=== PATIENT | male | born 1970 | race Caucasian/White ===

== ENCOUNTER → 2017-12-01 13:49 | Outpatient (CLI) | payer MEDICARE, SELFPAY ==
--- NOTE | 2017-12-01 14:03 | XR_ITS ---
XR knee RT 3V HISTORY: ITS.REASON: RT KNEE SHOULDER PAIN ORDERING PHYSICIAN: Tammy Bauer PATIENT AGE: 47 years COMPARISON: None FINDINGS: No fracture or dislocation. No lytic or blastic change. Normal mineralization. Minimal osteoarthritic changes involving medial compartment with slight decrease in the joint space and minimal osteophyte formation. No other significant findings IMPRESSION: Minimal osteoarthritic change of the medial compartment otherwise negative right knee
--- NOTE | 2017-12-01 14:03 | XR_ITS ---
XR shoulder RT min 2V HISTORY: Right shoulder pain ITS.REASON: RT KNEE SHOULDER PAIN ORDERING PHYSICIAN: Tammy Bauer PATIENT AGE: 47 years COMPARISON: None FINDINGS: Mild osteoarthritic changes are present at the acromioclavicular joint. No significant subacromial stenosis. Unremarkable glenohumeral joint. IMPRESSION: Mild osteoarthritis of the acromioclavicular joint otherwise negative right shoulder
== END ==
PROVIDERS: PCP Nurse Practitioner Family; Visit Provider Nurse Practitioner Family
DX: M23.51 Chronic instability of knee, right knee (principal); M25.511 Pain in right shoulder
CPT/HCPCS: 73030; 73562

== ENCOUNTER → 2017-12-16 10:13 | Outpatient (CLI) | payer MEDICARE, SELFPAY ==
--- NOTE | 2017-12-16 10:17 | MR_ITS ---
MR knee RT wo con HISTORY: Constant right knee pain with instability and limited range of motion ITS.REASON: RECURRENT RIGHT KNEE INSTABILITY ORDERING PHYSICIAN: Tammy Bauer PATIENT AGE: 47 years COMPARISON: 12/01/2017 xray TECHNIQUE: Standard multiplanar multiecho sequences are performed without contrast. FINDINGS: Cruciate ligaments, collateral ligaments, patellar tendon, and quadriceps tendon are intact. No evidence of meniscal tear. The patellar cartilage is preserved. There is heterogeneous signal intensity involving the distal shaft of the femur evident somewhat serpiginous pattern consistent with a bone infarction. This area measures 2.6 x 0.9 cm. There is slight increased T2 signal involving the posterior aspect of the patella centrally nonspecific. There is a small knee joint effusion. Abnormal signal intensity is present involving the proximal aspect of the tibia medially isointense on T1 and hyperintense on T2 measuring 1.2 x 1 cm. This is associated with some minimal cortical regularity of the medial tibial plateau. This could represent complex subcortical cyst. An area of osteonecrosis is also considered. Some of this region is well-circumscribed anteriorly but ill-defined posteriorly. Follow-up is recommended to confirm stability. IMPRESSION: 1. No evidence of internal derangement. 2. Small knee joint effusion. 3. Abnormal signal intensity of the proximal tibia medially as described above which could represent either a subcortical cyst or an area of osteonecrosis. Recommend continued follow-up to confirm stability. There is some minimal cortical irregularity of the articular surface of the tibia at this region as well.
--- NOTE | 2017-12-16 10:17 | MR_ITS ---
MR shoulder RT wo con COMPARISON: Radiograph 12/01/2017 HISTORY: Right shoulder pain. Instability, limited range of motion, weakness in arm ORDERING PHYSICIAN: Tammy Bauer PATIENT AGE: 47 years TECHNIQUE: Multiplanar multiecho sequences are performed without contrast. FINDINGS: There is thickening of the supraspinatus tendon with increased T2 signal distally consistent with tendinopathy/tendinosis. No definite tear of the supraspinatus or infraspinatus tendons. Subscapularis tendon is also thickened with increased T2 signal consistent with tendinopathy/tendinosis. Teres minor tendon has an unremarkable appearance. No obvious labral tear. The bicipital tendon is in place. There are hypertrophic changes of the acromioclavicular joint is causing some mild impingement upon the musculotendinous junction of the supraspinatus. IMPRESSION: 1. Acromioclavicular arthropathy with impingement upon the musculotendinous junction of the supraspinatus. 2. Tendinopathy/tendinosis of the supraspinatus and subscapularis tendons. 3. No obvious tear of the rotator cuff.
== END ==
PROVIDERS: PCP Nurse Practitioner Family; Visit Provider Nurse Practitioner Family
DX: M25.511 Pain in right shoulder (principal); M25.311 Other instability, right shoulder; M23.51 Chronic instability of knee, right knee
CPT/HCPCS: 73221; 73721

== ENCOUNTER → 2018-01-15 11:43 | Outpatient (CLI) | payer MEDICARE, SELFPAY ==
--- NOTE | 2018-01-15 | XR_ITS ---
EXAM: XR lumbar spine min 4V HISTORY: Low back pain ITS.REASON: LUMBAGO WITH SCIATICA,LEFT SIDE ORDERING PHYSICIAN: Tammy Bauer PATIENT AGE: 47 years FINDINGS: Normal alignment. No fracture or dislocation. No lytic or blastic change. Degenerative disc disease is present at L5-S1. Incidental abdominal aortic calcification noted IMPRESSION: Degenerative disc disease L5-S1
--- NOTE | 2018-01-15 | XR_ITS ---
XR hand RT min 3V HISTORY: Posttraumatic pain ITS.REASON: INJURY, INITIAL ENCOUNTER ORDERING PHYSICIAN: Tammy Bauer PATIENT AGE: 47 years COMPARISON: FINDINGS: No fracture or dislocation. No lytic or blastic change. There is normal mineralization.. The joint spaces are well-preserved. No significant degenerative/arthritic changes. No erosive changes evident.. IMPRESSION: Negative, no acute finding
== END ==
PROVIDERS: PCP Nurse Practitioner Family; Visit Provider Nurse Practitioner Family
DX: M54.42 Lumbago with sciatica, left side (principal); G89.29 Other chronic pain; S69.91XA Unspecified injury of right wrist, hand and finger(s), initial encounter
CPT/HCPCS: 72110; 73130

== ENCOUNTER → 2018-01-22 14:24 | Outpatient (CLI) | payer MEDICARE, SELFPAY ==
[2018-01-22 14:59] LABS: Basophils % 0.3 % (0.1-2.0); Eosinophils # 0.1 K/mm3 (0.0-0.4); Eosinophils % 1.4 % (0.1-12.0); Hematocrit 44.8 % (42.0-52.0); Lymphocytes # 2.5 K/mm3 (0.7-4.5); Lymphocytes % 26.1 K/mm3 (10-50); Mean Corpuscular HGB Conc 33.5 g/dL (31.8-35.4); Mean Corpuscular Volume 86.6 fl (80-94); Mean Platelet Volume 7.5 fl (7.4-10.4); Monocytes # 0.6 K/mm3 (0.1-1.0); Monocytes % 6.1 % (1.7-9.3); Neutrophils # 6.4 K/mm3 (1.8-7.8); Neutrophils % 66.1 % (37.0-80.0); Platelet Count 262 K/mm3 (142-424); Red Blood Count 5.17 M/mm3 (4.60-6.20); Red Cell Distribution Width 13.2 % (11.5-17.5); White Blood Count 9.6 K/mm3 (4.8-10.8)
[2018-01-22 16:15] LABS: Alanine Aminotransferase 25 U/L (12-78); Albumin Level 3.6 gm/dL (3.4-5.0); Albumin/Globulin Ratio 1.2 (1.1-1.8); Alkaline Phosphatase 90 U/L (46-116); Anion Gap 15.7 mEq/L (5-15); Aspartate Amino Transferase 17 U/L (15-37); Bilirubin,Total 0.4 mg/dL (0.2-1.0); Blood Urea Nitrogen 9 mg/dL (7-18); Calcium 9.1 mg/dL (8.5-10.1); Carbon Dioxide 24 mmol/L (21.0-32.0); Chloride 103 mmol/L (98-107); Creatinine,Serum 1.27 mg/dL (0.70-1.30); Estimated Glomerular Filt Rate 61 ml/min (>60); GFR (African American) 74 ML/MIN (>60); Globulin 3.1 gm/dl (1.3-3.2); Glucose 167 mg/dL (74-106); Potassium 3.7 mmoL/L (3.5-5.1); Sodium 139 mmol/L (136-145); Total Protein,Serum 6.7 gm/dL (6.4-8.2)
== END ==
PROVIDERS: Physician Assistant; Visit Provider Internal Medicine Gastroenterology
DX: K50.80 Crohn's disease of both small and large intestine without complications (principal); R10.9 Unspecified abdominal pain
CPT/HCPCS: 36415; 80053; 85025

== ENCOUNTER → 2018-03-05 12:34 | Outpatient (CLI) | payer MEDICARE, SELFPAY ==
--- NOTE | 2018-03-05 12:47 | XR_ITS ---
XR elbow RT min 3V HISTORY: Pain ORDERING PHYSICIAN: Tammy Bauer PATIENT AGE: 47 years COMPARISON: None FINDINGS: BONY STRUCTURES: No fracture or dislocation. No lytic or blastic change. Normal mineralization. SOFT TISSUES: Unremarkable. No radio opaque foreign bodies. No displaced fat pad. JOINT SPACE: Well-preserved. No significant arthritic changes evident. IMPRESSION: Negative elbow.
--- NOTE | 2018-03-05 12:47 | XR_ITS ---
XR forearm RT 2V HISTORY: Right arm pain ORDERING PHYSICIAN: Tammy Bauer PATIENT AGE: 47 years COMPARISON: None FINDINGS: No obvious fracture, dislocation, lytic change or blastic change. Normal mineralization. Unremarkable soft tissues IMPRESSION: Negative forearm
== END ==
PROVIDERS: PCP Nurse Practitioner Family; Visit Provider Nurse Practitioner Family
DX: S59.901A Unspecified injury of right elbow, initial encounter (principal); S59.911A Unspecified injury of right forearm, initial encounter
CPT/HCPCS: 73080; 73090

== ENCOUNTER → 2018-06-01 10:53 | Outpatient (POV) | payer MEDICARE, SELFPAY ==
[2018-06-01 11:12] VITALS: BP 157/98; PULSE 90; RESP 18; O2SAT 98
--- NOTE | 2018-06-01 11:51 | HMH.PMCON ---
Assessment and Plan (1) Degenerative disc disease Current visit: Yes Status: Chronic Qualifiers: Spinal region: lumbar Qualified Code(s): M51.36 - Other intervertebral disc degeneration, lumbar region Category: Medical - Assessment and plan all Dx Assessment and Plan for all problems:: We will schedule an MRI to distinguish pathology. After reviewing his MRI we will discuss the plan of care. This note was dictated using voice recognition software and may contain errors or omissions HPI - Data of Consult Consult date: 06/01/18 Requesting Physician: Yamilet Poole APRN Primary Care Provider: Tammy Bauer APRN - Consult Narrative Reason for consult: Back pain History of present illness: Mr. Moulton is a 47 year old male presents today for consultation in regards to his low back pain. Patient has had back pain he states since he was about 18 years old. He rates his pain today a 6 out of 10. Patient has had a lot of left-sided sciatica as well. Patient has tried and failed physical therapy along with injections in the past. Patient also has a significant abdominal history with a history of Crohn's disease and bowel resection. Patient states most of his pain is achy he also has numbness and tingling in his bilateral feet which he takes gabapentin and Lyrica for her mother neurologist. Patient has tried medication management in the past including methadone, morphine, Lortab, Ultracet. Patient has weaned himself off of these medications. Patient does not have any recent MRI imaging. CC: Yamilet Poole APRN [facility] History I have reviewed the patient's past medical history: Yes Medical History: Reports:: Gastroesophageal Reflux Disease(GERD) Denies:: Cancer, Diabetes Mellitus Type 1, Diabetes Mellitus Type 2, Internal Pacemaker, Lung Disease, MRSA, Seizures Other Medical History: Reports: Arthritis, Other (smoker) Other Surgeries: Yes: Colon Resection, Hernia Repair. No: Pacemaker Amputation: No Fractures: No - *Social History Smoking Status: Current every day smoker Tobacco Type: cigarettes # Packs/Day (cigarettes): 1 #Yrs smoked (if former smoker): 32 Alcohol Intake: never Substance Use Type: denies use Occupational Status: other Housing: house - Psychiatric History Expresses thoughts of harming self/others: None Suicide Plan Description: No Plan *Family Hx:: Cancer, Diabetes Review of Systems - Review of Systems ROS General: no recent weight change, no fever, no sleep disturbances Respiratory: no cough, no shortness of air, no recurring pulmonary infections Cardiovascular/Peripheral Vascular: No chest pain, No palpitations, no edema, no shortness of breath. Gastrointestinal: no incontinence, normal bowel movements reported Genitourinary: no incontinence Musculoskeletal: Back pain, left leg pain Psychiatric: normal mood/ affect Neurological: [denies weakness in extremities], [denies balance issues] Meds Home Medications Medication Instructions Recorded Confirmed Type adalimumab 10 mg/0.2 mL 40 mg SUB-Q Q2W 01/14/18 03/22/18 History subcutaneous syringe kit esomeprazole magnesium 40 mg 40 mg PO ONCE 01/14/18 03/22/18 History capsule,delayed release gabapentin 600 mg tablet 1,200 mg PO TID 01/14/18 03/22/18 History pregabalin 150 mg capsule 150 mg PO BID 01/14/18 03/22/18 History vitamin B complex tablet 1 tab PO ONCE 01/14/18 03/22/18 History Allergies Allergy/AdvReac Type Severity Reaction Status Date / Time Sulfa (Sulfonamide Allergy Mild Nausea Verified 03/14/18 22:59 Antibiotics) tetracycline Allergy Unknown Verified 03/14/18 22:59 Objective Vital signs: Pulse Resp BP Pulse Ox 90 18 157/98 98 06/01/18 11:12 06/01/18 11:12 06/01/18 11:12 06/01/18 11:12 Narrative: Physical Exam General: Alert and oriented x3, no acute distress, pleasant and cooperative, [on room air] Lungs: Resps E/U, Symmetrical ch
--- NOTE | 2018-06-01 11:55 | P.CONS_ITS ---
Assessment and Plan (1) Degenerative disc disease Current visit: Yes Status: Chronic Qualifiers: Spinal region: lumbar Qualified Code(s): M51.36 - Other intervertebral disc degeneration, lumbar region Category: Medical - Assessment and plan all Dx Assessment and Plan for all problems:: We will schedule an MRI to distinguish pathology. After reviewing his MRI we will discuss the plan of care. This note was dictated using voice recognition software and may contain errors or omissions HPI - Data of Consult Consult date: 06/01/18 Requesting Physician: Yamilet Poole APRN Primary Care Provider: Tammy Bauer APRN - Consult Narrative Reason for consult: Back pain History of present illness: Mr. Moulton is a 47 year old male presents today for consultation in regards to his low back pain. Patient has had back pain he states since he was about 18 years old. He rates his pain today a 6 out of 10. Patient has had a lot of left-sided sciatica as well. Patient has tried and failed physical therapy along with injections in the past. Patient also has a significant abdominal history with a history of Crohn's disease and bowel resection. Patient states most of his pain is achy he also has numbness and tingling in his bilateral feet which he takes gabapentin and Lyrica for her mother neurologist. Patient has tried medication management in the past including methadone, morphine, Lortab, Ultracet. Patient has weaned himself off of these medications. Patient does not have any recent MRI imaging. CC: Yamilet Poole APRN [facility] History I have reviewed the patient's past medical history: Yes Medical History: Reports:: Gastroesophageal Reflux Disease(GERD) Denies:: Cancer, Diabetes Mellitus Type 1, Diabetes Mellitus Type 2, Internal Pacemaker, Lung Disease, MRSA, Seizures Other Medical History: Reports: Arthritis, Other (smoker) Other Surgeries: Yes: Colon Resection, Hernia Repair. No: Pacemaker Amputation: No Fractures: No - *Social History Smoking Status: Current every day smoker Tobacco Type: cigarettes # Packs/Day (cigarettes): 1 #Yrs smoked (if former smoker): 32 Alcohol Intake: never Substance Use Type: denies use Occupational Status: other Housing: house - Psychiatric History Expresses thoughts of harming self/others: None Suicide Plan Description: No Plan *Family Hx:: Cancer, Diabetes Review of Systems - Review of Systems ROS General: no recent weight change, no fever, no sleep disturbances Respiratory: no cough, no shortness of air, no recurring pulmonary infections Cardiovascular/Peripheral Vascular: No chest pain, No palpitations, no edema, no shortness of breath. Gastrointestinal: no incontinence, normal bowel movements reported Genitourinary: no incontinence Musculoskeletal: Back pain, left leg pain Psychiatric: normal mood/ affect Neurological: [denies weakness in extremities], [denies balance issues] Meds Home Medications Medication Instructions Recorded Confirmed Type adalimumab 10 mg/0.2 mL 40 mg SUB-Q Q2W 01/14/18 03/22/18 History subcutaneous syringe kit esomeprazole magnesium 40 mg 40 mg PO ONCE 01/14/18 03/22/18 History capsule,delayed release gabapentin 600 mg tablet 1,200 mg PO TID 01/14/18 03/22/18 History pregabalin 150 mg capsule 150 mg PO BID 01/14/18 03/22/18 History vitamin B complex tablet 1 tab PO ONCE 01/14/18 03/22/18 History
== END ==
PROVIDERS: PCP Nurse Practitioner Family; Visit Provider Clinical Nurse Specialist Family Health
DX: M51.36 Other intervertebral disc degeneration, lumbar region (principal)
CPT/HCPCS: 99202

== ENCOUNTER → 2018-06-09 07:54 | Outpatient (CLI) | payer MEDICARE, SELFPAY ==
--- NOTE | 2018-06-09 08:01 | MR_ITS ---
MR lumbar spine wo con, MR 3-d myelogram/MRCP HISTORY: LT sided LBP. Intermittent RT leg numbness. . ITS.REASON: BACK PAIN ORDERING PHYSICIAN: Yamilet Poole PATIENT AGE: 47 years Comparison: X-Ray 01-15-18 TECHNIQUE: Standard multiplanar multiecho sequences are performed without contrast. 3-D MIP and myelographic images are also rendered and reviewed FINDINGS: There is normal alignment. The spinal cord ends at the L1 level. T12-L1, L1-L2, L2-L3, L3-L4, and L4-L5 have an unremarkable appearance. L5-S1: There is degenerative disc disease with mild concentric bulging disc. There is a small right paracentral disc protrusion which abuts the anteromedial aspect of the right S1 nerve root. A small annular fissure is present within the disc posteriorly. There are type II endplate changes at this region No extruded herniated disc or canal stenosis. IMPRESSION: Degenerative disc disease L5-S1 with bulging disc along with a small right paracentral disc protrusion and small posterior annular fissure of the disc. No extruded herniated disc or canal stenosis
== END ==
PROVIDERS: PCP Nurse Practitioner Family; Visit Provider Clinical Nurse Specialist Family Health
DX: M54.5 Low back pain (principal)
CPT/HCPCS: 72148; 76376

== ENCOUNTER → 2018-06-21 13:42 | Outpatient (POV) | payer MEDICARE, SELFPAY ==
[2018-06-21 14:33] VITALS: BP 168/98; PULSE 94; RESP 18; O2SAT 97; BMI 29.2
--- NOTE | 2018-06-22 08:41 | HMH.PAINSOAP ---
[facility] Pain Management SOAP Note Subjective:: Patient is a pleasant 47-year-old white male who presents today for follow-up after recent MRI. Patient's MRI does show degenerative disc disease along with a disc protrusion abutting the right S1 nerve root. Patient and I had a long discussion about treatment options. Patient has had medication management in the plastic including methadone/morphine/Lortab/Ultracet. Patient has been able to wean himself off these medications. Patient and I discussed neuro stimulation along with a neurosurgical consultation. ROS General: no recent weight change, no fever, no sleep disturbances Respiratory: no cough, no shortness of air, no recurring pulmonary infections Cardiovascular/Peripheral Vascular: No chest pain, No palpitations, no edema, no shortness of breath. Gastrointestinal: no incontinence, normal bowel movements reported Genitourinary: no incontinence Musculoskeletal: Back pain, leg pain Psychiatric: normal mood/ affect Neurological: [denies weakness in extremities], [denies balance issues] Objective:: Physical Exam General: Alert and oriented x3, no acute distress, pleasant and cooperative, [on room air] Lungs: Resps E/U, Symmetrical chest expansion, Eyes: PERRL Musculoskeletal: Flexion and extension of lumbar spine somewhat guarded secondary to pain, deep tendon reflexes normal, strength in upper and lower extremities [5/5], [abnormal gait noted] Neurological: speech clear, field recruiter equal, no gross sensory deficits Assessment:: Degenerative disc disease lumbar spine with lumbar radiculopathy Plan:: I gave the patient information in regards to her neurostimulator. Patient is interested in perhaps pursuing this. We will also send him for a consultation to Dr. Woodward to see if he is a surgical candidate. I will follow-up with him after his neurosurgical consultation. This note was dictated using voice recognition software and may contain errors or omissions
== END ==
PROVIDERS: PCP Nurse Practitioner Family; Visit Provider Clinical Nurse Specialist Family Health
DX: M51.16 Intervertebral disc disorders with radiculopathy, lumbar region (principal)
CPT/HCPCS: 99213

== ENCOUNTER → 2018-07-06 15:34 | Outpatient (CLI) | payer MEDICARE, SELFPAY ==
[2018-07-23 19:58] LABS: Interpretation: NEGATIVE
== END ==
PROVIDERS: PCP Nurse Practitioner Family; Visit Provider Internal Medicine Gastroenterology
DX: K50.80 Crohn's disease of both small and large intestine without complications (principal)
CPT/HCPCS: 36415; 86480

== ENCOUNTER → 2018-07-26 11:13 | Outpatient (POV) | payer MEDICARE, SELFPAY ==
[2018-07-26 11:24] VITALS: BP 146/101; PULSE 99; RESP 18; O2SAT 98; BMI 29.5
--- NOTE | 2018-07-26 11:35 | HMH.PAINSOAP ---
[facility] Pain Management SOAP Note Subjective:: Patient is a pleasant 47-year-old white male who presents today for follow-up. Patient is awaiting a neurosurgical consultation. Patient states he has been having increased right leg pain and back pain. Patient has tried multiple medications including methadone/morphine/Lortab/Ultracet. Patient and I discussed what he can do in the meantime while he is waiting. Patient is not on any anti-inflammatories. We will try this. He rates his pain 8 out of 10 today. ROS General: no recent weight change, no fever, no sleep disturbances Respiratory: no cough, no shortness of air, no recurring pulmonary infections Cardiovascular/Peripheral Vascular: No chest pain, No palpitations, no edema, no shortness of breath. Gastrointestinal: no incontinence, normal bowel movements reported Genitourinary: no incontinence Musculoskeletal: Back pain, right leg pain Psychiatric: normal mood/ affect Neurological: [denies weakness in extremities], [denies balance issues] Objective:: Physical Exam General: Alert and oriented x3, no acute distress, pleasant and cooperative, [on room air] Lungs: Resps E/U, Symmetrical chest expansion, Eyes: PERRL Musculoskeletal: Flexion and extension of lumbar spine somewhat guarded secondary to pain, deep tendon reflexes normal, strength in upper and lower extremities [5/5], [abnormal gait noted] Neurological: speech clear, carbon capture power plant engineer equal, no gross sensory deficits Assessment:: Degenerative disc disease lumbar spine with lumbar radiculopathy Plan:: We will give the patient Celebrex 200 mg 1 p.o. daily and see if this helps him. We will see him back in 2 weeks and reassess his symptoms at that time. This note was dictated using voice recognition software and may contain errors or omissions
--- NOTE | 2018-07-26 11:38 | P.CONS_ITS ---
[facility] Pain Management SOAP Note Subjective:: Patient is a pleasant 47-year-old white male who presents today for follow-up. Patient is awaiting a neurosurgical consultation. Patient states he has been having increased right leg pain and back pain. Patient has tried multiple medications including methadone/morphine/Lortab/Ultracet. Patient and I discussed what he can do in the meantime while he is waiting. Patient is not on any anti-inflammatories. We will try this. He rates his pain 8 out of 10 today. ROS General: no recent weight change, no fever, no sleep disturbances Respiratory: no cough, no shortness of air, no recurring pulmonary infections Cardiovascular/Peripheral Vascular: No chest pain, No palpitations, no edema, no shortness of breath. Gastrointestinal: no incontinence, normal bowel movements reported Genitourinary: no incontinence Musculoskeletal: Back pain, right leg pain Psychiatric: normal mood/ affect Neurological: [denies weakness in extremities], [denies balance issues] Objective:: Physical Exam General: Alert and oriented x3, no acute distress, pleasant and cooperative, [on room air] Lungs: Resps E/U, Symmetrical chest expansion, Eyes: PERRL Musculoskeletal: Flexion and extension of lumbar spine somewhat guarded secondary to pain, deep tendon reflexes normal, strength in upper and lower extremities [5/5], [abnormal gait noted] Neurological: speech clear, junior oracle dba equal, no gross sensory deficits Assessment:: Degenerative disc disease lumbar spine with lumbar radiculopathy Plan:: We will give the patient Celebrex 200 mg 1 p.o. daily and see if this helps him. We will see him back in 2 weeks and reassess his symptoms at that time. This note was dictated using voice recognition software and may contain errors or omissions
== END ==
PROVIDERS: PCP Nurse Practitioner Family; Visit Provider Clinical Nurse Specialist Family Health
DX: M51.16 Intervertebral disc disorders with radiculopathy, lumbar region (principal)
CPT/HCPCS: 99213

== ENCOUNTER → 2018-08-09 11:45 | Outpatient (POV) | payer MEDICARE, SELFPAY ==
[2018-08-09 12:09] VITALS: BP 142/91; PULSE 89; RESP 18; O2SAT 98; BMI 29.5
--- NOTE | 2018-08-09 12:48 | HMH.PAINSOAP ---
[facility] Pain Management SOAP Note Subjective:: Is a pleasant 47-year-old white male who presents today for follow-up. Patient has been on Celebrex 200 mg 1 p.o. daily. Patient states it is not helping his back pain. He rates his pain 8 out of 10. Patient does have a consultation with a neurosurgeon on the of this month. He has back pain with increased right leg pain. I tried multiple medications including methadone/morphine/Lortab/Ultracet. At this time I believe that he needs to have a surgical consult before we can proceed with any therapies. ROS General: no recent weight change, no fever, no sleep disturbances Respiratory: no cough, no shortness of air, no recurring pulmonary infections Cardiovascular/Peripheral Vascular: No chest pain, No palpitations, no edema, no shortness of breath. Gastrointestinal: no incontinence, normal bowel movements reported Genitourinary: no incontinence Musculoskeletal: Back pain, leg pain Psychiatric: normal mood/ affect Neurological: [denies weakness in extremities], [denies balance issues] Objective:: Physical Exam General: Alert and oriented x3, no acute distress, pleasant and cooperative, [on room air] Lungs: Resps E/U, Symmetrical chest expansion, Eyes: PERRL Musculoskeletal: Flexion and extension of lumbar spine somewhat guarded secondary to pain, deep tendon reflexes normal, strength in upper and lower extremities [5/5], antalgic gait noted Neurological: speech clear, cement tester assistant equal, no gross sensory deficits Assessment:: Degenerative disc disease lumbar spine with radiculopathy Plan:: The patient has an appointment with neurosurgery on the of this month. I will follow-up with him after this. This note was dictated using voice recognition software and may contain errors or omissions
--- NOTE | 2018-08-09 12:53 | P.CONS_ITS ---
[facility] Pain Management SOAP Note Subjective:: Is a pleasant 47-year-old white male who presents today for follow-up. Patient has been on Celebrex 200 mg 1 p.o. daily. Patient states it is not helping his back pain. He rates his pain 8 out of 10. Patient does have a consultation with a neurosurgeon on the of this month. He has back pain with increased right leg pain. I tried multiple medications including methadone/morphine/Lortab/Ultracet. At this time I believe that he needs to have a surgical consult before we can proceed with any therapies. ROS General: no recent weight change, no fever, no sleep disturbances Respiratory: no cough, no shortness of air, no recurring pulmonary infections Cardiovascular/Peripheral Vascular: No chest pain, No palpitations, no edema, no shortness of breath. Gastrointestinal: no incontinence, normal bowel movements reported Genitourinary: no incontinence Musculoskeletal: Back pain, leg pain Psychiatric: normal mood/ affect Neurological: [denies weakness in extremities], [denies balance issues] Objective:: Physical Exam General: Alert and oriented x3, no acute distress, pleasant and cooperative, [on room air] Lungs: Resps E/U, Symmetrical chest expansion, Eyes: PERRL Musculoskeletal: Flexion and extension of lumbar spine somewhat guarded seco ndary to pain, deep tendon reflexes normal, strength in upper and lower extremities [5/5], antalgic gait noted Neurological: speech clear, control systems developer equal, no gross sensory deficits Assessment:: Degenerative disc disease lumbar spine with radiculopathy Plan:: The patient has an appointment with neurosurgery on the of this month. I will follow-up with him after this. This note was dictated using voice recognition software and may contain errors or omissions
== END ==
PROVIDERS: PCP Nurse Practitioner Family; Visit Provider Clinical Nurse Specialist Family Health
DX: M51.16 Intervertebral disc disorders with radiculopathy, lumbar region (principal)
CPT/HCPCS: 99213

== ENCOUNTER → 2018-08-12 12:07 | Outpatient (CLI) | payer MEDICARE, SELFPAY ==
--- NOTE | 2018-08-12 12:14 | XR_ITS ---
EXAM: XR cervical spine 5V HISTORY: ITS.REASON: CERVICALGIA, NECK SWELLING ORDERING PHYSICIAN: Tammy Bauer PATIENT AGE: 47 years COMPARISON: None FINDINGS: Normal alignment. No fracture or dislocation. No lytic or blastic change. No significant degenerative change. The disc spaces are preserved. The neural foramina are widely patent. No cervical ribs IMPRESSION: Negative cervical spine
== END ==
PROVIDERS: PCP Nurse Practitioner Family; Visit Provider Nurse Practitioner Family
DX: M54.2 Cervicalgia (principal); R22.1 Localized swelling, mass and lump, neck
CPT/HCPCS: 72050

== ENCOUNTER → 2018-08-30 09:37 | Outpatient (POV) | payer MEDICARE, SELFPAY ==
[2018-08-30 10:08] VITALS: BP 133/92; PULSE 72; RESP 18; O2SAT 98; BMI 30.8
--- NOTE | 2018-08-30 10:30 | P.CONS_ITS ---
[facility] Pain Management SOAP Note Subjective:: Is a pleasant 48-year-old white male who presents today for follow-up. Patient was seen by Dr. Woodward and was deemed not a surgical candidate. Patient still having neck and back pain. He rates his pain at 8 out of 10. Patient has tried and failed medications in the past including methadone, morphine, Lortab, Ultracet. Patient and I have discussed in neurostimulator and he is interested in pursuing this. Patient has had injective therapy with no relief. Patient's not on any anti-coagulation therapy. Patient is continuing a home stretching program. Patient just wants to be as functional as possible. ROS General: no recent weight change, no fever, no sleep disturbances Respiratory: no cough, no shortness of air, no recurring pulmonary infections Cardiovascular/Peripheral Vascular: No chest pain, No palpitations, no edema, no shortness of breath. Gastrointestinal: no incontinence, normal bowel movements reported Genitourinary: no incontinence Musculoskeletal: Back pain, leg pain, neck pain, arm pain Psychiatric: normal mood/ affect Neurological: [denies weakness in extremities], [denies balance issues] Objective:: Physical Exam General: Alert and oriented x3, no acute distress, pleasant and cooperative, [on room air] Lungs: Resps E/U, Symmetrical chest expansion, Eyes: PERRL Musculoskeletal: Flexion and extension of cervical and lumbar spine somewhat guarded secondary to pain, deep tendon reflexes normal, strength in upper and lower extremities [5/5], [abnormal gait noted] Neurological: speech clear, store receiving specialist equal, no gross sensory deficits Assessment:: Degenerative disc disease lumbar spine with lumbar radiculopathy and degenerative disc disease cervical spine with cervical radiculopathy Plan:: We will schedule him for a nuvectra neurostimulator trial to see if this is beneficial for him. I answered his questions. I went over the process with him. Patient does not have any open wounds or active infections. This note was dictated using voice recognition software and may contain errors or omissions
== END ==
PROVIDERS: PCP Nurse Practitioner Family; Visit Provider Clinical Nurse Specialist Family Health
DX: M51.16 Intervertebral disc disorders with radiculopathy, lumbar region (principal); M50.10 Cervical disc disorder with radiculopathy, unspecified cervical region
CPT/HCPCS: 99213

== ENCOUNTER → 2018-09-22 15:38 | Outpatient (CLI) | payer MEDICARE, SELFPAY ==
--- NOTE | 2018-09-22 15:46 | XR_ITS ---
XR elbow LT min 3V HISTORY: ITS.REASON: LEFT ELBOW PAIN,LEFT ARM WEAKNESS ORDERING PHYSICIAN: Tammy Bauer PATIENT AGE: 48 years COMPARISON: None FINDINGS: BONY STRUCTURES: No fracture or dislocation. No lytic or blastic change. Normal mineralization. SOFT TISSUES: Unremarkable. No radio opaque foreign bodies. No displaced fat pad. JOINT SPACE: Well-preserved. No significant arthritic changes evident. IMPRESSION: Negative elbow.
== END ==
PROVIDERS: PCP Nurse Practitioner Family; Visit Provider Nurse Practitioner Family
DX: M25.522 Pain in left elbow (principal); R29.898 Other symptoms and signs involving the musculoskeletal system
CPT/HCPCS: 73080

== ENCOUNTER → 2018-11-09 14:43 | Outpatient (CLI) | payer MEDICARE, SELFPAY ==
[2018-11-09 15:08] LABS: Basophils % 0.5 % (0.1-2.0); Eosinophils # 0.1 K/mm3 (0.0-0.4); Eosinophils % 1.5 % (0.1-12.0); Hematocrit 48.4 % (42.0-52.0); Hemoglobin 16.1 g/dL (14.1-18.0); Lymphocytes # 2.2 K/mm3 (0.7-4.5); Lymphocytes % 29.8 % (10-50); Mean Corpuscular HGB Conc 33.3 g/dL (31.8-35.4); Mean Corpuscular Hemoglobin 28.9 pg (27.0-31.2); Mean Corpuscular Volume 86.9 fl (80-94); Mean Platelet Volume 7.3 fl (7.4-10.4); Monocytes # 0.3 K/mm3 (0.1-1.0); Neutrophils # 4.8 K/mm3 (1.8-7.8); Neutrophils % 64.3 % (37.0-80.0); Platelet Count 297 K/mm3 (142-424); Red Blood Count 5.57 M/mm3 (4.60-6.20); Red Cell Distribution Width 13.9 % (11.5-17.5); White Blood Count 7.4 K/mm3 (4.8-10.8)
[2018-11-09 15:56] LABS: Alanine Aminotransferase 43 U/L (12-78); Albumin/Globulin Ratio 1.1 (1.1-1.8); Alkaline Phosphatase 96 U/L (46-116); Anion Gap 11.2 mEq/L (5-15); Aspartate Amino Transferase 17 U/L (15-37); Bilirubin,Total 0.7 mg/dL (0.2-1.0); Blood Urea Nitrogen 11 mg/dL (7-18); Calcium 9.3 mg/dL (8.5-10.1); Carbon Dioxide 31 mmol/L (21.0-32.0); Chloride 103 mmol/L (98-107); Creatinine,Serum 1.27 mg/dL (0.70-1.30); Estimated Glomerular Filt Rate 61 ml/min (>60); GFR (African American) 74 ML/MIN (>60); Globulin 3.8 gm/dl (1.3-3.2); Glucose 97 mg/dL (74-106); Potassium 4.2 mmoL/L (3.5-5.1); Sodium 141 mmol/L (136-145); Total Protein,Serum 7.8 gm/dL (6.4-8.2)
== END ==
PROVIDERS: Visit Provider Dietitian, Registered
DX: K50.80 Crohn's disease of both small and large intestine without complications (principal)
CPT/HCPCS: 36415; 80053; 85025

== ENCOUNTER → 2019-03-04 13:48 | Outpatient (CLI) | payer MEDICARE, SELFPAY ==
--- NOTE | 2019-03-04 13:58 | XR_ITS ---
XR finger LT min 2V CLINICAL INDICATION: ITS.REASON: LT RING FINGER INJURY ORDERING PHYSICIAN: Tammy Bauer APRN PATIENT AGE: 48 years Comparison: None FINDINGS: Bone density, joint spaces and alignment are normal. There is no acute fracture. There is some increased density mild prominence of the soft tissues at the distal left fourth digit especially anteriorly without radiopaque soft tissue foreign body. IMPRESSION: No acute osseous process. Soft tissue injury.
== END ==
PROVIDERS: PCP Nurse Practitioner Family; Visit Provider Nurse Practitioner Family
DX: S69.92XA Unspecified injury of left wrist, hand and finger(s), initial encounter (principal)
CPT/HCPCS: 73140

== ENCOUNTER → 2019-04-25 16:25 | Outpatient (CLI) | payer MEDICARE, SELFPAY ==
--- NOTE | 2019-04-25 16:31 | XR_ITS ---
PROCEDURE: XR LUMBAR SPINE MIN 4V CLINICAL INDICATION: INJURY LOW BACK,NUMBNESS OF RT LOWER EXTREMITY COMPARISON: [id number] XR lumbar spine min 4V from 01/15/[address] abdomen pelvis w con from 11/28/2018 FINDINGS: Normal alignment. No fracture or dislocation. There degenerative disc disease at L5-S1. IMPRESSION: Degenerative disc disease L5-S1 Dictated by: Ye Bailey MD 04/25/2019 19:17 Signed by: <Electronically signed by Ye Bailey MD in [place]> 04/25/2019 19:17
== END ==
PROVIDERS: PCP Nurse Practitioner Family; Visit Provider Nurse Practitioner Family
DX: S39.92XA Unspecified injury of lower back, initial encounter (principal); R20.0 Anesthesia of skin
CPT/HCPCS: 72110

== ENCOUNTER → 2019-07-12 10:20 | Outpatient (CLI) | payer MEDICARE, SELFPAY ==
--- NOTE | 2019-07-12 11:01 | XR_ITS ---
PROCEDURE: XR THORACIC SPINE 3V CLINICAL INDICATION: INJURY OF THE THORAX Back pain, pain between shoulder blades COMPARISON: CXR2V XR chest 2V from 12/19/2018 FINDINGS: Normal alignment. There is mild decrease in height anteriorly of T7 T4 and T3. This however is chronic not significantly changed. No acute fracture or dislocation. No lytic or blastic change IMPRESSION: Chronic changes, no acute finding Dictated by: Ye Bailey MD 07/12/2019 14:14 Electronically signed by Ye Bailey MD in [place] 07/12/2019 14:14
== END ==
PROVIDERS: PCP Nurse Practitioner Family; Visit Provider Nurse Practitioner Family
DX: S29.9XXA Unspecified injury of thorax, initial encounter (principal)
CPT/HCPCS: 72072

== ENCOUNTER → 2019-07-13 07:55 | Outpatient (CLI) | payer MEDICARE, SELFPAY ==
--- NOTE | 2019-07-13 07:59 | US_ITS ---
PROCEDURE: US ABDOMEN COMPLETE CLINICAL INDICATION: ABD WALL MASSOF RLQ COMPARISON: ABDPELW CT abdomen pelvis w con from 11/28/2018 FINDINGS: The palpable area in the right abdominal wall corresponds to a 3.6 x 1.3 by 3.7 cm area of heterogeneous echogenicity. This is oval in nature and may be due to a lipoma. This could be confirmed with CT if clinically desired. There are 2 other similar echogenic areas in the right abdominal wall at 2 and 1.6 cm. IMPRESSION: Probable abdominal wall lipomas which could be confirmed with CT if clinically desired. Differential diagnosis would include other soft tissue tumors. Dictated by: Ye Bailey MD 07/13/2019 11:35 Electronically signed by Ye Bailey MD in [place] 07/14/2019 06:46
== END ==
PROVIDERS: PCP Nurse Practitioner Family; Visit Provider Nurse Practitioner Family
DX: R19.03 Right lower quadrant abdominal swelling, mass and lump (principal)
CPT/HCPCS: 76700

== ENCOUNTER → 2019-07-18 14:19 | Outpatient (CLI) | payer MEDICARE, SELFPAY ==
--- NOTE | 2019-07-18 14:25 | XR_ITS ---
PROCEDURE: XR TIBIA FIBULA RT 2V CLINICAL INDICATION: INJURY TO RT LOWER EXT Posttraumatic pain COMPARISON: XR ANKLE RT MIN 3V from 07/18/2019 FINDINGS: No fracture, dislocation, lytic change, or blastic change evident. No significant degenerative change IMPRESSION: No acute findings. Dictated by: Ye Bailey MD 07/18/2019 16:36 Electronically signed by Ye Bailey MD in [place] 07/18/2019 16:36
--- NOTE | 2019-07-18 14:25 | XR_ITS ---
PROCEDURE: XR ANKLE RT MIN 3V CLINICAL INDICATION: RT ANKLE INJURY COMPARISON: XR TIBIA FIBULA RT 2V from 07/18/2019 FINDINGS: No fracture, dislocation, lytic change, or blastic change evident. No significant degenerative change. There is a lucency at the anterior and distal aspect of the tibia. This however is well-circumscribed and does not have a typical appearance for an acute fracture. IMPRESSION: No acute findings. Dictated by: Ye Bailey MD 07/18/2019 16:35 Electronically signed by Ye Bailey MD in [place] 07/18/2019 16:35
== END ==
LOC: RAD 14:21
PROVIDERS: PCP Nurse Practitioner Family; Visit Provider Nurse Practitioner Family
DX: S89.91XA Unspecified injury of right lower leg, initial encounter (principal); S99.911A Unspecified injury of right ankle, initial encounter
CPT/HCPCS: 73590; 73610

== ENCOUNTER → 2019-08-08 11:06 | Outpatient (CLI) | payer MEDICARE, SELFPAY ==
--- NOTE | 2019-08-08 11:28 | ECG_ITS ---
APPROVED REPORT Exam: Resting ECG HR:85 bpm ECG Measurements Heart Rate 85 AXES FL 124 P 42 QRSd 84 QRS -8 QT 356 T 38 QTc 423 <Conclusion> Normal sinus rhythm Normal ECG Electronically signed by : Som Kent, 08/12/2019 16:44:05
[2019-08-08 11:51] LABS: Basophils % 0.3 % (0.1-2.0); Eosinophils # 0.1 K/mm3 (0.0-0.4); Eosinophils % 1.5 % (0.1-12.0); Hematocrit 46.7 % (42.0-52.0); Hemoglobin 15.4 g/dL (14.1-18.0); Lymphocytes # 2.4 K/mm3 (0.7-4.5); Lymphocytes % 26.5 % (10-50); Mean Corpuscular HGB Conc 32.9 g/dL (31.8-35.4); Mean Corpuscular Hemoglobin 30.5 pg (27.0-31.2); Mean Corpuscular Volume 92.7 fl (80-94); Mean Platelet Volume 7.8 fl (7.4-10.4); Monocytes # 0.5 K/mm3 (0.1-1.0); Neutrophils # 5.9 K/mm3 (1.8-7.8); Neutrophils % 65.6 % (37.0-80.0); Platelet Count 260 K/mm3 (142-424); Red Blood Count 5.04 M/mm3 (4.60-6.20); Red Cell Distribution Width 13.7 % (11.5-17.5); White Blood Count 8.9 K/mm3 (4.8-10.8)
[2019-08-08 13:56] LABS: Anion Gap 14.2 mEq/L (5-15); Blood Urea Nitrogen 11 mg/dL (7-18); Calcium 8.9 mg/dL (8.5-10.1); Carbon Dioxide 28 mmol/L (21.0-32.0); Chloride 103 mmol/L (98-107); Creatinine,Serum 1.26 mg/dL (0.70-1.30); Estimated Glomerular Filt Rate 62 ml/min (>60); GFR (African American) 75 ML/MIN (>60); Glucose 98 mg/dL (74-106); Potassium 4.2 mmoL/L (3.5-5.1); Sodium 141 mmol/L (136-145)
== END ==
PROVIDERS: Visit Provider Surgery
DX: D17.1 Benign lipomatous neoplasm of skin and subcutaneous tissue of trunk (principal)
CPT/HCPCS: 36415; 80048; 85025; 93005

== ENCOUNTER → 2019-12-28 13:53 | Outpatient (CLI) | payer MEDICARE, SELFPAY ==
[2019-12-28 14:16] LABS: Basophils # 0.1 K/mm3 (0-0.2); Basophils % 0.9 % (0.1-2.0); Eosinophils # 0.1 K/mm3 (0.0-0.4); Eosinophils % 1.3 % (0.1-12.0); Hematocrit 43.4 % (42.0-52.0); Hemoglobin 14.7 g/dL (14.1-18.0); Lymphocytes % 24.3 % (10-50); Mean Corpuscular HGB Conc 33.8 g/dL (31.8-35.4); Mean Corpuscular Hemoglobin 28.9 pg (27.0-31.2); Mean Corpuscular Volume 85.5 fl (80-94); Mean Platelet Volume 7.8 fl (7.4-10.4); Monocytes # 0.6 K/mm3 (0.1-1.0); Monocytes % 7.4 % (1.7-9.3); Neutrophils # 5.3 K/mm3 (1.8-7.8); Neutrophils % 66.1 % (37.0-80.0); Platelet Count 274 K/mm3 (142-424); Red Blood Count 5.08 M/mm3 (4.60-6.20); Red Cell Distribution Width 14.8 % (11.5-17.5); White Blood Count 8.1 K/mm3 (4.8-10.8)
[2019-12-28 14:41] LABS: Adenovirus F 40/41, stool Not Detected (NotDetected); Astrovirus Not Detected (NotDetected); Campylobacter Not Detected (NotDetected); Clostridium Difficile A/B, PCR Not Detected (NotDetected); Cryptosporidium Not Detected (NotDetected); Cyclospora Cayetanesis Not Detected (NotDetected); Entamoeba histolytica Not Detected (NotDetected); Enteroaggregative E coli Not Detected (NotDetected); Enteropathogenic E coli Not Detected (NotDetected); Enterotoxigenic E coli Not Detected (NotDetected); Giardia lamblia Not Detected (NotDetected); Norovirus Not Detected (NotDetected); Plesimonas Shigalloides, PCR Not Detected (NotDetected); Rotavirus A Not Detected (NotDetected); Salmonella, PCR Not Detected (NotDetected); Sapovirus Not Detected (NotDetected); Shiga-like toxin E coli Not Detected (NotDetected); Shigella Enterovasive E coli Not Detected (NotDetected); Vibrio Cholerae Not Detected (NotDetected); Vibrio, PCR Not Detected (NotDetected); Yersinia Entercolitica, PCR Not Detected (NotDetected)
[2019-12-28 16:28] LABS: Chloride 106 mmol/L (98-107); Potassium 4.4 mmoL/L (3.5-5.1); Sodium 138 mmol/L (136-145)
[2019-12-28 16:30] LABS: Alanine Aminotransferase 25 U/L (12-78); Aspartate Amino Transferase 25 U/L (17-59); Blood Urea Nitrogen 9 mg/dl (9-20); Estimated Glomerular Filt Rate 90 ml/min (>60); GFR (African American) 109 ML/MIN (>60)
[2019-12-28 16:31] LABS: Albumin Level 4.1 g/dl (3.5-5.0); Albumin/Globulin Ratio 1.5 (1.1-1.8); Alkaline Phosphatase 69 U/L (38-126); Anion Gap 8.4 mEq/L (5-15); Bilirubin,Total 0.5 mg/dl (0.2-1.3); Calcium 9.3 mg/dl (8.4-10.2); Carbon Dioxide 28 mmol/L (22.0-30.0); Globulin 2.8 g/dL (1.3-3.2); Glucose 92 mg/dl (74-100); Total Protein,Serum 6.9 g/dl (6.3-8.2)
[2019-12-28 16:37] LABS: C-Reactive Protein 1.2 mg/L (0-4)
[2020-01-03 12:42] LABS: Calprotectin, Fecal 234 ug/g (0-120)
== END ==
PROVIDERS: Visit Provider Internal Medicine Gastroenterology
DX: K50.80 Crohn's disease of both small and large intestine without complications (principal)
CPT/HCPCS: 36415; 80053; 83993; 85025; 86140; 87507

== ENCOUNTER → 2020-05-12 13:23 | Outpatient (CLI) | payer MEDICARE, SELFPAY ==
[2020-05-13 09:18] LABS: Covid-19 Nasal PCR Sendout UK Not Detected
== END ==
PROVIDERS: PCP Nurse Practitioner Family; Visit Provider Nurse Practitioner
DX: Z03.818 Encounter for observation for suspected exposure to other biological agents ruled out (principal)
CPT/HCPCS: U0003

== ENCOUNTER → 2020-06-21 14:00 | Outpatient (CLI) | payer MEDICARE, SELFPAY ==
[2020-06-22 13:55] LABS: Covid-19 Nasal PCR Sendout Lex Not Detected
[2020-06-30 08:16] LABS: Calprotectin, Fecal 160 ug/g (0-120)
== END ==
PROVIDERS: Dietitian, Registered; Visit Provider Internal Medicine Gastroenterology
DX: Z03.818 Encounter for observation for suspected exposure to other biological agents ruled out (principal); K50.80 Crohn's disease of both small and large intestine without complications
CPT/HCPCS: 83993; U0004

== ENCOUNTER 2020-07-20 12:15 | Emergency (ER) | payer MEDICARE, SELFPAY ==
--- NOTE | 2020-07-20 13:06 | HMH.EDUTC ---
[facility] [place] Clinical Impression: Exposure to COVID-19 virus Disposition: Home, Self-Care Condition on Discharge: Good Instructions: Preventing the Spread of Coronavirus Discharge Instructions Additional Instructions: Drink plenty of fluids. Take tylenol for pain or fever. Follow up with your regular doctor. GO TO THE ER FOR ANY WORSENING SYMPTOMS Referrals: Tammy Bauer APRN [Primary Care Provider] - Time of Disposition: 13:07 Medical Decision Making - Medical Records Medical records reviewed: No: I reviewed the patient's medical records. - Iam Inquiry Pt receiving controlled substance: No Vital Signs: 07/20/20 13:07 07/20/20 13:49 Temperature 98 F Pulse Rate 91 H Pulse Rate [Radial] 91 H Respiratory Rate 18 18 Blood Pressure 126/83 Blood Pressure [Right Arm] 126/83 Blood Pressure Mean [Right Arm] 97 Blood Pressure Source Automatic Cuff Blood Pressure Source [Right Arm] Automatic Cuff Blood Pressure Position Sitting Blood Pressure Position [Right Arm] Sitting 02 Sat by Pulse Oximetry 97 Oxygen Delivery Method Room Air Room Air Orders (Tests/Meds): ORDERS Category Date Time Status Covid-19 Nasal PCR ([facility]) Stat Lab 07/20/20 12:51 Received [facility] [place] HPI - General Stated complaint: covid exposure Time Seen by Provider: 07/20/20 13:06 - History of Present Illness Provider Complaint: He was exposed to covid, He denies any symptoms but he needs to be tested. - Related Data Home Medications Medication Instructions Recorded Confirmed esomeprazole magnesium 40 mg 40 mg PO DAILY 01/14/18 08/24/19 capsule,delayed release gabapentin 600 mg tablet 1,200 mg PO TID 01/14/18 08/24/19 pregabalin 150 mg capsule 150 mg PO TID 01/14/18 08/24/19 Mercaptopurine 50 mg PO DAILY 04/22/19 08/24/19 Previous Rx's Medication Instructions Recorded Albuterol Sulfate [Albuterol HFA 1 - 2 puffs IH Q4-6H PRN #1 inh 08/24/19 Inhaler] Azithromycin [Z-Heriberto 250mg Tab*] 250 mg PO UD DOSE PK #6 tab 08/24/19 predniSONE [Prednisone 5mg Tab 5 mg PO UD DOSE PK 6 Days #21 pack 08/24/19 Dose-Pack] Allergies Allergy/AdvReac Type Severity Reaction Status Date / Time Sulfa (Sulfonamide Allergy Mild Nausea Verified 08/24/19 13:59 Antibiotics) tetracycline Allergy Unknown Verified 08/24/19 13:59 [facility] History - Hepatitis A Screen Attestation statement:: This patient has been screened for Hepatitis A risk factors. I have reviewed the patient's past medical history: Yes Medical History: Reports:: Gastroesophageal Reflux Disease(GERD) Denies:: Cancer, Diabetes Mellitus Type 1, Diabetes Mellitus Type 2, Internal Pacemaker, Lung Disease, MRSA, Seizures Other Medical History: Reports: Arthritis, Other (smoker). Denies: Blood Transfusion Reaction Other Surgeries: Yes: Colonoscopy, Colon Resection, Hernia Repair, Other. No: Pacemaker Amputation: No Fractures: No Comment: lipoma excision - Social History Smoking Status: Current every day smoker Tobacco Type: cigarettes # Packs/Day (cigarettes): 1 #Yrs smoked (if former smoker): 32 Alcohol Intake: never Substance Use Type: denies use Occupational Status: disabled, other Housing: house Household Members: spouse Family Hx:: Cancer, Diabetes ROS Obtained: Yes All systems reviewed & no additional complaints - Constitutional Constitutional: Reports system reviewed and no additional complaints, except as docu - Eyes Eyes: Reports system reviewed and no additional complaints, except as docu - ENT Ears, Nose, Mouth, and Throat: Reports system reviewed and no additional complaints, except as docu - Cardiovascular Cardiovascular: Reports system reviewed and no additional complaints, except as docu - Respiratory Respiratory: Yes system reviewed and no additional complaints, except as docu Physical Exam - General General appearance: alert, in no apparent distress - Head Head exam: atraumatic, normoc
[2020-07-20 13:07] VITALS: BP 126/83; PULSE 91; RESP 18; O2SAT 97; BMI 29.9
[2020-07-20 13:49] VITALS: BP 126/83; PULSE 91; RESP 18; TEMP 36.6; O2SAT 97
== END 2020-07-20 13:51 | disposition home or self-care (01) ==
PROVIDERS: Emergency Provider Nurse Practitioner Family; PCP Nurse Practitioner Family
DX: Z20.828 Contact with and (suspected) exposure to other viral communicable diseases (principal); K21.9 Gastro-esophageal reflux disease without esophagitis; Z79.899 Other long term (current) drug therapy; F17.210 Nicotine dependence, cigarettes, uncomplicated; Z88.2 Allergy status to sulfonamides
CPT/HCPCS: G0463; 99201; U0003

== ENCOUNTER 2020-08-06 11:04 | Outpatient (CLI) | payer MEDICARE, SELFPAY ==
[2020-08-06 11:06] VITALS: BMI 30.7
[2020-08-06 11:24] LABS: Basophils % 0.4 % (0.1-2.0); Eosinophils # 0.2 K/mm3 (0.0-0.4); Eosinophils % 2.3 % (0.1-12.0); Hematocrit 45.7 % (42.0-52.0); Hemoglobin 15.6 g/dL (14.1-18.0); Lymphocytes # 1.6 K/mm3 (0.7-4.5); Lymphocytes % 21.6 % (10-50); Mean Corpuscular HGB Conc 34.2 g/dL (31.8-35.4); Mean Corpuscular Volume 84.9 fl (80-94); Mean Platelet Volume 7.5 fl (7.4-10.4); Monocytes # 0.3 K/mm3 (0.1-1.0); Monocytes % 4.4 % (1.7-9.3); Neutrophils # 5.3 K/mm3 (1.8-7.8); Neutrophils % 71.2 % (37.0-80.0); Platelet Count 268 K/mm3 (142-424); Red Blood Count 5.38 M/mm3 (4.60-6.20); Red Cell Distribution Width 14.3 % (11.5-17.5); White Blood Count 7.4 K/mm3 (4.8-10.8)
[2020-08-06 11:31] LABS: Chloride 103 mmol/L (98-107); Potassium 3.7 mmoL/L (3.5-5.1); Sodium 138 mmol/L (136-145)
[2020-08-06 11:34] LABS: Alanine Aminotransferase 27 U/L (12-78); Albumin Level 4.2 g/dl (3.5-5.0); Albumin/Globulin Ratio 1.4 (1.1-1.8); Alkaline Phosphatase 91 U/L (38-126); Anion Gap 8.7 mEq/L (5-15); Aspartate Amino Transferase 41 U/L (17-59); Bilirubin,Total 0.6 mg/dl (0.2-1.3); Blood Urea Nitrogen 9 mg/dl (9-20); Carbon Dioxide 30 mmol/L (22.0-30.0); Creatinine Clearance Estimated 111 mL/min (50-200); Estimated Glomerular Filt Rate 72 ml/min (>60); GFR (African American) 87 ML/MIN (>60); Total Protein,Serum 7.2 g/dl (6.3-8.2)
[2020-08-06 11:35] LABS: Calcium 9.4 mg/dl (8.4-10.2); Glucose 171 mg/dl (74-100)
[2020-08-06 11:40] LABS: C-Reactive Protein 1.8 mg/L (0-4)
[2020-08-06 11:56] VITALS: BP 128/81; PULSE 72; RESP 18; TEMP 36.8; O2SAT 98
[2020-08-06 12:15] VITALS: BP 132/85; PULSE 76; RESP 16; O2SAT 98
[2020-08-06 12:40] VITALS: BP 135/79; PULSE 78; RESP 16; TEMP 36.7; O2SAT 97
[2020-08-06 13:03] VITALS: BP 138/82; PULSE 80; RESP 18; TEMP 36.8; O2SAT 98
== END 2020-08-06 13:03 | disposition home or self-care (01) ==
LOC: INF 11:04
PROVIDERS: Visit Provider Internal Medicine Gastroenterology
DX: K50.90 Crohn's disease, unspecified, without complications (principal); R10.9 Unspecified abdominal pain; K92.1 Melena; G56.00 Carpal tunnel syndrome, unspecified upper limb
CPT/HCPCS: 80053; 85025; 86140; 96413; J3590

== ENCOUNTER → 2022-06-03 14:24 | Outpatient (CLI) | payer MEDICARE, SELFPAY ==
[2022-06-10 11:12] LABS: Testosterone, Total, LC/MS 138.8 ng/dL (264.0-916.0); Testosterone,Free 5.4 pg/mL (6.8-21.5)
== END ==
PROVIDERS: PCP Family Medicine; Visit Provider Family Medicine
DX: E34.8 Other specified endocrine disorders (principal); E29.1 Testicular hypofunction
CPT/HCPCS: 84402; 84403

== ENCOUNTER 2022-07-16 12:55 | Outpatient (CLI) | payer MEDICARE, SELFPAY ==
[2022-07-16 13:08] VITALS: BMI 29.2
[2022-07-16 13:33] LABS: Basophils % 0.4 % (0.1-2.0); Eosinophils # 0.1 K/mm3 (0.0-0.4); Eosinophils % 0.9 % (0.1-12.0); Hematocrit 43.8 % (42.0-52.0); Hemoglobin 14.3 g/dL (14.1-18.0); Lymphocytes # 1.4 K/mm3 (0.7-4.5); Lymphocytes % 15.2 % (10-50); Mean Corpuscular HGB Conc 32.7 g/dL (31.8-35.4); Mean Corpuscular Hemoglobin 29.8 pg (27.0-31.2); Mean Corpuscular Volume 91.1 fl (80-94); Mean Platelet Volume 7.8 fl (7.4-10.4); Monocytes # 0.3 K/mm3 (0.1-1.0); Monocytes % 3.5 % (1.7-9.3); Neutrophils # 7.1 K/mm3 (1.8-7.8); Neutrophils % 79.9 % (37.0-80.0); Platelet Count 301 K/mm3 (142-424); Red Cell Distribution Width 13.2 % (11.5-17.5); White Blood Count 8.9 K/mm3 (4.8-10.8)
[2022-07-16 13:37] LABS: Chloride 101 mmol/L (98-107); Sodium 138 mmol/L (136-145)
[2022-07-16 13:38] LABS: Potassium 4.1 mmoL/L (3.5-5.1)
[2022-07-16 13:40] LABS: Alanine Aminotransferase 33 U/L (12-78); Alkaline Phosphatase 99 U/L (38-126); Anion Gap 11.1 mEq/L (5-15); Aspartate Amino Transferase 45 U/L (17-59); Blood Urea Nitrogen 9 mg/dl (9-20); Carbon Dioxide 30 mmol/L (22.0-30.0); Creatinine Clearance Estimated 126 mL/min (50-200); Estimated Glomerular Filt Rate 90 ml/min (>60); GFR (African American) 109 ML/MIN (>60)
[2022-07-16 13:41] LABS: Bilirubin,Total < 0.1 mg/dl (0.2-1.3); Calcium 9.3 mg/dl (8.4-10.2); Glucose 151 mg/dl (74-100); Total Protein,Serum 6.7 g/dl (6.3-8.2)
[2022-07-16 13:46] VITALS: BP 145/86; PULSE 94; RESP 18; TEMP 36.7; O2SAT 98
[2022-07-16 14:00] LABS: Albumin/Globulin Ratio 1.5 (1.1-1.8); Globulin 2.7 g/dL (1.3-3.2)
[2022-07-16 14:25] VITALS: BP 140/81; PULSE 80; RESP 18; O2SAT 99
[2022-07-16 15:00] VITALS: BP 135/84; PULSE 75; RESP 18; O2SAT 98
[2022-07-16 20:42] LABS: C-Reactive Protein 5.1 mg/L (0-4)
[2022-07-18 18:09] LABS: QuantiFERON-TB Gold Plus Negative (Negative)
== END 2022-07-16 15:00 | disposition home or self-care (01) ==
PROVIDERS: PCP Emergency Medicine; Visit Provider Physician Assistant
DX: K50.00 Crohn's disease of small intestine without complications (principal)
CPT/HCPCS: 80053; 85025; 86140; 86480; 96365; J3590

== ENCOUNTER → 2022-07-28 16:00 | Outpatient (CLI) | payer MEDICARE, SELFPAY ==
[2022-07-28 19:21] LABS: Basophils % 0.4 % (0.1-2.0); Eosinophils # 0.2 K/mm3 (0.0-0.4); Eosinophils % 1.9 % (0.1-12.0); Hemoglobin 15.4 g/dL (14.1-18.0); Lymphocytes # 1.9 K/mm3 (0.7-4.5); Lymphocytes % 23.3 % (10-50); Mean Corpuscular HGB Conc 32.7 g/dL (31.8-35.4); Mean Corpuscular Hemoglobin 29.9 pg (27.0-31.2); Mean Corpuscular Volume 91.6 fl (80-94); Mean Platelet Volume 7.8 fl (7.4-10.4); Monocytes # 0.5 K/mm3 (0.1-1.0); Monocytes % 5.9 % (1.7-9.3); Neutrophils # 5.7 K/mm3 (1.8-7.8); Neutrophils % 68.5 % (37.0-80.0); Platelet Count 364 K/mm3 (142-424); Red Blood Count 5.14 M/mm3 (4.60-6.20); Red Cell Distribution Width 13.3 % (11.5-17.5); White Blood Count 8.3 K/mm3 (4.8-10.8)
[2022-07-28 19:34] LABS: Alanine Aminotransferase 27 U/L (12-78); Albumin Level 4.3 g/dl (3.5-5.0); Albumin/Globulin Ratio 1.5 (1.1-1.8); Alkaline Phosphatase 106 U/L (38-126); Anion Gap 18.1 mEq/L (5-15); Aspartate Amino Transferase 31 U/L (17-59); Bilirubin,Total 0.3 mg/dl (0.2-1.3); Blood Urea Nitrogen 9 mg/dl (9-20); Calcium 9.1 mg/dl (8.4-10.2); Carbon Dioxide 26 mmol/L (22.0-30.0); Chloride 100 mmol/L (98-107); Chol/HDL Ratio 6.6 (1-3.5); Cholesterol 246 mg/dl (140-200); Estimated Glomerular Filt Rate 71 ml/min (>60); GFR (African American) 86 ML/MIN (>60); Globulin 2.9 g/dL (1.3-3.2); Glucose 151 mg/dl (74-100); HDL Cholesterol 37 mg/dl (40-60); Potassium 4.1 mmoL/L (3.5-5.1); Sodium 140 mmol/L (136-145); Total Protein,Serum 7.2 g/dl (6.3-8.2)
[2022-07-28 19:51] LABS: Direct LDL Cholesterol 139.73 mg/dL (100-129); Triglycerides 500 mg/dl (30-150)
[2022-07-28 19:54] LABS: 25-OH Vitamin D, Total 37.6 ng/mL (30-100)
[2022-07-28 20:05] LABS: Thyroid Stimulating Hormone 0.48 uIU/mL (0.465-4.68)
[2022-07-28 20:50] LABS: Hemoglobin A1C 5.6 % (4.0-6.0)
== END ==
PROVIDERS: PCP Student in an Organized Health Care Education/Training Program; Visit Provider Student in an Organized Health Care Education/Training Program
DX: E55.9 Vitamin D deficiency, unspecified (principal); K50.90 Crohn's disease, unspecified, without complications; R42 Dizziness and giddiness; R73.09 Other abnormal glucose; R94.6 Abnormal results of thyroid function studies; Z79.899 Other long term (current) drug therapy
CPT/HCPCS: 80053; 80061; 82306; 83036; 84443; 85025

== ENCOUNTER → 2022-08-05 13:33 | Outpatient (CLI) | payer MEDICARE, SELFPAY ==
--- NOTE | 2022-08-05 13:37 | CT_ITS ---
FINAL REPORT TECHNIQUE: Axial images through the head was performed by computed tomography. Reformatted images were obtained and reviewed. This study was performed with techniques to keep radiation doses as low as reasonably achievable (ALARA). Individualized dose reduction techniques using automated exposure control or adjustment of mA and/or kV according to the patient's size were employed. CLINICAL HISTORY: [place], dizziness, intermittent blurry vision FINDINGS: No abnormal density is seen. Ventricles are normal. There is no hemorrhage. No mass effect is seen. Bone windows show no evidence of fracture. IMPRESSION: No acute findings Reviewed, Interpreted and Dictated by Harriet Granados MD Transcribed by Katelynn Rizzo Authenticated and [facility]
== END ==
LOC: RAD 13:34
PROVIDERS: PCP Student in an Organized Health Care Education/Training Program; Visit Provider Student in an Organized Health Care Education/Training Program
DX: R42 Dizziness and giddiness (principal); R51.9 Headache, unspecified
CPT/HCPCS: 70450

== ENCOUNTER → 2022-08-26 08:07 | Outpatient (CLI) | payer MEDICARE, SELFPAY ==
--- NOTE | 2022-08-26 08:09 | CT_ITS ---
FINAL REPORT TECHNIQUE: Axial images were obtained from the lung apex to the mid abdomen by computed tomography. This study was performed with techniques to keep radiation doses as low as reasonably achievable (ALARA). Individualized dose reduction techniques using automated exposure control or adjustment of mA and/or kV according to the patient's size were employed. CLINICAL HISTORY: lung cancer screening FINDINGS: CHEST CT LOW DOSE CTDI vol (mGy): 2.90 DLP (mGy-cm): 107.59 There is no axillary adenopathy. There is no hilar or mediastinal adenopathy. The heart is normal in size. There is no pericardial or pleural effusion. Lung window images demonstrate an anterolateral right lower lobe nodule measuring 5 mm. This is well seen on image number 46. There is mild scarring. There are several calcified granulomas. Limited images of the upper abdomen are unremarkable. IMPRESSION: Right lower lobe nodule. Lung RADS category 2. Recommend 12 month follow-up low-dose chest CT. Reviewed, Interpreted and Dictated by Angel Luis Honeycutt III, MD Transcribed by Katelynn Rizzo Authenticated and [facility]
== END ==
PROVIDERS: PCP Family Medicine; Visit Provider Student in an Organized Health Care Education/Training Program
DX: Z87.891 Personal history of nicotine dependence (principal); Z12.2 Encounter for screening for malignant neoplasm of respiratory organs
CPT/HCPCS: 71271

== ENCOUNTER 2022-10-20 13:53 | Emergency (ER) | payer MEDICARE, SELFPAY ==
--- NOTE | 2022-10-20 | ECG_ITS ---
APPROVED REPORT Exam: Resting ECG HR:95 bpm ECG Measurements Heart Rate 95 AXES AZ 122 P 67 QRSd 89 QRS 25 QT 342 T 62 QTc 394 Conclusion SINUS RHYTHM NORMAL ECG UNCONFIRMED REPORT Electronically signed by : Som Kent MD 10/20/2022 19:44:53
[2022-10-20 14:07] VITALS: BP 160/112; PULSE 96; RESP 16; TEMP 36.9; O2SAT 96; BMI 29.5
--- NOTE | 2022-10-20 14:10 | XR_ITS ---
FINAL REPORT CLINICAL HISTORY: SOA COMPARISON: 12/19/2018 FINDINGS: A portable view of the chest was obtained. Comparison is made to a prior exam dated 12/19/2018. Cardiac and mediastinal silhouettes are within normal limits. There is granulomatous disease.. There is no pleural effusion or pneumothorax. IMPRESSION: Granulomatous disease. Reviewed, Interpreted and Dictated by Kirti Pinon MD Transcribed by Radha Palumbo Authenticated and [facility]
[2022-10-20 14:17] LABS: Basophils # 0.1 K/mm3 (0-0.2); Basophils % 0.6 % (0.1-2.0); Eosinophils # 0.1 K/mm3 (0.0-0.4); Eosinophils % 1.6 % (0.1-12.0); Hematocrit 46.7 % (42.0-52.0); Lymphocytes # 1.6 K/mm3 (0.7-4.5); Lymphocytes % 18.2 % (10-50); Mean Corpuscular HGB Conc 34.2 g/dL (31.8-35.4); Mean Corpuscular Hemoglobin 29.7 pg (27.0-31.2); Mean Platelet Volume 7.5 fl (7.4-10.4); Monocytes # 0.4 K/mm3 (0.1-1.0); Monocytes % 4.6 % (1.7-9.3); Neutrophils # 6.5 K/mm3 (1.8-7.8); Platelet Count 306 K/mm3 (142-424); Red Blood Count 5.37 M/mm3 (4.60-6.20); Red Cell Distribution Width 13.1 % (11.5-17.5); White Blood Count 8.7 K/mm3 (4.8-10.8)
--- NOTE | 2022-10-20 14:17 | HMH.EDGENADL ---
Discharge Plan Disposition Patient Disposition: Home, Self-Care Condition: Good Prescriptions Prescriptions: No Action gabapentin [Neurontin] 600 mg tablet 1,200 mg PO TID pregabalin [Lyrica] 150 mg capsule 150 mg PO TID esomeprazole magnesium [Nexium] 40 mg capsule,delayed release(DR/EC) 40 mg PO BID Stelara 90 mg/mL syringe 90 mg SQ Q4W oxycodone 10 mg tablet 10 mg PO TID PRN (Reason: pain) Qty: 15 0RF Rx Instructions: for pain associated with exacerbation of crohn's disease hold hydrocodone while taking prednisone 20 mg tablet See Rx Instructions .ROUTE .COMPLEX Qty: 45 0RF Rx Instructions: two daily for 10 days, then one daily until seen by crohn's specialist; atorvastatin 10 mg tablet 10 mg PO HS Qty: 90 3RF albuterol sulfate 18 GM HFA aerosol inhaler 1 - 2 puffs inhalation Q4-6H PRN (Reason: Shortness Of Breath Or Wheezing) Qty: 1 0RF hydrocodone-acetaminophen 1 EACH tablet 1 each PO TID PRN (Reason: pain) Rx Instructions: 10/325mg cyanocobalamin (vitamin B-12) 1,000 mcg/mL Kit 1,000 mcg SQ DIRECTED Rx Instructions: inj once monthly loperamide 2 mg Capsule 2 mg PO Q4H PRN (Reason: Diarrhea) Rx Instructions: administer after each loose stool until symptoms controlled; do not exceed 8 mg per 24 hrs Referrals Follow up/Referrals: Hill Andrews MD [Primary Care Provider] - See instructions Activity Restrictions/Add. Instructions Additional Instructions/Restrictions: You were evaluated in the emergency department today. Please keep your Holter monitor on. Follow-up with your primary care provider over the next 48 hours. Return to the emergency department for any new or worsening symptoms. Clinical Impressions Clinical Impression: Heart palpitations Chest pain Qualifiers: Chest pain type: unspecified Qualified Code(s): R07.9 - Chest pain, unspecified Instructions Patient Instructions: DI for Ambulatory Cardiac Monitoring, DI for Atypical Chest Pain Discharge ED Provider: Jada Smiley General Adult HPI General Chief complaint: Chest Pain Stated complaint: CP Time Seen by Provider: 10/20/22 13:57 Mode of Arrival: Ambulatory Source of Information: Patient Limitations: No Limitations Description of Symptoms (Recalled from ER Triage Doc. by RN): Pt c/o bilateral upper chest pressure since 1300, denies PMHx of CAD, endorses crohn's and borderline T2dm, mother present at bedside History of Present Illness HPI narrative: This patient is a 52-year-old male presenting to the emergency department for evaluation with concern for chest pressure and palpitations that started around 1:00 PM today. He states he has a history of Crohn's disease and is a smoker. He denies experiencing any like this in the past. He denies any history of cardiopulmonary issues. He states that nothing seems to bring it on, but he felt like his heart was racing. It eased off on its own and now he is feeling better. He denies any recent fevers, chills, cough, abdominal pain, nausea, vomiting, changes in bowel movements, or other concerns. He does admit to shortness of breath when this episode was occurring. Denies any history of blood clots or clotting disorders. He denies any history of leg swelling, calf pain, recent surgeries, or other concerns. Related Data Home Medications Medication Instructions Recorded Confirmed esomeprazole magnesium 40 mg 40 mg PO BID GERD 01/14/18 08/11/22 capsule,delayed release (Nexium) gabapentin 600 mg tablet 1,200 mg PO TID Pain 01/14/18 08/11/22 (Neurontin) pregabalin 150 mg capsule (Lyrica) 150 mg PO TID feet pain nerve 01/14/18 08/11/22 hydrocodone 10 mg-acetaminophen 1 each PO TID PRN pain 08/06/20 08/11/22 325 mg tablet cyanocobalamin (vitamin B-12) 1,000 mcg SQ DIRECTED Supplement 07/16/22 08/11/22 1,000 mcg/mL injection kit loperamide 2 mg capsule 2 mg PO Q4H PRN D
[2022-10-20 14:19] LABS: Chloride 109 mmol/L (98-107); Sodium 142 mmol/L (136-145)
[2022-10-20 14:21] LABS: Alanine Aminotransferase 23 U/L (12-78); Alkaline Phosphatase 73 U/L (38-126); Aspartate Amino Transferase 37 U/L (17-59); Bilirubin,Direct 0.2 mg/dl (0.0-0.4); Bilirubin,Indirect 0.2 mg/dL (0.0-0.9); Bilirubin,Total 0.4 mg/dl (0.2-1.3); Bilirubin,Unconjugated 0.1 mg/dL (0.0-1.1); Magnesium 1.9 mg/dl (1.6-2.3)
[2022-10-20 14:22] LABS: Alanine Aminotransferase 24 U/L (12-78); Albumin Level 4.1 g/dl (3.5-5.0); Albumin Level 4.2 g/dl (3.5-5.0); Albumin/Globulin Ratio 1.4 (1.1-1.8); Alkaline Phosphatase 74 U/L (38-126); Aspartate Amino Transferase 32 U/L (17-59); Bilirubin,Total 0.4 mg/dl (0.2-1.3); Blood Urea Nitrogen 8 mg/dl (9-20); Carbon Dioxide 29 mmol/L (22.0-30.0); Creatinine Clearance Estimated 113 mL/min (50-200); Estimated Glomerular Filt Rate 79 ml/min (>60); GFR (African American) 96 ML/MIN (>60); Globulin 3.1 g/dL (1.3-3.2); Total Protein,Serum 7.1 g/dl (6.3-8.2); Total Protein,Serum 7.3 g/dl (6.3-8.2)
[2022-10-20 14:23] LABS: Calcium 8.5 mg/dl (8.4-10.2); Glucose 94 mg/dl (74-100)
[2022-10-20 14:30] VITALS: BP 139/97; PULSE 89; RESP 16; O2SAT 96
[2022-10-20 14:34] LABS: Troponin I < 0.01 ng/ml (0.00-0.034)
--- NOTE | 2022-10-20 14:59 | PC.NURSE ---
LUNA HENDRICKSON AT BS
[2022-10-20 15:00] VITALS: BP 148/98; PULSE 87; RESP 14; O2SAT 95
[2022-10-20 15:30] VITALS: BP 141/95; PULSE 85; RESP 13; O2SAT 97
--- NOTE | 2022-10-20 15:33 | PC.NURSE ---
Rounded on patient, patient given the tv remote and lights turned out. Call light within reach. no other needs at this time.
[2022-10-20 16:00] VITALS: BP 135/88; PULSE 82; RESP 14; O2SAT 96
--- NOTE | 2022-10-20 16:03 | PC.NURSE ---
CALLED RESPIRATORY TO NOTIFY THERE WAS ORDERED PLACED FOR HOLITER MONITOR FOR PT.
--- NOTE | 2022-10-20 16:30 | PC.NURSE ---
Respiratory at BS
[2022-10-20 16:42] VITALS: BP 125/90; PULSE 78; RESP 18; TEMP 36.7; O2SAT 97
== END 2022-10-20 16:44 | disposition home or self-care (01) ==
PROVIDERS: Emergency Provider Emergency Medicine; PCP Emergency Medicine
DX: R07.89 Other chest pain (principal); R00.2 Palpitations; K50.90 Crohn's disease, unspecified, without complications; F17.210 Nicotine dependence, cigarettes, uncomplicated; Z83.3 Family history of diabetes mellitus; M51.9 Unspecified thoracic, thoracolumbar and lumbosacral intervertebral disc disorder
CPT/HCPCS: 71045; 80053; 80076; 83735; 84484; 85025; 93005; 93225; 93226; 99285

== ENCOUNTER → 2022-11-28 06:44 | Outpatient (CLI) | payer MEDICARE, SELFPAY ==
--- NOTE | 2022-11-28 | CA_ITS ---
APPROVED REPORT Exam: Exercise Treadmill Technologist: Natalie Hyman, Ht: 5 ft 9 in Wt: 203 lbs BSA: 2.08 m2 HR: 71 bpm BP: 138/89 mmHg Rhythm: sinus rhythm Medical History Medications: Atorvastatin,,,,, Lyrica,,,,, Neurotin,,,,, Nexium,,,,, Albuterol,,,,, Vit B12,,,,, Loperamide,,,,, Cardiac Risk Factors: FHX of CAD Stress Test Details Test: Suhas HR Resting HR: 75 bpm Max Heart Rate (APMHR): 170 bpm Max HR Achieved: 158 bpm Target HR (85% APMHR): 145 bpm % of APMHR: 93 Recovery HR: 124 bpm BP Resting BP: 149/94 mmHg Max BP: 202/1 mmHg Recovery BP: 190.0/92.0 mmHg ECG Resting ECG: sinus rhythm Clinical Exercise duration: 08:03 min Highest Stage Achieved: Exercise capacity: 10.1 METs Stress ECG Conclusion During exercise pt experinced SOA, right arm pain and burning legs. No CP noted. No arrhythmias noted. Test Summary REST . . . . . . . Sitting REST . . . . . . . Standing REST . . . . . . . Standing REST 08:01 0.0 0.0 75 . 149/ 94 . . Stage 1 01:00 10.0 1.7 98 . . . . Stage 1 02:00 10.0 1.7 105 . . . . Stage 1 03:00 10.0 1.7 102 . 151/ 90 . . Stage 2 01:00 12.0 2.5 113 . . . . Stage 2 02:00 12.0 2.5 118 . . . . Stage 2 03:00 12.0 2.5 121 . 164/ 95 . . Stage 3 01:00 14.0 3.4 135 . . . . Stage 3 . . . . . . . Myoview Injected Stage 3 02:00 14.0 3.4 155 . . . . Stage 3 02:03 14.0 3.4 144 . . . Stop exercise at 08:03 RECOVERY 01:00 0.0 0.0 122 . 202/100 . . RECOVERY 02:00 0.0 0.0 97 . 202/100 . . RECOVERY 03:00 0.0 0.0 88 . 190/ 92 . . RECOVERY 04:00 0.0 0.0 86 . 167/ 89 . . RECOVERY 05:00 0.0 0.0 84 . 153/ 87 . . RECOVERY 06:00 0.0 0.0 84 . 142/ 83 . . RECOVERY 06:06 0.0 0.0 85 . 142/ 83 . . Electronically signed by : Real Ahmadi MD 11/28/2022 14:27:59
--- NOTE | 2022-11-28 07:02 | CA_ITS ---
APPROVED REPORT EXAM: Comprehensive 2D, Doppler, and color-flow Echocardiogram Intervention Analyst: Olivia Duarte RDCS Ht: 5 ft 9 in Wt: 203lbs BSA: 2.08 BP: 123/82 mmHg Indications: SOA,CP,SMOKER 2D Dimensions LVOT 1.91 cm (M/F) 1.5-2.5 M-Mode Dimensions RVDd 2.25 cm (0.9-2.6) LA Diam 3.23 cm (1.9-4.0) LVDd 4.78 cm (3.5-5.7) Ao Diam 3.55 cm (2.0-3.7) LVDs 3.22 cm (3.5-5.7) IVSd 1.28 cm (0.6-1.1) PWd 0.91 cm (0.6-1.1) EF (Teich) 60.90% FS 32.60% EDV (Teich) 106.50 mL ESV (Teich) 41.60 mL LV Diastology E Decel Time 163.00 (160-240 msec) E/A Ratio 1.3 MED E' 9.00 (< 7 cm/sec) E'/MED E' Ratio 10.07 (>14) Mitral Valve MV E Max Con. 91.00 (40-130 cm/s) MV A Velocity 69.00 (40-130 cm/s) E/A Ratio 1.30 MV Decel. Time 163.00 (160-240 ms) MV PHT 48.00 ms Left Ventricle Left atrium is normal size left ventricle is normal size, estimated ejection fraction 55% with no regional wall motion abnormality, diastolic parameters are within normal range. Right Ventricle Right atrium and right ventricle are normal size and contractility. Aortic Valve Aortic valve is minimally thickened and fibrosed there is no aortic stenosis aortic insufficiency. Mitral Valve Mitral valve is grossly normal, there is trace mitral regurgitation. Tricuspid Valve Tricuspid valve grossly normal, there is trace tricuspid regurgitation, tricuspid regurgitation jet velocity is inadequate for calculation of the right ventricular systolic pressure. Pulmonic Valve Pulmonic valve is poorly visualized. Great Vessels Aortic root is normal size. Inferior vena cava is normal size with normal inspiratory collapse. Pericardium No significant pericardial effusion noted. Conclusion 1. Normal left ventricular size preserved left ventricular systolic function, estimated ejection fraction 55% with no regional wall motion abnormality, diastolic parameters are within normal range. 2. Trace mitral and tricuspid regurgitation. 3. No significant pericardial effusion noted. 4. Inferior vena cava is normal size with normal inspiratory collapse. Electronically signed by : Real Ahmadi MD 11/28/2022 16:50:04
--- NOTE | 2022-11-28 07:20 | NM_ITS ---
APPROVED REPORT Exam: Nuclear Stress Test Indication: chest pain..fatigue..soa Patient Location: Outpatient Stress Tech: Natalie Hyman [place] Tech:Brisa BoothALEJANDRA RT(R)(N) Ht: 5 ft 9 in Wt: 204 lbs HR: 75 bpm BP: 149/94 mmHg BSA: 2.08 m2 TID: 1.26 BMI: 30.1 History: chest pain..fatigue..soa Procedure: Patient exercised on Suhas protocol 8:03 minutes and sec, resting heart rate 75 bpm, resting blood pressure 149/94 mmHg, with exercise maximum heart rate achived was 158 bpm which is 93 % of the maximum predicted heart rate and blood pressure was 202/100 mmHg. Test was stopped due to fatigue..soa. Patient denied any complaint of chest pain. Patient has Good exercise capacity, achieved 10.1 METs of workload on treadmill, the blood pressure response to exercise was Hypertensive. Electrocardiogram Resting electrocardiogram shows sinus rhythm, with exercise there is less than 1.[address] segment depression noted from the baseline EKG. The EKG portion of the exercise Myoview is negative for ischemia. Cardiac Stress and Resting SPECT Images: Cardiac Stress and Resting SPECT images were obtained using technetium 99m Myoview 29.1 mCi stress and 9.52 mCi at rest. Gated SPECT analysis of segmental wall motion and calculation of the ejection fraction also done. Prone images were also obtained. Cardiac prone images show uniform myocardial activity without segmental perfusion abnormality, computer derived ejection fraction is 61% with no regional wall motion abnormality, right ventricle is normal size and contractility. Conclusion: 1. The EKG portion of the exercise Myoview is negative for ischemia, patient has good exercise capacity achieved 10.1 METs of workload on treadmill, the blood pressure response to exercise was hypertensive. 2. No scintigraphic evidence of reversible ischemia seen, computer derived ejection fraction is 61% with no regional wall motion abnormality, right ventricle is normal size and contractility. Electronically signed by : Real Ahmadi MD 11/28/2022 14:30:16
== END ==
LOC: RAD 06:45
PROVIDERS: PCP Emergency Medicine; Visit Provider Nurse Practitioner Family
DX: F17.200 Nicotine dependence, unspecified, uncomplicated (principal); R00.2 Palpitations; R07.9 Chest pain, unspecified; Z82.49 Family history of ischemic heart disease and other diseases of the circulatory system
CPT/HCPCS: 78452; 93017; 93306; A9502

== ENCOUNTER 2022-12-28 13:09 | Emergency (ER) | payer SELFPAY ==
[2022-12-28] VITALS (9 sets, daily range): BP systolic 121–175; BP diastolic 79–107; PULSE 61–83; RESP 12–20; TEMP 36.5–36.6; O2SAT 95–98; BMI 31.0
--- NOTE | 2022-12-28 13:12 | PC.NURSE ---
Pt log rolled with removal of spinal board. Pt tolerated well. +PMS. Warm blanket x 2 provided.
--- NOTE | 2022-12-28 13:13 | PC.NURSE ---
18 left ac, labs sent to hold.
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
== END 2022-12-28 15:56 | disposition home or self-care (01) ==
PROVIDERS: Emergency Provider Emergency Medicine; PCP Emergency Medicine
DX: F17.210 Nicotine dependence, cigarettes, uncomplicated (principal); S16.1XXA Strain of muscle, fascia and tendon at neck level, initial encounter; R07.9 Chest pain, unspecified; V69.40XA Driver of heavy transport vehicle injured in collision with unspecified motor vehicles in traffic accident, initial encounter
CPT/HCPCS: 71045; 72040; 72100; 99284

== ENCOUNTER → 2023-04-03 10:24 | Outpatient (CLI) | payer MEDICARE, SELFPAY ==
[2023-04-03 13:07] LABS: Prostate Specific Ag Screen 0.5 ng/ml (0.0-4.0)
[2023-04-10 17:35] LABS: Free Testosterone (Direct) 2.3 pg/mL (7.2-24.0); Testosterone, Total, LC/MS 188.8 ng/dL (264.0-916.0)
== END ==
PROVIDERS: PCP Emergency Medicine; Visit Provider Student in an Organized Health Care Education/Training Program
DX: Z12.5 Encounter for screening for malignant neoplasm of prostate (principal)
CPT/HCPCS: 36415; G0103

== ENCOUNTER → 2023-05-04 13:39 | Outpatient (CLI) | payer MEDICARE, SELFPAY ==
[2023-05-04 14:42] LABS: Basophils % 0.3 % (0.1-2.0); Eosinophils # 0.2 K/mm3 (0.0-0.4); Eosinophils % 2.2 % (0.1-12.0); Hematocrit 44.8 % (42.0-52.0); Hemoglobin 14.8 g/dL (14.1-18.0); Lymphocytes # 1.8 K/mm3 (0.7-4.5); Lymphocytes % 20.6 % (10-50); Mean Corpuscular Hemoglobin 30.1 pg (27.0-31.2); Mean Platelet Volume 7.9 fl (7.4-10.4); Monocytes # 0.5 K/mm3 (0.1-1.0); Monocytes % 5.6 % (1.7-9.3); Neutrophils # 6.1 K/mm3 (1.8-7.8); Neutrophils % 71.4 % (37.0-80.0); Platelet Count 251 K/mm3 (142-424); Red Blood Count 4.92 M/mm3 (4.60-6.20); Red Cell Distribution Width 12.8 % (11.5-17.5); White Blood Count 8.6 K/mm3 (4.8-10.8)
[2023-05-04 14:51] LABS: Alanine Aminotransferase 17 U/L (12-78); Albumin Level 3.6 g/dl (3.5-5.0); Albumin/Globulin Ratio 1.3 (1.1-1.8); Alkaline Phosphatase 99 U/L (38-126); Anion Gap 9.9 mEq/L (5-15); Aspartate Amino Transferase 26 U/L (17-59); Bilirubin,Total 0.5 mg/dl (0.2-1.3); Blood Urea Nitrogen 4 mg/dl (9-20); Calcium 8.7 mg/dl (8.4-10.2); Carbon Dioxide 31 mmol/L (22.0-30.0); Chloride 104 mmol/L (98-107); Estimated Glomerular Filt Rate 79 ml/min (>60); GFR (African American) 96 ML/MIN (>60); Globulin 2.8 g/dL (1.3-3.2); Glucose 116 mg/dl (74-100); Potassium 3.9 mmoL/L (3.5-5.1); Sodium 141 mmol/L (136-145); Total Protein,Serum 6.4 g/dl (6.3-8.2)
[2023-05-04 14:56] LABS: C-Reactive Protein 12.1 mg/L (0-4)
[2023-05-07 15:14] LABS: QuantiFERON-TB Gold Plus Negative (Negative)
[2023-05-09 22:01] LABS: Calprotectin, Fecal 12 ug/g (0-120)
== END ==
PROVIDERS: PCP Emergency Medicine; Visit Provider Physician Assistant
DX: K50.00 Crohn's disease of small intestine without complications (principal); Z90.49 Acquired absence of other specified parts of digestive tract
CPT/HCPCS: 36415; 80053; 83993; 85025; 86140; 86480

== ENCOUNTER 2023-06-18 14:00 | Outpatient (RCR) | payer MEDICARE, SELFPAY | END 2023-06-18 14:05 | disposition home or self-care (01) | LOC: OT 14:00 | PROVIDERS: PCP Emergency Medicine; Visit Provider Student in an Organized Health Care Education/Training Program | DX: M25.511 Pain in right shoulder (principal); G89.29 Other chronic pain | CPT/HCPCS: 97010; 97014; 97140; 97165; 97530; G0283 ==

== ENCOUNTER 2023-10-02 12:24 | Outpatient (CLI) | payer MEDICARE, SELFPAY ==
[2023-10-02 12:51] LABS: Basophils # 0.1 K/mm3 (0-0.2); Basophils % 0.6 % (0.1-2.0); Eosinophils # 0.2 K/mm3 (0.0-0.4); Eosinophils % 2.1 % (0.1-12.0); Hematocrit 42.3 % (42.0-52.0); Hemoglobin 14.6 g/dL (14.1-18.0); Lymphocytes # 1.6 K/mm3 (0.7-4.5); Lymphocytes % 18.6 % (10-50); Mean Corpuscular HGB Conc 34.5 g/dL (31.8-35.4); Mean Corpuscular Hemoglobin 30.5 pg (27.0-31.2); Mean Corpuscular Volume 88.4 fl (80-94); Mean Platelet Volume 7.6 fl (7.4-10.4); Monocytes # 0.5 K/mm3 (0.1-1.0); Monocytes % 5.3 % (1.7-9.3); Neutrophils # 6.4 K/mm3 (1.8-7.8); Neutrophils % 73.5 % (37.0-80.0); Platelet Count 255 K/mm3 (142-424); Red Blood Count 4.78 M/mm3 (4.60-6.20); Red Cell Distribution Width 13.7 % (11.5-17.5); White Blood Count 8.7 K/mm3 (4.8-10.8)
[2023-10-02 13:03] LABS: Ammonia 16 umol/L (9-30)
[2023-10-02 13:09] LABS: Lactic Acid 2.4 mmol/L (0.7-2.1)
[2023-10-02 13:31] LABS: Chloride 103 mmol/L (98-107); Potassium 3.5 mmoL/L (3.5-5.1); Sodium 137 mmol/L (136-145)
[2023-10-02 13:34] LABS: Alanine Aminotransferase 25 U/L (12-78); Albumin Level 3.3 g/dl (3.5-5.0); Albumin/Globulin Ratio 1.3 (1.1-1.8); Alkaline Phosphatase 82 U/L (38-126); Amylase 43 U/L (30-110); Anion Gap 7.5 mEq/L (5-15); Aspartate Amino Transferase 27 U/L (17-59); Bilirubin,Total 0.5 mg/dl (0.2-1.3); Blood Urea Nitrogen 6 mg/dl (9-20); Calcium 8.5 mg/dl (8.4-10.2); Carbon Dioxide 30 mmol/L (22.0-30.0); Estimated Glomerular Filt Rate 89 ml/min (>60); GFR (African American) 108 ML/MIN (>60); Globulin 2.6 g/dL (1.3-3.2); Glucose 150 mg/dl (74-100); Lipase 58 U/L (23-300); Total Protein,Serum 5.9 g/dl (6.3-8.2)
[2023-10-02 14:05] LABS: Thyroid Stimulating Hormone 0.76 uIU/mL (0.465-4.68)
[2023-10-02 16:08] LABS: Hemoglobin A1C 5.5 % (4.0-6.0)
[2023-10-02 16:29] LABS: Reflex Lactic Add Lactic Reflex
== END 2023-10-02 23:59 ==
LOC: LAB 15:41
PROVIDERS: PCP Family Medicine; Visit Provider Family Medicine
DX: B95.8 Unspecified staphylococcus as the cause of diseases classified elsewhere (principal); E07.9 Disorder of thyroid, unspecified; R73.09 Other abnormal glucose; R10.9 Unspecified abdominal pain; Z79.899 Other long term (current) drug therapy
CPT/HCPCS: 36415; 80053; 82140; 82150; 83036; 83605; 83690; 84443; 85025

== ENCOUNTER 2023-10-29 17:45 | Emergency (ER) | payer MEDICARE, SELFPAY ==
[2023-10-29] VITALS (11 sets, daily range): BP systolic 136–156; BP diastolic 90–100; PULSE 76–104; RESP 18; TEMP 36.6; O2SAT 95–99; BMI 28.6
--- NOTE | 2023-10-29 17:59 | XR_ITS ---
PROCEDURE INFORMATION: Exam: XR Chest Exam date and time: 10/29/2023 5:58 PM Age: 53 years old Clinical indication: Shortness of breath; Patient HX: Smoker TECHNIQUE: Imaging protocol: Radiologic exam of the chest. Views: 2 views. COMPARISON: CR XR CHEST PORTABLE 12/28/2022 1:52 PM FINDINGS: Lungs: Small granuloma in the left lower lobe is stable. The lungs appear otherwise clear. No focal areas of consolidation.Flattening of the hemidiaphragms suggests COPD. Pleural spaces: No pleural effusions. Negative for pneumothorax. Heart/Mediastinum: Cardiac silhouette and pulmonary vasculature are within range of normal. Bones/joints: There is no evidence of acute fracture. IMPRESSION: 1. Negative for an acute cardiopulmonary abnormality. 2. Findings suggestive of COPD.
--- NOTE | 2023-10-29 18:21 | ECG_ITS ---
APPROVED REPORT Exam: Resting ECG HR:86 bpm ECG Measurements Heart Rate 86 AXES NE 140 P 57 QRSd 94 QRS 27 QT 394 T 45 QTc 437 Conclusion SINUS RHYTHM NORMAL ECG UNCONFIRMED REPORT Electronically signed by : Som Kent MD 10/30/2023 10:46:39
[2023-10-29 18:55] LABS: Basophils % 0.2 % (0.1-2.0); Eosinophils # 0.1 K/mm3 (0.0-0.4); Eosinophils % 1.7 % (0.1-12.0); Hematocrit 36.7 % (42.0-52.0); Hemoglobin 11.9 g/dL (14.1-18.0); Lymphocytes # 1.4 K/mm3 (0.7-4.5); Lymphocytes % 18.9 % (10-50); Mean Corpuscular HGB Conc 32.5 g/dL (31.8-35.4); Mean Corpuscular Hemoglobin 29.9 pg (27.0-31.2); Mean Platelet Volume 7.6 fl (7.4-10.4); Monocytes # 0.4 K/mm3 (0.1-1.0); Monocytes % 4.8 % (1.7-9.3); Neutrophils # 5.5 K/mm3 (1.8-7.8); Neutrophils % 74.3 % (37.0-80.0); Platelet Count 247 K/mm3 (142-424); Red Blood Count 3.99 M/mm3 (4.60-6.20); Red Cell Distribution Width 13.4 % (11.5-17.5); White Blood Count 7.4 K/mm3 (4.8-10.8)
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
[2023-10-29 19:06] LABS: Alanine Aminotransferase 36 U/L (12-78); Albumin Level 2.8 g/dl (3.5-5.0); Albumin/Globulin Ratio 1.1 (1.1-1.8); Alkaline Phosphatase 94 U/L (38-126); Aspartate Amino Transferase 33 U/L (17-59); Bilirubin,Total 0.3 mg/dl (0.2-1.3); Blood Urea Nitrogen 5 mg/dl (9-20); Calcium 7.7 mg/dl (8.4-10.2); Chloride 93 mmol/L (98-107); Creatinine Clearance Estimated 109 mL/min (50-200); Estimated Glomerular Filt Rate 79 ml/min (>60); GFR (African American) 95 ML/MIN (>60); Globulin 2.5 g/dL (1.3-3.2); Glucose 161 mg/dl (74-100); Sodium 136 mmol/L (136-145); Total Protein,Serum 5.3 g/dl (6.3-8.2)
[2023-10-29 19:14] LABS: Anion Gap 3.4 mEq/L (5-15); Carbon Dioxide 42 mmol/L (22.0-30.0)
[2023-10-29 19:16] LABS: NT Pro Brain Natriuretic Pep. 306 pg/mL (0-125)
--- NOTE | 2023-10-29 19:16 | CT_ITS ---
PROCEDURE INFORMATION: Exam: CT Head Without Contrast Exam date and time: 10/29/2023 7:35 PM Age: 53 years old Clinical indication: Weakness, facial; Additional info: Facial droop 5 days ago no other deficitsno CVA HX TECHNIQUE: Imaging protocol: Computed tomography of the head without contrast. Radiation optimization: All CT scans at this facility use at least one of these dose optimization techniques: automated exposure control; mA and/or kV adjustment per patient size (includes targeted exams where dose is matched to clinical indication); or iterative reconstruction. COMPARISON: CT HEAD/BRAIN WO CON 08/05/2022 1:51 PM FINDINGS: Brain: Mild generalized cerebral/cerebellar atrophy. Minimal periventricular bilateral white matter hypodensities which are nonspecific but most commonly associated with chronic microvascular ischemia in this age group. The IACs are grossly normal. No extra-axial fluid collections. No evidence of acute intracranial hemorrhage. Cerebral/cerebellar martell-white matter differentiation is well maintained. No CT evidence of large territory acute or subacute intracranial ischemia/infarct. No intracranial mass lesions. No midline shift or herniation. Cerebral ventricles: Ventricles normal. Pituitary gland and sella: The sella is grossly normal. Paranasal sinuses: Mucosal thickening and mucous retention cyst versus polyp formation in the maxillary sinuses suggesting mild chronic sinus inflammatory disease. No fluid levels. The other paranasal sinuses are clear. Mastoid air cells: Visualized mastoid air cells are clear. Orbital cavities: No acute intraorbital findings. Bones/joints: The calvarium and visualized facial bones are intact. Soft tissues: The scalp and visualized soft tissues demonstrate no acute abnormality. Vasculature: Mild-moderate calcific atherosclerosis. No asymmetric vascular hyperdensities suggestive of thrombosis are identified. IMPRESSION: 1. No acute intracranial process. No intracranial hemorrhage or mass effect. 2. Mild atrophy and microvascular changes consistent with age. 3. Mild chronic maxillary sinusitis. 4. Mild-moderate calcific atherosclerosis.
[2023-10-29 19:22] LABS: Potassium 2.4 mmoL/L (3.5-5.1)
--- NOTE | 2023-10-29 19:23 | PC.NURSE ---
patient given call and warm blanket, no other needs at this time
[2023-10-29 19:46] LABS: Troponin I < 0.01 ng/ml (0.00-0.034)
[2023-10-29] MEDS: POTASSIUM CHLORIDE 20MEQ TAB 40 MEQ PO (19:46)
[2023-10-29] MEDS: KCl 10mEq/100ml 100 ML 100 MEQ IV (19:47)
--- NOTE | 2023-10-29 20:04 | PC.NURSE ---
Answered patients call light, helped with patients needs at this time.
--- NOTE | 2023-10-29 21:29 | HMH.EDGENADL ---
Discharge Plan Disposition Patient Disposition: Home, Self-Care Condition: Good Prescriptions Prescriptions: No Action gabapentin [Neurontin] 600 mg tablet 1,200 mg PO TID pregabalin [Lyrica] 150 mg capsule 150 mg PO TID esomeprazole magnesium [Nexium] 40 mg capsule,delayed release(DR/EC) 40 mg PO BID Stelara 90 mg/mL syringe 90 mg SQ Q4W atorvastatin 10 mg tablet 10 mg PO HS Qty: 90 3RF bisoprolol fumarate 5 mg tablet See Rx Instructions .ROUTE .COMPLEX Qty: 90 1RF Dose Instruction: TAKE ONE TABLET BY MOUTH ONCE A DAY Rx Instructions: TAKE ONE TABLET BY MOUTH ONCE A DAY sildenafil 25 mg tablet 25 mg PO DAILY PRN (Reason: sexual activity) Qty: 20 0RF Rx Instructions: administer 30 minutes to 4 hours before activity albuterol sulfate 18 GM HFA aerosol inhaler 1 - 2 puffs inhalation Q4-6H PRN (Reason: Shortness Of Breath Or Wheezing) Qty: 1 0RF hydrocodone-acetaminophen 1 EACH tablet 1 each PO TID PRN (Reason: pain) Rx Instructions: 10/325mg cyanocobalamin (vitamin B-12) 1,000 mcg/mL Kit 1,000 mcg SQ DIRECTED Rx Instructions: inj once monthly loperamide 2 mg Capsule 2 mg PO Q4H PRN (Reason: Diarrhea) Rx Instructions: administer after each loose stool until symptoms controlled; do not exceed 8 mg per 24 hrs Referrals Follow up/Referrals: Provider,Referral, MD [Primary Care Provider] - See instructions Activity Restrictions/Add. Instructions Additional Instructions/Restrictions: Follow-up closely with your primary care provider for continued management and return for any new or worsening symptoms. Clinical Impressions Clinical Impression: Shortness of breath, Acute hypokalemia Instructions Patient Instructions: DI for Acute Abdominal Pain Discharge ED Provider: Bria Irvin Adult [facility] General Chief complaint: Abdominal Pain Stated complaint: pain in his lungs on both sides Time Seen by Provider: 10/29/23 17:59 Mode of Arrival: Ambulatory Source of Information: Patient Limitations: No Limitations Description of Symptoms (Recalled from ER Triage Doc. by RN): Patient reports bilateral lung pain for 3 days reports he called his PCP who told him to come to ER for evaluation. Patient also states he is having stabbing pain in his left lower quadrant. Related Data Home Medications Medication Instructions Recorded Confirmed esomeprazole magnesium 40 mg 40 mg PO BID GERD 01/14/18 10/29/23 capsule,delayed release (Nexium) gabapentin 600 mg tablet 1,200 mg PO TID Pain 01/14/18 10/29/23 (Neurontin) pregabalin 150 mg capsule (Lyrica) 150 mg PO TID feet pain nerve 01/14/18 10/29/23 hydrocodone 10 mg-acetaminophen 1 each PO TID PRN pain 08/06/20 10/29/23 325 mg tablet cyanocobalamin (vitamin B-12) 1,000 mcg SQ DIRECTED Supplement 07/16/22 10/29/23 1,000 mcg/mL injection kit loperamide 2 mg capsule 2 mg PO Q4H PRN Diarrhea 07/16/22 10/29/23 ustekinumab 90 mg/mL subcutaneous 90 mg SQ Q4W 08/11/22 10/29/23 syringe (Stelara) Previous Rx's Medication Instructions Recorded albuterol sulfate 90 mcg/actuation 1 - 2 puffs inhalation Q4-6H PRN 08/24/19 aerosol inhaler Shortness Of Breath Or Wheezing #1 inh atorvastatin 10 mg tablet 10 mg PO HS #90 tabs 07/29/22 bisoprolol fumarate 5 mg tablet See Rx Instructions .Route 03/05/23 .COMPLEX #90 tabs sildenafil 25 mg tablet 25 mg PO DAILY PRN sexual activity 06/30/23 #20 tabs Allergies Allergy/AdvReac Type Severity Reaction Status Date / Time Sulfa (Sulfonamide Allergy Mild Nausea Verified 10/29/23 15:05 Antibiotics) tetracycline Allergy Unknown Verified 10/29/23 15:05 [facility] Disclaimer: The information contained in this section may have been updated after the patient was seen, as this information can be updated by other users. Medical History Chronic sacroiliac strain Crohn's disease DDD (degenerative disc disease) Low testosterone Thoracic myofascial strain Tobacco use disorder Surgical History No significant past surgical history Family History Family/Other Diabetes Social History (Reviewed 10/29/23 @ 15:05 by LESLY Robin Smoking Status: Current every day smoker tobacco type: cigarettes packs per day: 1 second hand exposure: Yes alcohol intake: former substance use type: denies use current occupational status: unemployed and disabled Travel in the last 8 weeks: None household members: spouse and family housing: house caffeine: Yes ROS Obtained: Yes All systems reviewed & no additional complaints except as documented Physical Exam General General appearance: alert and in no apparent distress Respiratory Respiratory exam: Present normal lung sounds bilaterally; Absent respiratory distress Cardiovascular Cardiovascular exam: Present regular rate and normal rhythm Neurological Exam Neurological exam: Present alert and oriented X3 Medical Decision Making Iam Inquiry Pt receiving controlled substance: No Vital Signs: 10/29/23 17:47 10/29/23 18:10 10/29/23 18:20 Temperature 97.8 F Temperature Source Oral Pulse Rate 93 H 89 Pulse Rate [Right] 104 H Respiratory Rate 18 Blood Pressure 148/99 H 154/99 H Blood Pressure [Right Arm] 140/100 H Blood Pressure Mean [Right Arm] 113 Blood Pressure Source Blood Pressure Position 02 Sat by Pulse Oximetry 99 98 97 Oxygen Delivery Method Room Air Room Air 10/29/23 18:30 10/29/23 19:30 10/29/23 20:09 Temperature Temperature Source Pulse Rate 84 77 86 Pulse Rate [Right] Respiratory Rate Blood Pressure 136/90 156/96 H Blood Pressure [Right Arm] Blood Pressure Mean [Right Arm] Blood Pressure Source Blood Pressure Position 02 Sat by Pulse Oximetry 96 95 97 Oxygen Delivery Method Room Air 10/29/23 20:30 10/29/23 20:50 10/29/23 21:00 Temperature Temperature Source Pulse Rate 76 81 81 Pulse Rate [Right] Respiratory Rate Blood Pressure 147/98 H 151/93 H 143/97 H Blood Pressure [Right Arm] Blood Pressure Mean [Right Arm] Blood Pressure Source Blood Pressure Position 02 Sat by Pulse Oximetry 97 98 98 Oxygen Delivery Method 10/29/23 21:10 10/29/23 21:22 Temperature 97.9 F Temperature Source Oral Pulse Rate 81 84 Pulse Rate [Right] Respiratory Rate 18 Blood Pressure 155/97 H 143/97 H Blood Pressure [Right Arm] Blood Pressure Mean [Right Arm] Blood Pressure Source Automatic Cuff Blood Pressure Position Supine 02 Sat by Pulse Oximetry 97 Oxygen Delivery Method Room Air Lab Data Lab Results 10/29/23 18:44: WBC 7.4, RBC 3.99 L, Hgb 11.9 L, Hct 36.7 L, MCV 92.0, MCH 29.9, MCHC 32.5, RDW 13.4, Plt Count 247, MPV 7.6, Neut % (Auto) 74.3, Lymph % (Auto) 18.9, [place] % (Auto) 4.8, Eos % (Auto) 1.7, Baso % (Auto) 0.2, Neut # (Auto) 5.5, Lymph # (Auto) 1.4, [place] # (Auto) 0.4, Eos # (Auto) 0.1, Baso # (Auto) 0.0, D-Dimer 0.50, Sodium 136, Potassium 2.4 L*, Chloride 93 L, Carbon Dioxide 42 H*, Anion Gap 3.4 L, BUN 5 L, Creatinine 1.00, Estimated Creat Clear 109, Estimated GFR 79, Est GFR ( Amer) 95, Glucose 161 H, Calcium 7.7 L, Total Bilirubin 0.3, AST 33, ALT 36, Alkaline Phosphatase 94, Troponin I < 0.01, NT-Pro-B Natriuret Pep 306 H, Total Protein 5.3 L, Albumin 2.8 L, Globulin 2.5, Albumin/Globulin Ratio 1.1 10/29/23 18:44 10/29/23 18:44 Orders (Tests/Meds): ED MEDICATIONS Generic Name Dose Route Start Last Admin Trade Name Freq PRN Reason Stop Dose Admin Sodium Chloride 10 ml 10/29/23 17:59 Sodium Chloride 0.9% 10ml Flush Syringe IV 11/28/23 17:58 NEEDED PRN Maintain IV Site Discontinued Medications Generic Name Dose Route Start Last Admin Trade Name Freq PRN Reason Stop Dose Admin Potassium Chloride/Water 100 mls @ 100 mls/hr 10/29/23 19:27 10/29/23 19:47 Potassium Chloride 10meq/100ml Ivpb IV 10/29/23 20:26 100 mls/hr ONCE ONE Administration Potassium Chloride 40 meq 10/29/23 19:27 10/29/23 19:46 Potassium Chloride 20meq Tab PO 10/29/23 19:28 40 meq ONCE ONE Administration ORDERS Category Date Time Status CT head/brain wo con Stat Cat Scan 10/29/23 19:16 Completed XR chest 2V Stat Exams 10/29/23 17:59 Completed Brain Natriuretic Peptide Stat Lab 10/29/23 18:44 Completed Complete Blood Count Auto Diff Stat Lab 10/29/23 18:44 Completed Comprehensive Metabolic Panel Stat Lab 10/29/23 18:44 Completed D-Dimer Stat Lab 10/29/23 18:44 Completed Troponin I Stat Lab 10/29/23 18:00 Completed ECG initial Besson Routine Y 10/29/23 18:21 Completed HEART Score History (anamnesis): Slightly suspicious ECG: Normal Age: 45-65 years Risk factors: 1-2 risk factors Troponin: </= normal limit HEART Score: 2 Critical Care Critical Care Time Critical Care Time: No
== END 2023-10-29 21:36 | disposition home or self-care (01) ==
PROVIDERS: Emergency Provider Emergency Medicine
DX: R06.02 Shortness of breath (principal); E87.6 Hypokalemia; R07.81 Pleurodynia; R10.32 Left lower quadrant pain; K50.90 Crohn's disease, unspecified, without complications; F17.210 Nicotine dependence, cigarettes, uncomplicated
CPT/HCPCS: 70450; 71046; 80053; 83880; 84484; 85025; 85378; 93005; 96365; 99285

== ENCOUNTER 2023-11-13 15:02 | Outpatient (CLI) | payer MEDICARE, SELFPAY ==
[2023-11-13 15:22] LABS: Basophils % 0.6 % (0.1-2.0); Eosinophils # 0.2 K/mm3 (0.0-0.4); Eosinophils % 3.3 % (0.1-12.0); Hemoglobin 13.2 g/dL (14.1-18.0); Lymphocytes # 1.8 K/mm3 (0.7-4.5); Lymphocytes % 26.8 % (10-50); Mean Corpuscular HGB Conc 32.2 g/dL (31.8-35.4); Mean Corpuscular Hemoglobin 30.1 pg (27.0-31.2); Mean Corpuscular Volume 93.4 fl (80-94); Mean Platelet Volume 7.7 fl (7.4-10.4); Monocytes # 0.4 K/mm3 (0.1-1.0); Monocytes % 6.4 % (1.7-9.3); Neutrophils # 4.2 K/mm3 (1.8-7.8); Platelet Count 308 K/mm3 (142-424); Red Blood Count 4.39 M/mm3 (4.60-6.20); Red Cell Distribution Width 13.9 % (11.5-17.5); White Blood Count 6.7 K/mm3 (4.8-10.8)
[2023-11-13 16:05] LABS: Alanine Aminotransferase 16 U/L (12-78); Albumin Level 3.2 g/dl (3.5-5.0); Albumin/Globulin Ratio 1.3 (1.1-1.8); Alkaline Phosphatase 94 U/L (38-126); Anion Gap 7.8 mEq/L (5-15); Aspartate Amino Transferase 28 U/L (17-59); Bilirubin,Total 0.3 mg/dl (0.2-1.3); Blood Urea Nitrogen 6 mg/dl (9-20); Calcium 8.4 mg/dl (8.4-10.2); Carbon Dioxide 31 mmol/L (22.0-30.0); Chloride 102 mmol/L (98-107); Estimated Glomerular Filt Rate 79 ml/min (>60); GFR (African American) 95 ML/MIN (>60); Globulin 2.4 g/dL (1.3-3.2); Glucose 134 mg/dl (74-100); Potassium 3.8 mmoL/L (3.5-5.1); Sodium 137 mmol/L (136-145); Total Protein,Serum 5.6 g/dl (6.3-8.2)
[2023-11-13 16:11] LABS: C-Reactive Protein 2.1 mg/L (0-4)
[2023-11-17 15:18] LABS: Calprotectin, Fecal 42 ug/g (0-120)
== END 2023-11-13 23:59 ==
LOC: LAB 15:04
PROVIDERS: PCP Family Medicine; Visit Provider Physician Assistant
DX: K50.00 Crohn's disease of small intestine without complications (principal)
CPT/HCPCS: 36415; 80053; 83993; 85025; 86140

== ENCOUNTER 2024-04-11 14:58 | Outpatient (CLI) | payer MEDICARE, SELFPAY ==
[2024-04-11 16:13] LABS: Alanine Aminotransferase 26 U/L (12-78); Albumin Level 3.6 g/dl (3.5-5.0); Albumin/Globulin Ratio 1.3 (1.1-1.8); Alkaline Phosphatase 68 U/L (38-126); Anion Gap 8.5 mEq/L (5-15); Aspartate Amino Transferase 27 U/L (17-59); Bilirubin,Total 0.4 mg/dl (0.2-1.3); Blood Urea Nitrogen 10 mg/dl (9-20); Calcium 8.9 mg/dl (8.4-10.2); Carbon Dioxide 29 mmol/L (22.0-30.0); Chloride 106 mmol/L (98-107); Estimated Glomerular Filt Rate 79 ml/min (>60); GFR (African American) 95 ML/MIN (>60); Globulin 2.8 g/dL (1.3-3.2); Glucose 182 mg/dl (74-100); Potassium 3.5 mmoL/L (3.5-5.1); Sodium 140 mmol/L (136-145); Total Protein,Serum 6.4 g/dl (6.3-8.2)
[2024-04-14 14:47] LABS: QuantiFERON-TB Gold Plus Negative (Negative)
== END 2024-04-11 23:59 | disposition home or self-care (01) ==
LOC: LAB 15:01
PROVIDERS: Visit Provider Physician Assistant
DX: K50.00 Crohn's disease of small intestine without complications (principal); Z79.899 Other long term (current) drug therapy
CPT/HCPCS: 36415; 80053; 86140; 86480

== ENCOUNTER 2024-06-07 11:30 | Outpatient (CLI) | payer MEDICARE, SELFPAY ==
[2024-06-07 12:15] LABS: Basophils % 0.5 % (0.1-2.0); Eosinophils # 0.2 K/mm3 (0.0-0.4); Eosinophils % 2.4 % (0.1-12.0); Hemoglobin 13.1 g/dL (14.1-18.0); Lymphocytes # 2.5 K/mm3 (0.7-4.5); Lymphocytes % 31.3 % (10-50); Mean Corpuscular HGB Conc 32.8 g/dL (31.8-35.4); Mean Corpuscular Hemoglobin 30.9 pg (27.0-31.2); Mean Corpuscular Volume 94.3 fl (80-94); Mean Platelet Volume 8.2 fl (7.4-10.4); Monocytes # 0.5 K/mm3 (0.1-1.0); Monocytes % 6.1 % (1.7-9.3); Neutrophils # 4.8 K/mm3 (1.8-7.8); Neutrophils % 59.7 % (37.0-80.0); Platelet Count 238 K/mm3 (142-424); Red Blood Count 4.24 M/mm3 (4.60-6.20); Red Cell Distribution Width 13.7 % (11.5-17.5); White Blood Count 8.1 K/mm3 (4.8-10.8)
== END 2024-06-07 23:59 | disposition home or self-care (01) ==
LOC: LAB 11:33
PROVIDERS: PCP Emergency Medicine; Visit Provider Physician Assistant
DX: K50.00 Crohn's disease of small intestine without complications (principal)
CPT/HCPCS: 85025

== ENCOUNTER 2024-10-04 11:23 | Outpatient (CLI) | payer MEDICARE, SELFPAY ==
[2024-10-04 11:43] LABS: Basophils % 0.3 % (0.1-2.0); Eosinophils # 0.1 K/mm3 (0.0-0.4); Eosinophils % 2.4 % (0.1-12.0); Hematocrit 41.9 % (42.0-52.0); Lymphocytes # 1.6 K/mm3 (0.7-4.5); Lymphocytes % 27.1 % (10-50); Mean Corpuscular HGB Conc 33.4 g/dL (31.8-35.4); Mean Corpuscular Hemoglobin 29.4 pg (27.0-31.2); Mean Corpuscular Volume 87.8 fl (80-94); Mean Platelet Volume 9.3 fl (7.4-10.4); Monocytes # 0.5 K/mm3 (0.1-1.0); Monocytes % 8.3 % (1.7-9.3); Neutrophils # 3.5 K/mm3 (1.8-7.8); Neutrophils % 61.6 % (37.0-80.0); Platelet Count 253 K/mm3 (142-424); Red Blood Count 4.77 M/mm3 (4.60-6.20); Red Cell Distribution Width 12.8 % (11.5-17.5); White Blood Count 5.8 K/mm3 (4.8-10.8)
[2024-10-04 12:12] LABS: Alanine Aminotransferase 25 U/L (12-78); Albumin Level 4.1 g/dl (3.5-5.0); Albumin/Globulin Ratio 1.9 (1.1-1.8); Alkaline Phosphatase 74 U/L (38-126); Anion Gap 13.7 mEq/L (5-15); Aspartate Amino Transferase 32 U/L (17-59); Bilirubin,Total 0.5 mg/dl (0.2-1.3); Blood Urea Nitrogen 9 mg/dl (9-20); Calcium 8.8 mg/dl (8.4-10.2); Carbon Dioxide 25 mmol/L (22.0-30.0); Chloride 105 mmol/L (98-107); Estimated Glomerular Filt Rate 78 ml/min (>60); GFR (African American) 95 ML/MIN (>60); Globulin 2.2 g/dL (1.3-3.2); Glucose 134 mg/dl (74-100); Potassium 3.7 mmoL/L (3.5-5.1); Sodium 140 mmol/L (136-145); Total Protein,Serum 6.3 g/dl (6.3-8.2)
[2024-10-04 12:17] LABS: C-Reactive Protein 6.3 mg/L (0-4)
[2024-10-04 12:29] LABS: 25-OH Vitamin D, Total 13.6 ng/mL (30-100)
[2024-10-06 08:14] LABS: Calprotectin, Fecal 122 ug/g (0-120)
== END 2024-10-04 23:59 | disposition home or self-care (01) ==
PROVIDERS: PCP Family Medicine; Visit Provider Physician Assistant
DX: K50.00 Crohn's disease of small intestine without complications (principal)
CPT/HCPCS: 36415; 80053; 82306; 83993; 85025; 86140

== ENCOUNTER 2025-02-22 15:15 | Outpatient (CLI) | payer MEDICARE, SELFPAY ==
--- OUTSIDE RECORDS SUMMARY | 2025-01-20 15:03 | XMS_ITS | Encounter Summary ---
Author Organization [place] [address] Care Team Providers Care Enterprise Business Architect Name Role Phone Hill Andrews MD Primary Care Provider [phone] Reason for Visit * Reason Comments Cough Cough, sinus drainag e, and SOB for a week Encounter Details Date Type Department Care Team (Late st Contact Info) Description 01/20/2025 3:03 PM EDT - 01/20/2025 4:05 PM EDT [facility] [address] [facility] [place] [address] Yusuf Mabry MD [address] [place] [id number] Acute bronchitis, unspecified organism (Primary Dx) Discharge Disposition: Home or Self Care Social History Tobacco Use Types Packs/Day Years Used Date Smoking Tobacco: Every Day Cigarettes 1 41 Started: 02/15/1984 Cigars Smokeless Tobacco: Never Alcohol Use Standard Drinks/Week Comments Not Currently 0 (1 standard drink = 0.6 oz pur e alcohol) [facility] Utilities Answer Date Recorded In the past 12 months has e electric, gas, oil, or water company threatened to shut off services in your home? No 01/26/2024 Overall Financial Resource Strain (CARDIA) Answe r Date Recorded How hard is it for you to pa y for the very basics like food, housing, medical care, and heating? Not very hard 01/26/2024 PHQ-2 Answer Date Recorded PHQ-2 Total Score 0 01/26/2024 [facility] - Occupational Stress Questionnaire Answer Date Recorded Do you feel stress - tense, restless, nervous, or anxious, or unable to sleep at night because your mind is troubled all the time - these days? Only a little 01/26/2024 Exercise Vital Sign Answer Date Recorde d On average, how many days pe r week do you engage in moderate to strenuous exercise (like a brisk walk)? 7 days 01/26/2024 On average, how many minutes do you engage in exercise at this level? 20 min 01/26/2024 Hunger Vital Sign Answer Date Recorded Within the past 12 months, y ou worried that your food would run out before you got the money to buy more. Never true 01/26/20 24 Within the past 12 months, t he food you bought just didn't last and you didn't have money to get more. Never true 01/26/2024 PRAPARE - Transportation Answer Date Re corded In the past 12 months, has l ack of transportation kept you from medical appointments or from getting medications? No 05/08 In the past 12 months, has l ack of transportation kept you from meetings, work, or from getting things needed for daily living? No 05/19/2022 [facility] IP Transportation Answer D ate Recorded In the past 12 months, has l ack of reliable transportation kept you from medical appointments, meetings, work or from getting things needed for daily living? No 01/26/2024 Sexually Active Control Partners Comments Yes Abstinence Female Sex and Gender Information Value Date Recorded Sex Assigned at Not on file Legal Sex Male 6:12 PM EST Gender Identity Not on file Sexual Orientation Not on file documented as of this encounter Last Filed Vital Signs Vital Sign Reading Time Taken Comments Blood Pressure 113/85 01/20/2025 3:03 PM EDT Pulse 82 01/20/2025 3:30 PM EDT Temperature 36.8 C (98.2 F) 01/20/2025 3:03 PM EDT Respiratory Rate 18 01/20/2025 3:30 PM EDT Oxygen Saturation 99% 01/20/2025 3:30 PM EDT Inhaled Oxygen Concentration - - Weight 90.7 kg (200 lb) 01/20/2025 2:55 PM EDT Height 175.3 cm (5' 9 ) 01/20/2025 2:55 PM EDT Body Mass Index 29.53 01/20/2025 2:55 PM EDT documented in this encounter Functional Status * Suicide Severity Rating Answer Date of Assessment Author No Risk 01/20/2025 2:57 PM EDT Sharmin Geller RN * Willis Suicide Severity Rating Scale (Q shift for moderate and high) Question Answer Date of Assessment Author 1. In the past month, have you wished you were or wished you could go to sleep and not wake up? 0 01/20/2025 2:57 PM EDT Sharmin Geller RN 2. In the past month, have you actually had any thoughts of killing yourself? (If no, skip to question 6) 0 01/20/2025 2:57 PM EDT Sharmin Geller RN 6. Have you ever done anything, started to do anything, or prepared to do anything to end your life? 0 01/20/2025 2:57 PM EDT Sharmin Geller RN documented as of this encounter Discharge Instructions * Discharge Instructions* Yusuf Mabry MD - 01/20/2025 3:48 PM EDT TAKE DOXYCYCLINE PRESCRIBED FOR INFECTION USE ALBUTEROL INHALER WITH SPACER 2 PUFFS EVERY 4 HOURS FOR SHORTNESS OF BREATH TAKE PREDNISONE DAILY FOR 5 DAYS RECHECK IN A WEEK IF NO BETTER RETURN SOONER IF SYMPTOMS WORSEN documented in this encounter Medications at Time of Discharge bisoprolol (ZEBETA) 5 mg Oral Tablet 11/04/2023 budesonide 9 mg Oral Capsule, Sustained Release Take 9 mg by mouth daily. 14 Capsule 08/09/2022 CYANOCOBALAMIN, VITAMIN B-12, INJ Inject as directed. esomeprazole (NEXIUM) 40 mg Oral Capsule, Delayed Release(E.C.) Take by mouth daily. gabapentin (NEURONTIN) 600 mg Oral Tablet Take 600 mg by mouth 3 times daily. pregabalin (LYRICA) 150 mg Oral Capsule Take 150 mg by mouth 3 times daily. 06/09/2024 Ustekinumab (STELARA) 45 mg/0.5 mL SubQ Solution Subcutaneous (Inject under the skin). albuterol (VENTOLIN HFA) 90 mcg/actuation Inhl HFA Aerosol Inhaler Inhale 1-2 Puffs into the lungs every 4 hours as needed for Wheezing or Shortness of Breath for up to 30 days. 1 Each 01/20/2025 5 doxycycline hyclate (VIBRA-TABS) 100 mg Oral Tablet Take 1 Tablet by mouth 2 times daily for 7 days. 14 Tablet 01/20/2025 5 inhalational spacing device Please dispense 1 adult device. 1 Each 01/20/2025 5 predniSONE (DELTASONE) 20 mg Oral Tablet Take 2 Tablets by mouth daily for 5 days. 10 Tablet 01/20/2025 5 documented as of this encounter Ordered Prescriptions Prescription Sig Dispense Quantity Refills Last Filled Start Date End Date inhalational spacing device Please dispense 1 adult device. 1 Each 01/20/2025 5 albuterol (VENTOLIN HFA) 90 mcg/actuation Inhl HFA Aerosol Inhaler Inhale 1-2 Puffs into the lungs every 4 hours as needed for Wheezing or Shortness of Breath for up to 30 days. 1 Each 01/20/2025 5 predniSONE (DELTASONE) 20 mg Oral Tablet Take 2 Tablets by mouth daily for 5 days. 10 Tablet 01/20/2025 5 doxycycline hyclate (VIBRA-TABS) 100 mg Oral Tablet Take 1 Tablet by mouth 2 times daily for 7 days. 14 Tablet 01/20/2025 5 documented in this encounter Discharge Disposition Disposition Code Departure Means Destination Comment s Home or Self Detention documented in this encounter Progress Notes * Anthony Carranza, ROOFING FOREMAN - 01/20/2025 3:27 PM EDT 01/20/25 1526 OTHER $ ED Assess and Treat Completed Respiratory Assessment Type Pre-tx Pulse 77 Resp 18 Level of Consciousness Alert Respiratory Pattern Dyspnea with exertion Chest Assessment Chest expansion symmetrical Breath Sounds Bilateral Diminished;Expiratory wheezes Oxygen Therapy/SPO2 Oxygen in Use No SpO2 93 % HHN HHN Medications Yes $ HHN Charge Initial HHN Comment Duo documented in this encounter ED Notes * Yusuf Mabry MD - 01/20/2025 2:54 PM EDT CHIEF COMPLAINT Chief Complaint Patient presents with Cough Cough, sinus drainage, and SOB for a week HPI Ousmane Kapoor is a 54 y.o. male who presents with complaint of cough and shortness of breath as well as sinus drainage for a week with no fever. Patient states that he has not had any headache but has had some sinus pressure type discomfort and postnasal drainage. He denies any ear pain or pressure. He has had a cough and chest tightness. He feels a little short of breath with exertion. He has not had the actual chest pain palpitations lightheadedness or dizziness. He denies any dyspnea on exertion orthopnea or pedal edema. He states that he has required the use of an inhaler in the past but does not currently have one. REVIEW OF SYSTEMS See HPI for further details. Review of systems otherwise negative. PAST MEDICAL HISTORY Past Medical History: Diagnosis Date CD (Crohn's disease) (HCC) Crohn's disease (HCC) Neuropathy Rheumatoid arthritis (HCC) FAMILY HISTORY Family History Problem Relation Age of Onset Diabetes Father Arthritis Father Hearing Loss Father High Blood Pressure Father Vision Loss Father Diabetes Sister Vision Loss Sister Diabetes Paternal Grandfather Vision Loss Mother SOCIAL HISTORY Social History Socioeconomic History Marital status: Spouse name: None Number of children: None Years of education: None Highest education level: None Tobacco Use Smoking status: Every Day Current packs/day: 1.00 Average packs/day: 1 pack/day for 40.9 years (40.9 ttl pk-yrs) Types: Cigarettes, Cigars Start date: 02/15/1984 Smokeless tobacco: Never Vaping Use Vaping status: Former Substance and Sexual Activity Alcohol use: Not Currently Drug use: Never Sexual activity: Yes Partners: Female control/protection: Abstinence Social Drivers of Health Financial Resource Strain: Low Risk (01/26/2024) Overall Financial Resource Strain (CARDIA) Difficulty of Paying Living Expenses: Not very hard Food Insecurity: No Food Insecurity (01/26/2024) Hunger Vital Sign Worried About Running Out of Food in the Last Year: Never true Ran Out of Food in the Last Year: Never true Transportation Needs: No Transportation Needs (01/26/2024) [facility] IP Transportation In the past 12 months, has lack of reliable transportation kept you from medical appointments, meetings, work or from getting things needed for daily living?: No Physical Activity: Insufficiently Active (01/26/2024) Exercise Vital Sign Days of Exercise per Week: 7 days Minutes of Exercise per Session: 20 min Stress: No Stress Concern Present (01/26/2024) [facility] - Occupational Stress Questionnaire Feeling of Stress : Only a little SURGICAL HISTORY Past Surgical History: Procedure Laterality Date COLON SURGERY XR INJECT CONTRAST EXISTING TUBE 03/06/2017 XR INJECT CONTRAST EXISTING TUBE 03/06/2017 CURRENT MEDICATIONS No current facility-administered medications for this encounter. Current Outpatient Medications: albuterol (VENTOLIN HFA) 90 mcg/actuation Inhl HFA Aerosol Inhaler, Inhale 1-2 Puffs into the lungsevery 4 hours as needed for Wheezing or Shortness of Breath for up to 30 days., Disp: 1 Each, Rfl: 0 bisoprolol (ZEBETA) 5 mg Oral Tablet, , Disp: , Rfl: budesonide 9 mg Oral Capsule, Sustained Release, Take 9 mg by mouth daily., Disp: 14 Capsule, Rfl: 0 CYANOCOBALAMIN, VITAMIN B-12, INJ, Inject as directed., Disp: , Rfl: doxycycline hyclate (VIBRA-TABS) 100 mg Oral Tablet, Take 1 Tablet by mouth 2 times daily for 7 days., Disp: 14 Tablet, Rfl: 0 esomeprazole (NEXIUM) 40 mg Oral Capsule, Delayed Release(E.C.), Take by mouth daily., Disp: , Rfl: gabapentin (NEURONTIN) 600 mg Oral Tablet, Take 600 mg by mouth 3 times daily., Disp: , Rfl: HYDROcodone-acetaminophen (NORCO) 10-325 mg Oral Tablet, Take 1 Tablet by mouth every 6 hours as needed for Chronic Pain (G89.29) for up to 28 days., Disp: 112 Tablet, Rfl: 0 inhalational spacing device, Please dispense 1 adult device., Disp: 1 Each, Rfl: 0 predniSONE (DELTASONE) 20 mg Oral Tablet, Take 2 Tablets by mouth daily for 5 days., Disp: 10 Tablet, Rfl: 0 pregabalin (LYRICA) 150 mg Oral Capsule, Take 150 mg by mouth 3 times daily., Disp: , Rfl: Ustekinumab (STELARA) 45 mg/0.5 mL SubQ Solution, Subcutaneous (Inject under the skin)., Disp: , Rfl: ALLERGIES Allergies Allergen Reactions Sulfa (Sulfonamide Antibiotics) Rash PHYSICAL EXAM VITAL SIGNS: BP 113/85 Pulse 82 Temp 98.2 ??F (36.8 ??C) (Oral) Resp 18 Ht 5' 9 (1.753 m) Wt 200 lb (90.7 kg) SpO2 99% BMI 29.53 kg/m?? Constitutional: Well developed, Well nourished, No acute distress, Non-toxic appearance. HENT: Normocephalic, Atraumatic, Bilateral external ears normal, Tympanic membranes normal bilaterally, Oropharynx moist, No oral exudates, Nose normal. Eyes: PERRLA, EOMI, Conjunctiva normal, No discharge. Neck: Normal range of motion, No tenderness, Supple, No stridor. Lymphatic: No lymphadenopathy noted. Cardiovascular: Normal heart rate, Normal rhythm, No murmurs, No rubs, No gallops. Thorax & Lungs: Normal breath sounds, No respiratory distress, Mild expiratory wheezing, No chest tenderness. Abdomen: Bowel sounds normal, Soft, No tenderness, No masses, No pulsatile masses. Skin: Warm, Dry, No erythema, No rash. Back: No tenderness, No CVA tenderness. Extremities: Intact distal pulses, No edema, No tenderness, No cyanosis, No clubbing. Musculoskeletal: Good range of motion in all major joints. No tenderness to palpation or major deformities noted. Neurologic: Alert & oriented x 3, Normal motor function, Normal sensory function, No focal deficits noted. Psychiatric: Affect normal, Judgment normal, Mood normal. RADIOLOGY/PROCEDURES/EKG/LABS Results for orders placed or performed during the hospital encounter of 01/20/25 XR CHEST PA AND LATERAL Narrative PA AND LATERAL CHEST X-RAY, 01/20/2025 3:46 PM CLINICAL HISTORY: -COUGH COMPARISON: X-ray 01/24/2024 PROCEDURE COMMENTS: Frontal and lateral views of the chest. FINDINGS: Heart and mediastinal contours within normal limits for technique. No active failure, pneumonia, or visible effusion. No visible pneumothorax. Impression No acute finding. - Note: Radiology results need to be interpreted within a comprehensive clinical context. If you have questions about the radiology report, please contact the office of the ordering clinician. EK EKG 12 LEAD Narrative NOTICE: Preliminary tracing available for review; Final Interpretation by physician to follow. Impression [facility] Test Date: 2025-01-20 Pat Name: OUSMANE KAPOOR Department: DEPID Room: Gender: Male Reference Services Head: Davis : 1970 Requested By: [facility] Order Number: [id number] Reading MD: Measurements Intervals [place] Rate: 71 P: 51 NV: 132 QRS: 23 QRSD: 90 T: 45 QT: 400 QTc: 438 Interpretive Statements SINUS RHYTHM EKG Interpretation Interpreted by Yusuf Mabry MD Rhythm: normal sinus Rate: normal [place]: normal Ectopy: none Conduction: normal ST Segments: nonspecific changes T Waves: normal Q Waves: none Clinical Impression: Normal sinus rhythm with no acute changes COURSE & MEDICAL DECISION MAKING Pertinent Labs & Imaging studies reviewed. (See chart for details) Patient resents with cough and chest congestion for about a week. His cough has been productive of yellowish sputum. EKG reveals sinus rhythm no acute ischemic changes. Chest x-ray PA and lateral wasbeen ordered as well as respiratory assessment. Patient clinically appears to have bronchitis. He does not have any chest pain or significant dyspnea. He is not tachycardic or tachypneic and saturations are normal. Does not appear to have any risk factors for pulmonary embolism. Symptoms have been present for over a week so unlikely to be influenza or COVID. Patient received a DuoNeb treatment and feels better. Chest x-ray is clear. He will be discharged home on prednisone, doxycycline, and albuterol inhaler with spacer. Advise follow-up with doctor in aweek return sooner if symptoms worsen. FINAL IMPRESSION 1. Acute bronchitis, unspecified organism Electronically signed by: Yusuf Mabry MD, 01/20/2025 3:54 PM Yusuf Mabry MD 01/20/25 [id number] Yusuf Mabry MD 05/1554 documented in this encounter Plan of Treatment Upcoming Encounters Date Type Department Care Team (Late st Contact Info) Description 04/05/2025 1:30 PM EDT Office Visit [facility] [address] [phone] Anay [place], DIRECTOR CONSUMER [address] [place] [address] documented as of this encounter Procedures Procedure Name Priority Date/Time Associated Diagnosis Comments SCANNED EKG 01/23/2025 11:00 AM EDT XR CHEST PA AND LATERAL SANJAY 01/20/2025 3:34 PM EDT EK EKG 12 LEAD STAT 01/20/2025 2:58 PM EDT documented in this encounter Results * SCANNED EKG (01/23/2025 11:00 AM EDT) Anatomical Region Laterality Modality Other 01/23/2025 11:0 0 AM EDT us Unknown Provider IMG ECG ORDERABLES Final Result * XR CHEST PA AND LATERAL (01/20/2025 3:34 PM EDT) Anatomical Region Laterality Modality Chest Radiographic Guerline ging 01/20/2025 3:34 PM EDT Impressions 01/20/2025 3:50 PM EDT No acute finding. - Note: Radiology results need to be interpreted within a comprehensive clinical context. If you have questions about the radiology report, please contact the office of the ordering clinician. Narrative 01/20/2025 3:50 PM EDT PA AND LATERAL CHEST X-RAY, 01/20/2025 3:46 PM CLINICAL HISTORY: -COUGH COMPARISON: X-ray 01/24/2024 PROCEDURE COMMENTS: Frontal and lateral views of the chest. FINDINGS: Heart and mediastinal contours within normal limits for technique. No active failure, pneumonia, or visible effusion. No visible pneumothorax. Procedure Note Reyes Slaughter MD - 01/20/2025 PA AND LATERAL CHEST X-RAY, 01/20/2025 3:46 PM CLINICAL HISTORY: -COUGH COMPARISON: X-ray 01/24/2024 PROCEDURE COMMENTS: Frontal and lateral views of the chest. FINDINGS: Heart and mediastinal contours within normal limits for technique. Noactive failure, pneumonia, or visible effusion. No visible pneumothorax. IMPRESSION: No acute finding. - Note: Radiology results need to be interpreted within a comprehensiveclinical context. If you have questions about the radiology report, please contactthe office of the ordering clinician. us Yusuf Mabry MD IMG DIAGNOSTIC IMAGING [facility] Final Result * EK EKG 12 LEAD (01/20/2025 2:58 PM EDT) Anatomical Region Laterality Modality Electrocardiogra phy 01/20/2025 2:59 PM EDT Impressions 01/20/2025 5:44 PM EDT [facility] Test Date: 2025-01-20 Pat Name: OUSMANE KAPOOR Department: DEPID Room: Gender: Male Reference Services Head: Davis : 1970 Requested By: [facility] Order Number: [id number] Reading MD: Yvette De Jesus Measurements Intervals [place] Rate: 71 P: 51 NV: 132 QRS: 23 QRSD: 90 T: 45 QT: 400 QTc: 438 Interpretive Statements SINUS RHYTHM Electronically Signed On 01-20-2025 17:44:19 EDT by Yvette De Jesus Narrative Procedure Note Yvette De Jesus MD - 01/20/[address] [facility] Test Date: 2025-01-20 Pat Name: OUSMANE ACOSTABLE Department: DEPID Room: Gender: Male Reference Services Head: Dp : 1970 Requested By: [facility] Order Number: [id number] Reading MD: Yvette De Jesus Measurements Intervals [place] Rate: 71 P: 51 NV: 132 QRS: 23 QRSD: 90 T: 45 QT: 400 QTc: 438 Interpretive Statements SINUS RHYTHM Electronically Signed On 01-20-2025 17:44:19 EDT by Yvette De Jesus us Yusuf Mabry MD IMG ECG ORDERABLES Final Re sult documented in this encounter Visit Diagnoses Diagnosis Acute bronchitis, unspecified organism- Primary documented in this encounter Administered Medications Inactive Administered Medications - up to 1 most recent administrations Medication Order MAR Action Action Date Dose Rate Site albuterol-ipratropium (DUO-NEB) 3 mg-0.5 mg(2.5 mg base)/3 mL nebulizer solution 3 mL 3 mL, Nebulization, ONCE, 1 dose, On Thu01/20/25 at 1530, Administered by Respiratory Therapy. Given 01/20/2025 3:26 PM EDT 3 mL documented in this encounter Active and Recently Administered Medications Times are shown in EDT. Scheduled Medication Order 01/18/2025 01/19/2025 01/20/2025 albuterol-ipratropium (DUO-NEB) 3 mg-0.5 mg(2.5 mg base)/3 mL nebulizer solution 3 mL (COMPLETED) 3 mL, Nebulization, ONCE, 1 dose, On Thu01/20/25 at 1530, Administered by Respiratory Therapy. 1526 (Given - Provid er: Anthony Carranza, ROOFING FOREMAN) documented in this encounter Orders Medications Ordered That Filiberto ht Not Have Been Administered Count Last Ordered Date First Ordered Date albuterol-ipratropium (DUO-N EB) 3 mg-0.5 mg(2.5 mg base)/3 mL nebulizer solution 3 mL 1 01/20/2025 documented in this encounter Care Teams Enterprise Business Architect Relationship Specialty Start Date End Date Hill Andrews MD [address] [place] [address] [place] [id number] PCP - General Emergency Medicine 03/01/23 documented as of this encounter
--- OUTSIDE RECORDS SUMMARY | 2025-02-08 09:45 | XMS_ITS | Encounter Summary ---
Author Organization [place] [address] Care Team Providers Care Ore Trimmer Name Role Phone Hill Andrews MD Primary Care Provider [phone] Reason for Visit * Reason Comments Follow Up Back Pain Encounter Details Date Type Department Care Team (Latest Contact Info) Description 02/08/2025 9:45 AM EDT Office Visit [address] [address] Juliann Guevara, BI TESTER [address] [place], [place] [id number] Lumbosacral radiculopathy at S1 (Primary Dx); Lumbosacral [...] drink = 0.6 oz pur e alcohol) [facility] Utilities Answer Date Recorded In the [...] Date Recorded PHQ-2 Total Score 0 01/26/2024 [place] [facility] - Occupational Stress [...] things needed for daily living? No 05/19/2022 [facility] HRSN [facility] IP Transportation Answer D ate Recorded In [...] true Transportation Needs: No Transportation Needs (01/26/2024) [facility] IP Transportation In the past 12 months, has lack of reliable transportation kept you from medical appointments, meetings, work or from getting things needed for daily living?: No Physical Activity: Insufficiently Active (01/26/2024) Exercise Vital Sign Days of Exercise per Week: 7 days Minutes of Exercise per Session: 20 min Stress: No Stress Concern Present (01/26/2024) [place] [facility] - Occupational Stress Questionnaire [...] HISTORY: 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 COMPARISON: 01/10/2020 PROCEDURE COMMENTS: Multiplanar multiecho MR [...] HISTORY: M50.30-Other cervical disc degeneration, unspecified cervical zgvilo-CEH-54-CM. COMPARISON: None. PROCEDURE COMMENTS: Multiplanar multiecho MR [...] 12:00 PM CONTROLLED SUBSTANCE RAJIV Reference Number [id number] Lab Results Component Value Date LABBARB Absent 06/21/2024 Lab Results Component Value Date DRUGEXPECT [place](TM) (hydrocodone) 06/21/2024 URCREATININE >25.0 01/28/2021 ALPRAZOLAM <8 [...] 06/21/2024 TRIAZOLAM <50 06/21/2024 AHDTRIAZ <50 06/21/2024 DELIVERY COORDINATOR/RAJIV and most recent UDS reviewed on 02/08/2025 [...] at today's visit. - No change in [place] dose as current dosage/regimen brings his/her pain [...] 04/05/2025). Juliann Guevara APRN Interventional Pain Management [facility] Spine [facility] The provider educated the patient (or legal instruments sales representative) on the use of the ambient listening artificial intelligence tool, [employer]. They were informed that this AI tool [...] of such information, the patient (or legal instruments sales representative), and each individual in attendance with the patient, verbally consented to the use of the AI tool. documented in this encounter Plan of Treatment Upcoming Encounters Date Type Department Care Team (Late st Contact Info) Description 04/05/2025 1:30 PM EDT Office Visit [facility] [address] [address] Anay Montana APRN [address] [place] [address] Scheduled Orders Name Type Priority Associated [...] documented as of this encounter Care Teams Ore Trimmer Relationship Specialty Start Date End Date Hill Andrews MD [address] [place] [address] PCP - General Emergency Medicine 03/01/23 documented as of this encounter
[2025-02-22 18:27] LABS: Basophils % 0.3 % (0.1-2.0); Eosinophils # 0.2 Kmm3 (0.0-0.4); Hematocrit 42.3 % (42.0-52.0); Hemoglobin 13.9 g/dL (14.1-18.0); Immature Granulocytes # 0.03 10^3uL; Immature Granulocytes % 0.3 %; Lymphocytes # 1.8 K/mm3 (0.7-4.5); Lymphocytes % 20.1 % (10-50); Mean Corpuscular HGB Conc 32.9 g/dL (31.8-35.4); Mean Corpuscular Hemoglobin 28.5 pg (27.0-31.2); Mean Corpuscular Volume 86.9 fl (80-94); Mean Platelet Volume 9.5 fl (7.4-10.4); Monocytes # 0.6 K/mm3 (0.1-1.0); Neutrophils # 6.2 K/mm3 (1.8-7.8); Neutrophils % 70.3 % (37.0-80.0); Nucleated Red Blood Cells # 0 10^3/uL; Nucleated Red Blood Cells % 0 %; Platelet Count 267 K/mm3 (142-424); Red Blood Count 4.87 M/mm3 (4.60-6.20); Red Cell Distribution Width-SD 41.3 fL; White Blood Count 8.8 K/mm3 (4.8-10.8)
[2025-02-22 19:09] LABS: Alanine Aminotransferase 15 U/L (12-78); Albumin Level 3.7 g/dl (3.5-5.0); Albumin/Globulin Ratio 1.3 (1.1-1.8); Alkaline Phosphatase 89 U/L (38-126); Anion Gap 7.7 mEq/L (5-15); Aspartate Amino Transferase 24 U/L (17-59); Bilirubin,Total 0.4 mg/dl (0.2-1.3); Blood Urea Nitrogen 9 mg/dl (9-20); Calcium 9.4 mg/dl (8.4-10.2); Carbon Dioxide 29 mmol/L (22.0-30.0); Chloride 103 mmol/L (98-107); Chol/HDL Ratio 5.7 (1-3.5); Cholesterol 212 mg/dl (140-200); Estimated Glomerular Filt Rate 89 ml/min (>60); GFR (African American) 107 ML/MIN (>60); Globulin 2.9 g/dL (1.3-3.2); Glucose 129 mg/dl (74-100); HDL Cholesterol 37 mg/dl (40-60); Potassium 3.7 mmoL/L (3.5-5.1); Sodium 136 mmol/L (136-145); Total Protein,Serum 6.6 g/dl (6.3-8.2); Triglycerides 313 mg/dl (30-150); VLDL Cholesterol 63 mg/dL (0-40)
[2025-02-22 19:26] LABS: Direct LDL Cholesterol 127.29 mg/dL (100-129)
[2025-02-22 19:43] LABS: 25-OH Vitamin D, Total 46.5 ng/mL (30-100)
[2025-02-22 19:48] LABS: Prostate Specific Ag Screen 0.7 ng/ml (0.0-4.0); Thyroid Stimulating Hormone 0.87 uIU/mL (0.465-4.68)
[2025-02-22 20:12] LABS: HIV Combo NEGATIVE (Negative)
[2025-02-22 20:22] LABS: Hepatitis C Ab Qual. W/ RFX NEGATIVE (Negative)
--- OUTSIDE RECORDS SUMMARY | 2025-02-23 09:32 | XMS_ITS | Encounter Summary ---
Author Organization [facility] Address [address] [place] [address] Care Team Providers Care Discharge Door Operator Name Role Phone Tammy Bauer SHANTELLE Primary Care Provider [phone] Encounter Details Date Type Department Care Team (Late st Contact Info) Description 06/10/2022 Outside Procedure [facility] [address] [place] [address] Provider, External Social History Tobacco Use Types Packs/Day Years Used Date Smoking Tobacco: Every Day Cigarettes 1 40.5 Started: 1984 Smokeless Tobacco: Never Comments:Wishing to stop smo asael Alcohol Use Standard Drinks/Week Comments Not Currently 0 (1 standard drink = 0.6 oz pure alcohol) Alcoholic Drinks/day: Stopped Drinking Alcohol PHQ-2 Answer Date Recorded Patient Health Questionnaire-2 Score 0 05/20/2022 Education Answer Date Recorded What is the highest level of school you have completed or the highest degree you have received? Associate degree: occupational, technical, or vocational program 02/19/2021 Sex and Gender Information Value Date Recorded Sex Assigned at Male 06/05/2022 2:56 PM EDT Legal Sex Male 8:18 PM EDT Gender Identity Male 06/05/2022 2:56 PM EDT Sexual Orientation Not on file COVID-19 Exposure Response Date Recorded In the last 10 days, have yo u been in contact with someone who was confirmed or suspected to have Coronavirus/COVID-19? No / Unsure 05/20/2022 11:09 AM EDT documented as of this encounter Plan of Treatment Upcoming Encounters Date Type Department Care Team (Late st Contact Info) Description 04/12/2025 10:40 AM EDT Office Visit [facility] [address] [place] [address] Elisha Kathleen PA [address] [place] [address] documented as of this encounter Procedures Procedure Name Priority Date/Time Associated Diagnosis Comments COLONOSCOPY 06/10/2022 1:15 PM EDT documented in this encounter Results * Colonoscopy (06/10/2022 1:15 PM EDT) Anatomical Region Laterality Modality Endoscopy 06/10/2022 12:5 0 PM EDT Impressions 06/10/2022 1:15 PM EDT Please see media tab for the result. Information added by interface. Narrative Procedure Note Herman Mccarthy MD - 06/10/2022 IMPRESSION: Please see media tab for the result. Information added by interface. us External Provider GI PROCEDURE ORDERABLES Final Result documented in this encounter Visit Diagnoses Not on filedocumented in this encounter Additional Health Concerns Assessment Noted Time PHQ-9 Depression Total Score: 6 02/20/20 21 1:00 PM EDT A fall risk assessment has been complete d for the patient 05/20/2022 11:22 AM EDT documented as of this encounter Care Teams Discharge Door Operator Relationship Specialty Start Date End Date Tammy Bauer APRN [address] [place] [address] PCP - General 01/18/21 documented as of this encounter
--- OUTSIDE RECORDS SUMMARY | 2025-02-23 09:32 | XMS_ITS | Encounter Summary ---
Author Organization [facility] Address [address] [place] [address] Care Team Providers Care Job Site Supervisor Name Role Phone Tammy Bauer SHANTELLE Primary Care Provider [phone]- [phone] Encounter Details Date Type Department Care Team ([facility] st Contact Info) Description 08/26/2022 Orders Only External Location [address] [place] [id number] Provider, External Social History Tobacco Use Types [...] PM EDT Sexual Orientation Not on file documented as of this encounter Plan of Treatment Upcoming Encounters Date Type Department Care Team (Late st Contact Info) Description 04/12/2025 10:40 AM EDT Office Visit [facility] [address] [place] [address] Elisha Kathleen, CARLOS ALBERTO [address] [place] [address] documented as of this encounter Procedures Procedure Name Priority Date/Time Associated Diagnosis Comments CT CHEST LUNG CANCER SCREENING 08/26/2022 8:32 AM EST documented in this encounter Results * CT Chest Lung Cancer Screening (08/26/2022 8:32 AM EST) Anatomical Region Laterality Modality Chest Computed Tomogra phy 08/26/2022 8:32 AM EST us External Provider IMG CT PROCEDURES Final Result documented in this encounter Visit Diagnoses Not on filedocumented in this encounter Additional Health Concerns Assessment Noted Time PHQ-9 Depression Total Score: 6 02/20/20 21 1:00 PM EDT A fall risk assessment has been complete d for the patient 06/30/2022 10:02 AM EDT documented as of this encounter Care Teams Job Site Supervisor Relationship Specialty Start Date End Date Tammy Bauer APRN [address] [place] [address] PCP - General 01/18/21 documented as of this encounter
--- OUTSIDE RECORDS SUMMARY | 2025-02-23 09:32 | XMS_ITS | Encounter Summary ---
Author Organization [facility] Address [address] [place] [address] Care Team Providers Care Provider Network Manager Name Role Phone Tammy Bauer SHANTELLE Primary Care Provider [phone]- [phone] Reason for Visit * Reason Comments Med Refill Encounter Details Date Type Department Care Team (Late st Contact Info) Description 12/10/2022 Refill [facility] [address] [place] [address] Elisha Kathleen PA [address] [place] [address] Social History Tobacco Use Types Packs/Day Years Used Date Smoking Tobacco: Every Day Cigarettes 1 38.9 Started: 04/07/1986 Smokeless Tobacco: Former Snuff Quit: 04/07/1988 Comments:Wishing to stop smo asael Alcohol Use Standard Drinks/Week Comments Not Currently 0 (1 standard drink = 0.6 oz pure alcohol) Alcoholic Drinks/day: Stopped Drinking Alcohol PHQ-2 Answer Date Recorded Patient Health Questionnaire-2 Score 0 11/03/2022 Education Answer Date Recorded What is the [...] suspected to have Coronavirus/COVID-19? No / Unsure 12/02/2022 10:29 AM EDT documented as of this encounter Miscellaneous Notes * Telephone Encounter - Ridge Sheffield - 12/10/2022 12:36 PM EDT Per protocol, 1 medication(s), esomeprazole, has been approved for 30 day supply with 5 refill(s) to [facility]. documented in this encounter Plan of Treatment Upcoming Encounters Date Type Department Care Team (Late st Contact Info) Description 04/12/2025 10:40 AM EDT Office Visit [facility] Medicine Specialties [address] [place] [address] Elisha Kathleen PA [address] [place] [address] documented as of this encounter Visit Diagnoses Not on filedocumented in this encounter Additional Health Concerns Assessment Noted Time PHQ-9 Depression Total Score: 6 02/20/20 21 1:00 PM EDT A fall risk assessment has been complete d for the patient 12/02/2022 4:30 PM EDT A Body Mass Index follow-up plan has been documented for the patient 12/03/2022 1:00 PM EDT documented as of this encounter Care Teams Provider Network Manager Relationship Specialty Start Date End Date Tammy Bauer APRN [address] [place] [address] PCP - General 01/18/21 documented as of this encounter
--- OUTSIDE RECORDS SUMMARY | 2025-02-23 09:32 | XMS_ITS | Encounter Summary ---
Author Organization [facility] Address [address] [place] [address] Care Team Providers Care Collator Name Role Phone Tammy Bauer SHANTELLE Primary Care Provider +1- [phone] Encounter Details Date Type Department Care Team (Latest Contact Info) Description 06/11/2022 Lab Requisition [facility] [address] [place] [address] Herman Mccarthy MD [address] [place] [address] Generalized abdominal pain; Melena; Crohn's disease, unspecified, without complications (CMS/HCC) Social History Tobacco Use Types Packs/Day Years [...] Description 04/12/2025 10:40 AM EDT Office Visit [facility] Medicine Specialties [address] [place] [address] Elisha Kathleen PA [address] [place] [address] documented as of this encounter Procedures Procedure Name Priority Date/Time Associated Diagnosis Comments SURGICAL PATHOLOGY EXAM Routine 06/10/2022 Generalized abdominal pain Melena Crohn's disease, unspecified, without complications (CMS/HCC) documented in this encounter Results * Surgical Pathology Exam (06/10/2022) Case Report Surgical Pathology Case: [id number] Authorizing Provider: Herman Mccarthy MD Collected: 06/10/2022 Ordering Location: [facility] Lab Received: 06/11/2022 1317 Pathologist: Dmitry Tyler MD Specimens: A) - Duodenal, Duodenal bx B) - Gastric, Gastric bx C) - Small Bowel, Small bowel bx D) - Colon, Random colon bx 06/17/2022 5:23 PM EDT [facility] Final Diagnosis A. DUODENUM, BIOPSY: - NO PATHOLOGIC ABNORMALITY - NO EVIDENCE OF VILLOUS ABNORMALITY OR INTRAEPITHELIAL LYMPHOCYTOSIS B. STOMACH, BIOPSY: - NO PATHOLOGIC ABNORMALITY - NO EVIDENCE OF HELICOBACTER-LIKE ORGANISMS ON ROUTINE STAIN C. SMALL INTESTINE, NOS, BIOPSY: - MILDLY ACTIVE CHRONIC ENTERITIS (HISTORY OF CROHN DISEASE) - NEGATIVE FOR GRANULOMAS OR DYSPLASIA D. COLON, RANDOM, BIOPSY: - NO PATHOLOGIC ABNORMALITY; NO EVIDENCE OF ACTIVE IBD - NEGATIVE FOR GRANULOMAS OR DYSPLASIA 06/17/2022 5:23 PM EDT [facility] at 1723 EDT Clinical Information R10.84 - Generalized abdominal pain [ICD-10-CM] K92.1 - Melena [ICD-10-CM] K50.90 - Crohn's disease, unspecified, without complications [ICD-10-CM] 06/17/2022 5:23 PM EDT [facility] Gross Description A. DUODENAL BX The specimen is received in formalin labeled duodenal BX , and consists of five pink-hollis soft tissue fragments ranging from 0.2-0.3 cm in greatest dimension. Entirely submitted in cassette A1. Tiffany L Mohsen B. GASTRIC BX The specimen is received in formalin labeled gastric BX , and consists of four pink-hollis soft tissue fragments ranging from 0.2-0.4 cm in greatest dimension. Entirely submitted in cassette B 1. Tiffany L Mohsen C. SMALL BOWEL BX The specimen is received in formalin labeled small bowel BX , and consists of two red-hollis soft tissue fragments measuring 0.4 cm each in greatest dimension. Entirely submitted in cassette C 1. Tiffany L Mohsen D. RANDOM COLON BX The specimen is received in formalin labeled random colon BX , and consists of a 0.8 x 0.7 x 0.3 cm aggregate of white-hollis soft tissue. Entirely submitted in cassette D 1. Tiffany L Mohsen 06/17/2022 5:23 PM EDT [facility] Tissue Duodenal structure / Unknown 06/10/2022 06/11/2022 1:17 PM EDT Tissue specimen (specimen) Stomach structure / Unknown 06/10/2022 06/11/2022 1:17 PM EDT Tissue specimen (specimen) Structure of small intestine / Unknown 06/10/2022 06/11/2022 1:17 PM EDT Tissue specimen (specimen) Colon structure / Unknown 06/10/2022 06/11/2022 1:17 PM EDT Herman Mccarthy MD LAB PATHOLOGY ORDERABLES Final Result [facility] [address] [place] [address] documented in this encounter Visit Diagnoses Diagnosis Generalized abdominal pain Abdominal pain, generalized Melena Blood in stool Crohn's disease, unspecified, without complications (CMS/HCC) documented in this encounter Additional Health Concerns Assessment Noted Time PHQ-9 Depression Total Score: 6 02/20/20 21 1:00 PM EDT A fall risk assessment has been complete d for the patient 05/20/2022 11:22 AM EDT documented as of this encounter Care Teams Collator Relationship Specialty Start Date End Date Tammy Bauer APRN [address] [place] [address] PCP - General 01/18/21 documented as of this encounter
--- OUTSIDE RECORDS SUMMARY | 2025-02-23 09:32 | XMS_ITS | Clinical Summary ---
Author Organization [facility] Address [address] [place] [address] Care Team Providers Care Financial Planning Advisor Name Role Phone Tammy Bauer Grazyna PEPPER Primary Care Provider +1- [phone] Allergies Active Allergy Reactions Criticality Noted Date Comments Sulfa Drugs Rash Low 10/02/2019 Sulfacetamide Rash Low 03/04/2005 Tetracycline Hives Medium 04/02/2023 Medications Insulin Syringe-Needle U-100 (B-D INSULIN SYRINGE 1CC/25GX1 ) 25G X 1 1 ML misc Take by mouth See administration instructions. 06/12/20 20 Active HYDROcodone-acet aminophen ([place]) 10-325 MG tablet Take by mouth 3 (three) times a day. 06/12/20 20 Active loperamide (Imodium A-D) 2 MG tablet Take by mouth See administration instructions. Take 1-2 tab every 2 to 4 hrs as needed (max of 8 per day). 04/28/20 17 Active testosterone cypionate (Depo-Testostero ne) 200 MG/ML injection Take by mouth 1 (one) time each day. 02/11/20 17 Active Insulin Syringe-Needle U-100 (B-D INSULIN SYRINGE 1CC/25GX1 ) 25G X 1 1 ML misc USE DIRECTED for vitamin B 12 injections 06/12/20 Active cyclobenzaprine (Flexeril) 10 MG tablet Take 1 tablet (10 mg) by mouth if needed. 10/15/19 21 Active albuterol 108 (90 Base) MCG/ACT inhaler 04/29/20 18 Active triamcinolone (Kenalog) 0.5 % cream Apply qid to rash 15 g 3 02/20/20 21 Active atorvastatin (Lipitor) 10 MG tablet Take 1 tablet (10 mg) by mouth 1 (one) time each day. 10/27/19 23 Active Aspirin Low Dose 81 MG EC tablet 11/12/19 23 Active bisoprolol (Zebeta) 5 MG tablet 11/12/19 23 Active Syringe/Needle, Disp, (B-D 3CC LUER-IVIS SYR 25GX1 ) 25G X 1 3 ML miscIndications: History of bowel resection USE DIRECTED FOR B12 INJECTIONS 1 each 2 12/11/19 23 Active losartan-hydroCH LOROthiazide (Hyzaar) 50-12.5 MG tablet 06/17/20 23 Active sildenafil (Viagra) 25 MG tablet 1 tablet (25 mg). 04/03/20 23 Active sildenafil (Revatio) 20 MG tablet 1-5 tablets by mouth as needed for sexual activity, do not repeat dose in 24 hours, take on empty stomach 50 tablet 3 08/21/20 23 Active cyanocobalamin (Vitamin B-12) 1000 MCG/ML injectionIndicat ions:History of bowel resection Inject 1 mL (1,000 mcg) under the skin every 30 (thirty) days. 1 mL 11 02/29/20 24 025 Active Syringe/Needle, Disp, (B-D SYRINGE/NEEDLE 1CC/25GX5/8) 25G X 5/8 1 ML miscIndications: History of bowel resection To be used for monthly administration of vitamin B12. 1 each 11 02/29/20 24 Active pregabalin (Lyrica) 150 MG capsuleIndicatio ns:Sensory neuropathy Take 1 capsule (150 mg) by mouth 3 (three) times a day. 90 capsule 5 10/03/19 25 07/26/2 025 Active esomeprazole (NexIUM) [address] capsule TAKE 1 CAPSULE BY MOUTH 2 TIMES A DAY. DO NOT OPEN CAPSULE 180 capsule 1 10/05/19 25 Active ustekinumab (Stelara) injectionIndicat ions:Crohn's disease of small intestine without complication (CMS/HCC) Inject contents of 1 syringe (90mg) under the skin every 4 weeks. Store in refrigerator and allow to warm to room temp prior to use. 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 Multiple nevi 11/06/2014 Eye pain 10/17/2013 Crohn's disease without complication 09/01/2013 Displacement of lumbar inter vertebral disc without myelopathy 09/01/2013 Generalized abdominal pain 09/01/2013 Other chronic pain 09/01/2013 Gastro-esophageal reflux disease without esophag itis 08/08/2013 Crohn's disease of small intestine without compl ication 08/09/2012 Encounters Date Type Department Care Team Description 12/22/2024 [facility]ill [facility] [address], [address] [place] [address] Steven Rendon MD Sensory neuropathy 12/20/2024 [facility]ill [facility] [address], [address] [place] [address] Elisha Kathleen PA Vitamin D deficiency from Last 3 Months Immunizations Immunization Administration Dates Next Due Influenza, injectable, quadr ivalent, preservative free 08/11/2022,11/12/2021,06/12/2020,2016 Influenza, seasonal, injecta ble, preservative free 07/22/2009 Family History Medical History Relation Name Comments Obesity Daughter Kalli Ware Moulton Diabetes Father Wayne Moulton Obesity Mother Bharati Arthur Stroke Mother Bharati Arthur Diabetes Paternal Grandfather Pradip Moulton Diabetes Sister Marine Moulton Obesity Sister Marine Moulton Relation Name Status Comments Daughter Kalli Moulton Father Wayne Moulton Mother Bharati Arthur Paternal Grandfather Pradip Moulton Sister Marine Moulton Social History Tobacco Use Types Packs/Day Years Used Date Smoking Tobacco: Every Day Cigarettes 1 38.9 Started: 04/07/1986 Passive Smoke Exposure: Current Smokeless Tobacco: Former Snuff Quit: 04/07/1988 Comments:Have been cutting b ack on cigarette use Alcohol Use Standard Drinks/Week Comments Not Currently 0 (1 standard drink = 0.6 oz pure alcohol) Alcoholic Drinks/day: Stopped Drinking Alcohol PHQ-2 Answer Date Recorded Patient Health Questionnaire-2 Score 0 09/16/2024 PHQ-9 Answer Date Recorded Patient Health Questionnaire-9 Score 0 09/16/2024 PHQ-2A Answer Date Recorded Patient Health Questionnaire-2 Score 0 05/04/2023 Education Answer Date Recorded What is the highest level of school you have completed or the highest degree you have received? Associate degree: occupational, technical, or vocational program 02/19/2021 Sex and Gender Information Value Date Recorded Sex Assigned at Male 06/05/2022 2:56 PM EDT Legal Sex Male 8:18 PM EDT Gender Identity Male 06/05/2022 2:56 PM EDT Sexual Orientation Not on file Last Filed Vital Signs Vital Sign Reading Time Taken Comments Blood Pressure 142/86 08/21/2023 9:28 AM EST Pulse 89 08/21/2023 9:28 AM EST Temperature 36.7 C (98.1 F) 05/20/2022 11:51 AM EDT Respiratory Rate 17 04/28/2022 12:24 PM EDT Oxygen Saturation 97% 12/02/2022 4:24 PM EDT Inhaled Oxygen Concentration - - Weight 93 kg (205 lb) 09/16/2024 10:41 AM EST Height 175.3 cm (5' 9 ) 09/16/2024 10:41 AM EST Body Mass Index 30.27 09/16/2024 10:41 AM EST Plan of Treatment Upcoming Encounters Date Type Department Care Team (Late st Contact Info) Description 04/12/2025 10:40 AM EDT [facility] [address], [address] [place] [address] Elisha Kathleen PA [address] [place] [address] Health Maintenance Due Date Last Done Comments [facility]-Medicare Annual Wellness (AWV) 1972 [facility]-/Child/Adol SDOH Screenings 1972 [id number] Vaccine (#1) 1977 [facility]- SDOH Screenings 1990 [facility]-Adult SDOH Screenings 1990 [facility]-DTaP,Tdap,and Td Vaccines (1 - Tdap) 1991 [facility]-Hepatitis A Vaccines (1 of 2 - Risk 2-dose series) 1991 [facility]-Hepatitis B Vaccines (1 of 3 - 19+ 3-dose series) 1991 [facility]Y-Pneumococcal Vaccine: 50+ Years (1 of 2 - PCV) 1991 [facility]Y-Zoster Vaccines (1 of 2) 2022 [facility]-Lung Cancer Screening 08/26/2023 08/26/2022, [facility]-Influenza Vaccine (Season Ended) 2025 08/11/2022, 11/12/2021, 06/12/2020, Additional history exists [facility]-Depression Screening 09/16/2025 025, 09/16/2024, 06/30/2022 [facility]-HIV Screening Completed 04/28/2022 [facility]-Hepatitis C Screening Completed 04/28/2022, 02/2017 Colonoscopy Discontinued 06/10/2022, 12/2021, 06/02/2022, Additional history exists [facility]-Obesity Intervention Completed 025, 02/29/2024, 11/04/2023, Additional history exists HPV Vaccines Aged Out No longer eligi ble based on patient's age to complete this topic [facility]Y-HIB Vaccines Aged Out No longer e ligible based on patient's age to complete this topic [facility]-IPV Vaccines Aged Out No longer e ligible based on patient's age to complete this topic UKY-Rotavirus Vaccines Aged Out No lo nger eligible based on patient's age to complete this topic Procedures Procedure Name Priority Date/Time Associated Diagnosis Comments CT CHEST LUNG CANCER SCREENING 08/26/2022 8:32 AM EST COLONOSCOPY 06/10/2022 1:15 PM EDT HEPATITIS C ANTIBODY - ED W/REFLEX TO HCV QUANT PCR STAT 04/28/2022 12:42 PM EDT HIV 1/2 ANTIBODY/ANTIGEN SCREEN WITH REFLEX TO HIV I/II DIFFERENTIATION STAT 04/28/2022 12:42 PM EDT from Last 3 Months or Most Recently Relevant to Health Maintenance Results * CT Chest Lung Cancer Screening (08/26/2022 8:32 AM EST) Anatomical Region Laterality Modality Chest Computed Tomogra phy 08/26/2022 8:32 AM EST us External Provider IMG CT PROCEDURES Final Result * Colonoscopy (06/10/2022 1:15 PM EDT) Anatomical Region Laterality Modality Endoscopy 06/10/2022 12:5 0 PM EDT Impressions 06/10/2022 1:15 PM EDT Please see media tab for the result. Information added by interface. Narrative Procedure Note Herman Mccarthy MD - 06/10/2022 IMPRESSION: Please see media tab for the result. Information added by interface. us External Provider GI PROCEDURE ORDERABLES Final Result * HIV 1 & 2 Antibody/Antigen Screen (04/28/2022 12:42 PM EDT) HIV 1 & 2 Antibody/Anti gen Screen Nonreactive Nonreactive 04/28/2022 2:47 PM EDT [facility] Blood Venous blood specimen / Unknown Venipuncture / Unknown 04/28/2022 12:42 PM EDT 04/28/2022 1:06 PM EDT us Lloyd Gaxiola MD LAB BLOOD ORDERABLES Final Result [facility] [address] [place] [address] * Hepatitis C Antibody - ED (04/28/2022 12:42 PM EDT) Hepatitis C Antibody Negative Negative 04/28/2022 2:47 PM EDT [facility] Blood Venous blood specimen / Unknown Venipuncture / Unknown 04/28/2022 12:42 PM EDT 04/28/2022 1:06 PM EDT us Lloyd Gaxiola MD LAB BLOOD ORDERABLES Final Result Performing Organization Address City/[facility]/ZIP Co de Phone Number [facility] [address] [place] [address] from Last 3 Months or Most Recently Relevant to Health Maintenance Insurance MEDICARE Care Teams Financial Planning Advisor Relationship Specialty Start Date End Date Tammy Bauer APRN [address] [place] [address] PCP - General 01/18/21
--- OUTSIDE RECORDS SUMMARY | 2025-02-23 09:32 | XMS_ITS | Encounter Summary ---
Author Organization [facility] Address [address] [place] [address] Care Team Providers Care Manufacturing Millwright Name Role Phone Tammy Bauer SHANTELLE Primary Care Provider +1- [phone] Encounter Details Date Type Department Care Team (Late st Contact Info) Description 06/10/2022 Outside Procedure [facility] [address] [place] [address] Provider, External Social History Tobacco Use [...] Description 04/12/2025 10:40 AM EDT Office Visit [facility] [address], [address] [place] [address] Elisha Kathleen PA [address] [place] [address] documented as of this encounter Procedures Procedure Name Priority Date/Time Associated Diagnosis Comments EGD 06/10/2022 1:18 PM EDT documented in this encounter Results * EGD (06/10/2022 1:18 PM EDT) Anatomical Region Laterality Modality Endoscopy 06/10/2022 12:4 4 PM EDT Impressions 06/10/2022 1:18 PM EDT Please see media tab for [...] documented as of this encounter Care Teams Manufacturing Millwright Relationship Specialty Start Date End Date Tammy Bauer APRN [address] [place] [address] PCP - General 01/18/21 documented as of this encounter
--- OUTSIDE RECORDS SUMMARY | 2025-02-23 09:33 | XMS_ITS | Encounter Summary ---
Author Organization [facility] Address [address] [place] [address] Care Team Providers Care Balance Wheel Facer Name Role Phone Tammy Bauer SHANTELLE Primary Care Provider +1- [phone] Reason for Visit * Reason Comments Med Refill Encounter Details Date Type Department Care Team (Late st Contact Info) Description 06/26/2023 Refill [facility] [address], [address] [place] [address] Elisha Kathleen PA [address] [place] [address] Social History Tobacco Use Types Packs/Day Years Used Date Smoking Tobacco: Every Day Cigarettes 1 38.9 Started: 04/07/1986 Smokeless Tobacco: Former Snuff Quit: 04/07/1988 Comments:Wishing to stop smo asael Alcohol Use Standard Drinks/Week Comments Not Currently 0 (1 standard drink = 0.6 oz pure alcohol) Alcoholic Drinks/day: Stopped Drinking Alcohol PHQ-2 Answer Date Recorded Patient Health Questionnaire-2 Score 0 05/04/2023 PHQ-2A Answer Date Recorded Patient Health Questionnaire-2 [...] on file documented as of this encounter Miscellaneous Notes * Telephone Encounter - Ridge Sheffield, PharmD - 06/26/2023 2:09 PM EDT Per protocol, 1 medication(s), esomeprazole, has been approved for 30 day supply with 6 refill(s) to [facility]. documented in this encounter Plan of Treatment Upcoming Encounters Date Type Department Care Team (Late st Contact Info) Description 04/12/2025 10:40 AM EDT [facility] Visit [facility] [address], [address] [place] [address] Elisha Kathleen, CARLOS ALBERTO [address] [place] [address] documented as of this encounter Visit Diagnoses Not on filedocumented in this encounter Additional Health Concerns Assessment Noted Time PHQ-9 Depression Total Score: 6 02/20/20 21 1:00 PM EDT A fall risk assessment has been complete d for the patient 05/04/2023 10:34 AM EDT A Body Mass Index follow-up plan has been documented for the patient 05/04/2023 2:37 PM EDT documented as of this encounter Care Teams Balance Wheel Facer Relationship Specialty Start Date End Date Tammy Bauer APRN [address] [place] [address] PCP - General 01/18/21 documented as of this encounter
--- OUTSIDE RECORDS SUMMARY | 2025-02-23 09:33 | XMS_ITS | Encounter Summary ---
Author Organization [facility] [place] [address] Care Team Providers Care Tongsman Name Role Phone Hill Andrews MD Primary Care Provider [phone] Encounter Details Date Type Department Care Team (Latest Contact Info) Description 01/20/2025 Travel Social History Tobacco Use Types Packs/Day Years Used Date Smoking Tobacco: Every Day Cigarettes 1 41 Started: 02/15/1984 Cigars Smokeless Tobacco: Never Alcohol Use Standard Drinks/Week Comments Not Currently 0 (1 standard drink = 0.6 oz pur e alcohol) [facility] Utilities Answer Date Recorded In [...] Date Recorded PHQ-2 Total Score 0 01/26/2024 [facility] [place] [facility] - Occupational Stress [...] things needed for daily living? No 05/19/2022 [facility] Answer D ate Recorded In [...] on file documented as of this encounter Functional Status * Suicide Severity Rating Answer Date of Assessment Author No Risk 01/20/2025 2:57 PM Sharmin Bob RN * [place] Suicide Severity Rating Scale (Q shift for moderate and high) Question Answer Date of Assessment Author 1. In the past month, have you wished you were or wished you could go to sleep and not wake up? 0 01/20/2025 2:57 PM Sharmin Bob, MALA 2. In the past month, have you actually had any thoughts of killing yourself? (If no, skip to question 6) 0 01/20/2025 2:57 PM Sharmin Bob, MALA 6. Have you ever done anything, started to do anything, or prepared to do anything to end your life? 0 01/20/2025 2:57 PM Sharmin Bob RN documented as of this encounter Plan of Treatment Upcoming Encounters Date Type Department Care Team (Late st Contact Info) Description 04/05/2025 1:30 PM EDT Office Visit [facility] [address] [place] [phone] Anay Montana APRN [address] [place] [address] documented as of this encounter Visit Diagnoses Not on filedocumented in this encounter Care Teams Tongsman Relationship Specialty Start Date End Date Hill Andrews MD [address] [place] [address] PCP - General Emergency Medicine 03/01/23 documented as of this encounter
[2025-02-24 05:42] LABS: Hepatitis B Surface Antigen Negative (Negative)
== END 2025-02-22 23:59 | disposition home or self-care (01) ==
LOC: LAB.DROPOF 02-23 09:29
PROVIDERS: PCP Family Medicine; Visit Provider Family Medicine
DX: E55.9 Vitamin D deficiency, unspecified (principal); E87.6 Hypokalemia; R07.9 Chest pain, unspecified; R00.2 Palpitations; Z12.5 Encounter for screening for malignant neoplasm of prostate; Z11.59 Encounter for screening for other viral diseases
CPT/HCPCS: 80053; 80061; 82306; 84443; 85025; 86803; 87340; 87389; G0103

== ENCOUNTER 2025-02-23 09:44 | Outpatient (CLI) | payer MEDICARE, SELFPAY ==
--- OUTSIDE RECORDS SUMMARY | 2025-01-20 15:03 | XMS_ITS | Encounter Summary ---
Author Organization [place] [address] Care Team Providers Care Masticator Name Role Phone Hill Andrews MD Primary Care Provider Reason for Visit * Reason Comments Cough Cough, sinus drainag e, and SOB for a week Encounter Details Date Type Department Care Team (Late st Contact Info) Description 01/20/2025 3:03 PM EDT - 01/20/2025 4:05 PM EDT [facility] [address] [facility] [place] [address] Yusuf Mabry MD [address] [place] [phone] Acute bronchitis, unspecified organism (Primary Dx) Discharge Disposition: Home or Self Care Social History Tobacco Use Types Packs/Day Years Used Date Smoking Tobacco: Every Day Cigarettes 1 41 Started: 02/15/1984 Cigars Smokeless Tobacco: Never Alcohol Use Standard Drinks/Week Comments Not Currently 0 (1 standard drink = 0.6 oz pur e alcohol) [facility] Utilities Answer Date Recorded In the [...] Date Recorded PHQ-2 Total Score 0 01/26/2024 [facility] - Occupational Stress [...] things needed for daily living? No 05/19/2022 [facility] IP Transportation Answer D ate Recorded In [...] 2:57 PM EDT Sharmin Geller RN * [place] Suicide Severity Rating Scale (Q shift for [...] Means Destination Comment s Home or Self Residential documented in this encounter Progress Notes * Anthony Carranza, DISH CARRIER - 01/20/2025 3:27 PM EDT 01/20/25 1526 [...] true Transportation Needs: No Transportation Needs (01/26/2024) [facility] IP Transportation In the past 12 months, has lack of reliable transportation kept you from medical appointments, meetings, work or from getting things needed for daily living?: No Physical Activity: Insufficiently Active (01/26/2024) Exercise Vital Sign Days of Exercise per Week: 7 days Minutes of Exercise per Session: 20 min Stress: No Stress Concern Present (01/26/2024) [facility] - Occupational Stress Questionnaire [...] OUSMANE KAPOOR Department: DEPID Room: Gender: Male Resource Specialist: Davis : 1970 Requested By: [facility] Order Number: [id number] Reading MD: Measurements Intervals [place] Rate: 71 P: 51 NE: 132 QRS: 23 QRSD: 90 T: 45 QT: 400 QTc: 438 Interpretive Statements SINUS RHYTHM EKG Interpretation Interpreted by Yusuf Mabry MD Rhythm: normal sinus Rate: normal [place]: normal Ectopy: none Conduction: normal ST Segments: [...] 01/20/2025 3:54 PM Yusuf Mabry MD 01/20/25 0977 Yusuf Mabry MD 05/1554 documented in this encounter Plan of Treatment Upcoming Encounters Date Type Department Care Team (Late st Contact Info) Description 04/05/2025 1:30 PM EDT Office Visit [facility] [address] [phone] Anay [place], HYDROELECTRIC STATION CHIEF [address] [place] [address] documented as of this encounter [...] Yusuf Mabry MD [facility] Final Result * EK EKG 12 LEAD (01/20/2025 2:58 PM EDT) Anatomical Region Laterality Modality Electrocardiogra phy 01/20/2025 2:59 PM EDT Impressions 01/20/2025 5:44 PM EDT [place] Test Date: 2025-01-20 Pat Name: OUSMANE KAPOOR Department: DEPID Room: Gender: Male Resource Specialist: Davis : 1970 Requested By: [facility] Order Number: [id number] Reading MD: Yvette De Jesus Measurements Intervals [place] Rate: 71 P: 51 NE: 132 QRS: 23 QRSD: 90 T: 45 QT: 400 QTc: 438 Interpretive Statements SINUS RHYTHM Electronically Signed On 01-20-2025 17:44:19 EDT by Yvette De Jesus Narrative Procedure Note Yvette De Jesus MD - 01/20/[address] [facility] [place] Test Date: 2025-01-20 Pat Name: OUSMANE ACOSTABLE Department: DEPID Room: Gender: Male Resource Specialist: Dp : 1970 Requested By: [facility] Order Number: [id number] Reading MD: Yvette De Jesus Measurements Intervals [place] Rate: 71 P: 51 NE: 132 QRS: 23 QRSD: 90 T: 45 QT: 400 QTc: 438 Interpretive Statements SINUS RHYTHM Electronically Signed On 01-20-2025 17:44:19 EDT by Yvette De Jesus us Yusfu Mabry MD IMG ECG ORDERABLES Final Re [...] 1526 (Given - Provid er: Anthony Carranza, DISH CARRIER) documented in this encounter Orders Medications Ordered That Filiberto ht Not Have Been Administered Count Last Ordered Date First Ordered Date albuterol-ipratropium (DUO-N EB) 3 mg-0.5 mg(2.5 mg base)/3 mL nebulizer solution 3 mL 1 01/20/2025 documented in this encounter Care Teams Masticator Relationship Specialty Start Date End Date Hill Andrews MD [address] [place] [address] [place] [phone] PCP - General Emergency Medicine 03/01/23 documented as of this encounter
--- OUTSIDE RECORDS SUMMARY | 2025-02-08 09:45 | XMS_ITS | Encounter Summary ---
Author Organization [place] [address] Care Team Providers Care Sales Service Professional Name Role Phone Hill Andrews MD Primary Care Provider [phone] Reason for Visit * Reason Comments Follow Up Back Pain Encounter Details Date Type Department Care Team (Latest Contact Info) Description 02/08/2025 9:45 AM EDT Office Visit [address] [address] Juliann Guevara, VICE PRESIDENT OF ENGINEERING [address] [place], [place] [id number] Lumbosacral radiculopathy at S1 (Primary Dx); Lumbosacral spondylosis without myelopathy; DDD (degenerative disc disease), cervical; Chronic pain syndrome; Vertebrogenic pain; Crohn's disease of colon, unspecified complication (HCC); Myofascial pain; Crohn's disease of both small and large intestine with rectal bleeding (HCC); Encounter for long-term (current) use of high-risk medication Social History Tobacco Use Types Packs/Day Years Used Date Smoking Tobacco: Every Day Cigarettes 1 41 Started: 02/15/1984 Cigars Smokeless Tobacco: Never Tobacco Cessation:Ready to Q uit: Not Asked; Counseling Given: Not Answered Alcohol Use Standard Drinks/Week Comments Not Currently 0 (1 standard drink = 0.6 oz pur e alcohol) [facility] Utilities Answer Date Recorded In the past 12 months has th e electric, gas, oil, or water company threatened to shut off services in your home? No 01/26/2024 Overall Financial Resource Strain (CARDIA) Answe r Date Recorded How hard is it for you to pa y for the very basics like food, housing, medical care, and heating? Not very hard 01/26/2024 PHQ-2 Answer Date Recorded PHQ-2 Total Score 0 01/26/2024 [employer] [facility] of Occupat ional Health - Occupational Stress [...] things needed for daily living? No 05/19/[address] [facility] H[facility]N [facility] IP Transportation Answer D ate Recorded In [...] Sign Reading Time Taken Comments Blood Pressure 135/83 02/08/2025 9:47 AM EDT Pulse 78 02/08/2025 9:47 AM EDT Temperature - - Respiratory Rate - - Oxygen Saturation 94% 02/08/2025 9:47 AM EDT Inhaled Oxygen Concentration - - Weight 90.4 kg (199 lb 3.2 oz) 02/08/2025 9:47 A M EDT Height - - Body Mass Index 29.42 01/20/2025 2:55 PM EDT documented in this encounter Ordered Prescriptions Prescription Sig Dispense Quantity Refills Last Filled Start Date End Date HYDROcodone-acetami nophen (NORCO) 10-325 mg Oral TabletIndications:L umbosacral radiculopathy at S1 Take 1 Tablet by mouth every 6 hours as needed for Chronic Pain (G89.29) for up to 28 days. 112 Tablet 02/14/2025 HYDROcodone-acetami nophen (NORCO) 10-325 mg Oral TabletIndications:L umbosacral radiculopathy at S1,Lumbosacral spondylosis without myelopathy,DDD (degenerative disc disease), cervical,Chronic pain syndrome Take 1 Tablet by mouth every 6 hours as needed for Chronic Pain (G89.29) for up to 28 days. 112 Tablet 03/14/2025 documented in this encounter Progress Notes * Juliann Guevara, SHANTELLE - 02/08/2025 9:45 AM EDT Images from the original note were not included. Subjective Subjective: Patient ID: Ousmane Moulton is a 54 y.o. male who presents today for Chief Complaint Patient presents with Follow Up Back Pain HPI: History of Present Illness The patient is a 54-year-old male who presents today for follow-up regarding his pain. Pain is worse since the last visit. He is aware that he can schedule his trigger point injections when needed. Previous trigger points provided 80% relief for 3 months before his pain returned. TPIs provided increased range of motion with less pain. He continues to take hydrocodone with benefit and reports no side effects. He also takes gabapentin as prescribed by his primary care physician. An emergency department visit occurred on 01/20/2025 for cough and shortness of breath. He was discharged with prednisone, doxycycline, and an inhaler for those symptoms. He was diagnosed with bronchitis during this visit. Despite completing the prescribed medication course, he continues to experience a cough. He reports persistent pain in the lower back region, rating it as a 7 on the pain scale today. The pain is not severe but noticeable, particularly when lifting heavy objects. His blood pressure remains stable. He has Crohn's disease but does not have any problem with bowel movement. SOCIAL HISTORY Coffee/Tea/Caffeine-containing Drinks: The patient drinks Red Bull. Characterization of Primary Pain: Location of Pain: Mid-back - bilateral Pain Ratin/10 on NRS Quality: aching and throbbing Temporal Profile: constant with intermittent exacerbations Referral Pattern: Pain is not referred Exacerbating Factors: increased activity and activities of daily living Relieving Factors: rest, medications, injections, and exercising/stretching Associated Symptoms: Patient denies any red flag symptoms such as urinary/bowel incontinence, progressive weakness in the extremities, and/or saddle anesthesia. Characterization of Secondary Pain: Location of Pain: Low-back - bilateral Pain Ratin/10 on NRS Quality: aching, throbbing, and sharp Temporal Profile: constant with intermittent exacerbations Referral Pattern: Pain is not referred Exacerbating Factors: increased activity, activities of daily living, prolonged standing, and walking Relieving Factors: rest, medications, and exercising/stretching Associated Symptoms: Patient denies any red flag symptoms such as urinary/bowel incontinence, progressive weakness in the extremities, and/or saddle anesthesia. The patient's current medication regimen partially controls their pain to the point of making theirpain more tolerable. They report >50% improvement in their ability to perform ADL's. No apparentside effects are noted with current medication regimen. Review of Systems Constitutional: Positive for activity change and fatigue. Negative for appetite change, chills, diaphoresis and fever. HENT: Negative for congestion, dental problem, drooling, ear discharge, ear pain, facial swelling, hearing loss, mouth sores, nosebleeds, postnasal drip, rhinorrhea, sinus pressure, sore throat, tinnitus, trouble swallowing and voice change. Respiratory: Negative for cough, chest tightness, shortness of breath and wheezing. Cardiovascular: Negative for chest pain, palpitations and leg swelling. Gastrointestinal: Positive for abdominal pain, diarrhea and nausea. Negative for constipation and vomiting. Endocrine: Positive for polydipsia. Genitourinary: Positive for frequency. Negative for dysuria, flank pain, hematuria and urgency. Musculoskeletal: Positive for arthralgias and back pain. Negative for gait problem, joint swelling,myalgias, neck pain and neck stiffness. Skin: Negative for rash. Allergic/Immunologic: Negative for environmental allergies. Neurological: Positive for numbness. Negative for dizziness, tremors, seizures, syncope, speech difficulty, weakness and headaches. Hematological: Does not bruise/bleed easily. Psychiatric/Behavioral: Negative for agitation, behavioral problems, dysphoric mood, hallucinations, sleep disturbance and suicidal ideas. The patient is not nervous/anxious. All other systems reviewed and are negative. Past Medical History: Diagnosis Date CD (Crohn's disease) (HCC) Crohn's disease (HCC) Neuropathy Rheumatoid arthritis (HCC) Past Surgical History: Procedure Laterality Date COLON SURGERY XR INJECT CONTRAST EXISTING TUBE 03/06/2017 XR INJECT CONTRAST EXISTING TUBE 03/06/2017 Family History Problem Relation Age of Onset Diabetes Father Arthritis Father Hearing Loss Father High Blood Pressure Father Vision Loss Father Diabetes Sister Vision Loss Sister Diabetes Paternal Grandfather Vision Loss Mother Social History Socioeconomic History Marital status: Spouse name: Not on file Number of children: Not on file Years of education: Not on file Highest education level: Not on file Occupational History Not on file Tobacco Use Smoking status: Every Day Current packs/day: 1.00 Average packs/day: 1 pack/day for 41.0 years (41.0 ttl pk-yrs) Types: Cigarettes, Cigars Start date: 02/15/1984 Smokeless tobacco: Never Vaping Use Vaping status: Former Substance and Sexual Activity Alcohol use: Not Currently Drug use: Never Sexual activity: Yes Partners: Female control/protection: Abstinence Other Topics Concern Not on file Social History Narrative Not on file Social Drivers of Health Financial Resource Strain: Low Risk (01/26/2024) Overall Financial Resource Strain (CARDIA) Difficulty of Paying Living Expenses: Not very hard Food Insecurity: No Food Insecurity (01/26/2024) Hunger Vital Sign Worried About Running Out of Food in the Last Year: Never true Ran Out of Food in the Last Year: Never true Transportation Needs: No Transportation Needs (01/26/2024) [facility] IP Transportation In the past 12 months, has lack of reliable transportation kept you from medical appointments, meetings, work or from getting things needed for daily living?: No Physical Activity: Insufficiently Active (01/26/2024) Exercise Vital Sign Days of Exercise per Week: 7 days Minutes of Exercise per Session: 20 min Stress: No Stress Concern Present (01/26/2024) [employer] Occupational Health - Occupational Stress Questionnaire Feeling of Stress : Only a little Social Connections: Not on file Intimate Partner Violence: Not on file Housing Stability: Not on file Patients past medical, surgical, family and social histories were reviewed and updated. There were no changes except as noted. Current Outpatient Medications: albuterol (VENTOLIN HFA) 90 [...] INJ, Inject as directed., Disp: , Rfl: esomeprazole (NEXIUM) 40 mg Oral Capsule, Delayed Release(E.C.), Take by mouth daily., Disp: , Rfl: gabapentin (NEURONTIN) 600 mg Oral Tablet, Take 600 mg by mouth 3 times daily., Disp: , Rfl: [START ON 03/14/2025] HYDROcodone-acetaminophen (NORCO) 10-325 mg Oral Tablet, Take 1 Tablet by mouthevery 6 hours as needed for Chronic Pain (G89.29) for up to 28 days., Disp: 112 Tablet, Rfl: 0 [START ON 02/14/2025] HYDROcodone-acetaminophen (NORCO) 10-325 mg Oral Tablet, Take 1 Tablet by mouth every 6 hours as needed for Chronic Pain (G89.29) for up to 28 days., Disp: 112 Tablet, Rfl: 0 pregabalin (LYRICA) 150 mg Oral Capsule, Take 150 mg by mouth 3 times daily., Disp: , Rfl: Ustekinumab (STELARA) 45 mg/0.5 mL SubQ Solution, Subcutaneous (Inject under the skin)., Disp: , Rfl: Objective Objective: Vitals: 02/08/25 0947 BP: 135/83 BP Location: Right arm Patient Position: Sitting Pulse: 78 SpO2: 94% Weight: 199 lb 3.2 oz (90.4 kg) Body mass index is 29.42 kg/m??. Physical Exam HENT: Head: Normocephalic. Right Ear: External ear normal. Left Ear: External ear normal. Eyes: General: Right eye: No discharge. Left eye: No discharge. Cardiovascular: Pulses: Normal pulses. Pulmonary: Effort: Pulmonary effort is normal. Musculoskeletal: Thoracic back: Spasms present. Decreased range of motion. Lumbar back: Tenderness present. Decreased range of motion. Back: Skin: General: Skin is warm and dry. Capillary Refill: Capillary refill takes less than 2 seconds. Neurological: Mental Status: He is alert. Mental status is at baseline. Psychiatric: Mood and Affect: Mood normal. Physical Exam Musculoskeletal: Mid back: Pain Lower back: Pain Image Review: Results for orders placed during the hospital encounter of 04/12/24 MRI LUMBAR SPINE WO CONTRAST Narrative MRI LUMBAR SPINE WITHOUT CONTRAST, 04/12/2024 2:59 PM CLINICAL HISTORY: M47.817-Spondylosis without myelopathy or radiculopathy, lumbosacral beduvc-IZI-04-CM M51.36-Other intervertebral disc degeneration, lumbar dtqifm-GJC-10-CM. COMPARISON: 01/10/2020 PROCEDURE COMMENTS: Multiplanar multiecho MR imaging of the lumbar spine without contrast. FINDINGS: Progressive moderate intervertebral disc space narrowing at L5-S1 with new Modic type I endplate signal changes. Vertebral body and alignment are maintained in the lumbar spine. No concerning marrow signal alteration. Conus medullaris is normal in signal and position. Marrow signal: No significant marrow signal alteration or replacement. Level by level analysis: L1-L2: Unremarkable. L2-L3: Unremarkable. L3-L4: Mild bilateral facet arthropathy. No canal or foraminal compromise. L4-L5: Mild bilateral facet arthropathy. No canal or foraminal, aspirin L5-S1: There is significantly reduced volume of the previous right subarticular disc protrusion with a residual shallow disc bulge. No canal or foraminal compromise. Impression 1. Reduced volume of the right subarticular disc protrusion at L5-S1 which is resolved or near completely resolved. No residual mass effect on the traversing right S1 nerve root. 2. Slight progression of degenerative disc disease at L5-S1 with Modic type I endplate signal changes, but no new canal or foraminal compromise. - Note: Radiology results need to be interpreted within a comprehensive clinical context. If you have questions about the radiology report, please contact the office of the ordering clinician. No results found for this or any previous visit. Results for orders placed during the hospital encounter of 05/01/21 MRI CERVICAL SPINE WO CONTRAST Narrative MR CERVICAL SPINE WITHOUT CONTRAST, 05/01/2021 1:42 PM CLINICAL HISTORY: M50.30-Other cervical disc degeneration, unspecified cervical hyfrtl-GCL-68-CM. COMPARISON: None. PROCEDURE COMMENTS: Multiplanar multiecho MR imaging of the cervical spine per protocol. FINDINGS: No malalignment or concerning marrow signal abnormality. Cord signal unremarkable. Level by level analysis: C2-C3: Unremarkable. C3-C4: Mild disc bulge. No canal or foraminal stenosis. C4-C5: Minimally degenerative with minimal disc bulge. No canal or foraminal stenosis. C5-C6: Mild protrusion noted. Mild mass effect on the thecal sac. No canal or foraminal stenosis. C6-C7: Unremarkable. C7-T1: Unremarkable. Comment:No significant additional finding. Impression : Minimally degenerative disc disease without significant canal or foraminal stenosis. Normal alignment. Normal cord. - Note: Radiology results need to be interpreted within a comprehensive clinical context. If you have questions about the radiology report, please contact the office of the ordering clinician. No results found for this or any previous visit. Results for orders placed during the hospital encounter of 01/24/24 CT CERVICAL SPINE WO CONTRAST Narrative CT CERVICAL SPINE WITHOUT CONTRAST, 01/24/2024 8:52 PM CLINICAL HISTORY: -fall. COMPARISON: 05/01/2021 PROCEDURE COMMENTS: Multidetector CT of the cervical spine with multiplanar reformatting per protocol. FINDINGS: No acute fracture or traumatic malalignment. Prevertebral soft tissues unremarkable. No significant cervical spondylosis. Left greater than right maxillary sinus opacification. Impression No acute bony abnormality of the cervical spine. - Note: Radiology results need to be interpreted within a comprehensive clinical context. If you have questions about the radiology report, please contact the office of the ordering clinician. No results found for this or any previous visit. No results found for this or any previous visit. Results Prescription Monitoring Program: 10/12/2024 9:35 PM AMB SPINE RISK TOOL (ORT) How often do you have mood swings? Never How often do you smoke a cigarette within an hour after you wake up? Seldom How often have any of your family members, including parents and grandparents, had a problem w/ alcohol or drugs? Never How often have any of your close friends had a problem with alcohol or drugs? Never How often have others suggested that you have a drug or alcohol problem? Never How often have you attended an AA or NA meeting? Never How often have you taken medication other than the way that it was prescribed? Never How often have you been treated for an alcohol or drug problem? Never How often have your medications been lost or stolen? Never How often have others expressed concern over your use of medications? Never How often have you felt a craving for medications? Never How often have you been asked to give a urine screen for substance abuse? Seldom How often have you used illegal drugs (for example, marijuana, cocaine, etc.) in the past five years? Never How often, in your lifetime, have you had legal problems or been arrested? Seldom Risk Tool Total 3 Patient-reported 01/05/2020 12:00 PM CONTROLLED SUBSTANCE RAJIV Reference Number [id number] Lab Results Component Value Date LABBARB Absent 06/21/2024 Lab Results Component Value Date DRUGEXPECT [place](TM) (hydrocodone) 06/21/2024 URCREATININE >25.0 01/28/2021 ALPRAZOLAM <8 06/21/2024 AHDALPRAZ <25 06/21/2024 CLONAZEPAM <10 06/21/2024 7AMNCLON <25 06/21/2024 DIAZEPAM <10 06/21/2024 NORDIAZEPAM <25 06/21/2024 FLUNITRAZ <50 06/21/2024 7AMNFLUN <50 06/21/2024 FLURAZEPAM <50 06/21/2024 HDXYETFLUR <50 06/21/2024 LORAZEPAM <50 06/21/2024 LORAZGLUC <50 06/21/2024 MIDAZOLAM <50 06/21/2024 AHDMIDAZ <50 06/21/2024 OXAZEPAM <50 06/21/2024 OXAZGLUC <50 06/21/2024 TEMAZEPAM <50 06/21/2024 TEMAZGLUC <50 06/21/2024 TRIAZOLAM <50 06/21/2024 AHDTRIAZ <50 06/21/2024 [employer]/RAJIV and most recent UDS reviewed on 02/08/2025 as available. . Assessment and Plan: Diagnoses and all orders for this visit: Lumbosacral radiculopathy at S1 - HYDROcodone-acetaminophen (NORCO) 10-325 mg Oral Tablet; Take 1 Tablet by mouth every 6 hours as needed for Chronic Pain (G89.29) for up to 28 days. Dispense: 112 Tablet; Refill: 0 - HYDROcodone-acetaminophen (NORCO) 10-325 mg Oral Tablet; Take 1 Tablet by mouth every 6 hours as needed for Chronic Pain (G89.29) for up to 28 days. Dispense: 112 Tablet; Refill: 0 Lumbosacral spondylosis without myelopathy - HYDROcodone-acetaminophen (NORCO) 10-325 mg Oral Tablet; Take 1 Tablet by mouth every 6 hours as needed for Chronic Pain (G89.29) for up to 28 days. Dispense: 112 Tablet; Refill: 0 DDD (degenerative disc disease), cervical - HYDROcodone-acetaminophen (NORCO) 10-325 mg Oral Tablet; Take 1 Tablet by mouth every 6 hours as needed for Chronic Pain (G89.29) for up to 28 days. Dispense: 112 Tablet; Refill: 0 Chronic pain syndrome - HYDROcodone-acetaminophen (NORCO) 10-325 mg Oral Tablet; Take 1 Tablet by mouth every 6 hours as needed for Chronic Pain (G89.29) for up to 28 days. Dispense: 112 Tablet; Refill: 0 Vertebrogenic pain Crohn's disease of colon, unspecified complication (HCC) (Chronic) Myofascial pain Crohn's disease of both small and large intestine with rectal bleeding (HCC) (Chronic) Encounter for long-term (current) use of high-risk medication - COMPLIANCE PANEL, URINE; Future Assessment & Plan 1. Chronic pain: Continue hydrocodone as it provides benefit without side effects. Gabapentin to be continued as prescribed by the primary care physician. Patient is aware of the option to schedule trigger point injections as needed, which previously provided 80% relief for 3 months. A urine screen will be conducted today. 2. Bronchitis: Patient experienced an ED visit on 01/20/2025 for cough and shortness of breath and was discharged with prednisone, doxycycline, and an inhaler. Despite completing the medications, a lingering cough persists. Explained that the cough can persist even after other symptoms improve. 3. Blood pressure management: Blood pressure remains stable. Continue regular monitoring of blood pressure. 4. Crohn's disease: No issues with bowel movements reported. - Repeat TPI's when needed - Crohn's - Follows with GI. - UDS today to monitor for compliance with medication use. The UDS is medically necessary to monitor for compliance due to the potential side effects and complications of misuse of opioids. Patient denies current use of illicit substances or medications not prescribed to them. - Continue medication(s) as previously prescribed as there are no new symptoms, change in location,sustained increase in pain level, or interval changes in medical condition. Patient reports increased activity and improved functionality with medication use and endorses no adverse reactions. No aberrant behavior or medication abuse is evident. - PT/HEP: Recommend continued physician directed home exercise - RAJIV reviewed at today's visit. - No change in Inter[place] dose as current dosage/regimen brings his/her pain to a tolerable level - Labs reviewed, most recent UDS was 06/2024 Has completed formal PT in the past, and has continued HEP. Low back daily exercises- 6 days per week for the past 12 weeks with minimal improvement in pain: Back pain specific exercises includes: Sinlge knee to Chest, Pelvic tilt, Cat- Cow, Press-ups, Bridges, Belly Crunches, Sphinx Pose and Back Lifts. - Return in about 8 weeks (around 04/05/2025). Juliann Guevara APRN Interventional Pain Management [facility] The provider educated the patient (or legal technology sales representative) on the use of the ambient listening artificial intelligence tool, [employer]. They were informed that this AI tool processes the conversation to generate a clinical note with the expected benefit of improved accuracy while achieving an improved encounter experience for the patient and provider.?The provider explained that the medical information captured by the AI tool including, but not limited to, diagnoses and treatment plan would be protected in accordance with applicable privacy laws and that all diagnoses and treatment decisions would be made by the provider. The provider explained that the note generated will be reviewed bythe provider for accuracy to minimize potential errors.? The patient was given an opportunity to ask questions and opt out of proceeding with the use of the AI tool. After being informed of such information, the patient (or legal technology sales representative), and each individual in attendance with the patient, verbally consented to the use of the AI tool. documented in this encounter Plan of Treatment Upcoming Encounters Date Type Department Care Team (Late st Contact Info) Description 04/05/2025 1:30 PM EDT Office Visit [facility] [address] [address] Anay Montana APRN [address] [place] [id number] Scheduled Orders Name Type Priority Associated Diagnoses Orde r Schedule COMPLIANCE PANEL, URINE Lab Routine Encounter for long-term (current) use of high-risk medication 1 Occurrences starting 02/08/2025 until 02/08/2026 documented as of this encounter Visit Diagnoses Diagnosis Lumbosacral radiculopathy at S1- Primary Thoracic or lumbosacral neuritis or radiculitis, unspecified Lumbosacral spondylosis without myelopathy DDD (degenerative disc disease), cervical Degeneration of cervical intervertebral disc Chronic pain syndrome Vertebrogenic pain Backache, unspecified Crohn's disease of colon, unspecified complication (HCC) Myofascial pain Mylagia and myositis, unspecified Crohn's disease of both small and large intestine with rectal bleeding (HCC) Regional enteritis of small intestine with large intestine Encounter for long-term (current) use of high-risk medication Encounter for long-term (current) use of other medications documented in this encounter Discontinued Medications Medication Sig Discontinue Reason Start Date End Da te HYDROcodone-acetaminophen (NORCO) 10-325 mg Oral TabletIndications:Lumbosa cral radiculopathy at S1 Take 1 Tablet by mouth every 6 hours as needed for Chronic Pain (G89.29) for up to 28 days. Reorder 12/20/2024 02/08/2025 HYDROcodone-acetaminophen (NORCO) 10-325 mg Oral TabletIndications:Lumbosa cral radiculopathy at S1,Lumbosacral spondylosis without myelopathy,DDD (degenerative disc disease), cervical,Chronic pain syndrome Take 1 Tablet by mouth every 6 hours as needed for Chronic Pain (G89.29) for up to 28 days. Reorder 01/17/2025 02/08/2025 documented as of this encounter Care Teams Sales Service Professional Relationship Specialty Start Date End Date Hill Andrews MD [address] [place] [address] PCP - General Emergency Medicine 03/01/23 documented as of this encounter
[2025-02-25 08:17] LABS: Testosterone,Total 297 ng/dL (264-916)
--- OUTSIDE RECORDS SUMMARY | 2025-02-27 10:03 | XMS_ITS | Clinical Summary ---
Author Organization [facility] Address [address] [place] [address] Care Team Providers Care Welding Production Supervisor Name Role Phone Tammy Bauer Grazyna PEPPER Primary Care Provider +1- [phone] Allergies Active Allergy Reactions Criticality Noted Date Comments Sulfa Drugs Rash Low 10/02/2019 Sulfacetamide Rash Low 03/04/2005 Tetracycline Hives Medium 04/02/2023 Medications Insulin Syringe-Needle U-100 (B-D INSULIN SYRINGE 1CC/25GX1 ) 25G X 1 1 ML misc Take by mouth See administration instructions. 06/12/20 20 Active HYDROcodone-acet aminophen ([place]) 10-325 MG tablet Take by mouth 3 [...] Type Department Care Team Description 12/22/2024 [facility]ill [facility] [address], [address]st [place] [address] Steven Rendon MD Sensory neuropathy 12/20/2024 [facility]ill [facility] [address], [address] [place] [address] Elisha Kathleen PA Vitamin D deficiency from Last 3 Months Immunizations Immunization Administration Dates Next Due Influenza, injectable, quadr ivalent, preservative free 08/11/2022,11/12/2021,06/12/2020,2016 Influenza, seasonal, injecta ble, preservative free 07/22/2009 Family History Medical History Relation Name Comments Obesity Daughter Kalli Steuben Moulton Diabetes Father Wayne Moulton Obesity Mother [...] Description 04/12/2025 10:40 AM EDT Office Visit [facility] [address], [address] [place] [address] Elisha Kathleen PA [address] [place] [address] Health Maintenance Due Date Last Done Comments [facility]-Medicare Annual Wellness (AWV) 1972 [facility]-/Child/Adol SDOH Screenings 1972 [id number] Vaccine (#1) 1977 [facility]- SDOH Screenings 1990 [...] Screen Nonreactive Nonreactive 04/28/2022 2:47 PM EDT [facility] Blood Venous blood specimen / Unknown Venipuncture / Unknown 04/28/2022 12:42 PM EDT 04/28/2022 1:06 PM EDT us Lloyd Gaxiola MD LAB BLOOD ORDERABLES Final Result [facility] [address] [place] [address] * Hepatitis C Antibody - ED (04/28/2022 12:42 PM EDT) Hepatitis C Antibody Negative Negative 04/28/2022 2:47 PM EDT [facility] Blood Venous blood specimen / Unknown Venipuncture / Unknown 04/28/2022 12:42 PM EDT 04/28/2022 1:06 PM EDT us Lloyd Gaxiola MD LAB BLOOD ORDERABLES Final Result Performing Organization Address [facility]/ZIP Co de Phone Number [facility] [address] [place] [address] from Last 3 Months or Most Recently Relevant to Health Maintenance Insurance MEDICARE Care Teams Welding Production Supervisor Relationship Specialty Start Date End Date Tammy Bauer APRN [address] [place] [address] PCP - General 01/18/21
--- OUTSIDE RECORDS SUMMARY | 2025-02-27 10:03 | XMS_ITS | Encounter Summary ---
Author Organization [facility] Address [address] [place] [address] Care Team Providers Care Textiles Sales Representative Name Role Phone Tammy Bauer SHANTELLE Primary Care Provider +1- [phone] Encounter Details Date Type Department Care Team (Late st Contact Info) Description 06/10/2022 Outside Procedure [facility] [address] [place] [phone] Provider, External Social History Tobacco Use [...] Description 04/12/2025 10:40 AM EDT Office Visit [facility] [address], [address] [place] [address] Elisha Kathleen PA [address] [place] [address] documented as of this encounter [...] documented as of this encounter Care Teams Textiles Sales Representative Relationship Specialty Start Date End Date Tammy Bauer APRN [address] [place] [address] PCP - General 01/18/21 documented as of this encounter
--- OUTSIDE RECORDS SUMMARY | 2025-02-27 10:03 | XMS_ITS | Encounter Summary ---
Author Organization [facility] Address [address] [place] [address] Care Team Providers Care Refractory Worker Name Role Phone Tammy Bauer SHANTELLE Primary Care Provider +1- [phone] Reason for Visit * Reason Comments Med Refill Encounter Details Date Type Department Care Team (Late st Contact Info) Description 12/10/2022 Refill [facility] [address], [address] [place] [address] Elisha Kathleen PA [address] [place] [address] Social History Tobacco Use Types [...] 30 day supply with 5 refill(s) to [facility]. documented in this encounter Plan of Treatment Upcoming Encounters Date Type Department Care Team (Late st Contact Info) Description 04/12/2025 10:40 AM EDT Office Visit [facility] [address], [address] [place] [address] Elisha Kathleen PA [address] [place] [address] documented as of this encounter [...] documented as of this encounter Care Teams Refractory Worker Relationship Specialty Start Date End Date Tammy Bauer APRN [address] [place] [address] PCP - General 01/18/21 documented as of this encounter
--- OUTSIDE RECORDS SUMMARY | 2025-02-27 10:03 | XMS_ITS | Encounter Summary ---
Author Organization [facility] Address [address] [place] [address] Care Team Providers Care Wardrobe Consultant Name Role Phone Tammy Bauer SHANTELLE Primary Care Provider +1- [phone] Encounter Details Date Type Department Care Team (Latest Contact Info) Description 06/11/2022 Lab Requisition [facility] [address] [place] [address] Herman Mccarthy MD [address] [place] [address] Generalized abdominal pain; Melena; Crohn's disease, unspecified, [...] Description 04/12/2025 10:40 AM EDT Office Visit [facility] [address], [address] [place] [address] Elisha Kathleen PA [address] [place] [address] documented as of this encounter Procedures Procedure Name Priority Date/Time Associated Diagnosis Comments SURGICAL PATHOLOGY EXAM Routine 06/10/2022 Generalized abdominal pain Melena Crohn's disease, unspecified, without complications (CMS/HCC) documented in this encounter Results * Surgical Pathology Exam (06/10/2022) Case Report Surgical Pathology Case: [id number] Authorizing Provider: Herman Mccarthy MD Collected: 06/10/2022 Ordering Location: [facility] Lab Received: 06/11/2022 1317 Pathologist: Dmitry Tyler MD Specimens: A) - Duodenal, Duodenal bx B) - Gastric, Gastric bx C) - Small Bowel, Small bowel bx D) - Colon, Random colon bx 06/17/2022 5:23 PM EDT [facility] Final Diagnosis A. DUODENUM, BIOPSY: - [...] PATHOLOGY ORDERABLES Final Result [facility] [address] [place] [address] documented in this encounter Visit Diagnoses Diagnosis [...] documented as of this encounter Care Teams Wardrobe Consultant Relationship Specialty Start Date End Date Tammy Bauer APRN [address] [place] [address] PCP - General 01/18/21 documented as of this encounter
--- OUTSIDE RECORDS SUMMARY | 2025-02-27 10:03 | XMS_ITS | Encounter Summary ---
Author Organization [facility] Address [address] [place] [address] Care Team Providers Care Chief Hospital Administrator Name Role Phone Tammy Bauer SHANTELLE Primary Care Provider +1- [phone] Encounter Details Date Type Department Care Team (Late st Contact Info) Description 06/10/2022 Outside Procedure [facility] [address] [place] [address] Provider, External Social History Tobacco Use [...] Visit [facility] [address], [address] [place] [address] Elisha Kathleen PA [address] [place] [address] documented as of this encounter [...] documented as of this encounter Care Teams Chief Hospital Administrator Relationship Specialty Start Date End Date Tammy Bauer APRN [address] [place] [address] PCP - General 01/18/21 documented as of this encounter
--- OUTSIDE RECORDS SUMMARY | 2025-02-27 10:03 | XMS_ITS | Encounter Summary ---
Author Organization [facility] Address [address] [place] [address] Care Team Providers Care Pantograph Machine Set Up Operator Name Role Phone Tammy Bauer SHANTELLE Primary Care Provider [phone]- [phone] Encounter Details Date Type Department Care Team ([facility] st Contact Info) Description 08/26/2022 Orders Only External Location [address] [place] [phone] Provider, External Social History Tobacco Use Types [...] Description 04/12/2025 10:40 AM EDT Office Visit [facility] [address], [address] [place] [address] Elisha Kathleen, CARLOS ALBERTO [address] [place] [address] documented as of this encounter [...] documented as of this encounter Care Teams Pantograph Machine Set Up Operator Relationship Specialty Start Date End Date Tammy Bauer APRN [address] [place] [address] PCP - General 01/18/21 documented as of this encounter
--- OUTSIDE RECORDS SUMMARY | 2025-02-27 10:05 | XMS_ITS | Encounter Summary ---
Author Organization [facility] [place] [address] Care Team Providers Care Patient'S Librarian Name Role Phone Hill Andrews MD Primary Care Provider [phone] Encounter Details Date Type Department Care Team (Latest Contact Info) Description 01/20/2025 Travel Social History Tobacco Use Types Packs/Day Years Used Date Smoking Tobacco: Every Day Cigarettes 1 41 Started: 02/15/1984 Cigars Smokeless Tobacco: Never Alcohol Use Standard Drinks/Week Comments Not Currently 0 (1 standard drink = 0.6 oz pur e alcohol) [facility] Utilities Answer Date Recorded In the [...] Date Recorded PHQ-2 Total Score 0 01/26/2024 [facility] Occupat ional Health - Occupational Stress [...] things needed for daily living? No 05/19/2022 [facility] IP Transportation Answer D ate Recorded [...] 01/20/2025 2:57 PM Sharmin Bob RN * [place] Suicide Severity Rating Scale (Q shift for [...] Description 04/05/2025 1:30 PM EDT Office Visit [facility] [address] [place] [address] Anay Montana APRN [address] [place] [address] documented as of this encounter Visit Diagnoses Not on filedocumented in this encounter Care Teams Patient'S Librarian Relationship Specialty Start Date End Date Hill Andrews MD [address] [place] [address] PCP - General Emergency Medicine 03/01/23 documented as of this encounter
--- OUTSIDE RECORDS SUMMARY | 2025-02-27 10:05 | XMS_ITS | Encounter Summary ---
Author Organization [facility] Address [address] [place] [address] Care Team Providers Care Front End Web Developer Name Role Phone Tammy Bauer SHANTELLE Primary Care Provider [phone]- [phone] Reason for Visit * Reason Comments Med Refill Encounter Details Date Type Department Care Team (Late st Contact Info) Description 06/26/2023 Refill [facility] [address], [address] [place] [address] Elisha Kathleen PA [address] [place] [address] Social History Tobacco Use Types [...] 30 day supply with 6 refill(s) to [facility]. documented in this encounter Plan of Treatment Upcoming Encounters Date Type Department Care Team (Late st Contact Info) Description 04/12/2025 10:40 AM EDT Office Visit [facility] [address] [place] [address] Elisha Kathleen, CARLOS ALBERTO [address] [place] [address] documented as of this encounter Visit Diagnoses [...] documented as of this encounter Care Teams Front End Web Developer Relationship Specialty Start Date End Date Tammy Bauer APRN [address] [place] [address] PCP - General 01/18/21 documented as of this encounter
[2025-03-03 20:15] LABS: Testosterone, Total, LC/MS 277 ng/dL (.)
== END 2025-02-23 23:59 | disposition home or self-care (01) ==
LOC: LAB.DROPOF 02-27 09:45
PROVIDERS: PCP Family Medicine; Visit Provider Family Medicine
DX: R79.89 Other specified abnormal findings of blood chemistry (principal)
CPT/HCPCS: 84403

== ENCOUNTER 2025-03-01 12:50 | Outpatient (CLI) | payer MEDICARE, SELFPAY ==
--- OUTSIDE RECORDS SUMMARY | 2025-01-20 15:03 | XMS_ITS | Encounter Summary ---
Author Organization [place] [address] Care Team Providers Care Registered Nurse Cardiac Name Role Phone Hill Andrews MD Primary Care Provider Reason for Visit * Reason Comments Cough Cough, sinus drainag e, and SOB for a week Encounter Details Date Type Department Care Team (Late st Contact Info) Description 01/20/2025 3:03 PM EDT - 01/20/2025 4:05 PM EDT [facility] [address] [place] [address] Yusuf Mabry MD [address] [place] [phone] Acute bronchitis, unspecified organism (Primary Dx) Discharge Disposition: Home or Self Care Social History Tobacco Use Types Packs/Day Years Used Date Smoking Tobacco: Every Day Cigarettes 1 41 Started: 02/15/1984 Cigars Smokeless Tobacco: Never Alcohol Use Standard Drinks/Week Comments Not Currently 0 (1 standard drink = 0.6 oz pur e alcohol) [facility] Utilities Answer Date Recorded In the past [...] Date Recorded PHQ-2 Total Score 0 01/26/2024 [facility] - Occupational Stress [...] things needed for daily living? No 05/19/2022 [facility] IP Transportation Answer D ate Recorded In [...] 2:57 PM EDT Sharmin Geller RN * [place] Suicide Severity Rating Scale (Q shift for [...] Means Destination Comment s Home or Self Long Term documented in this encounter Progress Notes * Anthony Carranza, SCREW CUTTER - 01/20/2025 3:27 PM EDT 01/20/25 1526 [...] true Transportation Needs: No Transportation Needs (01/26/2024) [facility] IP Transportation In the past 12 months, has lack of reliable transportation kept you from medical appointments, meetings, work or from getting things needed for daily living?: No Physical Activity: Insufficiently Active (01/26/2024) Exercise Vital Sign Days of Exercise per Week: 7 days Minutes of Exercise per Session: 20 min Stress: No Stress Concern Present (01/26/2024) [facility] - Occupational Stress Questionnaire [...] OUSMANE KAPOOR Department: DEPID Room: Gender: Male Optician Manager: Davis : 1970 Requested By: [facility] Order Number: [id number] Reading MD: Measurements Intervals [place] Rate: 71 P: 51 MA: 132 QRS: 23 QRSD: 90 T: 45 QT: 400 QTc: 438 Interpretive Statements SINUS RHYTHM EKG Interpretation Interpreted by Yusuf Mabry MD Rhythm: normal sinus Rate: normal [place]: normal Ectopy: none Conduction: normal ST Segments: [...] 01/20/2025 3:54 PM Yusuf Mabry MD 01/20/25 3635 Yusuf Mabry MD 05/1554 documented in this encounter Plan of Treatment Upcoming Encounters Date Type Department Care Team (Late st Contact Info) Description 04/05/2025 1:30 PM EDT Office Visit [facility] [address] [phone] Anay Montana, MEDIA RELATIONS ASSOCIATE [address] [place] [address] documented as of this encounter [...] Yusuf Mabry MD [facility] Final Result * EK EKG 12 LEAD (01/20/2025 2:58 PM EDT) Anatomical Region Laterality Modality Electrocardiogra phy 01/20/2025 2:59 PM EDT Impressions 01/20/2025 5:44 PM EDT [place] [facility] Test Date: 2025-01-20 Pat Name: OUSMANE KAPOOR Department: DEPID Room: Gender: Male Optician Manager: Davis : 1970 Requested By: [facility] Order Number: [id number] Reading MD: Yvette De Jesus Measurements Intervals [place] Rate: 71 P: 51 MA: 132 QRS: 23 QRSD: 90 T: 45 QT: 400 QTc: 438 Interpretive Statements SINUS RHYTHM Electronically Signed On 01-20-2025 17:44:19 EDT by Yvette De Jesus Narrative Procedure Note Yvette De Jesus MD - 01/20/[address] [facility] Test Date: 2025-01-20 Pat Name: OUSMANE ACOSTABLE Department: DEPID Room: Gender: Male Optician Manager: Dp : 1970 Requested By: [facility] Order Number: [id number] Reading MD: Yvette De Jesus Measurements Intervals [place] Rate: 71 P: 51 MA: 132 QRS: 23 QRSD: 90 T: 45 [...] 1526 (Given - Provid er: Anthony Carranza, SCREW CUTTER) documented in this encounter Orders Medications Ordered That Filiberto ht Not Have Been Administered Count Last Ordered Date First Ordered Date albuterol-ipratropium (DUO-N EB) 3 mg-0.5 mg(2.5 mg base)/3 mL nebulizer solution 3 mL 1 01/20/2025 documented in this encounter Care Teams Registered Nurse Cardiac Relationship Specialty Start Date End Date Hill Andrews MD [address] [place] [address] [place] [phone] PCP - General Emergency Medicine 03/01/23 documented as of this encounter
--- OUTSIDE RECORDS SUMMARY | 2025-02-08 09:45 | XMS_ITS | Encounter Summary ---
Author Organization [place] [address] Care Team Providers Care Office Engineer Name Role Phone Hill Andrews MD Primary Care Provider [phone] Reason for Visit * Reason Comments Follow Up Back Pain Encounter Details Date Type Department Care Team (Latest Contact Info) Description 02/08/2025 9:45 AM EDT Office Visit [address] [address] Juliann Guevara, CERTIFIED REGISTERED LOCKSMITH [address] [place], [place] [id number] Lumbosacral radiculopathy at S1 (Primary Dx); Lumbosacral [...] drink = 0.6 oz pur e alcohol) [facility] Utilities Answer Date Recorded In the past [...] Date Recorded PHQ-2 Total Score 0 01/26/2024 [place] [place] [facility] - Occupational Stress [...] things needed for daily living? No 05/19/2022 [facility]N [facility] IP Transportation Answer D ate Recorded [...] true Transportation Needs: No Transportation Needs (01/26/2024) [facility] IP Transportation In the past 12 months, has lack of reliable transportation kept you from medical appointments, meetings, work or from getting things needed for daily living?: No Physical Activity: Insufficiently Active (01/26/2024) Exercise Vital Sign Days of Exercise per Week: 7 days Minutes of Exercise per Session: 20 min Stress: No Stress Concern Present (01/26/2024) [place] [place] [facility] [employer] - Occupational Stress Questionnaire [...] HISTORY: 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 COMPARISON: 01/10/2020 PROCEDURE COMMENTS: Multiplanar multiecho MR [...] HISTORY: M50.30-Other cervical disc degeneration, unspecified cervical nikipo-WQI-18-CM. COMPARISON: None. PROCEDURE COMMENTS: Multiplanar multiecho MR [...] 12:00 PM CONTROLLED SUBSTANCE RAJIV Reference Number [id number] Lab Results Component Value Date LABBARB Absent 06/21/2024 Lab Results Component Value Date DRUGEXPECT [place](TM) (hydrocodone) 06/21/2024 URCREATININE >25.0 01/28/2021 ALPRAZOLAM <8 [...] 06/21/2024 TRIAZOLAM <50 06/21/2024 AHDTRIAZ <50 06/21/2024 EXPORT CLERK/RAJIV and most recent UDS reviewed on 02/08/2025 [...] at today's visit. - No change in [place] dose as current dosage/regimen brings his/her pain [...] 04/05/2025). Juliann Guevara APRN Interventional Pain Management [facility] Spine [facility] The provider educated the patient (or legal welding equipment sales representative) on the use of the ambient listening artificial intelligence tool, [employer]. They were informed that this AI tool [...] of such information, the patient (or legal welding equipment sales representative), and each individual in attendance with the patient, verbally consented to the use of the AI tool. documented in this encounter Plan of Treatment Upcoming Encounters Date Type Department Care Team (Late st Contact Info) Description 04/05/2025 1:30 PM EDT Office Visit [facility] [address] [address] Anay Montana APRN [address] [place] [address] Scheduled Orders Name Type Priority Associated [...] documented as of this encounter Care Teams Office Engineer Relationship Specialty Start Date End Date Hill Andrews MD [address] [place] [address] PCP - General Emergency Medicine 03/01/23 documented as of this encounter
--- OUTSIDE RECORDS SUMMARY | 2025-03-01 12:53 | XMS_ITS | Encounter Summary ---
Author Organization [facility] Address [address] [place] [address] Care Team Providers Care Named Account Executive Name Role Phone Tammy Bauer SHANTELLE Primary Care Provider [phone]- [phone] Encounter Details Date Type Department Care Team (Late st Contact Info) Description 06/10/2022 Outside Procedure [facility] [address] [place] [address] Provider, External Social History Tobacco Use [...] Visit [place] [facility] [address], [address] [place] [address] Elisha Kathleen PA [address] [place] [address] documented as of this encounter [...] documented as of this encounter Care Teams Named Account Executive Relationship Specialty Start Date End Date Tammy Bauer APRN [address] [place] [address] PCP - General 01/18/21 documented as of this encounter
--- OUTSIDE RECORDS SUMMARY | 2025-03-01 12:53 | XMS_ITS | Encounter Summary ---
Author Organization [facility] Address [address] [place] [address] Care Team Providers Care Certified Travel Counselor Name Role Phone Tammy Bauer SHANTELLE Primary Care Provider [phone]- [phone] Encounter Details Date Type Department Care Team ([facility] st Contact Info) Description 08/26/2022 Orders Only External Location [address] [place] [phone] Provider, External Social History Tobacco Use Types [...] Description 04/12/2025 10:40 AM EDT Office Visit [place] [facility] [address], [address] [place] [address] Elisha Kathleen, CARLOS ALBERTO [address] [place] [address] documented as of this encounter [...] documented as of this encounter Care Teams Certified Travel Counselor Relationship Specialty Start Date End Date Tammy Bauer APRN [address] [place] [address] PCP - General 01/18/21 documented as of this encounter
--- OUTSIDE RECORDS SUMMARY | 2025-03-01 12:53 | XMS_ITS | Encounter Summary ---
Author Organization [facility] Address [address] [place] [address] Care Team Providers Care Work Checker Name Role Phone Tammy Bauer SHANTELLE Primary Care Provider [phone]- [phone] Encounter Details Date Type Department Care Team (Late st Contact Info) Description 06/10/2022 Outside Procedure [facility] [address] [place] [phone] Provider, External Social History Tobacco Use [...] Visit [place] [facility] [address], [address] [place] [address] Elisha Kathleen PA [address] [place] [address] documented as of this encounter [...] documented as of this encounter Care Teams Work Checker Relationship Specialty Start Date End Date Tammy Bauer APRN [address] [place] [address] PCP - General 01/18/21 documented as of this encounter
--- OUTSIDE RECORDS SUMMARY | 2025-03-01 12:53 | XMS_ITS | Clinical Summary ---
Author Organization [facility] Address [address] [place] [address] Care Team Providers Care Head Of Transport Logistics Name Role Phone Tammy Bauer Grazyna PEPPER Primary Care Provider [phone]- [phone] Allergies Active Allergy Reactions Criticality Noted Date Comments Sulfa Drugs Rash Low 10/02/2019 Sulfacetamide Rash Low 03/04/2005 Tetracycline Hives Medium 04/02/2023 Medications Insulin Syringe-Needle U-100 (B-D INSULIN SYRINGE 1CC/25GX1 ) 25G X 1 1 ML misc Take by mouth See administration instructions. 06/12/20 20 Active HYDROcodone-acet aminophen (Rochelle) 10-325 MG tablet Take by mouth 3 [...] stomach 50 tablet 3 08/21/20 23 Active Syringe/Needle, Disp, (B-D SYRINGE/NEEDLE 1CC/25GX5/8) 25G X 5/8 1 ML miscIndications: History of bowel resection To be used for monthly administration of vitamin B12. 1 each 11 02/29/20 24 Active pregabalin (Lyrica) 150 MG capsuleIndicatio ns:Sensory neuropathy Take 1 capsule (150 mg) by mouth 3 (three) times a day. 90 capsule 5 10/03/19 25 025 Active esomeprazole (NexIUM) [address] [...] DAY 180 tablet 5 12/24/19 25 Active cyanocobalamin (Vitamin B-12) 1000 MCG/ML injectionIndicat ions:History of bowel resection Inject 1 mL (1,000 mcg) under the skin every 30 (thirty) days. 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 Refill [facility] [address] [place] [address] Elisha Kathleen PA Vitamin D deficiency from Last 3 Months Immunizations Immunization Administration Dates Next Due Influenza, injectable, quadr ivalent, preservative free 08/11/2022,11/12/2021,06/12/2020,2016 Influenza, seasonal, injecta ble, preservative free 07/22/2009 Family History Medical History Relation Name Comments Obesity Daughter Kalli Moulton Diabetes Father Wayne Moulton Obesity Mother [...] Description 04/12/2025 10:40 AM EDT Office Visit [place] [facility] [address], [address] [place] [address] Elisha Kathleen PA [address] [place] [address] Health Maintenance Due Date Last Done Comments [facility]-Medicare Annual Wellness (AWV) 1972 [facility]-Infant/Child/Adol SDOH Screenings 1972 [id number] Vaccine (#1) 1977 [facility]- SDOH Screenings 1990 [...] Screen Nonreactive Nonreactive 04/28/2022 2:47 PM EDT [facility] Blood Venous blood specimen / Unknown Venipuncture / Unknown 04/28/2022 12:42 PM EDT 04/28/2022 1:06 PM EDT us Lloyd Gaxiola MD LAB BLOOD ORDERABLES Final Result [facility] [address] [place] [address] * Hepatitis C Antibody - ED (04/28/2022 12:42 PM EDT) Hepatitis C Antibody Negative Negative 04/28/2022 2:47 PM EDT [facility] Blood Venous blood specimen / Unknown Venipuncture / Unknown 04/28/2022 12:42 PM EDT 04/28/2022 1:06 PM EDT us Lloyd Gaxiola MD LAB BLOOD ORDERABLES Final Result [facility] [address] [place] [address] from Last 3 Months or Most Recently Relevant to Health Maintenance Insurance MEDICARE Care Teams Head Of Transport Logistics Relationship Specialty Start Date End Date Tammy Bauer APRN [address] [place] [address] PCP - General 01/18/21
--- OUTSIDE RECORDS SUMMARY | 2025-03-01 12:53 | XMS_ITS | Encounter Summary ---
Author Organization [facility] Address [address] [place] [address] Care Team Providers Care Manager Of Pmo Name Role Phone Tammy Bauer SHANTELLE Primary Care Provider +1- [phone] Reason for Visit * Reason Comments Med Refill Encounter Details Date Type Department Care Team (Late st Contact Info) Description 12/10/2022 Refill [place] [facility] [address], [address] [place] [address] Elisha Kathleen PA [address] [place] [address] Social History Tobacco Use Types [...] 30 day supply with 5 refill(s) to [facility]. documented in this encounter Plan of Treatment Upcoming Encounters Date Type Department Care Team (Late st Contact Info) Description 04/12/2025 10:40 AM EDT Office Visit [facility] Medicine Specialties [address] [place] [address] Elisha Kathleen PA [address] [place] [address] documented as of this encounter [...] documented as of this encounter Care Teams Manager Of Pmo Relationship Specialty Start Date End Date Tammy Bauer APRN [address] [place] [address] PCP - General 01/18/21 documented as of this encounter
--- OUTSIDE RECORDS SUMMARY | 2025-03-01 12:53 | XMS_ITS | Encounter Summary ---
Author Organization [facility] Address [address] [place] [address] Care Team Providers Care Tire And Lube Technician Name Role Phone Tammy Bauer SHANTELLE Primary Care Provider +1- [phone] Encounter Details Date Type Department Care Team (Latest Contact Info) Description 06/11/2022 Lab Requisition [facility] [address] [place] [address] Herman Mccarthy MD [address] [place] [address] Generalized abdominal pain; Melena; Crohn's disease, unspecified, [...] Description 04/12/2025 10:40 AM EDT Office Visit [facility] Medicine Specialties [address] [place] [address] Elisha Kathleen PA [address] [place] [address] documented as of this encounter Procedures Procedure Name Priority Date/Time Associated Diagnosis Comments SURGICAL PATHOLOGY EXAM Routine 06/10/2022 Generalized abdominal pain Melena Crohn's disease, unspecified, without complications (CMS/HCC) documented in this encounter Results * Surgical Pathology Exam (06/10/2022) Case Report Surgical Pathology Case: [id number] Authorizing Provider: Herman Mccarthy MD Collected: 06/10/2022 Ordering Location: [facility] Received: 06/11/2022 1317 Pathologist: Dmitry Tyler MD Specimens: A) - Duodenal, Duodenal bx B) - Gastric, Gastric bx C) - Small Bowel, Small bowel bx D) - Colon, Random colon bx 06/17/2022 5:23 PM EDT [facility] Final Diagnosis A. DUODENUM, BIOPSY: - [...] PATHOLOGY ORDERABLES Final Result [facility] [address] [place] [address] documented in this encounter Visit Diagnoses Diagnosis [...] documented as of this encounter Care Teams Tire And Lube Technician Relationship Specialty Start Date End Date Tammy Bauer APRN [address] [place] [address] PCP - General 01/18/21 documented as of this encounter
--- OUTSIDE RECORDS SUMMARY | 2025-03-01 12:54 | XMS_ITS | Encounter Summary ---
Author Organization [facility] Address [address] [place] [address] Care Team Providers Care Bin Operator Name Role Phone Tammy Bauer SHANTELLE Primary Care Provider +1- [phone] Reason for Visit * Reason Comments Med Refill Encounter Details Date Type Department Care Team (Late st Contact Info) Description 06/26/[address] [facility] [address] [place] [address] Elisha Kathleen PA [address] [place] [address] Social History Tobacco Use Types [...] 30 day supply with 6 refill(s) to [facility]. documented in this encounter Plan of Treatment Upcoming Encounters Date Type Department Care Team (Late st Contact Info) Description 04/12/2025 10:40 AM EDT Office Visit [place] [facility] [address] [place] [address] Elisha Kathleen, CARLOS ALBERTO [address] [place] [address] documented as of this encounter Visit Diagnoses [...] documented as of this encounter Care Teams Bin Operator Relationship Specialty Start Date End Date Tammy Bauer APRN [address] [place] [address] PCP - General 01/18/21 documented as of this encounter
--- OUTSIDE RECORDS SUMMARY | 2025-03-01 12:54 | XMS_ITS | Continuity of Care Document ---
Author Organization [facility] Address [address] [place] [address] Phone Care Team Providers Care Gymnastics Coach Name Role Phone Hill Andrews MD Primary Care Provider [phone] Encounters Date Type Department Care Team Description 02/08/2025 9:45 AM EDT Office Visit [address] [phone] Juliann Guevara APRN Lumbosacral radiculopathy at S1 (Primary Dx); Lumbosacral spondylosis without myelopathy; DDD (degenerative disc disease), cervical; Chronic pain syndrome; Vertebrogenic pain; Crohn's disease of colon, unspecified complication (HCC); Myofascial pain; Crohn's disease of both small and large intestine with rectal bleeding (HCC); Encounter for long-term (current) use of high-risk medication 01/20/2025 Travel 01/20/2025 3:03 PM EDT - 01/20/2025 4:05 PM EDT Emergency [facility] [address] [place] [address] Yusuf Mabry MD Acute bronchitis, unspecified organism (Primary Dx) Discharge Disposition: Home or Self Care 12/09/2024 Travel 12/09/2024 12:59 PM EDT - 12/09/2024 1:45 PM EDT Emergency [facility] [address] [id number] Doug Deng MD Hand injury, right, initial encounter (Primary Dx) Discharge Disposition: Home or Self Care 12/08/2024 11:15 AM EDT Telemedicine [address] [phone] Anay Montana APRN Lumbosacral radiculopathy at S1; Lumbosacral spondylosis without myelopathy; DDD (degenerative disc disease), cervical; Chronic pain syndrome 10/17/[address] [phone] Anay Montana APRN Prior Authorization (TPIs bilateral thoracic) 10/13/2024 1:30 PM EST Office Visit [address] [phone] Anay Montana APRN Vertebrogenic pain (Primary Dx); Lumbosacral radiculopathy at S1; Lumbosacral spondylosis without myelopathy; DDD (degenerative disc disease), cervical; Chronic pain syndrome; Crohn's disease of colon, unspecified complication (HCC); Myofascial pain 08/18/2024 1:00 PM EST Telemedicine [address] [phone] Anay Montana APRN Vertebrogenic pain (Primary Dx); Lumbosacral radiculopathy at S1; Lumbosacral spondylosis without myelopathy; DDD (degenerative disc disease), cervical; Chronic pain syndrome; Crohn's disease of colon, unspecified complication (HCC); Myofascial pain 08/13/2024 Travel 07/29/[address] [phone] Refugio Guerra MD Other (pharmacy closed on ) 06/28/2024 Travel 06/28/2024 8:01 PM EDT - 06/28/2024 9:16 PM EDT Emergency [facility] [address] [place] [address] Selwyn Everett MD Thoracic myofascial strain, initial encounter (Primary Dx) Discharge Disposition: Home or Self Care 06/22/2024 Telephone [facility] [address] [place] [phone] Anay Montana APRN Other (RX alternatives) 06/21/2024 Orders Only [facility] [address] [place] [phone] Mariam Pinzon MA Encounter for long-term (current) use of high-risk medication 06/21/2024 11:15 AM EDT Office Visit [facility] [address] [place] [phone] Anay Montana APRN Encounter for long-term (current) use of high-risk medication (Primary Dx); Lumbosacral radiculopathy at S1; Lumbosacral spondylosis without myelopathy; DDD (degenerative disc disease), cervical; Chronic pain syndrome; Vertebrogenic pain; Crohn's disease of colon, unspecified complication (HCC); Myofascial pain 04/21/2024 10:45 AM EDT Office Visit [facility] [address] [place] [phone] Anay Montana APRN Cervicalgia (Primary Dx); Lumbar degenerative disc disease; Lumbosacral radiculopathy at S1; Lumbosacral spondylosis without myelopathy; DDD (degenerative disc disease), cervical; Chronic pain syndrome; Crohn's disease of colon, unspecified complication (HCC); Myofascial pain; Crohn's disease of both small and large intestine with rectal bleeding (HCC); Vertebrogenic pain 04/12/2024 2:00 PM EDT - 04/12/2024 11:59 PM EDT Hospital Encounter [facility] [address] [place] [address] Risa Gould APRN Lumbosacral spondylosis without myelopathy; Lumbar degenerative disc disease Discharge Disposition: Home or Self Care 03/11/2024 Telephone [facility] [address] [place] [phone] Ely Quesada, petroleum geology faculty member Management 02/26/[address] [place] [phone] Stella Palumbo, Hot Oiler Medication Management (Lindrith 10mg) 02/22/2024 9:15 AM EDT Telemedicine [place] [address] [place] [phone] Risa Gould APRN Lumbosacral spondylosis without myelopathy (Primary Dx); Lumbar degenerative disc disease; Lumbosacral radiculopathy at S1; DDD (degenerative disc disease), cervical; Myofascial pain; Crohn's disease of colon, unspecified complication (HCC); Ileus (HCC); Chronic pain syndrome; Encounter for long-term (current) use of high-risk medication 01/25/2024 1:40 PM EDT - 01/26/2024 3:48 PM EDT Hospital Encounter [facility] [place], [place] [id number] Scooter Beckett MD Syncope and collapse (Primary Dx) Discharge Disposition: Home or Self Care 01/24/2024 7:22 PM EDT - 01/25/2024 1:15 PM EDT Emergency [facility] [address] [place], [place] [id number] Doc Garcia MD Fry, Isaiah J, MD Syncope and collapse (Primary Dx); Facial droop; Acute non-recurrent maxillary sinusitis Discharge Disposition: Discharged/Transferred [facility] w[facility] IP ReAdmit 01/24/2024 Travel 12/31/2023 11:00 AM EDT Office Visit [address] [phone] Juliann Guevara APRN Lumbosacral radiculopathy at S1 (Primary Dx); Lumbosacral spondylosis without myelopathy; Lumbar degenerative disc disease; Crohn's disease of colon, unspecified complication (HCC); Crohn's disease of both small and large intestine with rectal bleeding (HCC); Myofascial pain; DDD (degenerative disc disease), cervical; Ileus (HCC); Cervicalgia; Chronic bilateral low back pain without sciatica 11/05/2023 Orders Only [address] [phone] Stella Palumbo, Hot Oiler Encounter for long-term (current) use of high-risk medication 11/05/2023 11:30 AM EST Office Visit [address] [phone] Juliann Guevara APRN Lumbosacral spondylosis without myelopathy (Primary Dx); Spondylosis; DDD (degenerative disc disease), cervical; Lumbar degenerative disc disease; Lumbosacral radiculopathy at S1; Myofascial pain; Encounter for long-term (current) use of high-risk medication; Crohn's disease of colon, unspecified complication (HCC); Crohn's disease of both small and large intestine with rectal bleeding (HCC); Ileus (HCC) 09/26/2023 4:37 PM EST - 09/26/2023 5:55 PM EST Emergency [facility] [address] [place] [address] Damir Diana MD Positive blood culture (Primary Dx) Discharge Disposition: Home or Self Care 09/23/2023 8:26 PM EST - 09/25/2023 3:39 PM EST Hospital Encounter [facility] [address] [place] [address] Steven Echevarria MD Discharge Disposition: Home or Self Care 09/23/2023 Travel 09/23/2023 3:33 PM EST - 09/23/2023 8:00 PM EST Emergency [facility] [address] [place] [address] Payal Cote MD Krusling, Edward J, MD Right lower quadrant abdominal pain (Primary Dx); Acute Crohn's disease with intestinal obstruction (HCC) Discharge Disposition: Discharge/Readmit 09/10/2023 11:45 AM EST Office Visit [address] [phone] Juliann Guevara APRN Lumbosacral spondylosis without myelopathy (Primary Dx); Cervicalgia; Spondylosis; Chronic pain syndrome; DDD (degenerative disc disease), cervical; Lumbar degenerative disc disease; Lumbosacral radiculopathy at S1; Encounter for long-term (current) use of high-risk medication; Myofascial pain; Chronic bilateral low back pain without sciatica 09/03/2023 Orders Only [address] [phone] Margaret Abraham MA Lumbosacral spondylosis without myelopathy; Cervicalgia; Spondylosis; Chronic pain syndrome; DDD (degenerative disc disease), cervical; Lumbar degenerative disc disease; Lumbosacral radiculopathy at S1 07/17/[address] [phone] Berkley Carranza MA Prior Authorization (ALPRAZOLAM .5) 07/16/2023 11:15 AM EST Office Visit [address] [phone] Analilia Barraza APRN Lumbosacral spondylosis without myelopathy; Cervicalgia; Spondylosis; Chronic pain syndrome; DDD (degenerative disc disease), cervical; Lumbar degenerative disc disease; Lumbosacral radiculopathy at S1 06/02/2023 Telephone [facility] [address] [place] [phone] Analilia Barraza APRN Results (imaging) 05/28/2023 12:28 PM EDT - 05/28/2023 11:59 PM EDT Hospital Encounter [facility] [address] [place] [address] Analilia Barraza APRN Chronic bilateral low back pain without sciatica; Palpable mass of lower back Discharge Disposition: Home or Self Care 05/21/2023 11:15 AM EDT Office Visit [address] [place] [phone] Analilia Barraza APRN Myofascial pain (Primary Dx); Lumbosacral spondylosis without myelopathy; Cervicalgia; Spondylosis; Chronic pain syndrome; DDD (degenerative disc disease), cervical; Lumbar degenerative disc disease; Lumbosacral radiculopathy at S1 03/26/2023 11:45 AM EDT Office Visit [address] [place] [phone] Analilia Barraza APRN Chronic bilateral low back pain without sciatica (Primary Dx); Lumbosacral spondylosis without myelopathy; Cervicalgia; Spondylosis; Chronic pain syndrome; DDD (degenerative disc disease), cervical; Lumbar degenerative disc disease; Lumbosacral radiculopathy at S1; Palpable mass of lower back 03/01/2023 8:57 PM EDT - 03/02/2023 12:28 AM EDT Emergency [facility] [address] [place], [place] [id number] Alethea Concepcion MD Right lower quadrant abdominal pain (Primary Dx) Discharge Disposition: Home or Self Care 03/01/2023 Travel 02/11/2023 Travel 02/11/2023 2:33 PM EDT - 02/11/2023 11:59 PM EDT Hospital Encounter [facility] [address] [place] [address] Encounter for long-term (current) use of high-risk medication Discharge Disposition: Home or Self Care 01/26/2023 11:15 AM EDT Telemedicine [address] [place] [address] Chioma Andersen APRN Lumbosacral spondylosis without myelopathy (Primary Dx); Cervicalgia; Spondylosis; Chronic pain syndrome; DDD (degenerative disc disease), cervical; Lumbar degenerative disc disease; Lumbosacral radiculopathy at S1; Encounter for long-term (current) use of high-risk medication 12/31/[address] [place] [phone] Erin Dumont RN Other (hydrocodone/apap) 12/23/2022 11:05 AM EDT - 12/23/2022 11:59 PM EDT Hospital Encounter [address] [place] [address] Juliann Guevara APRN Lumbar degenerative disc disease; Lumbosacral radiculopathy at S1 Discharge Disposition: Home or Self Care 11/26/[address] [place] [phone] Refugio Guerra MD Other (pharmacy is closed on weekends) 11/24/2022 11:00 AM EDT Office Visit [address] [place] [phone] Chioma Andersen APRN Lumbar degenerative disc disease (Primary Dx); Chronic pain syndrome; Lumbosacral spondylosis without myelopathy; Spondylosis; DDD (degenerative disc disease), cervical; Lumbosacral radiculopathy at S1; Cervicalgia 09/29/2022 3:00 PM EST Telemedicine [address] [place] [phone] Juliann Guevara APRN Lumbar degenerative disc disease; Chronic pain syndrome; Lumbosacral spondylosis without myelopathy; Spondylosis; DDD (degenerative disc disease), cervical; Lumbosacral radiculopathy at S1; Cervicalgia 08/11/2022 Telephone [facility] [address] [place] [address] Refugio Guerra MD Medication Management 08/09/2022 Travel 08/09/2022 4:50 PM EST - 08/09/2022 9:12 PM EST [facility] [address] [place], [place] [id number] Scott Mane MD Acute left lower quadrant pain (Primary Dx); Crohn's disease with complication, unspecified gastrointestinal tract location (HCC) Discharge Disposition: Home or Self Care 08/04/2022 Orders Only [address] [phone] Shaun Crowe MA Encounter for long-term (current) use of high-risk medication 08/04/2022 1:00 PM EST Office Visit [address] [phone] Juliann Guevara APRN Encounter for long-term (current) use of high-risk medication (Primary Dx); Lumbar degenerative disc disease; Chronic pain syndrome; Lumbosacral spondylosis without myelopathy; Spondylosis; DDD (degenerative disc disease), cervical; Lumbosacral radiculopathy at S1; Cervicalgia 06/03/[address] [phone] Analilia Barraza APRN Prior Authorization (TPIs) 06/02/2022 1:15 PM EDT Office Visit [address] [phone] Analilia Barraza APRN Lumbosacral spondylosis without myelopathy (Primary Dx); Lumbar degenerative disc disease; Chronic pain syndrome; Spondylosis; DDD (degenerative disc disease), cervical; Lumbosacral radiculopathy at S1; Cervicalgia; Myofascial pain 05/18/2022 12:26 AM EDT - 05/19/2022 6:05 PM EDT Hospital Encounter [place] [facility] [address] Dk Hughes MD Discharge Disposition: Discharge/Readmit 05/18/2022 Travel 05/17/2022 Travel 05/17/2022 5:29 PM EDT - 05/17/2022 11:42 PM EDT [facility] [address] [place] [address] Hill Colon MD Adler, Jordan M, MD Ileus (HCC) (Primary Dx); Crohn's disease with complication, unspecified gastrointestinal tract location (HCC); Diarrhea, unspecified type Discharge Disposition: Short Term Hospital 05/07/2022 Telephone [facility] [address] [place] [phone] Refugio Guerra MD Medication Management (Pharmacy Closed on the Weekends.) 04/03/2022 3:45 PM EDT Telemedicine [place] [address] [place] [phone] Refugio Guerra MD Lumbar degenerative disc disease (Primary Dx); Lumbosacral spondylosis without myelopathy; Chronic pain syndrome 02/24/2022 Telephone [place] [address] [place] [phone] Refugio Guerra MD Other 02/21/2022 Travel 02/21/2022 5:24 PM EDT - 02/21/2022 8:54 PM EDT Emergency [facility] [address] [place] [address] Miguel Ángel Boyce MD Stefania infection of genital region (Primary Dx); Gastrointestinal hemorrhage with melena Discharge Disposition: Home or Self Care 02/07/2022 11:15 AM EDT Telemedicine [address] [place] [phone] Juliann Guevara APRN Lumbar degenerative disc disease (Primary Dx); Spondylosis; DDD (degenerative disc disease), cervical; Myofascial pain; Chronic pain syndrome 12/12/[address] [phone] Analilia Barraza APRN Prior Authorization (TPI) 12/12/2021 Orders Only [address] [phone] Gail Montgomery MA Encounter for long-term (current) use of high-risk medication 12/12/2021 11:00 AM EDT Office Visit [address] [phone] Analilia Barraza APRN Encounter for long-term (current) use of high-risk medication (Primary Dx); Lumbar degenerative disc disease; Spondylosis; DDD (degenerative disc disease), cervical; Myofascial pain 11/07/[address] [phone] Refugio Guerra MD Medication Management (Pharmacy closed on prescription fill date ) 10/17/2021 11:00 AM EST Telemedicine [address] [phone] Mamie Covington APRN Lumbar degenerative disc disease; Spondylosis; DDD (degenerative disc disease), cervical 09/10/2021 Telephone [facility] [address] [facility] [place] [address] Mamie Covington APRN Results (UDS) 08/20/2021 Nurse Triage [address] [place] [address] Yola Holguin, MALA 08/20/[address] [place] [phone] Refugio Guerra MD Medication Refill 08/20/2021 Orders Only [place] [address] [place] [phone] Charlotte Quesada Scribe Encounter for long-term (current) use of high-risk medication 08/20/2021 Travel 08/20/2021 11:15 AM EST Office Visit [place] [address] [place] [phone] Mamie Covington APRN Encounter for long-term (current) use of high-risk medication (Primary Dx); Lumbosacral radiculopathy at S1; Lumbar degenerative disc disease; Spondylosis; DDD (degenerative disc disease), cervical 07/28/2021 11:38 PM EST - 07/29/2021 1:14 AM EST Emergency [facility] [address] [place] [address] Yusuf Mabry MD Acute bronchitis due to other specified organisms (Primary Dx); Chest wall pain Discharge Disposition: Home or Self Care 07/28/2021 Travel 07/11/2021 Telephone [place] [address] [place] [phone] Juliann Guevara APRN Non-scheduled Referral 06/17/2021 11:00 AM EDT Telemedicine [place] [address] [place] [phone] Juliann Guevara APRN Spondylosis; DDD (degenerative disc disease), cervical; Lumbosacral radiculopathy at S1; Lumbar degenerative disc disease 05/09/2021 Travel 05/09/2021 11:00 AM EDT - 05/09/2021 11:59 PM EDT Hospital Encounter [address] [place] [address] Risa Gould APRN Lumbar degenerative disc disease Discharge Disposition: Home or Self Care 05/06/2021 Telephone [place] [address] [place] [phone] Juliann Guevara APRN Results 05/01/2021 Travel 05/01/2021 1:00 PM EDT - 05/01/2021 11:59 PM EDT Hospital Encounter [facility] [address] [place] [address] Juliann Guevara APRN DDD (degenerative disc disease), cervical Discharge Disposition: Home or Self Care 04/17/2021 Travel 04/17/2021 9:15 AM EDT Office Visit [address] [phone] Juliann Guevara APRN Chronic pain syndrome (Primary Dx); Lumbar degenerative disc disease; Spondylosis; DDD (degenerative disc disease), cervical; Degenerative disc disease, lumbar 03/24/2021 Travel 03/24/2021 7:16 PM EDT - 03/24/2021 8:51 PM EDT Emergency [facility] [address] [place] [address] Scott Locke MD Nonspecific abdominal pain (Primary Dx) Discharge Disposition: Home or Self Care 02/25/2021 Telephone [place] [address] [place] [phone] Juliann Guevara APRN Other (Schedule appt ) 02/25/2021 10:15 AM EDT Telemedicine [place] [address] [place] [phone] Juliann Guevara APRN Lumbar degenerative disc disease (Primary Dx); Lumbosacral radiculopathy at S1; Chronic pain syndrome; Spondylosis; DDD (degenerative disc disease), cervical; Degenerative disc disease, lumbar 02/01/[address] [phone] Juliann Guevara APRN Results (UDS) 01/28/2021 2:50 PM EDT - 01/28/2021 11:59 PM EDT Hospital Encounter [facility] [address] [place], [place] [id number] Encounter for long-term (current) use of high-risk medication Discharge Disposition: Home or Self Care 01/28/2021 Travel 01/28/2021 Refill [facility] [address] [phone] Lloyd Schwab MD Medication Refill 01/28/2021 9:15 AM EDT Telemedicine [address] [phone] Juliann Guevara APRN Cervicalgia (Primary Dx); Lumbosacral radiculopathy at S1; Lumbar degenerative disc disease; DDD (degenerative disc disease), cervical; Chronic pain syndrome; Mid back pain, chronic; Myofascial muscle pain; Encounter for long-term (current) use of high-risk medication 12/25/2020 9:30 AM EDT Telemedicine [facility] [address] [phone] Lloyd Schwab MD Cervicalgia (Primary Dx); Lumbosacral radiculopathy at S1; Lumbar degenerative disc disease; DDD (degenerative disc disease), cervical; Chronic pain syndrome 11/29/2020 Telephone [facility] [address] [phone] Risa Gould APRN Other (Appt) 11/29/2020 8:00 AM EDT Telemedicine [facility] [address] [phone] Risa Gould APRN Lumbosacral radiculopathy at S1 (Primary Dx); Chronic pain syndrome; Lumbar degenerative disc disease; Mid back pain, chronic; DDD (degenerative disc disease), cervical; Myofascial muscle pain; Encounter for long-term (current) use of high-risk medication 11/01/[address] [phone] Risa Gould APRN Other (Appt) 11/01/2020 3:45 PM EST Telemedicine [facility] [address] [place] [address] Risa Gould APRN Lumbosacral radiculopathy at S1 (Primary Dx); Lumbar degenerative disc disease; Mid back pain, chronic; Chronic pain syndrome; DDD (degenerative disc disease), cervical; Myofascial muscle pain; Right shoulder pain, unspecified chronicity; Encounter for long-term (current) use of high-risk medication 10/15/2020 Travel 10/15/2020 11:51 AM EST - 10/15/2020 1:43 PM EST Emergency [facility] [address] [place] [address] Mook Barillas, Thoracic myofascial strain, initial encounter (Primary Dx) Discharge Disposition: Home or Self Care 10/05/2020 Telephone [facility] [address] [place] [address] Risa Gould APRN Other (Appt) 10/04/2020 3:45 PM EST Telemedicine [facility] [address] [place] [address] Risa Gould APRN Lumbosacral radiculopathy at S1 (Primary Dx); Lumbar degenerative disc disease; Mid back pain, chronic; Chronic pain syndrome; DDD (degenerative disc disease), cervical; Myofascial muscle pain; Right shoulder pain, unspecified chronicity; Encounter for long-term (current) use of high-risk medication 09/03/2020 Travel 09/03/2020 3:45 PM EST Telemedicine [address] [phone] Risa Gould APRN Lumbosacral radiculopathy at S1 (Primary Dx); Lumbar degenerative disc disease; Chronic pain syndrome; DDD (degenerative disc disease), cervical; Myofascial muscle pain; Right shoulder pain, unspecified chronicity; Encounter for long-term (current) use of high-risk medication 07/09/2020 2:45 PM EST Telemedicine [address] [phone] Risa Gould APRN Lumbosacral radiculopathy at S1 (Primary Dx); Lumbar degenerative disc disease; Chronic pain syndrome; Lumbar radiculitis; DDD (degenerative disc disease), cervical; Myofascial muscle pain; Encounter for long-term (current) use of high-risk medication 07/04/2020 Travel 07/04/2020 5:22 PM EDT - 07/04/2020 7:02 PM EDT Emergency [facility] [address] [address] Ekaterina Ortiz MD Closed head injury, initial encounter (Primary Dx); Cervical sprain, initial encounter; Chest wall contusion, unspecified laterality, initial encounter; Sprain of other ligament of left knee, initial encounter Discharge Disposition: Home or Self Care 06/08/2020 11:30 AM EDT - 06/08/2020 11:59 PM EDT Hospital Encounter [facility] [address] [place] [address] Encounter for long-term (current) use of high-risk medication Discharge Disposition: Home or Self Care 06/08/2020 Travel 06/06/[address] [phone] Juliann Guevara APRN Other (appt) 06/06/2020 9:15 AM EDT Telemedicine [address] [phone] Juliann Guevara APRN Chronic pain syndrome (Primary Dx); Lumbosacral radiculopathy at S1; Lumbar degenerative disc disease 05/08/2020 Telephone [facility] [place] [address] [place] [phone] Juliann Guevara APRN Other (appt) 05/08/2020 1:00 PM EDT Telemedicine [place] [address] [place] [phone] Juliann Guevara APRN Lumbosacral radiculopathy at S1; Lumbar degenerative disc disease 05/06/2020 Travel 05/06/2020 2:20 PM EDT - 05/06/2020 4:33 PM EDT Emergency [facility] [address] [facility] [place] [address] Jossy Mejia MD Nonintractable headache, unspecified chronicity pattern, unspecified headache type (Primary Dx) Discharge Disposition: Home or Self Care 04/09/2020 1:15 PM EDT Telemedicine [place] [address] [place] [phone] Juliann Guevara APRN Lumbar degenerative disc disease (Primary Dx); Lumbar radiculitis; Chronic pain syndrome; Lumbosacral radiculopathy at S1 03/08/2020 Telephone [place] [address] [place] [phone] Juliann Guevara APRN Other (appt) 03/08/2020 3:15 PM EDT Telemedicine [facility] [address] [place] [address] Juliann Guevara APRN Lumbosacral radiculopathy at S1; Lumbar degenerative disc disease 03/07/2020 Refill [place] [address] [place] [phone] Refugio Guerra MD Medication Refill 03/01/2020 Travel 03/01/2020 2:54 PM EDT - 03/01/2020 11:59 PM EDT Hospital Encounter [facility] [address] [place] [address] 1 [address] 4[address] - [address] [place] [id number] Refugio Guerra MD Lumbosacral radiculopathy at S1 Discharge Disposition: Home or Self Care 02/22/2020 Travel 02/07/2020 11:00 AM EDT Telemedicine [facility] [address] [place] [phone] Refugio Guerra MD Lumbosacral radiculopathy at S1 (Primary Dx); Lumbar degenerative disc disease; Encounter for long-term (current) use of high-risk medication; Chronic pain syndrome 01/23/[address] [place] [phone] Refugio Guerra MD Other 01/23/2020 Travel 01/23/2020 1:00 PM EDT - 01/23/2020 11:59 PM EDT Hospital Encounter [facility] [address] [place] [address] 1 D 4th Floor - [address] [place] [phone] Refugio Guerra MD Lumbar radiculitis; Lumbar degenerative disc disease Discharge Disposition: Home or Self Care 01/20/2020 Travel 01/16/2020 Telephone [facility] Physical [facility] [place] [address] Elisha Pantoja, PT Other 01/12/2020 Telephone [facility] [address] [place] [phone] Refugio Guerra MD Medication Management ([place]) 01/12/2020 Travel 01/10/2020 Telephone [facility] [address] [place] [phone] Refugio Guerra MD Results (MRI) 01/10/2020 Travel 01/10/2020 2:00 PM EDT - 01/10/2020 11:59 PM EDT Hospital Encounter [facility] [address] [place] [address] Refugio Guerra MD Lumbar radiculitis Discharge Disposition: Home or Self Care 01/09/2020 Travel 01/05/2020 Travel 01/05/2020 1:00 PM EDT Telemedicine [facility] [address] [place] [address] Refugio Guerra MD Lumbar radiculitis (Primary Dx); Lumbar degenerative disc disease 01/01/2020 Travel 01/01/2020 8:22 PM EDT - 01/01/2020 9:06 PM EDT Emergency [facility] [address] [place] [address] Bob Chirinos MD Acute exacerbation of chronic low back pain (Primary Dx) Discharge Disposition: Home or Self Care 12/04/2019 Travel 12/04/2019 6:43 AM EDT - 12/04/2019 9:13 AM EDT Emergency [facility] [address] [place] [address] Jamal Becker MD Johnson, Marleen C, MD Lymphadenopathy (Primary Dx); Sorethroat Discharge Disposition: Home or Self Care 10/02/2019 6:28 PM EST - 10/02/2019 8:26 PM EST Emergency [facility] [address] [place] [address] Freddie Awad MD Shoulder strain, right, initial encounter (Primary Dx) Discharge Disposition: Home or Self Care Allergies Active Allergy Reactions Criticality Noted Date Comments Sulfa (Sulfonamide Antibiotics) Rash 09/08 Medications esomeprazole (NEXIUM) 40 mg Oral Capsule, Delayed Release(E.C.) Take by mouth daily. Active CYANOCOBALAMIN, VITAMIN B-12, INJ Inject as directed. Active Ustekinumab (STELARA) 45 mg/0.5 mL SubQ Solution Subcutaneous (Inject under the skin). Active budesonide 9 mg Oral Capsule, Sustained Release Take 9 mg by mouth daily. 14 Capsule 08/09/20 22 Active gabapentin (NEURONTIN) 600 mg Oral Tablet Take 600 mg by mouth 3 times daily. Active bisoprolol (ZEBETA) 5 mg Oral Tablet 11/04/19 24 Active pregabalin (LYRICA) 150 mg Oral Capsule Take 150 mg by mouth 3 times daily. 06/09/20 24 Active HYDROcodone-aceta minophen (NORCO) 10-325 mg Oral TabletIndications :Lumbosacral radiculopathy at S1,Lumbosacral spondylosis without myelopathy,DDD (degenerative disc disease), cervical,Chronic pain syndrome Take 1 Tablet by mouth every 6 hours as needed for Chronic Pain (G89.29) for up to 28 days. 112 Tablet 03/14/20 25 025 Active HYDROcodone-aceta minophen (NORCO) 10-325 mg Oral TabletIndications :Lumbosacral radiculopathy at S1 Take 1 Tablet by mouth every 6 hours as needed for Chronic Pain (G89.29) for up to 28 days. 112 Tablet 02/15/20 25 025 Active albuterol (VENTOLIN HFA) 90 mcg/actuation Inhl HFA Aerosol Inhaler Inhale 1-2 Puffs into the lungs every 4 hours as needed for Wheezing or Shortness of Breath for up to 30 days. 1 Each 01/21/20 25 025 inhalational spacing device Please dispense 1 adult device. 1 Each 01/21/20 25 025 Active Problems Patient Care Coordination No te Formatting of this note migh t be different from the original. [facility] - Evaluating/Primary office MD Rosaroi Guerra Controlled Substance Protocol Completed:[facility] [place]t 02/19/24, 12/22/24, 12/29/24, 02/07/25 A. Informed Consent Statement signed (Yearly) Sent via [facility] 10/13/2024 B. Controlled Substance Agreement signed (Yearly) 10/13/2024 C. Comprehensive Urine Drug Screen was performed (Minimum YEARLY) (future 02/07/2025) D. Iam report completed (EVERY 3 MONTHS) (02/08/2025) E. Screening tool for addiction (SOAPP) completed (YEARLY) F. Need for controlled substance is documented (EVERY VISIT) G. Pain Scale and or Functional capacity documented (EVERY VISIT)04/21/24 Pharmacy: [facility] [phone] Problem Noted Date Diagnosed Date Syncope and collapse 01/24/2024 GERD (gastroesophageal reflux disease) Chronic pain syndrome 09/24/2023 Right lower quadrant abdominal pain 09/23/2023 Crohn's disease of colon, unspecified complicati on 09/23/2023 Crohn disease 05/18/2022 Rash 05/18/2022 Ileus 05/17/2022 Family History Medical History Relation Name Comments Arthritis Father Wayne Moulton Diabetes Father Wayne Moulton Hearing Loss Father Awyne Moulton High Blood Pressure Father Wayne Moulton Vision Loss Father Wayne Moulton Vision Loss Mother Bharati Arthur Diabetes Paternal Grandfather Pradip Moulton Diabetes Sister Marine Moulton Vision Loss Sister Marine Moulton Relation Name Status Comments Father Wayne Moulton Mother Bharati Arthur Paternal Grandfather Pradip Moulton Sister Marine Moulton Social History Smoking Status as of 03/01/2025 Tobacco Use Types Packs/Day Years Used Date Smoking Tobacco: Never Assessed [facility] Utilities Answer Date Recorded In the [...] Date Recorded PHQ-2 Total Score 0 01/26/2024 [facility] [place] of Occupat ional Health - Occupational Stress [...] living? No 05/19/[address] [facility] IP Transportation Answer D ate Recorded In the past 12 months, has l ack of reliable transportation kept you from medical appointments, meetings, work or from getting things needed for daily living? No 01/26/2024 Sex and Gender Information Value Date Recorded Sex Assigned at Not on file Legal Sex Male 6:12 PM EST Gender Identity Not on file Sexual Orientation Not on file Last Filed Vital Signs Vital Sign Reading Time Taken Comments Blood Pressure 135/83 02/08/2025 9:47 AM EDT Pulse 78 02/08/2025 9:47 AM EDT Temperature 36.8 C (98.2 F) 01/20/2025 3:03 PM EDT Respiratory Rate 18 01/20/2025 3:30 PM EDT Oxygen Saturation 94% 02/08/2025 9:47 AM EDT Inhaled Oxygen Concentration - - Weight 90.4 kg (199 lb 3.2 oz) 02/08/2025 9:47 A M EDT Height 175.3 cm (5' 9 ) 01/20/2025 2:55 PM EDT Body Mass Index 29.42 01/20/2025 2:55 PM EDT Plan of Treatment Upcoming Encounters Date Type Department Care Team (Late st Contact Info) Description 04/05/2025 1:30 PM EDT Office Visit [address] [phone] Anay Montana APRN [address] [place] [address] Procedures Procedure Name Priority Date/Time Associated Diagnosis Comments SCANNED EKG 01/23/2025 11:00 AM EDT XR CHEST PA AND LATERAL SANJAY 01/20/2025 3:34 PM EDT EK EKG 12 LEAD STAT 01/20/2025 2:58 PM EDT XR HAND RIGHT PA LATERAL AND OBLIQUE SANJAY 12/09/2024 1:18 PM EDT XR THORACIC SPINE AP LATERAL AND SWIMMERS SANJAY 06/28/2024 8:41 PM EDT COMPLIANCE PANEL, URINE Routine 06/21/2024 11:59 AM EDT Encounter for long-term (current) use of high-risk medication MRI LUMBAR SPINE WO CONTRAST Routine 04/12/2024 2:59 PM EDT Lumbosacral spondylosis without myelopathy Lumbar degenerative disc disease SCANNED EKG 01/26/2024 1:20 PM EDT ECG AND WAVEFORMS - TELEMETRY Routine 01/26/2024 12:37 PM EDT VA US CAROTID DUPLEX BILATERAL Routine 01/26/2024 8:51 AM EDT T4, FREE (THYROXINE) Early AM 01/26/2024 7:25 AM EDT THYROID STIMULATING HORMONE Early AM 01/26/2024 7:25 AM EDT BASIC METABOLIC PANEL Early AM 01/26/2024 7:25 AM EDT CBC WITH DIFF Early AM 01/26/2024 7:25 AM EDT LIPID SCREEN Routine 01/26/2024 7:25 AM EDT ECG AND WAVEFORMS - TELEMETRY Routine 01/26/2024 7:04 AM EDT MRI BRAIN WO CONTRAST SANJAY 01/26/2024 1:00 AM EDT HEMOGLOBIN A1C Routine 01/25/2024 9:00 PM EDT ECG AND WAVEFORMS - TELEMETRY Routine 01/25/2024 7:03 PM EDT IP CONSULT TO SOCIAL WORK Routine 01/25/2024 3:31 PM EDT IP CONSULT TO CARE COORDINATION Routine 01/25/2024 3:31 PM EDT ADMIT Routine 01/25/2024 3:13 PM EDT ECG AND WAVEFORMS - TELEMETRY Routine 01/25/2024 1:41 PM EDT TROPONIN-T HIGH SENSITIVITY 2HR Timed 01/24/2024 11:21 PM EDT ADMIT Routine 01/24/2024 9:[address] CERVICAL SPINE WO CONTRAST STAT 01/24/2024 8:[address] ANGIOGRAM HEAD AND NECK W CONTRAST STAT 01/24/2024 8:[address] HEAD WO CONTRAST STAT 01/24/2024 8:50 PM EDT XR HIP RIGHT AP LATERAL W AP PELVIS SANJAY 01/24/2024 8:49 PM EDT XR RIBS BILATERAL 3 VW SANJAY 01/24/2024 8:49 PM EDT XR HAND RIGHT PA LATERAL AND OBLIQUE SANJAY 01/24/2024 8:49 PM EDT TROPONIN-T HIGH SENSITIVITY BASELINE W/ REFLEX STAT 01/24/2024 7:52 PM EDT BASIC METABOLIC PANEL STAT 01/24/2024 7:52 PM EDT CBC WITH DIFF STAT 01/24/2024 7:52 PM EDT EK EKG 12 LEAD STAT 01/24/2024 6:58 PM EDT COMPLIANCE PANEL, URINE Routine 11/05/2023 12:06 PM EST Encounter for long-term (current) use of high-risk medication BLOOD CULTURE (NO STAIN) STAT 09/26/2023 5:43 PM EST BLOOD CULTURE (NO STAIN) STAT 09/26/2023 5:43 PM EST BASIC METABOLIC PANEL Early AM 09/25/2023 6:11 AM EST CBC WITH DIFF Early AM 09/25/2023 6:11 AM EST ADMIT Routine 09/24/2023 12:55 PM EST BASIC METABOLIC PANEL Early AM 09/24/2023 11:41 AM EST CBC WITH DIFF Early AM 09/24/2023 11:40 AM EST ADMIT Routine 09/23/2023 8:32 PM EST IP CONSULT TO GI Routine 09/23/2023 8:32 PM EST Procedure Note - Madelyn Maradiaga MD - 09/24/2023 8:52 AM ESTThis note is in progress. GI Consultation: Faustina Moulton is a 53 y.o. male asked to see us in consultation by Hill Andrews MD & Steven Echevarria MD for evaluation of Crohn's. 53 YO male, history of ileocolonic Crohn's disease diagnosed in 2001 s/pTI resection in 2003 who follows at and is on Stelara q4 weeks. Patient presented to [facility] ED yesterday for worsening abdominal pain,nausea. Admitting labs unremarkable, CTAP reporting dilated fluid-filleddistal SB, cannot exclude partial obstruction at ICV, liquid stool alsonoted in proximal colon. Patient reports he has chronic lower abdominalpain at baseline, began with acute worsening of symptoms with RUQ pain afew days ago. Patient received 125ml Solumedrol in ED, he reports his painis currently at baseline. Last BM yesterday evening, he denies anydiarrhea/hematochezia, reports stools are soft. No nausea/vomiting atpresent, he is tolerating clear liquids. No chills/fevers prior toadmission. Last colonoscopy 06/10/22 () per office visit note with mild active ilealCrohn's disease. Prior to Admission medications Medication Sig Start Date End Date Taking? Authorizing Provider CYANOCOBALAMIN, VITAMIN B-12, INJ Inject as directed. Yes Provider,Historical esomeprazole (NEXIUM) 40 mg Oral Capsule, Delayed Release(E.C.) Take bymouth daily. Yes Provider, Historical HYDROcodone-acetaminophen (NORCO) 10-325 mg Oral Tablet Take 1 Tablet bymouth 3 times daily as needed for Chronic Pain (G89.29). 09/23/23 Refugio Cerda MD HYDROcodone-acetaminophen (NORCO) 10-325 mg Oral Tablet Take 1 Tablet bymouth 3 times daily as needed for Chronic Pain (G89.29). 10/22/23 Refugio Cerda MD pregabalin (LYRICA) 150 mg Oral Capsule Take 150 mg by mouth 3 timesdaily. Yes Provider, Historical Ustekinumab (STELARA) 45 mg/0.5 mL SubQ Solution Subcutaneous (Injectunder the skin). Yes Provider, Historical budesonide 9 mg Oral Capsule, Sustained Release Take 9 mg by mouthdaily. Patient not taking: Reported on 09/23/2023 08/09/22 Scott Mane MD Medication: Current Facility-Administered Medications Medication Dose Route Frequency Last Rate Last Admin 0.9 % NaCl infusion Intravenous Continuous 100 mL/hr at 09/23/23 2215New Bag at 09/23/23 2215 acetaminophen (OFIRMEV) infusion 1,000 mg 1,000 mg Intravenous Q6H PRN acetaminophen (TYLENOL) tablet 650 mg 650 mg Oral Q4H PRN Or acetaminophen (TYLENOL) suppository 650 mg 650 mg Rectal Q4H PRN enoxaparin (LOVENOX) injection 40 mg 40 mg Subcutaneous Daily - LMWH/Xa40 mg at 09/24/23 0209 HYDROcodone-acetaminophen (NORCO) 10-325 mg per tablet 1 Tablet 1 TabletOral TID PRN morphine injection 2 mg 2 mg Intravenous Q4H PRN Or morphine injection 4 mg 4 mg Intravenous Q4H PRN ondansetron (ZOFRAN) tablet 4 mg 4 mg Oral Q6H PRN Or ondansetron (ZOFRAN) injection 4 mg 4 mg Intravenous Q6H PRN pantoprazole (PROTONIX) tablet 40 mg 40 mg Oral BID 40 mg at pregabalin (LYRICA) capsule 150 mg 150 mg Oral TID 150 mg at Allergies: Allergies Allergen Reactions Sulfa (Sulfonamide Antibiotics) Rash Immunizations: There is no immunization history on file for this patient. Family history, past medical history, and social history are reviewedas below. Past Medical History: Past Medical History: Diagnosis Date CD (Crohn's disease) (HCC) Crohn's disease (HCC) Neuropathy Past Surgical History: Past Surgical History: Procedure Laterality Date COLON SURGERY XR INJECT CONTRAST EXISTING TUBE 03/06/2017 XR INJECT CONTRAST EXISTING TUBE 03/06/2017 Family History: Family History Problem Relation Age of Onset Diabetes Father Diabetes Sister Diabetes Paternal Grandfather Social History: Social History Tobacco Use Smoking status: Every Day Current packs/day: 1.00 Average packs/day: 1 pack/day for 39.1 years (39.1 ttl pk-yrs) Types: Cigarettes Start date: 1984 Smokeless tobacco: Never Vaping Use Vaping Use: Former Substance Use Topics Alcohol use: Not Currently Drug use: Not Currently ROS Constitutional: Denies fever,sweats, chills or weight loss Eyes: Denies change in visual acuity HENT: Denies hearing loss or dizziness Respiratory: Denies cough or shortness of breath Cardiovascular: Denies edema or chest pain : Denies dysuria, hematuria, urgency or frequency Musculoskeletal: Denies back pain or joint pain Integument: Denies rash Neurologic: Denies headache, previous stroke, TIA, confusion Endocrine: Denies polyuria or polydipsia Lymphatic: Denies swollen glands Psychiatric: Denies depression or anxiety Hematologic: Denies previous anemia or easy bruising All other review of systems negative, except for those noted. PHYSICAL EXAM: VITAL SIGNS: BP 136/85 (BP Location: Right arm, Patient Position: SemiFowlers) Pulse 63 Temp 97.9 F (36.6 C) (Oral) Resp 18 Ht 5'9 (1.753 m) Wt 205 lb (93 kg) SpO2 98% BMI 30.27 kg/m Constitutional: Well developed. Well nourished. Non-toxic appearance.No acute distress. HENT: Normocephalic. Atraumatic. Bilateral external ears normal,Oropharynx moist. No oral exudate. Nose normal. Eyes: No Scleral icterus Cardiovascular: RRR Thorax & Lungs: Normal breath sounds, No respiratory distress, Nowheezing, No chest tenderness. Abdomen: Soft, mild RUQ pain/lower abd tenderness. Bowel sounds arenormoactive without bruits. No guarding, spasm or rebound. Nohepatomegaly. No splenomegaly. No ascites Rectal: Deferred. Skin: Warm, dry. No erythema. No rash. Extremities: Intact distal pulses, No deformity. No edema. Neurologic: Alert & oriented x 3 RESULTS Lab Results Component Value Date ALT 22 09/23/2023 AST 26 09/23/2023 ALKPHOS 98 09/23/2023 PROT 6.1 (L) 09/23/2023 LIPASE 23 09/23/2023 Lab Results Component Value Date WBC 7.3 09/23/2023 HGB 13.8 09/23/2023 HCT 40.8 09/23/2023 MCV 87.6 09/23/2023 PLT 221 09/23/2023 Lab Results Component Value Date CREATININE 0.99 09/23/2023 BUN 8 09/23/2023 NA 137 09/23/2023 K 3.5 09/23/2023 CL 101 09/23/2023 CO2 24 09/23/[address] ABD PEL ED FAST W CONTRAST Result Date: 09/23/2023 CT ABDOMEN AND PELVIS WITH CONTRAST (FAST), 09/23/2023 4:40 PM CLINICALHISTORY: -ABDOMINAL PAIN -rlq pain. COMPARISON: 03/01/2023 PROCEDURECOMMENTS: Multi-detector CT scanning of the abdomen and pelvis withmultiplanar reformatting per expedited protocol. Isovue 370 IV contrastgiven as recorded in EPIC. Dose 1 : CT DLP Total : 507.09 mGycm DLP SpiralMax : 502.68 mGycm Maximum CTDI Vol : 10 mGy FINDINGS: LOWER THORAX:Lung bases unremarkable. ABDOMEN AND PELVIS: Liver, spleen, pancreas,kidneys, and adrenal glands unremarkable. No hydronephrosis. Unremarkablebiliary system. Markedly dilated fluid-filled distal small bowel to thelevel of ileocecal valve with postoperative changes in the adjacent cecum.There is also liquid stool in the proximal colon. There is no pneumatosisintestinalis or portal venous gas. No free air.. No evidence ofappendicitis. No abnormal mass or adenopathy in the pelvis. Trace freepelvic fluid seen. No acute osseous abnormality. Dilated fluid-filled distal small bowel is nonspecific but could berelated to focal enteritis. Partial obstruction at the ileocecal valve isnot excluded. Liquid stool in the proximal colon also seen. - Note:Radiology results need to be interpreted within a comprehensive clinicalcontext. If you have questions about the radiology report, please contactthe office of the ordering clinician. ASSESSMENT 1. Abdominal pain, distal fluid-filled SB with possible partialobstruction at [facility] -WBC WNL -Pain improved, no NVD since admitted, soft BM yesterday evening; noblood. No present signs of obstruction. 2. Ileocolonic Crohn's disease; follows with GI -s/p TI resection 2003 -on Stelara q4 weeks -last colonoscopy 06/2022 at [facility]. CRP in process 2. Clear liquids 3. Continue supportive treatment, IV steroids 1. The patient indicates understanding of these issues and agrees withthe plan. 2. I reviewed the patient's medical information and medical history. 3. I have reviewed the past medical, family, and social history sectionsincluding the medications and allergies listed in the above medicalrecord. Electronically signed by: Risa Corbin APRN, 09/24/2023 8:53 AM I have seen and interviewed this patient face to face. I have reviewedthe chief complaint, history of present illness, review of systems as wellas the past medical/social/family history sections for this patient. Ihave examined this patient, and participated in the care of this patient.I have reviewed the pertinent clinical information including vital signs,I&O,physical exam, labs, radiographic studies and the plan. This patientwas seen in coordination with the SENIOR COST ACCOUNTANT. There has been no change in the datarecorded by the SHANTELLE except as follows. Additional data available sincethe patient was seen includes the following. Cardiac: Regular rate Pulmonary: Normal effort Abdomen: Non-tender Neuro: Awake and alert Recommend: Fibro-stenotic ileocolonic Crohn's disease - Currently on Ustekinumab q4 weeks after active disease noted on priorcolonoscopy. - Imaging reviewed- query partial obstruction. - Clinically improved since admission- passing Bms, no N/V, abdomennon-tender. - Transition to Prednisone 40 mg tomorrow. - Low fiber diet. - F/u w/[place] post discharge. Likely needs f/u colonoscopy for diseaseassessment. Please do not hesitate to contact me should you have any questions orconcerns regarding above recommendations. Madelyn Maradiaga MD [facility] Gastroenterology Electronically signed by: Madelyn Maradiaga MD, 09/24/2023 3:58 PM ADMIT Routine 09/23/2023 6:09 PM EST PROCALCITONIN STAT 09/23/2023 6:02 PM EST C-REACTIVE PROTEIN STAT 09/23/2023 6:02 PM EST REPEAT LACTIC ACID STAT 09/23/2023 6:02 PM EST BLOOD CULTURE (NO STAIN) STAT 09/23/2023 6:02 PM EST BLOOD CULTURE (NO STAIN) STAT 09/23/2023 6:02 PM EST URINALYSIS REFLEX STAT 09/23/2023 5:46 PM EST UA W/REFLEX TO CULTURE STAT 09/23/2023 5:46 PM EST EXTRA LE URINE CX STAT 09/23/2023 5:[address] ABD PEL ED FAST W CONTRAST STAT 09/23/2023 4:40 PM EST SEDIMENTATION RATE AUTOMATED Add-On 09/23/2023 4:01 PM EST LACTIC ACID STAT 09/23/2023 4:01 PM EST LIPASE LEVEL STAT 09/23/2023 4:01 PM EST COMPREHENSIVE METABOLIC PANEL STAT 09/23/2023 4:01 PM EST CBC WITH DIFF STAT 09/23/2023 4:01 PM EST SALINE LOCK IV STAT 09/23/2023 3:[address] LUMBAR SPINE W CONTRAST Routine 05/28/2023 1:11 PM EDT Chronic bilateral low back pain without sciatica Palpable mass of lower back CT ABDOMEN PELVIS W CONTRAST STAT 03/01/2023 11:37 PM EDT LACTIC ACID STAT 03/01/2023 9:18 PM EDT LIPASE LEVEL STAT 03/01/2023 9:18 PM EDT COMPREHENSIVE METABOLIC PANEL STAT 03/01/2023 9:18 PM EDT CBC WITH DIFF STAT 03/01/2023 9:18 PM EDT SALINE LOCK IV STAT 03/01/2023 9:00 PM EDT COMPLIANCE PANEL, URINE Routine 02/11/2023 2:33 PM EDT Encounter for long-term (current) use of high-risk medication IR LUMBAR/SACRAL REMA WITH GUIDANCE Routine 12/23/2022 11:27 AM EDT Lumbar degenerative disc disease Lumbosacral radiculopathy at S1 CT ABDOMEN PELVIS WO ORAL OR IV CONTRAST STAT 08/09/2022 5:13 PM EST URINALYSIS STAT 08/09/2022 5:11 PM EST UA W/REFLEX TO CULTURE STAT 08/09/2022 5:11 PM EST COMPREHENSIVE METABOLIC PANEL STAT 08/09/2022 5:11 PM EST CBC WITH DIFF STAT 08/09/2022 5:11 PM EST EXTRA LE URINE CX STAT 08/09/2022 5:11 PM EST COMPLIANCE PANEL, URINE Routine 08/04/2022 2:09 PM EST Encounter for long-term (current) use of high-risk medication HEMOGLOBIN AND HEMATOCRIT Timed 05/19/2022 4:08 PM EDT HEMOGLOBIN AND HEMATOCRIT Timed 05/19/2022 8:36 AM EDT HEMOGLOBIN AND HEMATOCRIT Timed 05/18/2022 11:35 PM EDT FECAL CALPROTECTIN Routine 05/18/2022 5:09 PM EDT OVA AND PARASITE BASIC Routine 05/18/2022 5:07 PM EDT SHIGA TOXIN Routine 05/18/2022 5:07 PM EDT STOOL CULTURE (NO STAIN) Routine 05/18/2022 5:07 PM EDT HEMOGLOBIN AND HEMATOCRIT Timed 05/18/2022 4:18 PM EDT HEMOGLOBIN AND HEMATOCRIT Timed 05/18/2022 8:29 AM EDT SEDIMENTATION RATE AUTOMATED Routine 05/18/2022 5:36 AM EDT CBC Routine 05/18/2022 5:36 AM EDT C-REACTIVE PROTEIN Routine 05/18/2022 5:36 AM EDT COMPREHENSIVE METABOLIC PANEL Early AM 05/18/2022 5:36 AM EDT IP CONSULT TO GENERAL SURGERY Routine 05/18/2022 3:14 AM EDT Procedure Note - Edgar Vides MD - 05/18/2022 12:58 PM EDTThis note is in progress. Name: Faustina Moulton Inpatient consult to General Surgery Other; ileus, in context of Crohn's;Stat Consult Requested: No Consult performed by: Edgar Vides MD Consult ordered by: Sherry Rebolledo MD Assessment/Recommendations: 51-year-old male, with known history ofCrohn's disease, on Stelara, presenting with abdominal pain, diarrhea for1 week. Cross-sectional imaging was reviewed by myself, no signs of bowelobstruction, strangulation, ischemia, perforation or pneumatosis. Patientis passing flatus. Clinically and radiologically, patient does not seemto have obstruction or ileus. Plan: Surgery team will continue to follow Diet as per primary team GI recommendations will be helpful Nonoperative management anticipated History of present illness: 51-year-old male, with a known history of Crohn's disease, previouslyunderwent a colon/small bowel resection for Crohn's disease and .Currently being treated with Stelara. Doing well till about a week agowhen he began to have abdominal pain, dark stools, bloody stools.Describes the pain as a constant pain, initially 10/10, currently withmedications, is a 6/10. Points to his right lower quadrant as the site ofpain, also points to his lower mid abdomen and left lower quadrant as thesite of pain. Complaining of nausea, but has not had any vomiting. Haslost about 5 pounds in the last 1 week. Prior to that did not have anyGI/ symptoms, did not have any loss of appetite PCP:No primary care provider on file. Past Medical History: Diagnosis Date CD (Crohn's disease) (HCC) Crohn's disease (HCC) Neuropathy Past Surgical History: Procedure Laterality Date COLON SURGERY No family history on file. Social History Socioeconomic History Marital status: Spouse name: None Number of children: None Years of education: None Highest education level: None Tobacco Use Smoking status: Current Every Day Smoker Packs/day: 1.00 Years: 38.00 Pack years: 38.00 Types: Cigarettes Smokeless tobacco: Never Used Vaping Use Vaping Use: Some days Substance and Sexual Activity Alcohol use: Not Currently Drug use: Not Currently ROS: Denies chest pain Denies shortness of breath Denies blood in urine Complaining of blood in the stools Complaining of dark stools Complaining of weight loss, 5 pounds, in the past 1 week Complaining of a poor appetite in the past 1 week Complaining of nausea States that his vision has always been blurry Complaining of back pain States hearing is okay All others negative except as mentioned above Vitals: 05/18/22 0044 05/18/22 0854 BP: 129/86 114/68 BP Location: Right arm Left arm Patient Position: Semi Fowlers Semi Fowlers Pulse: 76 64 Resp: 18 16 Temp: 97.4 F (36.3 C) 97.2 F (36.2 C) TempSrc: Oral Forehead SpO2: 98% 100% Weight: 205 lb (93 kg) Height: 5' 9 (1.753 m) Physical Exam: 51-year-old male, awake, alert, slow to talk, answering questionsappropriately Unlabored respiration Abdomen: Multiple striae noted. Right lower quadrant tenderness onpalpation. Rest of the abdomen is soft No peripheral edema Lab and radiographic data reviewed. Thank you for asking me to participate in your patient's care. I spent 40 minutes reviewing the patient's records, seeing cross sectionalimaging, reviewing lab results, obtaining a history and performing aphysical examination. Time also included speaking to other physiciansconsulting on the patient's care and speaking with family as needed. ROSALINDA Nixon, MS, FACS Surgery and Critical care Edgar Vides MD 05/18/2022 IP CONSULT TO GI Routine 05/18/2022 3:14 AM EDT Procedure Note - Sherif Smith MD - 05/18/2022 7:38 AM EDTThis note is in progress. GI Consultation: Faustina Moulton is a 51 y.o. male asked to see us in consultation by [facility] care provider on file. & Dk Hughes MD for evaluation ofdiarrhea, Crohn's disease. Mr. Moulton is a 51-year-old male with a history of ileocolonic Crohn'sdisease diagnosed in 2001 s/p TI resection in 2003 who follows at [facility]. He is on Stelara every 8 weeks, his last dosebeing on 5 days ago. He presented to the ER with bloody diarrhea that began 1 week ago. Hereports diffuse abdominal pain that is worse in the right lower quadrantas well as some nausea and vomiting. He also reports concern for shinglesas he has a new rash on his buttocks. Says he has bloody diarrhea at baseline but it is typically not waterylike it is now. He also chronic intermittent lower abdominal pain. Hehas noted no blood in his vomit. No recent antibiotic use or sickcontacts. He smokes cigarettes. CT on admission reports findings that with correlated diarrheal illnesswith a possible mild distal small bowel ileus. No active inflammation.His labs are relatively unremarkable. He does not have leukocytosis andis not anemic. Last colonoscopy in 2019 showed active ileal Crohn's disease. At thattime he was started on Stelara. Medications Prior to Admission Medication Sig Dispense Refill Last Dose CYANOCOBALAMIN, VITAMIN B-12, INJ Inject as directed. Taking atUnknown time esomeprazole (NEXIUM) 40 mg Oral Capsule, Delayed Release(E.C.) Take bymouth daily. 05/17/2022 at Unknown time gabapentin (NEURONTIN) 600 mg Oral Tablet Take 600 mg by mouth 6 timesdaily. 05/17/2022 at Unknown time oxyCODONE-acetaminophen (PERCOCET) 5-325 mg Oral Tablet Take 1 Tablet bymouth every 6 hours as needed for Chronic Pain (G89.29) for up to 30 days.Fourth tablet only to be used for pain exacerbations. 105 Tablet 05/17/2022 at Unknown time oxyCODONE-acetaminophen (PERCOCET) 5-325 mg Oral Tablet Take 1 Tablet bymouth every 6 hours as needed for Chronic Pain (G89.29). Fourth tabletonly to be used for pain exacerbations. 105 Tablet 0 05/17/2022 at Unknowntime pregabalin (LYRICA) 150 mg Oral Capsule Take 150 mg by mouth 3 timesdaily. 05/17/2022 at Unknown time Ustekinumab (STELARA) 45 mg/0.5 mL SubQ Solution Subcutaneous (Injectunder the skin). Taking at Unknown time buPROPion (WELLBUTRIN) 100 mg Oral Tablet Take 100 mg by mouth 2 timesdaily. (Patient not taking: No sig reported) Not Taking at Unknown time Medication: acyclovir (ZOVIrax) IVPB (Standard) 10 mg/kg ([place]) Intravenous 3times per day metroNIDAZOLE 500 mg Intravenous 3 times per day nicotine 1 Patch Transdermal Daily And nicotine 1 Patch Transdermal Nightly pregabalin 150 mg Oral TID sodium chloride 0.9 % 125 mL/hr at 05/18/22 0655 Allergies: Allergies Allergen Reactions Sulfa (Sulfonamide Antibiotics) Rash Immunizations: There is no immunization history on file for this patient. Family history, past medical history, and social history are reviewedas below. Past Medical History: Past Medical History: Diagnosis Date CD (Crohn's disease) (HCC) Crohn's disease (HCC) Neuropathy Past Surgical History: Past Surgical History: Procedure Laterality Date COLON SURGERY Family History: No family history on file. Social History: Social History Tobacco Use Smoking status: Current Every Day Smoker Packs/day: 1.00 Years: 38.00 Pack years: 38.00 Types: Cigarettes Smokeless tobacco: Never Used Vaping Use Vaping Use: Some days Substance Use Topics Alcohol use: Not Currently Drug use: Not Currently ROS Constitutional: Denies fever,sweats, chills or weight loss, + weakness Eyes: Denies change in visual acuity HENT: Denies hearing loss or dizziness Respiratory: Denies cough or shortness of breath Cardiovascular: Denies edema or chest pain : Denies dysuria, hematuria, urgency or frequency Musculoskeletal: + back pain or joint pain Integument: Denies rash Neurologic: Denies headache, previous stroke, TIA, confusion Endocrine: Denies polyuria or polydipsia Lymphatic: Denies swollen glands Psychiatric: Denies depression or anxiety Hematologic: Denies previous anemia or easy bruising All other review of systems negative, except for those noted. PHYSICAL EXAM: VITAL SIGNS: BP 129/86 (BP Location: Right arm, Patient Position: SemiFowlers) Pulse 76 Temp 97.4 F (36.3 C) (Oral) Resp 18 Ht 5'9 (1.753 m) Wt 205 lb (93 kg) SpO2 98% BMI 30.27 kg/m Constitutional: Well developed. Well nourished. Non-toxic appearance.No acute distress. HENT: Normocephalic. Atraumatic. Bilateral external ears normal,Oropharynx moist. No oral exudate. Nose normal. Eyes: No Scleral icterus Cardiovascular: RRR Thorax & Lungs: Non labored at rest, no respiratory distress Abdomen: soft, ++ RLQ tenderness, + diffuse tenderness, non tympanic. Rectal: Deferred. Skin: Warm, dry. No erythema. No rash. Extremities: No edema. Neurologic: Alert & oriented x 3 RESULTS Lab Results Component Value Date ALT 50 (H) 05/17/2022 AST 39 05/17/2022 ALKPHOS 113 05/17/2022 PROT 7.1 05/17/2022 LIPASE 27 05/17/2022 Lab Results Component Value Date WBC 8.8 05/17/2022 HGB 15.0 05/17/2022 HCT 45.1 05/17/2022 MCV 87.7 05/17/2022 PLT 285 05/17/2022 Lab Results Component Value Date CREATININE 0.89 05/17/2022 BUN 10 05/17/2022 NA 137 05/17/2022 K 3.8 05/17/2022 CL 101 05/17/2022 CO2 25 05/17/[address] ABD PEL ED FAST W CONTRAST Result Date: 05/17/2022 CT ABDOMEN AND PELVIS WITH CONTRAST (FAST), 05/17/2022 7:26 PM CLINICALHISTORY: -Abdominal pain, acute, nonlocalized -history of Crohn's.COMPARISON: 02/21/2022 PROCEDURE COMMENTS: Multi-detector CT scanning ofthe abdomen and pelvis with multiplanar reformatting per expeditedprotocol. Isovue 370 IV contrast given as recorded in EPIC. Dose 1 : CTDLP Total : 425.7 mGycm DLP Spiral Max : 425.7 mGycm Maximum CTDI Vol :8.8 mGy SSDE : 10.648 mGy SSDE Diameter : 30.5 cm SSDE Source : ToshibaFINDINGS: Lower chest: No acute abnormality. Liver: Normal. Gallbladder:Normal. Biliary tract: Normal for age. Pancreas: Normal. Spleen: Mildsplenomegaly measures up to 13.9 cm hernia caudally, unchanged along withfew scattered calcified granulomas. Kidneys: Normal. Gastrointestinaltract: Fluid-filled gastrointestinal tract with liquid stool within thedistal colon suggesting diarrheal illness. Stable postsurgical sequelaeinvolving the ileocecal region. Fluid-filled and dilated distal smallbowel may represent ileus. No CT findings to suggest acute appendicitis.Peritoneum: No pneumoperitoneum or pathologic free fluid.: Mesentery andretroperitoneum: Normal. Pelvic organs: Normal. Abdominal wall anddiaphragm: Intact. Musculoskeletal: Unremarkable for age. Impression: Diarrheal illness. These correlate clinically for etiologyincluding gastroenteritis. Mild distal small bowel ileus. - Note:Radiology results need to be interpreted within a comprehensive clinicalcontext. If you have questions about the radiology report, please contactthe office of the ordering clinician. Assesment: 1. Blood diarrhea, nausea, vomiting. CT suggesting gastroenteritis. Passes blood with stool at baseline. No anemia. White count normal. 2. Ileocolonic Crohn's disease s/p TI resection 2003, on stelara q 8weeks. No active inflammation suggested on imaging. 3. Rash buttocks. Started on Valacyclovir. 4. Cigarette use. 5. Reported ileus on imaging. No clinical concern for this. Plan: 1. Check stool studies. 2. Hold on steroids. Get inflammatory markers. Fecal calprotectin. 3. Antiemetics and analgesics PRN. 4. Bowel rest. IVF. 1. The patient indicates understanding of these issues and agrees withthe plan. 2. I reviewed the patient's medical information and medical history. 3. I have reviewed the past medical, family, and social history sectionsincluding the medications and allergies listed in the above medicalrecord. Electronically signed by: Maude Tellez APRN, 05/18/2022 7:38 AM SEP Gastroenterology Attending Addendum: I have personally performed a face to face diagnostic evaluation of thispatient, including reviewing the chief complaint, HPI, ROS as well as thepast medical/social/family history sections for this patient and performeda physical exam. The labs, radiographic studies and the plan have beenreviewed. This patient was seen in coordination with [employer]. Pertinent physical exam finding: GA: NAD Lungs: non labored breathing Abdomen: soft, mild francisco abdominal tenderness I agree with assessment and plan as above. Additional information asfollows: 51-year-old male with multiple medical comorbidities including a historyof ileocolonic Crohn's disease diagnosed in 2001 s/p ileocecectomy whoactively follows at the [facility] and immunosuppression withustekinumab every 8 weeks presenting to the emergency room with complaintsof bloody diarrhea and a new rash on his buttocks. Work-up thus far has been quite unremarkable. Inflammatory markers arewithin normal limits. CT abdomen and pelvis showing an acute diarrhealstate. Stool studies ordered including C. difficile which is pendingstool collection. Fecal calprotectin also ordered. Patient ultimatelywill follow back with his GI doctor at [facility] where he hasan appointment next week. Patient currently being treated with IV acyclovir for rash over buttocksas a trial. Large several centimeter pink scaly papular rash along theleft buttock of unclear etiology. Hemoglobin has been stable. Okay for regular diet from a GIperspective. Electronically signed by: Sherif Smith MD, 05/18/2022 5:02 PM SEP Gastroenterology ADMIT Routine 05/18/2022 12:41 AM EDT ADMIT STAT 05/17/2022 8:[address] ABD PEL ED FAST W CONTRAST STAT 05/17/2022 7:26 PM EDT URINALYSIS STAT 05/17/2022 6:31 PM EDT CORONAVIRUS 2019 Routine 05/17/2022 6:31 PM EDT EXTRA LE URINE CX STAT 05/17/2022 6:31 PM EDT LACTIC ACID STAT 05/17/2022 5:54 PM EDT LIPASE LEVEL STAT 05/17/2022 5:54 PM EDT COMPREHENSIVE METABOLIC PANEL STAT 05/17/2022 5:54 PM EDT CBC WITH DIFF STAT 05/17/2022 5:54 PM EDT SALINE LOCK IV STAT 05/17/2022 5:41 PM EDT REPEAT LACTIC ACID STAT 02/21/2022 8:[address] ABDOMEN PELVIS W CONTRAST Routine 02/21/2022 7:36 PM EDT C-REACTIVE PROTEIN STAT 02/21/2022 5:44 PM EDT LACTIC ACID STAT 02/21/2022 5:44 PM EDT COMPREHENSIVE METABOLIC PANEL STAT 02/21/2022 5:44 PM EDT CBC WITH DIFF STAT 02/21/2022 5:44 PM EDT SALINE LOCK IV STAT 02/21/2022 5:35 PM EDT COMPLIANCE PANEL, URINE Routine 12/12/2021 11:26 AM EDT Encounter for long-term (current) use of high-risk medication COMPLIANCE PANEL, URINE Routine 08/20/2021 11:33 AM EST Encounter for long-term (current) use of high-risk medication XR CHEST AP PORTABLE SANJAY 07/29/2021 12:52 AM EST CORONAVIRUS 2019 POCT Routine 07/28/2021 11:47 PM EST IR LUMBAR/SACRAL REMA WITH GUIDANCE Routine 05/09/2021 11:56 AM EDT Lumbar degenerative disc disease MRI CERVICAL SPINE WO CONTRAST Routine 05/01/2021 1:42 PM EDT DDD (degenerative disc disease), cervical CT ABD PEL ED FAST W CONTRAST STAT 03/24/2021 8:27 PM EDT URINALYSIS STAT 03/24/2021 7:51 PM EDT EXTRA LE URINE CX STAT 03/24/2021 7:51 PM EDT LIPASE LEVEL STAT 03/24/2021 7:40 PM EDT COMPREHENSIVE METABOLIC PANEL STAT 03/24/2021 7:40 PM EDT CBC WITH DIFF STAT 03/24/2021 7:40 PM EDT SALINE LOCK IV STAT 03/24/2021 7:21 PM EDT COMPLIANCE PANEL, URINE Routine 01/28/2021 2:52 PM EDT Encounter for long-term (current) use of high-risk medication XR THORACIC SPINE AP LATERAL AND SWIMMERS SANJAY 10/15/2020 12:[address] CERVICAL SPINE WO CONTRAST STAT 07/04/2020 6:[address] HEAD WO CONTRAST STAT 07/04/2020 6:03 PM EDT XR KNEE LEFT AP LAT INT EXT OBLIQUES AND SUNRISE SANJAY 07/04/2020 5:56 PM EDT XR CHEST PA AND LATERAL SANJAY 07/04/2020 5:56 PM EDT COMPLIANCE PANEL, URINE Routine 06/08/2020 11:48 AM EDT Encounter for long-term (current) use of high-risk medication CT HEAD WO CONTRAST STAT 05/06/2020 3:59 PM EDT GLUCOSE METER POC Routine 05/06/2020 2:24 PM EDT IR LUMBAR/SACRAL REMA WITH GUIDANCE Routine 03/01/2020 3:21 PM EDT Lumbosacral radiculopathy at S1 IR LUMBAR/SACRAL REMA WITH GUIDANCE STAT 01/23/2020 1:59 PM EDT Lumbar radiculitis Lumbar degenerative disc disease MRI LUMBAR SPINE WO CONTRAST Routine 01/10/2020 2:40 PM EDT Lumbar radiculitis CT SOFT TISSUE NECK W CONTRAST STAT 12/04/2019 8:26 AM EDT XR CHEST PA AND LATERAL SANJAY 12/04/2019 7:53 AM EDT CBC WITH DIFF STAT 12/04/2019 7:04 AM EDT BASIC METABOLIC PANEL STAT 12/04/2019 7:04 AM EDT MONONUCLEOSIS SCREEN STAT 12/04/2019 7:04 AM EDT STREP SCREEN STAT 12/04/2019 7:02 AM EDT STREP A DNA STAT 12/04/2019 7:02 AM EDT XR SHOULDER RIGHT 4 VIEWS SANJAY 10/02/2019 7:00 PM EST XR ELBOW RIGHT AP LATERAL AND OBLIQUES SANJAY 10/02/2019 6:59 PM EST Results * SCANNED EKG (01/23/2025 11:00 AM EDT) Only the most recent of2 resultswithin the time period is included. Anatomical Region Laterality Modality Other 01/23/2025 11:0 0 AM EDT us Unknown Provider IMG ECG ORDERABLES Final Result * XR CHEST PA AND LATERAL (01/20/2025 3:34 PM EDT) Only the most recent of3 resultswithin the time period is included. Anatomical Region Laterality Modality Chest Radiographic Guerline [...] Yusuf Mabry MD IMG DIAGNOSTIC IMAGING ORDE RABLES Final Result * EK EKG 12 LEAD (01/20/2025 2:58 PM EDT) Only the most recent of2 resultswithin the time period is included. Anatomical Region Laterality Modality Electrocardiogra phy 01/20/2025 2:59 PM EDT Impressions 01/20/2025 5:44 PM EDT [place] [facility] Test Date: 2025-01-20 Pat Name: FAUSTINA MOULTON Department: DEPID Room: Gender: Male Registration Clerk: Davis : 1970 Requested By: [facility] Order Number: [id number] Reading MD: Yvette De Jesus Measurements Intervals Gail Rate: 71 P: 51 SC: 132 QRS: 23 QRSD: 90 T: 45 QT: 400 QTc: 438 Interpretive Statements SINUS RHYTHM Electronically Signed On 01-20-2025 17:44:19 EDT by Yvette De Jesus Narrative Procedure Note Yvette De Jesus MD - 01/20/[address] [facility] Test Date: 2025-01-20 Pat Name: [facility] Department: DEPID Room: Gender: Male Registration Clerk: Dp : 1970 Requested By: [facility] Order Number: [id number] Reading MD: Yvette De Jesus Measurements Intervals Gail Rate: 71 P: 51 SC: 132 QRS: 23 QRSD: 90 T: 45 QT: 400 QTc: 438 Interpretive Statements SINUS RHYTHM Electronically Signed On 01-20-2025 17:44:19 EDT by Yvette De Jesus us Yusuf Mabyr MD IMG ECG ORDERABLES Final Re sult * XR HAND RIGHT PA LATERAL AND OBLIQUE (12/09/2024 1:18 PM EDT) Only the most recent of2 resultswithin the time period is included. Anatomical Region Laterality Modality Hand Radiographic Guerline ging 12/09/2024 1:18 PM EDT Impressions 12/09/2024 1:25 PM EDT No acute bony abnormality of the hand. - Note: Radiology results need to be interpreted within a comprehensive clinical context. If you have questions about the radiology report, please contact the office of the ordering clinician. Narrative 12/09/2024 1:25 PM EDT XR HAND RIGHT PA LATERAL AND OBLIQUE, 12/09/2024 1:18 PM CLINICAL HISTORY: -Injury, ATTN MCP 3, 4, 5 digits COMPARISON: None. PROCEDURE COMMENTS: XR HAND RIGHT PA LATERAL AND OBLIQUE FINDINGS: No acute fracture or traumatic malalignment. Mild arthritic changes noted. Procedure Note Nova Deng MD - 12/09/2024 XR HAND RIGHT PA LATERAL AND OBLIQUE, 12/09/2024 1:18 PM CLINICAL HISTORY: -Injury, ATTN MCP 3, 4, 5 digits COMPARISON: None. PROCEDURE COMMENTS: XR HAND RIGHT PA LATERAL AND OBLIQUE FINDINGS: No acute fracture or traumatic malalignment. Mild arthritic changes noted. IMPRESSION: No acute bony abnormality of the hand. - Note: Radiology results need to be interpreted within a comprehensiveclinical context. If you have questions about the radiology report, please contactthe office of the ordering clinician. Cyn Zuleta APRN IMG DIAGNOSTIC IMAGING ORDERABLES Final Result * XR THORACIC SPINE AP LATERAL AND SWIMMERS (06/28/2024 8:41 PM EDT) Only the most recent of2 resultswithin the time period is included. Anatomical Region Laterality Modality T-spine Radiographic Guerline ging 06/28/2024 8:41 PM EDT Impressions 06/28/2024 8:44 PM EDT No acute bony abnormality of the thoracic spine. - Note: Radiology results need to be interpreted within a comprehensive clinical context. If you have questions about the radiology report, please contact the office of the ordering clinician. Narrative 06/28/2024 8:44 PM EDT XR THORACIC SPINE AP LATERAL AND SWIMMERS, 06/28/2024 8:41 PM CLINICAL HISTORY: -midline tenderness along with diffuse back pain COMPARISON: October 15, 2020. PROCEDURE COMMENTS: Frontal, lateral, and swimmers views of the thoracic spine per ordered protocol. FINDINGS: No acute fracture or malalignment. Paravertebral stripes and pedicles are preserved. Vertebral body height and intervertebral disc spaces relatively well maintained for age. Procedure Note René Gregory MD - 06/28/2024 XR THORACIC SPINE AP LATERAL AND SWIMMERS, 06/28/2024 8:41 PM CLINICAL HISTORY: -midline tenderness along with diffuse back pain COMPARISON: October 15, 2020. PROCEDURE COMMENTS: Frontal, lateral, and swimmers views of the thoracicspine per ordered protocol. FINDINGS: No acute fracture or malalignment. Paravertebral stripes andpedicles are preserved. Vertebral body height and intervertebral disc spaces relatively wellmaintained for age. IMPRESSION: No acute bony abnormality of the thoracic spine. - Note: Radiology results need to be interpreted within a comprehensiveclinical context. If you have questions about the radiology report, please contactthe office of the ordering clinician. Kellee Rolon APRN [facility] DIAGNOSTIC IMAGING ORDER MANNY Final Result * (ABNORMAL) COMPLIANCE PANEL, URINE (06/21/2024 11:59 AM EDT) Only the most recent of8 resultswithin the time period is included. Medications Expected Lindrith(TM) (hydrocod one) 06/23/2024 5:47 PM EDT [facility] [employer] Barbiturates Absent Cutoff 200 ng/mL 06/23/2024 5:47 PM EDT [facility] [employer] THC <10 Cutoff 10 ng/mL ng/mL 06/23/2024 5:47 PM EDT [facility] [employer] Comment:4-yqooqup-[id number] cannabinol; does not distinguish between prescribed and illicit forms THC Glucuronide <10 Cutoff 10 ng/mL ng/mL 06/23/2024 5:47 PM EDT [facility] [employer] Comment:Metabolite of THC Amphetamine <50 Cutoff 50 ng/mL ng/mL 06/23/2024 5:47 PM EDT [facility] Comment:e.g., Adderall, Vyva nse, Dexedrine, Obetrol MDA <50 Cutoff 50 ng/mL ng/mL 06/23/2024 5:47 PM EDT [facility] Comment:Metabolite of MDMA, and MDEA MDEA <50 Cutoff 50 ng/mL ng/mL 06/23/2024 5:47 PM EDT [facility] Comment:e.g., Sheridan MDMA <50 Cutoff 50 ng/mL ng/mL 06/23/2024 5:47 PM EDT [facility] Comment:e.g., Ecstasy, Henny Methamphetamine <50 Cutoff 50 ng/mL ng/mL 06/23/2024 5:47 PM EDT [facility] Comment:d- and l- isomers ar e not distinguished by this test; may reflect Davis's inhaler, Desoxyn, Selegiline, or illicit source Phentermine <50 Cutoff 50 ng/mL ng/mL 06/23/2024 5:47 PM EDT [facility] Comment:e.g., Adipex, Lomair a, Ionamin,Fastin,Zantryl Gabapentin >2,000(H) Cutoff 50 ng/mL ng/mL 06/23/2024 5:47 PM EDT [facility] Comment:e.g, Neurontin Pregabalin >1,000(H) Cutoff 50 ng/mL ng/mL 06/23/2024 5:47 PM EDT [facility] Comment:Lyrica Alprazolam <8 Cutoff 8 ng/mL ng/mL 06/23/2024 5:47 PM EDT [facility] Comment:e.g, Xanax, Niravam alpha-Hydroxyalprazolam <25 Cutoff 2 5 ng/mL ng/mL 06/23/2024 5:47 PM EDT [facility] Comment:Metabolite of Alpraz olam Clonazepam <10 Cutoff 10 ng/mL ng/mL 06/23/2024 5:47 PM EDT [facility] Comment:e.g., Klonopin, Clon opin 7-Aminoclonazepam <25 Cutoff 25 ng/mL ng/mL 06/23/2024 5:47 PM EDT [facility] Comment:Metabolite of Clonaz epam Diazepam <10 Cutoff 10 ng/mL ng/mL 06/23/2024 5:47 PM EDT [facility] Comment:e.g, Valium, Diastat Nordiazepam <25 Cutoff 25 ng/mL ng/mL 06/23/2024 5:47 PM EDT [facility] Comment:Metabolite of Chlord iazepoxide(Librium), Clorazepate(Tranxene), Diazepam, Halazepam, (Alapryl), Prazepam(Centrax) Flunitrazepam <50 Cutoff 50 ng/mL ng/mL 06/23/2024 5:47 PM EDT [facility] Comment:e.g.,Rohypnol, Narco zep 7-Aminoflunitrazepam <50 Cutoff 50 ng/mL ng/mL 06/23/2024 5:47 PM EDT [facility] Comment:Metabolite of Flunit razepam Flurazepam <50 Cutoff 50 ng/mL ng/mL 06/23/2024 5:47 PM EDT [facility] Comment:e.g., Dalmane Hydroxyethylflurazepam <50 Cutoff 50 ng/mL ng/mL 06/23/2024 5:47 PM EDT [facility] Comment:Metabolite of Fluraz epam Lorazepam <50 Cutoff 50 ng/mL ng/mL 06/23/2024 5:47 PM EDT [facility] Comment:e.g., Ativan Lorazepam Glucuronide <50 Cutoff 50 ng/mL ng/mL 06/23/2024 5:47 PM EDT [facility] Comment:Metabolite of Loraze jas Midazolam <50 Cutoff 50 ng/mL ng/mL 06/23/2024 5:47 PM EDT [facility] Comment:e.g., Versed alpha-hydroxymidazolam <50 Cutoff 50 ng/mL ng/mL 06/23/2024 5:47 PM EDT [facility] Comment:Metabolite of Versed Oxazepam <50 Cutoff 50 ng/mL ng/mL 06/23/2024 5:47 PM EDT [facility] Comment:e.g., Serax; also Me tabolite of Temazepam, and Nordiazepam Oxazepam Glucuronide <50 Cutoff 50 ng/mL ng/mL 06/23/2024 5:47 PM EDT [facility] [facility] Comment:Metabolite of Oxazep am Temazepam <50 Cutoff 50 ng/mL ng/mL 06/23/2024 5:47 PM EDT [facility] Comment:e.g., Restoril; also Metabolite of Diazepam Temazepam Glucuronide <50 Cutoff 50 ng/mL ng/mL 06/23/2024 5:47 PM EDT [facility] Comment:Metabolite of Temaze jas and Diazepam Triazolam <50 Cutoff 50 ng/mL ng/mL 06/23/2024 5:47 PM EDT [facility] Comment:e.g., Halcion alpha-hydroxytriazolam <50 Cutoff 50 ng/mL ng/mL 06/23/2024 5:47 PM EDT [facility] Comment:Metabolite of Triazo holm Buprenorphine <5 Cutoff 5 ng/mL ng/mL 06/23/2024 5:47 PM EDT [facility] Comment:e.g., Suboxone, Subu minna,Sublocade, Buprenex Buprenorphine Glucuronide <10 Cutoff 10 ng/mL ng/mL 06/23/2024 5:47 PM EDT [facility] Comment:Buprenorphine Metabo lite Norbuprenorphine <5 Cutoff 5 ng/mL ng/mL 06/23/2024 5:47 PM EDT [facility] Comment:Buprenorphine Metabo lite Norbuprenorphine Glucuronide <10 Cutoff 10 ng/mL ng/mL 06/23/2024 5:47 PM EDT [facility] Comment:Buprenorphine Metabo lite Benzoylecgonine <50 Cutoff 50 ng/mL ng/mL 06/23/2024 5:47 PM EDT [facility] Comment:Cocaine Metabolite Fentanyl <1 Cutoff 1 ng/mL ng/mL 06/23/2024 5:47 PM EDT [facility] Comment:e.g.,Duragesic, Oral et, Actiq, Sublimaze, Innovar, Lazanda Norfentanyl <1 Cutoff 1 ng/mL ng/mL 06/23/2024 5:47 PM EDT [facility] Comment:Metabolite of Fentan yl 6-Monoacetylmorphine (6MAM) <10 Cutoff 10 ng/mL ng/mL 06/23/2024 5:47 PM EDT [facility] Comment:Metabolite of Heroin ; Morphine is expected Methadone <50 Cutoff 50 ng/mL ng/mL 06/23/2024 5:47 PM EDT [facility] Comment:e.g., Dolophine, Met hadose, Amidone EDDP <50 Cutoff 50 ng/mL ng/mL 06/23/2024 5:47 PM EDT [facility] Comment:Methadone Metabolite Carisoprodol <100 Cutoff 100 ng/mL ng/mL 06/23/2024 5:47 PM EDT [facility] Comment:e.g., Soma Meprobamate <100 Cutoff 100 ng/mL ng/mL 06/23/2024 5:47 PM EDT [facility] Comment:e.g., [place], Equa nil, Micrainin, Equagesic; Metabolite of Carisoprodol Codeine <50 Cutoff 50 ng/mL ng/mL 06/23/2024 5:47 PM EDT [facility] Comment:e.g., Acetaminophen w/Codeine, Tylenol3 w/ Codeine Codeine Glucuronide <50 Cutoff 50 ng/mL ng/mL 06/23/2024 5:47 PM EDT [facility] Comment:Metabolite of Codein e Meperidine <50 Cutoff 50 ng/mL ng/mL 06/23/2024 5:47 PM EDT [facility] Comment:e.g., Demerol, Pethi dine Normeperidine <50 Cutoff 50 ng/mL ng/mL 06/23/2024 5:47 PM EDT [facility] Comment:Metabolite of Meperi dine Morphine <50 Cutoff 50 ng/mL ng/mL 06/23/2024 5:47 PM EDT [facility] Comment:e.g., MS Contin, Adry anol; Metabolite of Codeine and Heroin; may reflect poppy seed ingestion Bihlgzej-7-Upeqeqiefpp <25 Cutoff 25 ng/mL ng/mL 06/23/2024 5:47 PM EDT [facility] Comment:Metabolite of Morphi ne. Zgyhfdml-7-Ypmhzuxqcrq <25 Cutoff 25 ng/mL ng/mL 06/23/2024 5:47 PM EDT [facility] Comment:Metabolite of Morphi ne. Naloxone <25 Cutoff 25 ng/mL ng/mL 06/23/2024 5:47 PM EDT [facility] Comment:e.g., Narcan, Evzio Hydrocodone >2,000(H) Cutoff 50 ng/mL ng/mL 06/23/2024 5:47 PM EDT [facility] Comment:e.g., Lorcet, Lortab , Vicodin, Lindrith; Minor Metabolite of Codeine Dihydrocodeine 203(H) Cutoff 50 ng/mL ng/mL 06/23/2024 5:47 PM EDT [facility] Comment:e.g., Didrate, Parzo ne, Parlor, Synalgos; Metabolite of Hydrocodone Norhydrocodone 1,875(H) Cutoff 50 ng/mL ng/mL 06/23/2024 5:47 PM EDT [facility] Comment:Metabolite of Hydroc odone Hydromorphone <50 Cutoff 50 ng/mL ng/mL 06/23/2024 5:47 PM EDT [facility] Comment:e.g., Dilaudid; also Metabolite of Hydrocodone and Minor Metabolite of Morphine Hydromorphone Glucuronide 860(H) Cutoff 50 ng/mL ng/mL 06/23/2024 5:47 PM EDT [facility] Comment:Metabolite of Hydrom orphone Oxycodone <50 Cutoff 50 ng/mL ng/mL 06/23/2024 5:47 PM EDT [facility] Comment:e.g., Oxycontin, Per cocet, Endocet, Percodan, Roxicet Noroxycodone <50 Cutoff 50 ng/mL ng/mL 06/23/2024 5:47 PM EDT [facility] Comment:Metabolite of Oxycod one Oxymorphone <50 Cutoff 50 ng/mL ng/mL 06/23/2024 5:47 PM EDT [facility] Comment:e.g., Opana; Metabol ite of Oxycodone Oxymorphone Glucuronide <50 Cutoff 5 0 ng/mL ng/mL 06/23/2024 5:47 PM EDT [facility] Comment:Metabolite of Oxycod one Noroxymorphone <50 Cutoff 50 ng/mL ng/mL 06/23/2024 5:47 PM EDT [facility] Comment:Metabolite of Oxycod one, and Oxymorphone, Noroxycodone Metabolite Tramadol <50 Cutoff 50 ng/mL ng/mL 06/23/2024 5:47 PM EDT [facility] Comment:e.g., Ultram, ConZip F-Ozvzeychd-tta-Tramadol <50 Cutoff 50 ng/mL ng/mL 06/23/2024 5:47 PM EDT [facility] Comment:Metabolite of Tramad ol Tapentadol <50 Cutoff 50 ng/mL ng/mL 06/23/2024 5:47 PM EDT [facility] Comment:Nucynta Tapentadol-Glucuronide <50 Cutoff 50 ng/mL ng/mL 06/23/2024 5:47 PM EDT [facility] Comment:Metabolite of Tapent adol Urine Creatinine 51.9 mg/dL 06/23/20 24 5:47 PM EDT [facility] Comment: Greater than 20: Consistent with valid sample Greater than 2 but less than 20: Possible dilution Less than 2: Questionable valid sample Urine URINE SPECIMEN COLLECTION / Unknown 06/21/2024 11:59 AM EDT 06/21/2024 12:00 PM EDT Narrative [facility] - 06/23/2024 5:47 PM EDT The absence of expected drug(s), and/or drug metabolite(s), may indicate non-compliance, diluted or adulterated urine, poor drug absorption, concentration of drug below the cut-off, timing of specimen collection relative to administration of drug, or limitations of testing. Specimens are held for 7 days. This test was developed, and its performance characteristics determined by [facility] ([facility] It has not been cleared or approved by the FDA. This test is used for clinical purposes. It should not be regarded as investigational or for research. [facility] is certified under the Clinical Laboratory Improvement Amendments (CLIA) as qualified to perform high complexity clinical laboratory testing. Anay Montana CHICKEN CATCHER URINE ORDERABLES Final Result [facility] [employer] [address] [facility] , [place] [address] * MRI LUMBAR SPINE WO CONTRAST (04/12/2024 2:59 PM EDT) Only the most recent of2 resultswithin the time period is included. Anatomical Region Laterality Modality Spine, L-spine Magnetic Resonan ce 04/12/2024 2:59 PM EDT Impressions 04/12/2024 3:45 PM EDT 1. Reduced volume of the right subarticular [...] the office of the ordering clinician. 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 COMPARISON: 01/10/2020 PROCEDURE COMMENTS: Multiplanar multiecho MR [...] disc bulge. No canal or foraminal compromise. Procedure Note Nova Deng MD - 04/12/2024 MRI LUMBAR SPINE WITHOUT CONTRAST, 04/12/2024 2:59 PM CLINICAL HISTORY: M47.817-Spondylosis without myelopathy orradiculopathy, lumbosacral vsjymh-LUZ-92-CM M51.36-Other intervertebral disc degeneration, lumbar rxqldp-OSN-97-CM. COMPARISON: 01/10/2020 PROCEDURE COMMENTS: Multiplanar multiecho MR imaging of the lumbar spinewithout contrast. FINDINGS: Progressive moderate intervertebral disc space narrowing at L5-S1 with newModic type I endplate signal changes. Vertebral body and alignment aremaintained in the lumbar spine. No concerning marrow signal alteration. Conus medullaris is normal in signal and position. Marrow signal: No significant marrow signal alteration or replacement. Level by level analysis: L1-L2: Unremarkable. L2-L3: Unremarkable. L3-L4: Mild bilateral facet arthropathy. No canal or foraminalcompromise. L4-L5: Mild bilateral facet arthropathy. No canal or foraminal, aspirin L5-S1: There is significantly reduced volume of the previous rightsubarticular disc protrusion with a residual shallow disc bulge. No canal orforaminal compromise. IMPRESSION: 1. Reduced volume of the right subarticular disc protrusion at L5-X0qtdnv is resolved or near completely resolved. No residual mass effect on thetraversing right S1 nerve root. 2. Slight progression of degenerative disc disease at L5-S1 with Modictype I endplate signal changes, but no new canal or foraminal compromise. - Note: Radiology results need to be interpreted within a comprehensiveclinical context. If you have questions about the radiology report, please contactthe office of the ordering clinician. Risa Gould CHICKEN CATCHER IMG MRI ORDERABLES Final Result * IA US CAROTID DUPLEX BILATERAL (01/26/2024 8:51 AM EDT) Anatomical Region Laterality Modality Vascular, Head, Neck Vascular Im aging 01/26/2024 8:27 AM EDT Impressions 01/26/2024 9:25 AM EDT Conclusions * The bilateral vertebral arteries are patent with antegrade flow. * The right internal carotid artery demonstrates 1-39% mild stenosis. * The left internal carotid artery demonstrates 1-39% mild stenosis. Narrative Procedure Note Ridge Nair MD - 01/26/2024 IMPRESSION Conclusions * The bilateral vertebral arteries are patent with antegrade flow. * The right internal carotid artery demonstrates 1-39% mild stenosis. * The left internal carotid artery demonstrates 1-39% mild stenosis. us Scooter Beckett MD IM VASCULAR ORDERABLES Final Re sult * (ABNORMAL) CBC WITH DIFF (01/26/2024 7:25 AM EDT) Only the most recent of11 resultswithin the time period is included. WBC 8.3 3.7 - 10.3 x10(3)/mcL 01/26/2024 7:57 AM EDT [facility] RBC 4.38(L) 4.60 - 6.10 x10(6)/mcL 01/26/2024 7:57 AM EDT [facility] Hgb 13.1(L) 13.7 - 17.5 g/dL 01/26/2024 7:57 AM EDT [facility] Hct 38.8(L) 40.0 - 51.0 % 01/26/2024 7:57 AM EDT [facility] MCV 88.6 80.0 - 100.0 fL 01/26/2024 7:57 AM EDT [facility] MCH 29.9 26.0 - 34.0 pg 01/26/2024 7:57 AM EDT [facility] MCHC 33.8 30.7 - 35.5 g/dL 01/26/2024 7:57 AM EDT [facility] RDW 12.3 <=14.9 % 01/26/2024 7:57 AM EDT [facility] Platelet 214 155 - 369 x10(3)/mcL 01/26/2024 7:57 AM EDT [facility] MPV 9.5 8.8 - 12.5 fL 01/26/2024 7:57 AM EDT [facility] Neut Percent 62.4 % 01/26/2024 7:57 AM EDT [facility] Comment:Neutrophils equals s egs plus bands Imm Gran% 0.4 % 01/26/2024 7:57 AM EDT [facility] Comment:Automated count of m etamyelocytes, myelocytes and promyelocytes. Lymph Percent 27.1 % 01/26/2024 7:57 AM EDT [facility] [place] Percent 8.0 % 01/26/2024 7:57 AM EDT [facility] Eos Percent 1.7 % 01/26/2024 7:57 AM EDT [facility] Baso Percent 0.4 % 01/26/2024 7:57 AM EDT [facility] Neut # 5.2 1.6 - 6.1 x10(3)/mcL 01/26/2024 7:57 AM EDT [facility] Comment:Neutrophils equals s egs plus bands IMMGRAN# 0.0 0.0 - 0.1 x10(3)/mcL 01/26/2024 7:57 AM EDT [facility] Comment:Automated count of m etamyelocytes, myelocytes and promyelocytes. An absolute IG <0.1 is reported as 0.0. Lymph # 2.2 1.2 - 3.9 x10(3)/mcL 01/26/2024 7:57 AM EDT [facility] [place] # 0.7 0.3 - 0.9 x10(3)/mcL 01/26/2024 7:57 AM EDT [facility] Eos# 0.1 0.0 - 0.5 x10(3)/mcL 01/26/2024 7:57 AM EDT [facility] Baso # 0.0 0.0 - 0.1 x10(3)/mcL 01/26/2024 7:57 AM EDT [facility] Blood VENOUS BLOOD / Unknown Venipuncture / Unknown 01/26/2024 7:25 AM EDT 01/26/2024 7:44 AM EDT us Scooter Beckett MD HEMATOLOGY ORDERABLES Final Resu lt [facility] [address] [facility] , [place] [address] * THYROID STIMULATING HORMONE (01/26/2024 7:25 AM EDT) TSH 0.944 0.270 - 4.200 mcIU/mL 01/26/2024 8:27 AM EDT [facility] [employer] [facility] Blood VENOUS BLOOD / Unknown Venipuncture / Unknown 01/26/2024 7:25 AM EDT 01/26/2024 7:44 AM EDT Narrative [facility] - 01/26/2024 8:27 AM EDT Ingestion of fam doses of biotin (>5 mg/day) taken within 8 hours of drawing blood sample can interfere with this immunoassay test. Scooter Beckett MD CHEMISTRY ORDERABLES Final Resul t Performing Organization Address [place] Co de Phone Number [facility] [employer] [address] , [place] [address] * T4, FREE (THYROXINE) (01/26/2024 7:25 AM EDT) Pathologist [facility] Free T4 1.01 0.80 - 1.80 ng/dL 01/26/2024 8:27 AM EDT [facility] [employer] [facility] Blood VENOUS BLOOD / Unknown Venipuncture / Unknown 01/26/2024 7:25 AM EDT 01/26/2024 7:44 AM EDT [facility] [address] [employer] [facility] - 01/26/2024 8:27 AM EDT Ingestion of fam doses of biotin (>5 mg/day) taken within 8 hours of drawing blood sample can interfere with this immunoassay test. Scooter Beckett MD CHEMISTRY ORDERABLES Final Resul t Performing Organization Address [place]/[facility]/ZIP Co de Phone Number [facility] [employer] [address] , [place] [address] * (ABNORMAL) LIPID SCREEN (01/26/2024 7:25 AM EDT) Cholesterol 202(H) <200 mg/dL 01/26/2024 8:27 AM EDT [facility] [employer] [facility] Comment: < 200 Desirable 200 - 239 Borderline High >= 240 High Triglyceride 116 <150 mg/dL 01/26/2024 8:27 AM EDT [facility] [employer] Comment: < 150 Normal 150 - 199 Borderline High 200 - 499 High >= 500 Very High HDL 42 >=40 mg/dL 01/26/2024 8:27 AM EDT [facility] [employer] Comment: > 60 Optimal 40 - 60 Acceptable < 40 Low LDL Calculated 139(H) <100 mg/dL 01/26/2024 8:27 AM EDT [facility] [employer] Comment: < 100 Optimal 100 - 129 Near or above optimal 130 - 159 Borderline High 160 - 189 High >= 190 Very High Non-HDL-C Calculated 160(H) <=129 mg/dL 01/26/2024 8:27 AM EDT [facility] [employer], [facility] Comment: <130 Desirable 130-159 Above Desirable 160-189 Borderline High 190-219 High >= 220 Very High Fasting Specimen? Yes None 024 8:27 AM EDT [facility] Blood VENOUS BLOOD / Unknown Venipuncture / Unknown 01/26/2024 7:25 AM EDT 01/26/2024 7:44 AM EDT us Scooter Beckett MD CHEMISTRY ORDERABLES Final Resul t [facility] [employer] [address] [facility] [place] [address] [facility] [address] [place] [address] * BASIC METABOLIC PANEL (01/26/2024 7:25 AM EDT) Only the most recent of5 resultswithin the time period is included. Sodium 142 136 - 145 mmol/L 01/26/2024 8:27 AM EDT [facility] [employer], [facility] Potassium 3.6 3.5 - 5.0 mmol/L 01/26/2024 8:27 AM EDT [facility] [employer], [facility] Chloride 103 98 - 107 mmol/L 01/26/2024 8:27 AM EDT [facility] [employer], [facility] Total CO2 27 22 - 29 mmol/L 01/26/2024 8:27 AM EDT [facility] Anion Gap 12 7 - 16 mmol/L 01/26/2024 8:27 AM EDT [facility] Calcium 8.9 8.6 - 10.4 mg/dL 01/26/2024 8:27 AM EDT [facility] Glucose Lvl 91 70 - 99 mg/dL 01/26/2024 8:27 AM EDT [facility] BUN 8 6 - 20 mg/dL 01/26/2024 8:27 AM EDT [facility] Creatinine 1.10 0.67 - 1.30 mg/dL 01/26/2024 8:27 AM EDT [facility] eGFR (CKD-EPIcr 2020) 81 >=60 mL/min/1.7 3 m2 01/26/2024 8:27 AM EDT [facility] Comment:Estimated GFR was ca lculated using the CKD-EPIcr (2020) equation refit without race. The equation is recommended by the [employer] - [place] [employer] Neph[employer] Task Force. Blood VENOUS BLOOD / Unknown Venipuncture / Unknown 01/26/2024 7:25 AM EDT 01/26/2024 7:44 AM EDT us Scooter Beckett MD CHEMISTRY ORDERABLES Final Resul t [facility] [address] [facility] [place] [address] [facility] [address] [place] [address] * MRI BRAIN WO CONTRAST (01/26/2024 1:00 AM EDT) Anatomical Region Laterality Modality Head Magnetic Resonan ce 01/26/2024 1:00 AM EDT Impressions 01/26/2024 1:23 AM EDT No acute intracranial abnormality. Specifically, no evidence of acute infarct/ischemia. - Note: Radiology results need to be interpreted within a comprehensive clinical context. If you have questions about the radiology report, please contact the office of the ordering clinician. Narrative 01/26/2024 1:23 AM EDT MRI BRAIN WITHOUT CONTRAST, 01/26/2024 1:00 AM CLINICAL HISTORY: -CVA rule out. COMPARISON: CT head without IV contrast and CT angiography head and neck with IV contrast 01/24/2024 PROCEDURE COMMENTS: Multiplanar multiecho MR imaging of the brain including standard spin echo and diffusion sequences. FINDINGS: Acute Ischemic Change: No evidence of restricted diffusion to suggest an acute infarct. Hemorrhage: No evidence of prior parenchymal hemorrhage on the gradient echo images. Mass Effect / Mass Lesion: No mass effect. No evidence of an intracranial mass or extra-axial fluid collection. Parenchyma: The brain parenchyma is within normal limits of signal intensity and morphology. Ventricles: Normal caliber and morphology. Skull Base: Hypothalamic and pituitary region are grossly normal. Craniocervical junction is normal. No marrow replacement process. Vasculature: Major intracranial arterial structures and dural venous sinuses show typical flow void, suggesting patency by spin echo criteria. Sinuses: There is mild to moderate chronic mucosal thickening involving the left maxillary sinus. Probable mucous retention cyst within the inferior right maxillary sinus. Minimal chronic mucosal thickening involving the ethmoid air cells and right sphenoid sinus. Mastoid air cells are grossly clear. Orbits: Grossly normal. Soft Tissues: The visualized extracranial soft tissues are grossly normal. Procedure Note Elías Goldstein MD - 01/26/2024 MRI BRAIN WITHOUT CONTRAST, 01/26/2024 1:00 AM CLINICAL HISTORY: -CVA rule out. COMPARISON: CT head without IV contrast and CT angiography head and neckwith IV contrast 01/24/2024 PROCEDURE COMMENTS: Multiplanar multiecho MR imaging of the brainincluding standard spin echo and diffusion sequences. FINDINGS: Acute Ischemic Change: No evidence of restricted diffusion to suggest anacute infarct. Hemorrhage: No evidence of prior parenchymal hemorrhage on the gradientecho images. Mass Effect / Mass Lesion: No mass effect. No evidence of an intracranialmass or extra-axial fluid collection. Parenchyma: The brain parenchyma is within normal limits of signalintensity and morphology. Ventricles: Normal caliber and morphology. Skull Base: Hypothalamic and pituitary region are grossly normal.Craniocervical junction is normal. No marrow replacement process. Vasculature: Major intracranial arterial structures and dural venoussinuses show typical flow void, suggesting patency by spin echo criteria. Sinuses: There is mild to moderate chronic mucosal thickening involvingthe left maxillary sinus. Probable mucous retention cyst within the inferiorright maxillary sinus. Minimal chronic mucosal thickening involving the ethmoidair cells and right sphenoid sinus. Mastoid air cells are grossly clear. Orbits: Grossly normal. Soft Tissues: The visualized extracranial soft tissues are grosslynormal. IMPRESSION: No acute intracranial abnormality. Specifically, no evidence of acute infarct/ischemia. - Note: Radiology results need to be interpreted within a comprehensiveclinical context. If you have questions about the radiology report, please contactthe office of the ordering clinician. Scooter Beckett MD IMG MRI ORDERABLES Final Result * HEMOGLOBIN A1C (01/25/2024 9:00 PM EDT) Pathologist [facility] Hgb A1C 5.3 4.2 - 5.6 % 01/25/2024 9:27 PM EDT [facility] Est. Avg Glucose 105 mg/dL 01/25/2024 9:27 PM EDT [facility] Blood VENOUS BLOOD / Unknown Venipuncture / Unknown 01/25/2024 9:00 PM EDT 01/25/2024 9:06 PM EDT Narrative [facility] [employer] - 01/25/2024 9:27 PM EDT REFERENCE RANGE: Normal: 4.0-5.6% Pre-diabetes: 5.7-6.4% Provisional diagnosis of diabetes: >6.4% Hgb F>10% and anything which shortens red cell survival, such as hemolytic anemia, or unstable hemoglobin variants such as HbSS, HbSC, or HbCC, will lower the HbA1c value associated with a given level of glycemic control. Scooter Beckett MD CHEMISTRY ORDERABLES Final Resul t [facility] [address] [place] [address] , [place] [address] * TROPONIN-T HIGH SENSITIVITY 2HR (01/24/2024 11:21 PM EDT) Pathologist [facility] fc-uXufxouiz-S 2HR <6 <22 ng/L 01/24/2024 11:51 PM EDT [facility] Comment:See the website [employer] for rule out MA care pathway, conditions other than AMI that can cause elevated hs cTnT, and comparison of values from the 4th and 5th generation Rickey tests. [email or web address]/topic/clinical-answers/[email or web address]/[email or web address] 00595 hs-cTnT 2Hr Delta from Baseline 01/24/2024 11:51 PM EDT [facility] Comment:Unable to calculate, result is outside instrument's measuring range. Blood VENOUS BLOOD / Unknown Venipuncture / Unknown 01/24/2024 11:21 PM EDT 01/24/2024 11:28 PM EDT Narrative [facility] - 01/24/2024 11:51 PM EDT Ingestion of fam doses of biotin (>5 mg/day) taken within 8 hours of drawing blood sample can interfere with this immunoassay test. us Doc Garcia MD CHEMISTRY ORDERABLES Final R esult [facility] [address] [place] [address] * CT CERVICAL SPINE WO CONTRAST (01/24/2024 8:52 PM EDT) Only the most recent of2 resultswithin the time period is included. Anatomical Region Laterality Modality C-spine Computed [employer] phy 01/24/2024 8:52 PM EDT Impressions 01/24/2024 9:12 PM EDT No acute bony abnormality of the cervical spine. - Note: Radiology results need to be interpreted within a comprehensive clinical context. If you have questions about the radiology report, please contact the office of the ordering clinician. Narrative 01/24/2024 9:[address] CERVICAL SPINE WITHOUT CONTRAST, 01/24/2024 8:52 PM CLINICAL HISTORY: -fall. COMPARISON: 05/01/2021 PROCEDURE COMMENTS: Multidetector CT of the cervical spine with multiplanar reformatting per protocol. FINDINGS: No acute fracture or traumatic malalignment. Prevertebral soft tissues unremarkable. No significant cervical spondylosis. Left greater than right maxillary sinus opacification. Procedure Note Ivna Srinivasan MD - 01/24/2024 CT CERVICAL SPINE WITHOUT CONTRAST, 01/24/2024 8:52 PM CLINICAL HISTORY: -fall. COMPARISON: 05/01/2021 PROCEDURE COMMENTS: Multidetector CT of the cervical spine withmultiplanar reformatting per protocol. FINDINGS: No acute fracture or traumatic malalignment. Prevertebral soft tissues unremarkable. No significant cervical spondylosis. Left greater than right maxillary sinus opacification. IMPRESSION: No acute bony abnormality of the cervical spine. - Note: Radiology results need to be interpreted within a comprehensiveclinical context. If you have questions about the radiology report, please contactthe office of the ordering clinician. us Doc Garcia MD IMG CT ORDERABLES Final Resu lt * CT ANGIOGRAM HEAD AND NECK W CONTRAST (01/24/2024 8:50 PM EDT) Anatomical Region Laterality Modality Head Computed Tomogra phy 01/24/2024 8:50 PM EDT Impressions 01/24/2024 8:56 PM EDT No large vessel occlusion, dissection, or aneurysm identified. - Note: Radiology results need to be interpreted within a comprehensive clinical context. If you have questions about the radiology report, please contact the office of the ordering clinician. NASCET criteria used for estimates of stenosis. Narrative 01/24/2024 8:56 PM EDT CTA HEAD AND NECK WITH CONTRAST, 01/24/2024 8:50 PM CLINICAL HISTORY: -syncope. COMPARISON: None. PROCEDURE COMMENTS: Isovue 370 IV contrast given as recorded in EPIC. Subsequently, multi-detector helical scanning was performed through the head and neck and multiplanar reconstructions generated per protocol. Review included 3D MIP reconstructions. Dose 1 : CT DLP Total : 565.22 mGycm DLP Spiral Max : 543.58 mGycm Maximum CTDI Vol : 13.98 mGy FINDINGS: CTA NECK: ARCH: Visible aortic arch patent shows no gross aneurysm or dissection. RIGHT CAROTID SYSTEM: Common carotid artery and cervical segments of the internal carotid artery are patent without evidence of flow-limiting stenosis or dissection. LEFT CAROTID SYSTEM: Common carotid artery and cervical segments of the internal carotid artery are patent without evidence of flow-limiting stenosis or dissection. VERTEBRAL ARTERIES: Vertebral arteries are grossly patent without flow-limiting stenosis or dissection. CTA HEAD: No occlusion or flow limiting stenosis of the central intracranial circulation. No aneurysm. OTHER: Visualized lung apices are clear. No neck mass or suspicious lymph nodes. Visible skeleton intact. Procedure Note Fuentes Pelaez MD - 01/24/2024 CTA HEAD AND NECK WITH CONTRAST, 01/24/2024 8:50 PM CLINICAL HISTORY: -syncope. COMPARISON: None. PROCEDURE COMMENTS: Isovue 370 IV contrast given as recorded in EPIC. Subsequently, multi-detector helical scanning was performed through thehead and neck and multiplanar reconstructions generated per protocol. Review included 3D MIP reconstructions. Dose 1 : CT DLP Total : 565.22 mGycm DLP Spiral Max : 543.58 mGycm Maximum CTDI Vol : 13.98 mGy FINDINGS: CTA NECK: ARCH: Visible aortic arch patent shows no gross aneurysm or dissection. RIGHT CAROTID SYSTEM: Common carotid artery and cervical segments of the internal carotid artery are patent without evidence of flow-limitingstenosis or dissection. LEFT CAROTID SYSTEM: Common carotid artery and cervical segments of theinternal carotid artery are patent without evidence of flow-limiting stenosis or dissection. VERTEBRAL ARTERIES: Vertebral arteries are grossly patent withoutflow-limiting stenosis or dissection. CTA HEAD: No occlusion or flow limiting stenosis of the centralintracranial circulation. No aneurysm. OTHER: Visualized lung apices are clear. No neck mass or suspicious lymphnodes. Visible skeleton intact. IMPRESSION: No large vessel occlusion, dissection, or aneurysm identified. - Note: Radiology results need to be interpreted within a comprehensiveclinical context. If you have questions about the radiology report, please contactthe office of the ordering clinician. NASCET criteria used for estimates of stenosis. us Doc Garcia MD IMG CT ORDERABLES Final Resu lt * CT HEAD WO CONTRAST (01/24/2024 8:50 PM EDT) Only the most recent of3 resultswithin the time period is included. Anatomical Region Laterality Modality Head Computed Tomogra phy 01/24/2024 8:50 PM EDT Impressions 01/24/2024 8:57 PM EDT No acute intracranial abnormality. LEFT maxillary sinusitis. - Note: Radiology results need to be interpreted within a comprehensive clinical context. If you have questions about the radiology report, please contact the office of the ordering clinician. Narrative 01/24/2024 8:[address] HEAD WO CONTRAST 01/24/2024 8:50 PM CLINICAL HISTORY: -syncope. COMPARISON: None. PROCEDURE COMMENTS: Routine noncontrast head CT with multiplanar reconstructions. Dose 1 : CT DLP Total : 885.88 mGycm DLP Spiral Max : 882.63 mGycm Maximum CTDI Vol : 47.67 mGy FINDINGS: Ventricular size and configuration normal. No evidence of acute stroke, mass, or hemorrhage. No evidence of fracture or extra-axial collection. Mucosal thickening and air-fluid level noted LEFT maxillary sinus. Tympanomastoid cavities clear. Orbital contents unremarkable. Procedure Note Fuentes Pelaez MD - 01/24/2024 CT HEAD WO CONTRAST 01/24/2024 8:50 PM CLINICAL HISTORY: -syncope. COMPARISON: None. PROCEDURE COMMENTS: Routine noncontrast head CT with multiplanar reconstructions. Dose 1 : CT DLP Total : 885.88 mGycm DLP Spiral Max : 882.63 mGycm Maximum CTDI Vol : 47.67 mGy FINDINGS: Ventricular size and configuration normal. No evidence of acute stroke,mass, or hemorrhage. No evidence of fracture or extra-axial collection. Mucosal thickening and air-fluid level noted LEFT maxillary sinus. Tympanomastoid cavities clear. Orbital contents unremarkable. IMPRESSION: No acute intracranial abnormality. LEFT maxillary sinusitis. - Note: Radiology results need to be interpreted within a comprehensiveclinical context. If you have questions about the radiology report, please contactthe office of the ordering clinician. us Doc Garcia MD IMG CT ORDERABLES Final Resu lt * XR HIP RIGHT AP LATERAL W AP PELVIS (01/24/2024 8:49 PM EDT) Anatomical Region Laterality Modality Hip Radiographic Guerline ging 01/24/2024 8:49 PM EDT Impressions 01/24/2024 9:07 PM EDT No acute abnormality of the hip or pelvis. - Note: Radiology results need to be interpreted within a comprehensive clinical context. If you have questions about the radiology report, please contact the office of the ordering clinician. Narrative 01/24/2024 9:07 PM EDT XR HIP RIGHT AP LATERAL W AP PELVIS, 01/24/2024 8:49 PM CLINICAL HISTORY: -fall COMPARISON: None. PROCEDURE COMMENTS: AP view of the pelvis with AP and frog-leg views of the hip. FINDINGS: Bony structure of the pelvis and hips intact. No fracture or dislocation. Joint spaces overall well-maintained. No periostitis. Procedure Note Ivan Srinivasan MD - 01/24/2024 XR HIP RIGHT AP LATERAL W AP PELVIS, 01/24/2024 8:49 PM CLINICAL HISTORY: -fall COMPARISON: None. PROCEDURE COMMENTS: AP view of the pelvis with AP and frog-leg views ofthe hip. FINDINGS: Bony structure of the pelvis and hips intact. No fracture ordislocation. Joint spaces overall well-maintained. No periostitis. IMPRESSION: No acute abnormality of the hip or pelvis. - Note: Radiology results need to be interpreted within a comprehensiveclinical context. If you have questions about the radiology report, please contactthe office of the ordering clinician. Doc Garcia MD IMG DIAGNOSTIC IMAGING ORDER MANNY Final Result * XR RIBS BILATERAL 3 VW (01/24/2024 8:49 PM EDT) Anatomical Region Laterality Modality Chest Radiographic Guerline ging 01/24/2024 8:49 PM EDT Impressions 01/24/2024 9:08 PM EDT No acute finding. - Note: Radiology results need to be interpreted within a comprehensive clinical context. If you have questions about the radiology report, please contact the office of the ordering clinician. Narrative 01/24/2024 9:08 PM EDT XR RIBS BILATERAL 3 VW, 01/24/2024 8:49 PM CLINICAL HISTORY: -fall rib pain COMPARISON: 07/29/2021 PROCEDURE COMMENTS: Bilateral rib imaging per protocol. FINDINGS: No acute rib fracture or pneumothorax. Visible heart and lungs unremarkable. Procedure Note Ivan Sriniavsan MD - 01/24/2024 XR RIBS BILATERAL 3 VW, 01/24/2024 8:49 PM CLINICAL HISTORY: -fall rib pain COMPARISON: 07/29/2021 PROCEDURE COMMENTS: Bilateral rib imaging per protocol. FINDINGS: No acute rib fracture or pneumothorax. Visible heart and lungs unremarkable. IMPRESSION: No acute finding. - Note: Radiology results need to be interpreted within a comprehensiveclinical context. If you have questions about the radiology report, please contactthe office of the ordering clinician. Doc Garcia MD IMG DIAGNOSTIC IMAGING ORDER MANNY Final Result * TROPONIN-T HIGH SENSITIVITY BASELINE W/ REFLEX (01/24/2024 7:52 PM EDT) gz-hRzrpzacc-H <6 <22 ng/L 01/24/2024 8:18 PM EDT [facility] Comment:See the website [employer] for rule out MA care pathway, conditions other than AMI that can cause elevated hs cTnT, and comparison of values from the 4th and 5th generation Rickey tests. [email or web address]/[email or web address]-[email or web address] Blood VENOUS BLOOD / Unknown Venipuncture / Unknown 01/24/2024 7:52 PM EDT 01/24/2024 7:56 PM EDT Narrative [facility] - 01/24/2024 8:18 PM EDT Ingestion of fam doses of biotin (>5 mg/day) taken within 8 hours of drawing blood sample can interfere with this immunoassay test. Doc Garcia MD CHEMISTRY ORDERABLES Final R esult [facility] [address] [place] [address] * BLOOD CULTURE (NO STAIN) (09/26/2023 5:43 PM EST) Only the most recent of4 resultswithin the time period is included. Culture Result No Growth at 120 hours. BLOOD CULTURE (NO STAIN) 10/02/2023 10:00 AM EST [facility] [employer] Blood VENOUS BLOOD / Unknown Venipuncture / Unknown 09/26/2023 5:43 PM EST 09/26/2023 5:47 PM EST us Damir Diana MD MICROBIOLOGY - GENERAL ORDERABL ES Final Result [facility]REFERRED [employer] [address] [facility], [address] [place] [id number] * REPEAT LACTIC ACID (09/23/2023 6:02 PM EST) Only the most recent of2 resultswithin the time period is included. Lactic Acid 1.0 0.5 - 1.9 mmol/L 09/23/2023 6:49 PM EST [facility] Blood VENOUS BLOOD / Unknown Venipuncture / Unknown 09/23/2023 6:02 PM EST 09/23/2023 6:41 PM EST Josue Fernández [employer] CHEMISTRY ORDERABLES Fin al Result Performing Organization Address City/[facility] Co de Phone Number [facility] [address] [place], [place] [id number] * PROCALCITONIN (09/23/2023 6:02 PM EST) Procalcitonin 0.05 <=0.49 ng/mL 09/24/2023 9:49 AM EST [facility] [employer] Blood VENOUS BLOOD / Unknown Venipuncture / Unknown 09/23/2023 6:02 PM EST 09/23/2023 6:41 PM EST Narrative [facility] [employer] - 09/24/2023 9:49 AM EST Procalcitonin <0.50 ng/mL: Procalcitonin levels below 0.50 ng/mL on the first day of ICU admission represent a low risk for progression to severe sepsis and/or septic shock Procalcitonin >=0.50 ng/mL and <=2.00 ng/mL: If the procalcitonin measurement is performed shortly after the systemic infection process has started (usually less than 6 hours), this value may still be low. As various non-infectious conditions are known to induce procalcitonin as well, procalcitonin levels between 0.50 ng/mL and 2.00 ng/mL should be reviewed carefully to take into account the specific clinical background and condition(s) of the patient. Procalcitonin >2.00 ng/mL: Procalcitonin levels above 2.00 ng/mL on the first day of ICU admission represent a high risk for progression to severe sepsis and/or septic shock. Josue Fernández [facility] CHEMISTRY ORDERABLES Fin al Result Performing Organization Address [place]/[facility] de Phone Number [facility] [address] [place] [address] , [place] [address] * (ABNORMAL) C-REACTIVE PROTEIN (09/23/2023 6:02 PM EST) Only the most recent of3 resultswithin the time period is included. CRP 9.62(H) <=5.00 mg/L 09/24/2023 9:39 AM EST [facility] Blood VENOUS BLOOD / Unknown Venipuncture / Unknown 09/23/2023 6:02 PM EST 09/23/2023 6:41 PM EST Josue Fernández [facility] CHEMISTRY ORDERABLES Fin al Result Performing Organization Address [place]/[facility] de Phone Number [facility] [address] [place] [address] , [place] [address] * URINALYSIS REFLEX (09/23/2023 5:46 PM EST) UA Color Yellow 09/23/2023 5:51 PM EST [facility] UA Appear Clear Clear 09/23/2023 5:51 PM EST [facility] UA Glucose Negative Negative mg/dL 09/23/2023 5:51 PM EST [facility] UA Ketones Negative Negative mg/dL 09/23/2023 5:51 PM EST [facility] UA Blood Negative Negative 09/23/2023 5:51 PM EST [facility] UA pH 6.5 5.0 - 8.0 pH 09/23/2023 5:51 PM EST [facility] UA Protein Negative Negative mg/dL 09/23/2023 5:51 PM EST [facility] UA Urobilinogen 0.2 <=1 mg/dL 5:51 PM EST [facility] UA Bili Negative Negative 09/23/2023 5:51 PM EST [facility] UA Nitrite Negative Negative 09/23/2023 5:51 PM EST [facility] UA Leuk Est Negative Negative 09/23/2023 5:51 PM EST [facility] UA Spec Grav 1.015 1.001 - 1.035 no units 09/23/2023 5:51 PM EST [facility] Comment:Reference range olvin d for random specimens only. Urine URINE SPECIMEN COLLECTION, CLEAN CATCH / Unknown 09/23/2023 5:46 PM EST 09/23/2023 5:48 PM EST Josue Fernández [employer] URINE ORDERABLES Final R esult Performing Organization Address City/[facility] Co de Phone Number [facility] [address] [place] [address] * EXTRA LE URINE CX (09/23/2023 5:46 PM EST) Only the most recent of4 resultswithin the time period is included. Urine URINE SPECIMEN COLLECTION, CLEAN CATCH / Unknown 09/23/2023 5:46 PM EST 09/23/2023 5:48 PM EST Josue Fernández [employer] MICROBIOLOGY - GENERAL O RDERABLES Final Result Performing Organization Address [facility] Co de Phone Number [facility] [address] [place] [address] * CT ABD PEL ED FAST W CONTRAST (09/23/2023 4:40 PM EST) Only the most recent of3 resultswithin the time period is included. Anatomical Region Laterality Modality Abdomen, Pelvis Computed Tomogra phy 09/23/2023 4:40 PM EST Impressions 09/23/2023 4:59 PM EST Dilated fluid-filled distal small bowel is nonspecific but could be related to focal enteritis. Partial obstruction at the ileocecal valve is not excluded. Liquid stool in the proximal colon also seen. - Note: Radiology results need to be interpreted within a comprehensive clinical context. If you have questions about the radiology report, please contact the office of the ordering clinician. Narrative 09/23/2023 4:[address] ABDOMEN AND PELVIS WITH CONTRAST (FAST), 09/23/2023 4:40 PM CLINICAL HISTORY: -ABDOMINAL PAIN -rlq pain. COMPARISON: 03/01/2023 PROCEDURE COMMENTS: Multi-detector CT scanning of the abdomen and pelvis with multiplanar reformatting per expedited protocol. Isovue 370 IV contrast given as recorded in EPIC. Dose 1 : CT DLP Total : 507.09 mGycm DLP Spiral Max : 502.68 mGycm Maximum CTDI Vol : 10 mGy FINDINGS: LOWER THORAX: Lung bases unremarkable. ABDOMEN AND PELVIS: Liver, spleen, pancreas, kidneys, and adrenal glands unremarkable. No hydronephrosis. Unremarkable biliary system. Markedly dilated fluid-filled distal small bowel to the level of ileocecal valve with postoperative changes in the adjacent cecum. There is also liquid stool in the proximal colon. There is no pneumatosis intestinalis or portal venous gas. No free air.. No evidence of appendicitis. No abnormal mass or adenopathy in the pelvis. Trace free pelvic fluid seen. No acute osseous abnormality. Procedure Note Rashaun Coughlin MD - 09/23/2023 CT ABDOMEN AND PELVIS WITH CONTRAST (FAST), 09/23/2023 4:40 PM CLINICAL HISTORY: -ABDOMINAL PAIN -rlq pain. COMPARISON: 03/01/2023 PROCEDURE COMMENTS: Multi-detector CT scanning of the abdomen and pelviswith multiplanar reformatting per expedited protocol. Isovue 370 IV contrastgiven as recorded in EPIC. Dose 1 : CT DLP Total : 507.09 mGycm DLP Spiral Max : 502.68 mGycm Maximum CTDI Vol : 10 mGy FINDINGS: LOWER THORAX: Lung bases unremarkable. ABDOMEN AND PELVIS: Liver, spleen, pancreas, kidneys, and adrenal glands unremarkable. No hydronephrosis. Unremarkable biliary system. Markedly dilated fluid-filled distal small bowel to the level of ileocecalvalve with postoperative changes in the adjacent cecum. There is also liquidstool in the proximal colon. There is no pneumatosis intestinalis or portal venousgas. No free air.. No evidence of appendicitis. No abnormal mass or adenopathy in the pelvis. Trace free pelvic fluidseen. No acute osseous abnormality. IMPRESSION: Dilated fluid-filled distal small bowel is nonspecific but could be related to focal enteritis. Partial obstruction at the ileocecal valve isnot excluded. Liquid stool in the proximal colon also seen. - Note: Radiology results need to be interpreted within a comprehensiveclinical context. If you have questions about the radiology report, please contactthe office of the ordering clinician. Josue Fernández APRN IMG CT ORDERABLES Final Result * SEDIMENTATION RATE AUTOMATED (09/23/2023 4:01 PM EST) Only the most recent of2 resultswithin the time period is included. Sed Rate 5 0 - 20 mm/hr 09/23/2023 5:56 PM EST [facility] Blood VENOUS BLOOD / Unknown Venipuncture / Unknown 09/23/2023 4:01 PM EST 09/23/2023 4:06 PM EST Josue Fernández APRN HEMATOLOGY ORDERABLES Fi nal Result Performing Organization Address City/[facility] Co de Phone Number [facility] [address] [place] [address] * LIPASE LEVEL (09/23/2023 4:01 PM EST) Only the most recent of4 resultswithin the time period is included. Lipase Lvl 23 13 - 60 U/L 09/23/2023 4:24 PM EST [facility] Blood VENOUS BLOOD / Unknown Venipuncture / Unknown 09/23/2023 4:01 PM EST 09/23/2023 4:12 PM EST Josue Fernández APRN CHEMISTRY ORDERABLES Fin al Result Performing Organization Address City/[facility]/ZIP Co de Phone Number [facility] [address] [place] [address] * (ABNORMAL) LACTIC ACID (09/23/2023 4:01 PM EST) Only the most recent of4 resultswithin the time period is included. [facility] Lactic Acid 2.8(H) 0.5 - 1.9 mmol/L 09/23/2023 4:21 PM EST [facility] Blood VENOUS BLOOD / Unknown Venipuncture / Unknown 09/23/2023 4:01 PM EST 09/23/2023 4:12 PM EST us Josue Fernández [employer] CHEMISTRY ORDERABLES Fin al Result [facility] [address] [place] [address] * (ABNORMAL) COMPREHENSIVE METABOLIC PANEL (09/23/2023 4:01 PM EST) Only the most recent of7 resultswithin the time period is included. [facility] Sodium 137 136 - 145 mmol/L 09/23/2023 4:24 PM [facility] Potassium 3.5 3.5 - 5.0 mmol/L 09/23/2023 4:24 PM [facility] Chloride 101 98 - 107 mmol/L 09/23/2023 4:24 PM [facility] Total CO2 24 22 - 29 mmol/L 09/23/2023 4:24 PM [facility] Anion Gap 12 7 - 16 mmol/L 09/23/2023 4:24 PM [facility] Calcium 8.4(L) 8.6 - 10.4 mg/dL 09/23/2023 4:24 PM [facility] Glucose Lvl 210(H) 74 - 100 mg/dL 09/23/2023 4:24 PM [facility] BUN 8 6 - 20 mg/dL 09/23/2023 4:24 PM [facility] Creatinine 0.99 0.67 - 1.30 mg/dL 09/23/2023 4:24 PM [facility] Albumin 3.6 3.5 - 5.2 gm/dL 09/23/2023 4:24 PM EST [facility] Total Protein 6.1(L) 6.4 - 8.3 gm/dL 09/23/2023 4:24 PM [facility] Bili Total 0.3 0.2 - 1.4 mg/dL 09/23/2023 4:24 PM EST [facility] ALT 22 <=41 U/L 09/23/2023 4:24 PM [facility] AST 26 <=40 U/L 09/23/2023 4:24 PM [facility] Alk Phos 98 40 - 129 U/L 09/23/2023 4:24 PM [facility] eGFR (CKD-EPIcr 2020) 92 >=60 mL/min/1.7 3 m2 09/23/2023 4:24 PM [facility] Comment:Estimated GFR was ca lculated using the CKD-EPIcr (2020) equation refit without race. The equation is recommended by the [employer] - [employer] Task Force. Blood VENOUS BLOOD / Unknown Venipuncture / Unknown 09/23/2023 4:01 PM EST 09/23/2023 4:12 PM EST us Josue Fernández [employer] CHEMISTRY ORDERABLES Fin al Result [facility] [address] [place] [address] * CT LUMBAR SPINE W CONTRAST (05/28/2023 1:11 PM EDT) Anatomical Region Laterality Modality L-spine Computed Tomogra phy 05/28/2023 1:11 PM EDT Impressions 05/28/2023 5:27 PM EDT 1. Unchanged right-sided disc protrusion at L5-S1 contacting the traversing right S1 nerve root. 2. No solid-appearing mass or abnormal enhancement included soft tissues. Narrative 05/28/2023 5:[address] LUMBAR SPINE WITH CONTRAST, 05/28/2023 1:11 PM CLINICAL HISTORY: M54.50-Low back pain, ksdybrkbfll-PDR-19-CM G89.29-Other chronic yyir-UCK-67-CM R22.2-Localized swelling, mass and lump, ieybc-VHE-43-CM. COMPARISON: MR lumbar spine 01/10/2020. PROCEDURE COMMENTS: Multidetector CT scanning of the lumbar spine with multiplanar reformats. Isovue 370 IV contrast given as recorded in EPIC. Dose 1 : CT DLP Total : 1245.4 mGycm DLP Spiral Max : 1245.4 mGycm Maximum CTDI Vol : 40.2 mGy SSDE : 43.818 mGy SSDE Diameter : 33.3 cm SSDE Source : [employer] FINDINGS: No acute fracture is present. There is mild levocurvature with trace retrolisthesis at L5-S1. Moderate to severe disc height loss is noted at L5-S1 with endplate sclerosis. Moderate to severe atherosclerotic calcifications are noted of the abdominal aorta. No solid-appearing mass or abnormal enhancement is evident in the included soft tissues. Level by level analysis: T12-L1 through L4-5: Unremarkable. L5-S1: Unchanged right central/subarticular disc protrusion contacting the traversing right S1 nerve root. Shallow background disc bulge and endplate spurring without foraminal stenosis. Procedure Note Bob Radford MD - 05/28/2023 CT LUMBAR SPINE WITH CONTRAST, 05/28/2023 1:11 PM CLINICAL HISTORY: M54.50-Low back pain, beiksmjazqi-MEE-17-CM G89.29-Other chronic rkco-WQZ-40-CM R22.2-Localized swelling, mass and lump, ntntm-RUN-05-CM. COMPARISON: MR lumbar spine 01/10/2020. PROCEDURE COMMENTS: Multidetector CT scanning of the lumbar spine with multiplanar reformats. Isovue 370 IV contrast given as recorded in EPIC. Dose 1 : CT DLP Total : 1245.4 mGycm DLP Spiral Max : 1245.4 mGycm Maximum CTDI Vol : 40.2 mGy SSDE : 43.818 mGy SSDE Diameter : 33.3 cm SSDE Source : [employer] FINDINGS: No acute fracture is present. There is mild levocurvature with trace retrolisthesis at L5-S1. Moderate to severe disc height loss is noted atL5-S1 with endplate sclerosis. Moderate to severe atherosclerotic calcifications are noted of theabdominal aorta. No solid-appearing mass or abnormal enhancement is evident in the included soft tissues. Level by level analysis: T12-L1 through L4-5: Unremarkable. L5-S1: Unchanged right central/subarticular disc protrusion contactingthe traversing right S1 nerve root. Shallow background disc bulge andendplate spurring without foraminal stenosis. IMPRESSION: 1. Unchanged right-sided disc protrusion at L5-S1 contacting thetraversing right S1 nerve root. 2. No solid-appearing mass or abnormal enhancement included softtissues. us Analilia Barraza APRN IMG CT ORDERABLES Final Resu lt * CT ABDOMEN PELVIS W CONTRAST (03/01/2023 11:37 PM EDT) Only the most recent of2 resultswithin the time period is included. Anatomical Region Laterality Modality Abdomen, Chest, Pelvis, Hip Comp uted Tomography 03/01/2023 11:3 7 PM EDT Impressions 03/01/2023 11:50 PM EDT No acute abnormality of the abdomen or pelvis. - Note: Radiology results need to be interpreted within a comprehensive clinical context. If you have questions about the radiology report, please contact the office of the ordering clinician. Narrative 03/01/2023 11:[address] ABDOMEN AND PELVIS WITH CONTRAST, 03/01/2023 11:37 PM CLINICAL HISTORY: -RLQ abdominal pain (Age >= 14y). COMPARISON: None. PROCEDURE COMMENTS: Multi-detector CT of the abdomen and pelvis with multiplanar reformatting. Isovue 370 IV contrast given along with radiodense GI contrast as recorded in EPIC. Dose 1 : CT DLP Total : 513.3 mGycm DLP Spiral Max : 513.3 mGycm Maximum CTDI Vol : 10.8 mGy SSDE : 12.312 mGy SSDE Diameter : 32.2 cm SSDE Source : [employer] FINDINGS: LOWER THORAX: Lung bases unremarkable. ABDOMEN AND PELVIS: Liver, spleen, pancreas, adrenal glands, and kidneys unremarkable. No hydronephrosis. No biliary system obstruction or acute inflammatory process. No bowel obstruction. Surgical gavi present in the region of the appendix near the cecum suggesting previous appendectomy. No acute inflammatory process. No abnormal mass, fluid, or adenopathy in the pelvis. No acute osseous abnormality. Procedure Note Nova Deng MD - 03/01/2023 CT ABDOMEN AND PELVIS WITH CONTRAST, 03/01/2023 11:37 PM CLINICAL HISTORY: -RLQ abdominal pain (Age >= 16y). COMPARISON: None. PROCEDURE COMMENTS: Multi-detector CT of the abdomen and pelvis with multiplanar reformatting. Isovue 370 IV contrast given along withradiodense GI contrast as recorded in EPIC. Dose 1 : CT DLP Total : 513.3 mGycm DLP Spiral Max : 513.3 mGycm Maximum CTDI Vol : 10.8 mGy SSDE : 12.312 mGy SSDE Diameter : 32.2 cm SSDE Source : [employer] FINDINGS: LOWER THORAX: Lung bases unremarkable. ABDOMEN AND PELVIS: Liver, spleen, pancreas, adrenal glands, and kidneys unremarkable. No hydronephrosis. No biliary system obstruction oracute inflammatory process. No bowel obstruction. Surgical gavi present in the region of theappendix near the cecum suggesting previous appendectomy. No acute inflammatoryprocess. No abnormal mass, fluid, or adenopathy in the pelvis. No acute osseous abnormality. IMPRESSION: No acute abnormality of the abdomen or pelvis. - Note: Radiology results need to be interpreted within a comprehensiveclinical context. If you have questions about the radiology report, please contactthe office of the ordering clinician. us Alethea Concepcion MD IMG CT ORDERABLES Final Resul t * IR LUMBAR/SACRAL REMA WITH GUIDANCE (12/23/2022 11:27 AM EDT) Only the most recent of4 resultswithin the time period is included. Anatomical Region Laterality Modality Interventional R adiology Narrative 12/23/2022 11:37 AM EDT [facility] PROCEDURE NOTE Faustina Moulton December 23, 2022 SURGEON(S): Refugio Guerra MD PRE-OP DIAGNOSIS: 1. Lumbosacral radiculopathy POST-OP DIAGNOSIS: 1. Lumbosacral radiculopathy IMAGING: Fluoroscopy PROCEDURE: Lumbar Epidural Steroid Injection Under Fluoroscopic Guidance Level: L5-S1 PROCEDURE DETAILS: After reviewing the patient's chart, informed consent was obtained and the patient was brought to the procedure room. The patient was placed in a prone position on fluoroscopy table with their lumbar spine exposed. A formal time out was performed identifying the correct patient, correct procedure, reviewing anticoagulation status, reviewing allergies and verifying the correct sites and side. Next, their low back was prepped with antiseptic solution and draped in the usual sterile fashion. The overlying skin was identified under fluoroscopic guidance and infiltrated with 1% Lidocaine for local anesthesia via 25 gauge needle. A Touhy needle size 20-gauge was used under fluoroscopic guidance to access the epidural space using loss of resistance to air technique at L5-S1. Approximately 2 mL of contrast was used to confirm needle position and contrast spread. Following negative aspiration for blood or CSF, a mixture of 80 mg of Kenalog and 2 mL's of 1% Lidocaine was injected with minimal pressure. CSF was negative, Paresthesia was negative, Heme was negative. The needle was cleared with preservative free local anesthetic and removed. Skin was cleaned and a sterile dressing was applied. Patient tolerated the procedure well without issues and was taken to the recovery area in stable condition. EBL: approx 0-1cc Images of procedure found under images tab dated: 12/23/2022 DISPOSITION/POST PROC COURSE: The patient was monitored for any adverse hemodynamic, allergic, or neurological symptoms. The patient tolerated the procedure well with no apparent complications. Vital signs remained stable throughout the procedure. The patient was taken to the recovery area where written discharge instructions for the procedure were given. The patient was discharged home. Refugio Guerra MD Interventional Pain Management [facility] Date: 12/23/2022 us Juliann Guevara APRN IMG IR ORDERABLES Final Re sult * CT ABDOMEN PELVIS WO ORAL OR IV CONTRAST (08/09/2022 5:13 PM EST) Anatomical Region Laterality Modality Abdomen, Pelvis Computed Tomogra phy 08/09/2022 5:13 PM EST Impressions 08/09/2022 5:28 PM EST No acute abnormality of the unenhanced abdomen or pelvis. - Note: Radiology results need to be interpreted within a comprehensive clinical context. If you have questions about the radiology report, please contact the office of the ordering clinician. Narrative 08/09/2022 5:[address] ABDOMEN AND PELVIS WITHOUT IV OR ORAL CONTRAST, 08/09/2022 5:13 PM CLINICAL HISTORY: -Left lower quadrant pain, Crohn's disease. COMPARISON: May 17, 2022 PROCEDURE COMMENTS: Multidetector CT examination of the abdomen and pelvis without IV or oral contrast per protocol. Multiplanar reconstructions. Dose 1 : CT DLP Total : 561 mGycm DLP Spiral Max : 561 mGycm Maximum CTDI Vol : 10.3 mGy SSDE : 11.845 mGy SSDE Diameter : 31.8 cm SSDE Source : [employer] FINDINGS: LOWER THORAX: Lung bases clear. ABDOMEN AND PELVIS: Liver, gallbladder, spleen, pancreas unremarkable. Biliary tree non-dilated. Kidneys and adrenal glands unremarkable. No hydronephrosis. No evidence of small or large bowel obstruction. No appendicitis or other acute inflammatory process identified. Evidence of prior ileocolic region surgery. No abnormal fluid or pathologic lymph nodes in the pelvis. Viscera within normal limits for age. Aortoiliac and branch vessel atherosclerosis noted. No aneurysm. No acute osseous abnormality. Procedure Note Fuentes Pelaez MD - 08/09/2022 CT ABDOMEN AND PELVIS WITHOUT IV OR ORAL CONTRAST, 08/09/2022 5:13 PM CLINICAL HISTORY: -Left lower quadrant pain, Crohn's disease. COMPARISON: May 17, 2022 PROCEDURE COMMENTS: Multidetector CT examination of the abdomen andpelvis without IV or oral contrast per protocol. Multiplanar reconstructions.Dose 1 : CT DLP Total : 561 mGycm DLP Spiral Max : 561 mGycm Maximum CTDI Vol : 10.3 mGy SSDE : 11.845 mGy SSDE Diameter : 31.8 cm SSDE Source : [employer] FINDINGS: LOWER THORAX: Lung bases clear. ABDOMEN AND PELVIS: Liver, gallbladder, spleen, pancreas unremarkable.Biliary tree non-dilated. Kidneys and adrenal glands unremarkable. No hydronephrosis. No evidence of small or large bowel obstruction. No appendicitis or otheracute inflammatory process identified. Evidence of prior ileocolic regionsurgery. No abnormal fluid or pathologic lymph nodes in the pelvis. Viscera withinnormal limits for age. Aortoiliac and branch vessel atherosclerosis noted. No aneurysm. No acute osseous abnormality. IMPRESSION: No acute abnormality of the unenhanced abdomen or pelvis. - Note: Radiology results need to be interpreted within a comprehensiveclinical context. If you have questions about the radiology report, please contactthe office of the ordering clinician. Scott Mane MD IM CT ORDERABLES Final Result * URINALYSIS (08/09/2022 5:11 PM EST) Only the most recent of3 resultswithin the time period is included. UA Color Yellow 08/09/2022 5:26 PM [facility] UA Appear Clear Clear 08/09/2022 5:26 PM [facility] UA Glucose Negative Negative mg/dL 08/09/2022 5:26 PM [facility] UA Ketones Negative Negative mg/dL 08/09/2022 5:26 PM [facility] UA Blood Negative Negative 08/09/2022 5:26 PM [facility] UA pH 6.0 5.0 - 8.0 pH 08/09/2022 5:26 PM [facility] UA Protein Negative Negative mg/dL 08/09/2022 5:26 PM [facility] UA Urobilinogen 0.2 <=1 mg/dL 5:26 PM [facility] UA Bili Negative Negative 08/09/2022 5:26 PM [facility] UA Nitrite Negative Negative 08/09/2022 5:26 PM [facility] UA Leuk Est Negative Negative 08/09/2022 5:26 PM [facility] UA Spec Grav 1.020 1.001 - 1.035 no units 08/09/2022 5:26 PM [facility] Comment:Reference range olvin d for random specimens only. Urine URINE SPECIMEN COLLECTION, CLEAN CATCH / Unknown 08/09/2022 5:11 PM EST 08/09/2022 5:23 PM EST us Scott Mane MD URINE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 intervertebral disc 01/28/2021 Lumbosacral radiculopathy at S1 Thoracic or lumbosacral neuritis or radiculitis, unspecified 01/28/2021 Lumbar degenerative disc disease Degeneration of lumbar or lumbosacral intervertebral disc 01/28/2021 Cervicalgia 01/28/2021 DDD (degenerative disc disease), cervical Degeneration of cervical intervertebral disc 01/28/2021 Chronic pain syndrome 01/28/2021 Mid back pain, chronic Backache, unspecified 01/28/2021 Myofascial muscle pain Mylagia and myositis, unspecified 01/28/2021 Encounter for long-term (current) use of high-risk medication Encounter for long-term (current) use of other medications 01/28/2021 Lumbosacral radiculopathy at S1 Thoracic or lumbosacral neuritis or radiculitis, unspecified 02/25/2021 Lumbar degenerative disc disease Degeneration of lumbar or lumbosacral intervertebral disc 02/25/2021 Chronic pain syndrome 02/25/2021 Spondylosis Spondylosis of unspecified site without mention of myelopathy 02/25/2021 DDD (degenerative disc disease), cervical Degeneration of cervical intervertebral disc 02/25/2021 Degenerative disc disease, lumbar Degeneration of lumbar or lumbosacral intervertebral disc 02/25/2021 Nonspecific abdominal pain 03/24/2021 Lumbar degenerative disc disease Degeneration of lumbar or lumbosacral intervertebral disc 04/17/2021 Spondylosis Spondylosis of unspecified site without mention of myelopathy 04/17/2021 DDD (degenerative disc disease), cervical Degeneration of cervical intervertebral disc 04/17/2021 Degenerative disc disease, lumbar Degeneration of lumbar or lumbosacral intervertebral disc 04/17/2021 Chronic pain syndrome 04/17/2021 DDD (degenerative disc disease), cervical Degeneration of cervical intervertebral disc 05/01/2021 Lumbar degenerative disc disease Degeneration of lumbar or lumbosacral intervertebral disc 05/09/2021 Spondylosis Spondylosis of unspecified site without mention of myelopathy 06/17/2021 DDD (degenerative disc disease), cervical Degeneration of cervical intervertebral disc 06/17/2021 Lumbosacral radiculopathy at S1 Thoracic or lumbosacral neuritis or radiculitis, unspecified 06/17/2021 Lumbar degenerative disc disease Degeneration of lumbar or lumbosacral intervertebral disc 06/17/2021 Acute bronchitis due to other specified organisms 07/28/2021 Chest wall pain Painful respiration 07/28/2021 Spondylosis Spondylosis of unspecified site without mention of myelopathy 08/20/2021 DDD (degenerative disc disease), cervical Degeneration of cervical intervertebral disc 08/20/2021 Lumbosacral radiculopathy at S1 Thoracic or lumbosacral neuritis or radiculitis, unspecified 08/20/2021 Lumbar degenerative disc disease Degeneration of lumbar or lumbosacral intervertebral disc 08/20/2021 Encounter for long-term (current) use of high-risk medication Encounter for long-term (current) use of other medications 08/20/2021 Lumbosacral radiculopathy at S1 Thoracic or lumbosacral neuritis or radiculitis, unspecified 08/20/2021 Lumbar degenerative disc disease Degeneration of lumbar or lumbosacral intervertebral disc 08/20/2021 Spondylosis Spondylosis of unspecified site without mention of myelopathy 08/20/2021 DDD (degenerative disc disease), cervical Degeneration of cervical intervertebral disc 08/20/2021 Encounter for long-term (current) use of high-risk medication Encounter for long-term (current) use of other medications 08/20/2021 Lumbar degenerative disc disease Degeneration of lumbar or lumbosacral intervertebral disc 10/17/2021 Spondylosis Spondylosis of unspecified site without mention of myelopathy 10/17/2021 DDD (degenerative disc disease), cervical Degeneration of cervical intervertebral disc 10/17/2021 Lumbar degenerative disc disease Degeneration of lumbar or lumbosacral intervertebral disc 11/07/2021 Spondylosis Spondylosis of unspecified site without mention of myelopathy 11/07/2021 DDD (degenerative disc disease), cervical Degeneration of cervical intervertebral disc 11/07/2021 Encounter for long-term (current) use of high-risk medication Encounter for long-term (current) use of other medications 12/12/2021 Lumbar degenerative disc disease Degeneration of lumbar or lumbosacral intervertebral disc 12/12/2021 Spondylosis Spondylosis of unspecified site without mention of myelopathy 12/12/2021 DDD (degenerative disc disease), cervical Degeneration of cervical intervertebral disc 12/12/2021 Encounter for long-term (current) use of high-risk medication Encounter for long-term (current) use of other medications 12/12/2021 Myofascial pain Mylagia and myositis, unspecified 12/12/2021 Lumbar degenerative disc disease Degeneration of lumbar or lumbosacral intervertebral disc 02/07/2022 Spondylosis Spondylosis of unspecified site without mention of myelopathy 02/07/2022 DDD (degenerative disc disease), cervical Degeneration of cervical intervertebral disc 02/07/2022 Myofascial pain Mylagia and myositis, unspecified 02/07/2022 Chronic pain syndrome 02/07/2022 Stefania infection of genital region 02/21/2022 Gastrointestinal hemorrhage with melena 02/21/2022 Lumbar degenerative disc disease Degeneration of lumbar or lumbosacral intervertebral disc 04/03/2022 Lumbosacral spondylosis without myelopathy 04/03/2022 Chronic pain syndrome 04/03/2022 Lumbar degenerative disc disease Degeneration of lumbar or lumbosacral intervertebral disc 05/07/2022 Chronic pain syndrome 05/07/2022 Lumbosacral spondylosis without myelopathy 05/07/2022 Ileus (HCC) Paralytic ileus 05/17/2022 Crohn's disease with complication, unspecified gastrointestinal tract location (HCC) 05/17/2022 Diarrhea, unspecified type 05/17/2022 Lumbar degenerative disc disease Degeneration of lumbar or lumbosacral intervertebral disc 06/02/2022 Chronic pain syndrome 06/02/2022 Lumbosacral spondylosis without myelopathy 06/02/2022 Spondylosis Spondylosis of unspecified site without mention of myelopathy 06/02/2022 DDD (degenerative disc disease), cervical Degeneration of cervical intervertebral disc 06/02/2022 Lumbosacral radiculopathy at S1 Thoracic or lumbosacral neuritis or radiculitis, unspecified 06/02/2022 Cervicalgia 06/02/2022 Myofascial pain Mylagia and myositis, unspecified 06/02/2022 Encounter for long-term (current) use of high-risk medication Encounter for long-term (current) use of other medications 08/04/2022 Lumbar degenerative disc disease Degeneration of lumbar or lumbosacral intervertebral disc 08/04/2022 Chronic pain syndrome 08/04/2022 Lumbosacral spondylosis without myelopathy 08/04/2022 Spondylosis Spondylosis of unspecified site without mention of myelopathy 08/04/2022 DDD (degenerative disc disease), cervical Degeneration of cervical intervertebral disc 08/04/2022 Lumbosacral radiculopathy at S1 Thoracic or lumbosacral neuritis or radiculitis, unspecified 08/04/2022 Cervicalgia 08/04/2022 Encounter for long-term (current) use of high-risk medication Encounter for long-term (current) use of other medications 08/04/2022 Acute left lower quadrant pain Abdominal pain, left lower quadrant 08/09/2022 Crohn's disease with complication, unspecified gastrointestinal tract location (HCC) 08/09/2022 Lumbar degenerative disc disease Degeneration of lumbar or lumbosacral intervertebral disc 09/29/2022 Chronic pain syndrome 09/29/2022 Lumbosacral spondylosis without myelopathy 09/29/2022 Spondylosis Spondylosis of unspecified site without mention of myelopathy 09/29/2022 DDD (degenerative disc disease), cervical Degeneration of cervical intervertebral disc 09/29/2022 Lumbosacral radiculopathy at S1 Thoracic or lumbosacral neuritis or radiculitis, unspecified 09/29/2022 Cervicalgia 09/29/2022 Lumbar degenerative disc disease Degeneration of lumbar or lumbosacral intervertebral disc 11/24/2022 Chronic pain syndrome 11/24/2022 Lumbosacral spondylosis without myelopathy 11/24/2022 Spondylosis Spondylosis of unspecified site without mention of myelopathy 11/24/2022 DDD (degenerative disc disease), cervical Degeneration of cervical intervertebral disc 11/24/2022 Lumbosacral radiculopathy at S1 Thoracic or lumbosacral neuritis or radiculitis, unspecified 11/24/2022 Cervicalgia 11/24/2022 Lumbar degenerative disc disease Degeneration of lumbar or lumbosacral intervertebral disc 11/26/2022 Chronic pain syndrome 11/26/2022 Lumbosacral spondylosis without myelopathy 11/26/2022 Spondylosis Spondylosis of unspecified site without mention of myelopathy 11/26/2022 DDD (degenerative disc disease), cervical Degeneration of cervical intervertebral disc 11/26/2022 Lumbosacral radiculopathy at S1 Thoracic or lumbosacral neuritis or radiculitis, unspecified 11/26/2022 Cervicalgia 11/26/2022 Lumbar degenerative disc disease Degeneration of lumbar or lumbosacral intervertebral disc 12/23/2022 Lumbosacral radiculopathy at S1 Thoracic or lumbosacral neuritis or radiculitis, unspecified 12/23/2022 Lumbosacral spondylosis without myelopathy 01/26/2023 Cervicalgia 01/26/2023 Spondylosis Spondylosis of unspecified site without mention of myelopathy 01/26/2023 Chronic pain syndrome 01/26/2023 DDD (degenerative disc disease), cervical Degeneration of cervical intervertebral disc 01/26/2023 Lumbar degenerative disc disease Degeneration of lumbar or lumbosacral intervertebral disc 01/26/2023 Lumbosacral radiculopathy at S1 Thoracic or lumbosacral neuritis or radiculitis, unspecified 01/26/2023 Encounter for long-term (current) use of high-risk medication Encounter for long-term (current) use of other medications 01/26/2023 Encounter for long-term (current) use of high-risk medication Encounter for long-term (current) use of other medications 02/11/2023 Right lower quadrant abdominal pain Abdominal pain, right lower quadrant 03/01/2023 Lumbosacral spondylosis without myelopathy 03/26/2023 Cervicalgia 03/26/2023 Spondylosis Spondylosis of unspecified site without mention of myelopathy 03/26/2023 Chronic pain syndrome 03/26/2023 DDD (degenerative disc disease), cervical Degeneration of cervical intervertebral disc 03/26/2023 Lumbar degenerative disc disease Degeneration of lumbar or lumbosacral intervertebral disc 03/26/2023 Lumbosacral radiculopathy at S1 Thoracic or lumbosacral neuritis or radiculitis, unspecified 03/26/2023 Chronic bilateral low back pain without sciatica 03/26/2023 Palpable mass of lower back 03/26/2023 Lumbosacral spondylosis without myelopathy 05/21/2023 Cervicalgia 05/21/2023 Spondylosis Spondylosis of unspecified site without mention of myelopathy 05/21/2023 Chronic pain syndrome 05/21/2023 DDD (degenerative disc disease), cervical Degeneration of cervical intervertebral disc 05/21/2023 Lumbar degenerative disc disease Degeneration of lumbar or lumbosacral intervertebral disc 05/21/2023 Lumbosacral radiculopathy at S1 Thoracic or lumbosacral neuritis or radiculitis, unspecified 05/21/2023 Myofascial pain Mylagia and myositis, unspecified 05/21/2023 Chronic bilateral low back pain without sciatica 05/28/2023 Palpable mass of lower back 05/28/2023 Lumbosacral spondylosis without myelopathy 07/16/2023 Cervicalgia 07/16/2023 Spondylosis Spondylosis of unspecified site without mention of myelopathy 07/16/2023 Chronic pain syndrome 07/16/2023 DDD (degenerative disc disease), cervical Degeneration of cervical intervertebral disc 07/16/2023 Lumbar degenerative disc disease Degeneration of lumbar or lumbosacral intervertebral disc 07/16/2023 Lumbosacral radiculopathy at S1 Thoracic or lumbosacral neuritis or radiculitis, unspecified 07/16/2023 Lumbosacral spondylosis without myelopathy 09/03/2023 Cervicalgia 09/03/2023 Spondylosis Spondylosis of unspecified site without mention of myelopathy 09/03/2023 Chronic pain syndrome 09/03/2023 DDD (degenerative disc disease), cervical Degeneration of cervical intervertebral disc 09/03/2023 Lumbar degenerative disc disease Degeneration of lumbar or lumbosacral intervertebral disc 09/03/2023 Lumbosacral radiculopathy at S1 Thoracic or lumbosacral neuritis or radiculitis, unspecified 09/03/2023 Lumbosacral spondylosis without myelopathy 09/10/2023 Cervicalgia 09/10/2023 Spondylosis Spondylosis of unspecified site without mention of myelopathy 09/10/2023 Chronic pain syndrome 09/10/2023 DDD (degenerative disc disease), cervical Degeneration of cervical intervertebral disc 09/10/2023 Lumbar degenerative disc disease Degeneration of lumbar or lumbosacral intervertebral disc 09/10/2023 Lumbosacral radiculopathy at S1 Thoracic or lumbosacral neuritis or radiculitis, unspecified 09/10/2023 Encounter for long-term (current) use of high-risk medication Encounter for long-term (current) use of other medications 09/10/2023 Myofascial pain Mylagia and myositis, unspecified 09/10/2023 Chronic bilateral low back pain without sciatica 09/10/2023 Right lower quadrant abdominal pain Abdominal pain, right lower quadrant 09/23/2023 Acute Crohn's disease with intestinal obstruction (HCC) 09/23/2023 Positive blood culture Bacteremia 09/26/2023 Encounter for long-term (current) use of high-risk medication Encounter for long-term (current) use of other medications 11/05/2023 Lumbosacral spondylosis without myelopathy 11/05/2023 Spondylosis Spondylosis of unspecified site without mention of myelopathy 11/05/2023 DDD (degenerative disc disease), cervical Degeneration of cervical intervertebral disc 11/05/2023 Lumbar degenerative disc disease Degeneration of lumbar or lumbosacral intervertebral disc 11/05/2023 Lumbosacral radiculopathy at S1 Thoracic or lumbosacral neuritis or radiculitis, unspecified 11/05/2023 Myofascial pain Mylagia and myositis, unspecified 11/05/2023 Encounter for long-term (current) use of high-risk medication Encounter for long-term (current) use of other medications 11/05/2023 Crohn's disease of colon, unspecified complication (HCC) 11/05/2023 Crohn's disease of both small and large intestine with rectal bleeding (HCC) Regional enteritis of small intestine with large intestine 11/05/2023 Ileus (HCC) Paralytic ileus 11/05/2023 Lumbosacral spondylosis without myelopathy 12/31/2023 Lumbar degenerative disc disease Degeneration of lumbar or lumbosacral intervertebral disc 12/31/2023 Lumbosacral radiculopathy at S1 Thoracic or lumbosacral neuritis or radiculitis, unspecified 12/31/2023 Crohn's disease of colon, unspecified complication (HCC) 12/31/2023 Crohn's disease of both small and large intestine with rectal bleeding (HCC) Regional enteritis of small intestine with large intestine 12/31/2023 Myofascial pain Mylagia and myositis, unspecified 12/31/2023 DDD (degenerative disc disease), cervical Degeneration of cervical intervertebral disc 12/31/2023 Ileus (HCC) Paralytic ileus 12/31/2023 Cervicalgia 12/31/2023 Chronic bilateral low back pain without sciatica 12/31/2023 Facial droop Facial weakness 01/24/2024 Syncope and collapse 01/24/2024 Acute non-recurrent maxillary sinusitis 01/24/2024 Syncope and collapse 01/25/2024 Lumbosacral spondylosis without myelopathy 02/22/2024 Lumbar degenerative disc disease Degeneration of lumbar or lumbosacral intervertebral disc 02/22/2024 Lumbosacral radiculopathy at S1 Thoracic or lumbosacral neuritis or radiculitis, unspecified 02/22/2024 DDD (degenerative disc disease), cervical Degeneration of cervical intervertebral disc 02/22/2024 Myofascial pain Mylagia and myositis, unspecified 02/22/2024 Crohn's disease of colon, unspecified complication (HCC) 02/22/2024 Ileus (HCC) Paralytic ileus 02/22/2024 Chronic pain syndrome 02/22/2024 Encounter for long-term (current) use of high-risk medication Encounter for long-term (current) use of other medications 02/22/2024 Lumbosacral spondylosis without myelopathy 02/26/2024 Lumbar degenerative disc disease Degeneration of lumbar or lumbosacral intervertebral disc 02/26/2024 Lumbosacral radiculopathy at S1 Thoracic or lumbosacral neuritis or radiculitis, unspecified 02/26/2024 DDD (degenerative disc disease), cervical Degeneration of cervical intervertebral disc 02/26/2024 Chronic pain syndrome 02/26/2024 Lumbosacral spondylosis without myelopathy 04/12/2024 Lumbar degenerative disc disease Degeneration of lumbar or lumbosacral intervertebral disc 04/12/2024 Lumbar degenerative disc disease Degeneration of lumbar or lumbosacral intervertebral disc 04/21/2024 Lumbosacral radiculopathy at S1 Thoracic or lumbosacral neuritis or radiculitis, unspecified 04/21/2024 Lumbosacral spondylosis without myelopathy 04/21/2024 DDD (degenerative disc disease), cervical Degeneration of cervical intervertebral disc 04/21/2024 Chronic pain syndrome 04/21/2024 Cervicalgia 04/21/2024 Crohn's disease of colon, unspecified complication (HCC) 04/21/2024 Myofascial pain Mylagia and myositis, unspecified 04/21/2024 Crohn's disease of both small and large intestine with rectal bleeding (HCC) Regional enteritis of small intestine with large intestine 04/21/2024 Vertebrogenic pain Backache, unspecified 04/21/2024 Encounter for long-term (current) use of high-risk medication Encounter for long-term (current) use of other medications 06/21/2024 Lumbosacral radiculopathy at S1 Thoracic or lumbosacral neuritis or radiculitis, unspecified 06/21/2024 Lumbosacral spondylosis without myelopathy 06/21/2024 DDD (degenerative disc disease), cervical Degeneration of cervical intervertebral disc 06/21/2024 Chronic pain syndrome 06/21/2024 Encounter for long-term (current) use of high-risk medication Encounter for long-term (current) use of other medications 06/21/2024 Vertebrogenic pain Backache, unspecified 06/21/2024 Crohn's disease of colon, unspecified complication (HCC) 06/21/2024 Myofascial pain Mylagia and myositis, unspecified 06/21/2024 Thoracic myofascial strain, initial encounter 06/28/2024 Lumbosacral radiculopathy at S1 Thoracic or lumbosacral neuritis or radiculitis, unspecified 07/29/2024 Lumbosacral spondylosis without myelopathy 07/29/2024 DDD (degenerative disc disease), cervical Degeneration of cervical intervertebral disc 07/29/2024 Chronic pain syndrome 07/29/2024 Lumbosacral radiculopathy at S1 Thoracic or lumbosacral neuritis or radiculitis, unspecified 08/18/2024 Lumbosacral spondylosis without myelopathy 08/18/2024 DDD (degenerative disc disease), cervical Degeneration of cervical intervertebral disc 08/18/2024 Chronic pain syndrome 08/18/2024 Vertebrogenic pain Backache, unspecified 08/18/2024 Crohn's disease of colon, unspecified complication (HCC) 08/18/2024 Myofascial pain Mylagia and myositis, unspecified 08/18/2024 Lumbosacral radiculopathy at S1 Thoracic or lumbosacral neuritis or radiculitis, unspecified 10/13/2024 Lumbosacral spondylosis without myelopathy 10/13/2024 DDD (degenerative disc disease), cervical Degeneration of cervical intervertebral disc 10/13/2024 Chronic pain syndrome 10/13/2024 Vertebrogenic pain Backache, unspecified 10/13/2024 Crohn's disease of colon, unspecified complication (HCC) 10/13/2024 Myofascial pain Mylagia and myositis, unspecified 10/13/2024 Lumbosacral radiculopathy at S1 Thoracic or lumbosacral neuritis or radiculitis, unspecified 12/08/2024 Lumbosacral spondylosis without myelopathy 12/08/2024 DDD (degenerative disc disease), cervical Degeneration of cervical intervertebral disc 12/08/2024 Chronic pain syndrome 12/08/2024 Hand injury, right, initial encounter 12/09/2024 Acute bronchitis, unspecified organism 01/20/2025 Lumbosacral radiculopathy at S1 Thoracic or lumbosacral neuritis or radiculitis, unspecified 02/08/2025 Lumbosacral spondylosis without myelopathy 02/08/2025 DDD (degenerative disc disease), cervical Degeneration of cervical intervertebral disc 02/08/2025 Chronic pain syndrome 02/08/2025 Vertebrogenic pain Backache, unspecified 02/08/2025 Crohn's disease of colon, unspecified complication (HCC) 02/08/2025 Myofascial pain Mylagia and myositis, unspecified 02/08/2025 Crohn's disease of both small and large intestine with rectal bleeding (HCC) Regional enteritis of small intestine with large intestine 02/08/2025 Encounter for long-term (current) use of high-risk medication Encounter for long-term (current) use of other medications 02/08/2025 Ileus (HCC) Paralytic ileus 05/17/2022 Ileus (HCC) Paralytic ileus 05/18/2022 Crohn disease (HCC) Regional enteritis of unspecified site 05/18/2022 Rash Rash and other nonspecific skin eruption 05/18/2022 Right lower quadrant abdominal pain Abdominal pain, right lower quadrant 09/23/2023 Crohn's disease of colon, unspecified complication (HCC) 09/23/2023 GERD (gastroesophageal reflux disease) Esophageal reflux 09/23/2023 Chronic pain syndrome 09/23/2023 Syncope and collapse 01/24/2024 Syncope and collapse 01/25/2024 Crohn disease (HCC) Regional enteritis of unspecified site 01/25/2024 GERD (gastroesophageal reflux disease) Esophageal reflux 01/25/2024 Chronic pain syndrome 01/25/2024 Care Teams 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
--- OUTSIDE RECORDS SUMMARY | 2025-03-01 12:54 | XMS_ITS | Encounter Summary ---
Author Organization [facility] [place] [address] Care Team Providers Care Ladle Builder Name Role Phone Hill Andrews MD Primary Care Provider [phone] Encounter Details Date Type Department Care Team (Latest Contact Info) Description 01/20/2025 Travel Social History Tobacco Use Types Packs/Day Years Used Date Smoking Tobacco: Every Day Cigarettes 1 41 Started: 02/15/1984 Cigars Smokeless Tobacco: Never Alcohol Use Standard Drinks/Week Comments Not Currently 0 (1 standard drink = 0.6 oz pur e alcohol) [facility] Utilities Answer Date Recorded In the [...] Date Recorded PHQ-2 Total Score 0 01/26/2024 [facility] Occup[facility] ional [facility] - Occupational Stress [...] needed for daily living? No 05/19/2022 [facility] Answer D ate [...] 01/20/2025 2:57 PM Sharmin Bob RN * [place] Suicide Severity Rating Scale (Q shift for [...] Description 04/05/2025 1:30 PM EDT Office Visit Psychiatric [address] [place] [id number] Anay Montana APRN [address] [place] [address] documented as of this encounter Visit Diagnoses Not on filedocumented in this encounter Care Teams Ladle Builder Relationship Specialty Start Date End Date Hill Andrews MD [address] [place] [id number] PCP - General Emergency Medicine 03/01/23 documented as of this encounter
--- NOTE | 2025-03-01 13:00 | CT_ITS ---
FINAL REPORT CLINICAL HISTORY: lung cancer screening current smoker 1ppd x40 years COMPARISON: 08/26/2022 FINDINGS: CT CHEST LOW DOSE SCREENING 55-year-old male, current smoker, [id number] history HISTORY: Screening exam for lung cancer. DOSE: CTDI vol: 2.90 mGy, DLP: 105.51 mGy*cm TECHNIQUE: Axial CT without IV contrast administration using low dose protocol. This study was performed with techniques to keep radiation doses as low as reasonably achievable, (ALARA). Individualized dose reduction techniques using automated exposure control or adjustment of mA and/or kV according to the patient's size were employed. No acute lung disease is present. There is stable nodular scar in the right lower lobe, best seen on image #45. There is a 3 mm nodule in the central left lower lobe best seen on image #52, also stable. There is evidence of old calcified granulomatous disease. No pleural or pericardial effusion is seen. No adenopathy or mass lesion is present. IMPRESSION: Stable nodules as described. LUNG RADS CATEGORY 2 RECOMMENDATION: 12 month LDCT follow up Reviewed, Interpreted and Dictated by Harriet Granados MD Transcribed by Julianne Solorio Authenticated and [facility]
== END 2025-03-01 23:59 | disposition home or self-care (01) ==
LOC: RAD 12:51
PROVIDERS: PCP Family Medicine; Visit Provider Family Medicine
DX: R91.8 Other nonspecific abnormal finding of lung field (principal); F17.210 Nicotine dependence, cigarettes, uncomplicated; B37.2 Candidiasis of skin and nail; B35.9 Dermatophytosis, unspecified
CPT/HCPCS: 71271

== ENCOUNTER 2025-04-13 15:41 | Outpatient (CLI) | payer MEDICARE, SELFPAY ==
--- OUTSIDE RECORDS SUMMARY | 2025-03-14 17:45 | XMS_ITS | Encounter Summary ---
Author Organization [place] [address] Care Team Providers Care Machine Mover Name Role Phone Hill Andrews MD Primary Care Provider [phone] Encounter Details Date Type Department Care Team (Latest Contact Info) Description 03/14/2025 5:45 PM EDT - 03/14/2025 11:59 PM EDT Hospital Encounter [facility] [address] [address] Encounter for long-term (current) use of high-risk medication Discharge Disposition: Home or Self Care Social History Tobacco Use Types Packs/Day Years Used Date Smoking Tobacco: Every Day Cigarettes 1 41.2 Started: 02/15/1984 Cigars Smokeless Tobacco: Never Alcohol Use Standard Drinks/Week Comments Not Currently 0 (1 standard drink = 0.6 oz pur e alcohol) [facility] Utilities Answer Date Recorded In the past 12 months has [employer] electric, gas, oil, or water company threatened to shut off services in your home? No 01/26/2024 Overall Financial Resource Strain (CARDIA) Answe r Date Recorded How hard is it for you to pa y for the very basics like food, housing, medical care, and heating? Not very hard 01/26/2024 PHQ-2 Answer Date Recorded PHQ-2 Total Score 0 01/26/2024 [facility] [place] [facility] Occupat ional [facility] - Occupational Stress [...] things needed for daily living? No 05/19/2022 [facility] IP Transportation Answer D ate Recorded [...] on file documented as of this encounter Medications at Time of Discharge [...] SubQ Solution Subcutaneous (Inject under the skin). documented as of this encounter Discharge Disposition Disposition Code Departure Means Destination Home or Self Care documented in this encounter Plan of Treatment Upcoming Encounters Date Type Department Care Team (Late st Contact Info) Description 05/31/2025 1:30 PM EDT Office Visit [address] [address] Anay Montana, MANAGER BACKGROUND [address] [place] [address] documented as of this encounter Procedures Procedure Name Priority Date/Time Associated Diagnosis Comments COMPLIANCE PANEL, URINE Routine 03/14/2025 5:46 PM EDT Encounter for long-term (current) use of high-risk medication documented in this encounter Results * (ABNORMAL) COMPLIANCE PANEL, URINE (03/14/2025 5:46 PM EDT) Medications Expected Robert(TM) (hydrocod one) 03/15/2025 8:42 PM EDT [facility] Barbiturates Absent Cutoff 200 ng/mL 03/15/2025 8:42 PM EDT [facility] THC <10 Cutoff 10 ng/mL ng/mL 03/15/2025 8:42 PM EDT [facility] Comment:2-wixrrey-qhxjrczbmv cannabinol; does not distinguish between prescribed and illicit forms THC Glucuronide <10 Cutoff 10 ng/mL ng/mL 03/15/2025 8:42 PM EDT [facility] Comment:Metabolite of THC Amphetamine <50 Cutoff 50 ng/mL ng/mL 03/15/2025 8:42 PM EDT [facility] Comment:e.g., Adderall, Vyva nse, Dexedrine, Obetrol MDA <50 Cutoff 50 ng/mL ng/mL 03/15/2025 8:42 PM EDT [facility] Comment:Metabolite of MDMA, and MDEA MDEA <50 Cutoff 50 ng/mL ng/mL 03/15/2025 8:42 PM EDT [facility] Comment:e.g., Sheridan MDMA <50 Cutoff 50 ng/mL ng/mL 03/15/2025 8:42 PM EDT [facility] Comment:e.g., Ecstasy, Henny Methamphetamine <50 Cutoff 50 ng/mL ng/mL 03/15/2025 8:42 PM EDT [facility] Comment:d- and l- isomers ar e not distinguished by this test; may reflect Davis's inhaler, Desoxyn, Selegiline, or illicit source Phentermine <50 Cutoff 50 ng/mL ng/mL 03/15/2025 8:42 PM EDT [facility] Comment:e.g., Adipex, Lomair a, Ionamin,Fastin,Zantryl Gabapentin >2,000(H) Cutoff 50 ng/mL ng/mL 03/15/2025 8:42 PM EDT [facility] Comment:e.g, Neurontin Pregabalin >2,000(H) Cutoff 50 ng/mL ng/mL 03/15/2025 8:42 PM EDT [facility] Comment:Lyrica Alprazolam <8 Cutoff 8 ng/mL ng/mL 03/15/2025 8:42 PM EDT [facility] Comment:e.g, Xanax, Niravam alpha-Hydroxyalprazolam <25 Cutoff 25 ng/mL ng/mL 03/15/2025 8:42 PM EDT [facility] Comment:Metabolite of Alpraz olam Clonazepam <10 Cutoff 10 ng/mL ng/mL 03/15/2025 8:42 PM EDT [facility] Comment:e.g., Klonopin, Clon opin 7-Aminoclonazepam <25 Cutoff 25 ng/mL ng/mL 03/15/2025 8:42 PM EDT [facility] Comment:Metabolite of Clonaz epam Diazepam <10 Cutoff 10 ng/mL ng/mL 03/15/2025 8:42 PM EDT [facility] Comment:e.g, Valium, Diastat Nordiazepam <25 Cutoff 25 ng/mL ng/mL 03/15/2025 8:42 PM EDT [facility] Comment:Metabolite of Chlord iazepoxide(Librium), Clorazepate(Tranxene), Diazepam, Halazepam, (Alapryl), Prazepam(Centrax) Flunitrazepam <50 Cutoff 50 ng/mL ng/mL 03/15/2025 8:42 PM EDT [facility] Comment:e.g.,Rohypnol, Narco zep 7-Aminoflunitrazepam <50 Cutoff 50 ng/mL ng/mL 03/15/2025 8:42 PM EDT [facility] Comment:Metabolite of Flunit razepam Flurazepam <50 Cutoff 50 ng/mL ng/mL 03/15/2025 8:42 PM EDT [facility] Comment:e.g., Dalmane Hydroxyethylflurazepam <50 Cutoff 50 ng/mL ng/mL 03/15/2025 8:42 PM EDT [facility] Comment:Metabolite of Fluraz epam Lorazepam <50 Cutoff 50 ng/mL ng/mL 03/15/2025 8:42 PM EDT [facility] Comment:e.g., Ativan Lorazepam Glucuronide <50 Cutoff 50 ng/mL ng/mL 03/15/2025 8:42 PM EDT [facility] Comment:Metabolite of Loraze jas Midazolam <50 Cutoff 50 ng/mL ng/mL 03/15/2025 8:42 PM EDT [facility] Comment:e.g., Versed alpha-hydroxymidazolam <50 Cutoff 50 ng/mL ng/mL 03/15/2025 8:42 PM EDT [facility] Comment:Metabolite of Versed Oxazepam <50 Cutoff 50 ng/mL ng/mL 03/15/2025 8:42 PM EDT [facility] Comment:e.g., Serax; also Me tabolite of Temazepam, and Nordiazepam Oxazepam Glucuronide <50 Cutoff 50 ng/mL ng/mL 03/15/2025 8:42 PM EDT [facility] Comment:Metabolite of Oxazep am Temazepam <50 Cutoff 50 ng/mL ng/mL 03/15/2025 8:42 PM EDT [facility] Comment:e.g., Restoril; also Metabolite of Diazepam Temazepam Glucuronide <50 Cutoff 50 ng/mL ng/mL 03/15/2025 8:42 PM EDT [facility] Comment:Metabolite of Temaze jas and Diazepam Triazolam <50 Cutoff 50 ng/mL ng/mL 03/15/2025 8:42 PM EDT [facility] Comment:e.g., Halcion alpha-hydroxytriazolam <50 Cutoff 50 ng/mL ng/mL 03/15/2025 8:42 PM EDT [facility] Comment:Metabolite of Triazo holm Buprenorphine <5 Cutoff 5 ng/mL ng/mL 03/15/2025 8:42 PM EDT [facility] Comment:e.g., Suboxone, Subu minna,Sublocade, Buprenex Buprenorphine Glucuronide 13(H) Cutoff 10 ng/mL ng/mL 03/15/2025 8:42 PM EDT [facility] Comment:Buprenorphine Metabo lite Norbuprenorphine <5 Cutoff 5 ng/mL ng/mL 03/15/2025 8:42 PM EDT [facility] Comment:Buprenorphine Metabo lite Norbuprenorphine Glucuronide 118(H) Cutoff 10 ng/mL ng/mL 03/15/2025 8:42 PM EDT [facility] Comment:Buprenorphine Metabo lite Benzoylecgonine <50 Cutoff 50 ng/mL ng/mL 03/15/2025 8:42 PM EDT [facility] Comment:Cocaine Metabolite Fentanyl <1 Cutoff 1 ng/mL ng/mL 03/15/2025 8:42 PM EDT [facility] Comment:e.g.,Duragesic, Oral et, Actiq, Sublimaze, Innovar, Lazanda Norfentanyl <1 Cutoff 1 ng/mL ng/mL 03/15/2025 8:42 PM EDT [facility] Comment:Metabolite of Fentan yl 6-Monoacetylmorphine (6MAM) <10 Cutoff 10 ng/mL ng/mL 03/15/2025 8:42 PM EDT [facility] Comment:Metabolite of Heroin ; Morphine is expected Methadone <50 Cutoff 50 ng/mL ng/mL 03/15/2025 8:42 PM EDT [facility] Comment:e.g., Dolophine, Met hadose, Amidone EDDP <50 Cutoff 50 ng/mL ng/mL 03/15/2025 8:42 PM EDT [facility] Comment:Methadone Metabolite Carisoprodol <100 Cutoff 100 ng/mL ng/mL 03/15/2025 8:42 PM EDT [facility] Comment:e.g., Soma Meprobamate <100 Cutoff 100 ng/mL ng/mL 03/15/2025 8:42 PM EDT [facility] Comment:e.g., [place], Equa nil, Micrainin, Equagesic; Metabolite of Carisoprodol Codeine <50 Cutoff 50 ng/mL ng/mL 03/15/2025 8:42 PM EDT [facility] Comment:e.g., Acetaminophen w/Codeine, Tylenol3 w/ Codeine Codeine Glucuronide <50 Cutoff 50 ng/mL ng/mL 03/15/2025 8:42 PM EDT [facility] Comment:Metabolite of Codein e Meperidine <50 Cutoff 50 ng/mL ng/mL 03/15/2025 8:42 PM EDT [facility] Comment:e.g., Demerol, Pethi dine Normeperidine <50 Cutoff 50 ng/mL ng/mL 03/15/2025 8:42 PM EDT [facility] Comment:Metabolite of Meperi dine Morphine <50 Cutoff 50 ng/mL ng/mL 03/15/2025 8:42 PM EDT [facility] Comment:e.g., MS Contin, Adry anol; Metabolite of Codeine and Heroin; may reflect poppy seed ingestion Mmgbdvxr-0-Ndaqsshkkcx <25 Cutoff 25 ng/mL ng/mL 03/15/2025 8:42 PM EDT [facility] Comment:Metabolite of Morphi ne. Zngpnejj-0-Hynfwwmgdji <25 Cutoff 25 ng/mL ng/mL 03/15/2025 8:42 PM EDT [facility] Comment:Metabolite of Morphi ne. Naloxone <25 Cutoff 25 ng/mL ng/mL 03/15/2025 8:42 PM EDT [facility] Comment:e.g., Narcan, Evzio Hydrocodone >2,000(H) Cutoff 50 ng/mL ng/mL 03/15/2025 8:42 PM EDT [facility] Comment:e.g., Lorcet, Lortab , Vicodin, Robert; Minor Metabolite of Codeine Dihydrocodeine >2,000(H) Cutoff 50 ng/mL ng/mL 03/15/2025 8:42 PM EDT [facility] Comment:e.g., Didrate, Parzo ne, Parlor, Synalgos; Metabolite of Hydrocodone Norhydrocodone >2,000(H) Cutoff 50 ng/mL ng/mL 03/15/2025 8:42 PM EDT [facility] Comment:Metabolite of Hydroc odone Hydromorphone 137(H) Cutoff 50 ng/mL ng/mL 03/15/2025 8:42 PM EDT [facility] Comment:e.g., Dilaudid; also Metabolite of Hydrocodone and Minor Metabolite of Morphine Hydromorphone Glucuronide >2,000(H) Cutoff 50 ng/mL ng/mL 03/15/2025 8:42 PM EDT [facility] Comment:Metabolite of Hydrom orphone Oxycodone <50 Cutoff 50 ng/mL ng/mL 03/15/2025 8:42 PM EDT [facility] Comment:e.g., Oxycontin, Per cocet, Endocet, Percodan, Roxicet Noroxycodone <50 Cutoff 50 ng/mL ng/mL 03/15/2025 8:42 PM EDT [facility] Comment:Metabolite of Oxycod one Oxymorphone <50 Cutoff 50 ng/mL ng/mL 03/15/2025 8:42 PM EDT [facility] Comment:e.g., Opana; Metabol ite of Oxycodone Oxymorphone Glucuronide <50 Cutoff 50 ng/mL ng/mL 03/15/2025 8:42 PM EDT [facility] Comment:Metabolite of Oxycod one Noroxymorphone <50 Cutoff 50 ng/mL ng/mL 03/15/2025 8:42 PM EDT [facility] Comment:Metabolite of Oxycod one, and Oxymorphone, Noroxycodone Metabolite Tramadol <50 Cutoff 50 ng/mL ng/mL 03/15/2025 8:42 PM EDT [facility] Comment:e.g., Ultram, ConZip Y-Wowfkotrf-tsq-Tramadol <50 Cutoff 50 ng/mL ng/mL 03/15/2025 8:42 PM EDT [facility] Comment:Metabolite of Tramad ol Tapentadol <50 Cutoff 50 ng/mL ng/mL 03/15/2025 8:42 PM EDT [facility] Comment:Nucynta Tapentadol-Glucuronide <50 Cutoff 50 ng/mL ng/mL 03/15/2025 8:42 PM EDT [facility] Comment:Metabolite of Tapent adol Urine Creatinine 249.0 mg/dL 03/15/20 8:42 PM EDT [facility] Comment: Greater than 20: Consistent with valid sample Greater than 2 but less than 20: Possible dilution Less than 2: Questionable valid sample Urine STRUCTURE OF URINARY TRACT PROPER / Unknown 03/14/2025 5:46 PM EDT 03/14/2025 5:46 PM EDT Narrative [facility] - 03/15/2025 8:42 PM EDT The absence of expected drug(s), and/or drug metabolite(s), may indicate non-compliance, diluted or adulterated urine, poor drug absorption, concentration of drug below the cut-off, timing of specimen collection relative to administration of drug, or limitations of testing. Specimens are held for 7 days. This test was developed, and its performance characteristics determined by [facility] ([facility]). It has not been cleared or approved by the FDA. This test is used for clinical purposes. It should not be regarded as investigational or for research. [facility] is certified under the Clinical Laboratory Improvement Amendments (CLIA) as qualified to perform high complexity clinical laboratory testing. us Juliann Guevara APRN URINE ORDERABLES Final Res ult [address] , [address] [place] [id number] [facility] [address] [place] [id number] documented in this encounter Visit Diagnoses Diagnosis Encounter for long-term (current) use of high-risk medication Encounter for long-term (current) use of other medications documented in this encounter Care Teams Machine Mover Relationship Specialty Start Date End Date Hill Andrews MD [address] [place] [id number] PCP - General Emergency Medicine 03/01/23 documented as of this encounter
--- OUTSIDE RECORDS SUMMARY | 2025-04-05 13:30 | XMS_ITS | Encounter Summary ---
Author [place] [address] Care Team Providers Care Physician Office Specialist Name Role Phone Hill Andrews MD Primary Care Provider Reason for Visit * Reason Comments Follow-up Back Pain Encounter Details Date Type Department Care Team (Latest Contact Info) Description 04/05/2025 1:30 PM EDT Office Visit [facility] [address] [address] Anay Montana, MANUFACTURING LEAD [facility] [place], [place] [id number] Myofascial pain (Primary Dx); Lumbosacral radiculopathy at S1; Lumbosacral spondylosis without myelopathy; DDD (degenerative disc disease), cervical; Chronic pain syndrome; Vertebrogenic pain; Crohn's disease of colon, unspecified complication (HCC) Social History Tobacco Use Types Packs/Day Years Used Date Smoking Tobacco: Every Day Cigarettes 1 41.2 Started: 02/15/1984 Cigars Smokeless Tobacco: Never Tobacco Cessation:Ready to Q uit: Not Asked; Counseling Given: Not Answered Alcohol Use Standard Drinks/Week Comments Not Currently 0 (1 standard drink = 0.6 oz pur e alcohol) [facility] Utilities Answer Date Recorded In the [...] Date Recorded PHQ-2 Total Score 0 [facility]20[facility]ational Stress Questionnaire Answer [...] things needed for daily living? No 05/19/2022 [facility] IP Transportation Answer D ate [...] Sign Reading Time Taken Comments Blood Pressure 120/81 04/05/2025 1:39 PM EDT Pulse 81 04/05/2025 1:39 PM EDT Temperature - - Respiratory Rate - - Oxygen Saturation 94% 04/05/2025 1:39 PM EDT Inhaled Oxygen Concentration - - Weight 89.4 kg (197 lb) 04/05/2025 1:39 PM EDT Height - - Body Mass Index 29.09 01/20/2025 2:55 PM EDT documented in this encounter Ordered Prescriptions Prescription Sig Dispense Quantity Refills Last Filled Start Date End Date HYDROcodone-acetami nophen (NORCO) 10-325 mg Oral TabletIndications:L umbosacral radiculopathy at S1 Take 1 Tablet by mouth every 6 hours as needed for Chronic Pain (G89.29) for up to 28 days. 112 Tablet 04/11/2025 5 HYDROcodone-acetami nophen (NORCO) 10-325 mg Oral TabletIndications:L umbosacral radiculopathy at S1,Lumbosacral spondylosis without myelopathy,DDD (degenerative disc disease), cervical,Chronic pain syndrome Take 1 Tablet by mouth every 6 hours as needed for Chronic Pain (G89.29) for up to 28 days. 112 Tablet 05/09/2025 5 documented in this encounter Progress Notes * Anay Montana, MANUFACTURING LEAD - 04/05/2025 1:30 PM EDT Subjective Subjective: Patient ID: Ousmane Moulton is a 54 y.o. male who presents today for Chief Complaint Patient presents with Follow-up Back Pain HPI: History of Present Illness The patient is a 54-year-old male with a history of Crohn's disease, ileus, GERD, and chronic low back pain. He is here today for a medication refill. He reports that his pain levels fluctuate, with some days being better than others. He has not taken any medication from friends or acquaintances. He mentions that his gave him asmall dose of baby aspirin due to elevated blood pressure. He is aware of Suboxone and Subutex but has no personal experience with these medications. He manages his medications independently, using apill organizer to avoid confusion. He rarely leaves his home and ensures that his medications are securely stored in a lock box at home, away from his 12-year-old stepdaughter. He typically organizeshis weekly pill box himself, although his occasionally assists him. Characterization of Primary Pain: Location of Pain: Mid-back - bilateral and Low-back - bilateral Pain Ratin/10 on NRS Quality: aching and throbbing Temporal Profile: constant with intermittent exacerbations Referral Pattern: Pain is not referred Exacerbating Factors: increased activity, activities of daily living, prolonged standing, and walking Relieving Factors: rest and medications Associated Symptoms: Patient denies any red flag [...] All other systems reviewed and are negative. Patients past medical, surgical, family and social histories were reviewed and updated. There were no changes except as noted. Objective Objective: Vitals: 04/05/25 1339 BP: 120/81 BP Location: Left arm Patient Position: Sitting Pulse: 81 SpO2: 94% Weight: 197 lb (89.4 kg) Body mass index is 29.09 kg/m??. Physical Exam Vitals and nursing note reviewed. Constitutional: General: He is not in acute distress. Appearance: He is well-developed. He is not diaphoretic. HENT: Head: Normocephalic and atraumatic. Right Ear: External ear normal. Left Ear: External ear normal. Eyes: General: Right eye: No discharge. Left eye: No discharge. Pupils: Pupils are equal, round, and reactive to light. Pulmonary: Effort: Pulmonary effort is normal. No respiratory distress. Musculoskeletal: General: Tenderness present. Lumbar back: Tenderness present. Decreased range of motion. Comments: Bilateral facet pain worse with facet loading in lumbar region Skin: General: Skin is warm and dry. Capillary Refill: Capillary refill takes less than 2 seconds. Findings: No erythema or rash. Neurological: Mental Status: He is alert and oriented to person, place, and time. Cranial Nerves: No cranial nerve deficit. Sensory: No sensory deficit. Psychiatric: Mood and Affect: Mood normal. Behavior: Behavior normal. Thought Content: Thought content normal. Judgment: Judgment normal. Physical Exam Image Review: Results for orders placed during the hospital encounter of 04/12/24 MRI LUMBAR SPINE WO CONTRAST Narrative MRI LUMBAR SPINE WITHOUT CONTRAST, 04/12/2024 2:59 PM CLINICAL HISTORY: M47.817-Spondylosis without myelopathy or radiculopathy, lumbosacral [id number]-89-CM M51.36-Other intervertebral disc degeneration, lumbar [id number]-CM. COMPARISON: 01/10/2020 PROCEDURE COMMENTS: Multiplanar multiecho MR [...] HISTORY: M50.30-Other cervical disc degeneration, unspecified cervical [id number]-BLU-85-CM. COMPARISON: None. PROCEDURE COMMENTS: Multiplanar multiecho MR [...] found for this or any previous visit. Prescription Monitoring Program: [facility]/RAJIV and most recent UDS reviewed on 04/06/2025 as available. . Results Labs - Urine sample: Gabapentin, Lyrica, [place], and buprenorphine metabolite detected Assessment and Plan: Diagnoses and all orders for this visit: Myofascial pain Lumbosacral radiculopathy at S1 - HYDROcodone-acetaminophen (NORCO) [...] disease of colon, unspecified complication (HCC) (Chronic) Assessment & Plan 1. Chronic low back pain. - Pain is more tolerable with [place]. - Urine sample revealed the presence of buprenorphine metabolite, which is not part of his prescribed medication regimen. - - Continue medication(s) as previously prescribed as there are no new symptoms, change in location,sustained increase in pain level, or interval changes in medical condition. Patient reports increased activity and improved functionality with medication use and endorses no adverse reactions. No aberrant behavior or medication abuse is evident. -RAJIV reviewed at today's visit. -No change in [place] dose as current dosage/regimen brings his/her pain to a tolerable level -Labs reviewed, most recent UDS was 03/14/25 + buprenorphine not prescribed -taking gabapentin and lyrica per outside provider -Will closely monitor UDS in future as this is a violation of his drug contract. There will be no more infractions or patient will no longer be a candidate for COT - Return in about 8 weeks (around 05/31/2025) for medication refill. Anay Montana APRN Interventional Pain Management [facility] The provider educated the patient (or legal client relations representative) on the use of the ambient listening artificial intelligence tool, MuteButton. They were informed that this AI tool [...] of such information, the patient (or legal client relations representative), and each individual in attendance with the patient, verbally consented to the use of the AI tool. Answers submitted by the patient for this visit: (Submitted on 04/05/2025) weight loss: No Change in hair, skin or nails in the past year: No blurred vision: No Change in vision: No orthopnea: No claudication: No PND: No Coughing up blood: No sputum production: No hematochezia: Yes heartburn: Yes melena: No joint pain: Yes Fall or near fall: No tingling: No focal sensory loss: No focal weakness: No loss of consciousness: No Substance abuse: No memory loss: No documented in this encounter Miscellaneous Notes * Patient Instructions - Anay Montana APRN - 04/05/2025 1:30 PM EDT The DO's and DON'T's of Opioids DO: - Read the Medication Guide - Take your medications exactly as prescribed - Store your medicine away from children and in a safe place CALL 911 or Your Local Emergency Service Right Away if: - You take too much medicine - You have trouble breathing, or shortness of breath - A child has taken your medicine DON'T - DO NOT give your medicine to others - DO NOT take medicine unless it was prescribed for you - DO NOT stop taking your medicine without talking to your healthcare provider - DO NOT break, chew, crush, dissolve, or inject your medicine. If you cannot swallow your medicinewhole, talk to your healthcare provider - DO NOT use illegal substances as it is a violation of your opioid agreement and we will not be able to continue your medications - DO NOT drink alcohol while taking this medicine FOR ADDITIONAL INFORMATION ON YOUR MEDICINE GO TO: dailymed.nlm.nih.gov documented in this encounter Plan of Treatment Upcoming Encounters Date Type Department Care Team (Late st Contact Info) Description 05/31/2025 1:30 PM EDT Office Visit [address] [phone] Anay Montana APRN [address] [place] [address] documented as of this encounter Visit Diagnoses Diagnosis Myofascial pain- Primary Mylagia and myositis, unspecified Lumbosacral radiculopathy at S1 Thoracic or lumbosacral neuritis or radiculitis, unspecified Lumbosacral spondylosis without myelopathy DDD (degenerative disc disease), cervical Degeneration of cervical intervertebral disc Chronic pain syndrome Vertebrogenic pain Backache, unspecified Crohn's disease of colon, unspecified complication (HCC) documented in this encounter Discontinued Medications Medication Sig Discontinue Reason Start Date End Da te HYDROcodone-acetaminophen (NORCO) 10-325 mg Oral TabletIndications:Lumbosa cral radiculopathy at S1 Take 1 Tablet by mouth every 6 hours as needed for Chronic Pain (G89.29) for up to 28 days. Reorder 02/14/2025 03/29/2025 HYDROcodone-acetaminophen (NORCO) 10-325 mg Oral TabletIndications:Lumbosa cral radiculopathy at S1,Lumbosacral spondylosis without myelopathy,DDD (degenerative disc disease), cervical,Chronic pain syndrome Take 1 Tablet by mouth every 6 hours as needed for Chronic Pain (G89.29) for up to 28 days. Reorder 03/14/2025 03/29/2025 documented as of this encounter Care Teams Physician Office Specialist Relationship Specialty Start Date End Date Hill Andrews MD [address] [place] [address] PCP - General Emergency Medicine 03/01/23 documented as of this encounter
--- OUTSIDE RECORDS SUMMARY | 2025-04-12 10:40 | XMS_ITS | Encounter Summary ---
Author Organization [facility] Address [address] [place] [address] Care Team Providers Care Power Plant Inspector Name Role Phone Tammy Bauer Grazyna PEPPER Primary Care Provider [phone]- [phone] Reason for Referral * Consultation (Routine) - Authorized Specialty Diagnoses / Procedures Referred By Dianna tang Referred To Contact Diagnoses Crohn's disease of small intestine without complication (CMS/HCC) Elisha Kathleen PA [address] [place] [address] Phone: tel: fax: Referral ID Status Reason Start Date Expiration Date V isits Requested Visits Authorized [id number] Authorized 04/12/2025 10/12/2026 1 1 Reason for Visit * Reason Comments Crohn's Disease Encounter Details Date Type Department Care Team (Late st Contact Info) Description 04/12/2025 10:40 AM EDT Office Visit [facility] [address] [place] [address] Elisha Kathleen PA [address] [place] [id number] Crohn's disease of small intestine without complication (CMS/HCC) (Primary Dx); Long-term current use of ustekinumab; History of bowel resection; Tobacco abuse Social History Tobacco Use Types Packs/Day Years Used Date Smoking Tobacco: Every Day Cigarettes 1 39 Started: 04/07/1986 Passive Smoke Exposure: Current Smokeless Tobacco: Former Snuff Quit: 04/07/1988 Tobacco Cessation:Ready to Q uit: Not Asked; Counseling Given: Not Answered Comments:Have been cutting back on cigarette use Alcohol Use Standard Drinks/Week Comments Not Currently 0 (1 standard drink = 0.6 oz pure alcohol) Alcoholic Drinks/day: Stopped Drinking Alcohol PHQ-2 Answer Date Recorded Patient Health Questionnaire-2 Score 0 04/12/2025 PHQ-9 Answer Date Recorded Patient Health Questionnaire-9 Score 0 04/12/2025 PHQ-2A Answer Date Recorded Patient Health Questionnaire-2 [...] Sign Reading Time Taken Comments Blood Pressure - - Pulse - - Temperature - - Respiratory Rate 18 04/12/2025 10:37 AM EDT Oxygen Saturation - - Inhaled Oxygen Concentration - - Weight 89.4 kg (197 lb) 04/12/2025 10:37 AM EDT Height 175.3 cm (5' 9 ) 04/12/2025 10:37 AM EDT Body Mass Index 29.09 04/12/2025 10:37 AM EDT documented in this encounter Functional Status * Over the past 2 weeks, how often have you been bothered by any of the following problems? Question Answer Date of Assessment Author Little interest or pleasure in doing things Not at all 04/12/2025 10:41 AM Savana Ferris Feeling down, depressed, or hopeless Not at all 04/12/2025 10:41 AM Savana Ferris Patient Health Questionnaire -2 Score 0 04/12/2025 10:41 AM Savana Ferris * Question Answer Date of Assessment Author Trouble falling or staying a sleep, or sleeping too much Not at all 04/12/2025 10:41 AM Savana Ferris Feeling tired or having roberto carlos le energy Not at all 04/12/2025 10:41 AM Savana Ferris Poor appetite or overeating Not at all 04/12/2025 10 :41 AM Savana Ferris Feeling bad about yourself - or that you are a failure or have let yourself or your family down Not at all 04/12/2025 10:41 AM Alix Ferris Trouble concentrating on thi ngs, such as reading the newspaper or watching television Not at all 04/12/2025 10:41 AM Savana Ferris Moving or speaking so slowly that other people could have noticed? Or the opposite - being so fidgety or restless that you have been moving around a lot more than usual. Not at all 04/12/2025 10:41 AM Savana Ferris Thoughts that you would be b sima off or hurting yourself in some way Not at all 04/12/2025 10:41 AM Savana Ferris Patient Health Questionnaire -9 Score 0 04/12/2025 10:41 AM Savana Ferris * If you checked off any problems on this questionnaire so far, Question Answer Date of Assessment Author How difficult have these problems made it for you to do your work, take care of things at home, or get along with other people? Not difficult at all 04/12/2025 10:41 AM Savana Ferris documented as of this encounter Miscellaneous Notes * Assessment & Plan Note - Elisha Kathleen PA - 04/12/2025 10:40 AM EDT Associated Problem(s): Crohn's disease of small intestine without complication (CMS/HCC) - Continue 90 mg ustekinumab every 4 weeks, which was shortened from 8 week dosing after colonoscopy 06/10/2022 showed mildly active ileal Crohn's disease. - Plan for CBC, CMP, CRP, and vitamin D levels as routine monitoring or Crohn's disease treated with ustekinumab. - Minimally elevated fecal calprotectin of 122 as of 09/2024, but in good range for IBD. - No active IBD on MRE 12/2023. - Follow-up in 6 months or sooner if needed. Orders: Comprehensive Metabolic Panel, Plasma; Future C-Reactive Protein, Plasma; Future CBC and Differential; Future Vitamin D 25 Hydroxy; Future Follow Up GI; Future * Progress Notes - Elisha Kathleen PA - 04/12/2025 10:40 AM EDT Telehealth Visit Subjective Patient ID: Ousmane Moulton is a 54 y.o. male. Chief Complaint Patient presents with Crohn's Disease HPI Mr. Moulton is a very pleasant 54 year old male seen via [facility] today for follow-up of ileocolonic Crohn's disease diagnosed in 2001. He is s/p TI resection in 2003. Most recent colonoscopyfrom 06/10/2022 reviewed and noted mildly active ileal Crohn's disease. He is currently treated with90 mg ustekinumab every 4 weeks, which was transitioned from 8 week dosing given most recent colonoscopy results. Today Mr. Moulton continues to report feeling fairly well. He continues to experience chronic RLQ abdominal pain. He did not feel dicyclomine helped with abdominal pain. He is having 4-5 BM/day without evidence of melena or hematochezia. He does report stool has recently been dark. He reports occasi onal, mild nausea without emesis. Ousmane denies decreased appetite, unintentional weight loss, fevers, and fatigue. Mr. Moulton continues to smoke. MRE from 01/04/2024 showed No definite evidence of active inflammatory bowel disease on current exam. Previous past treatments include adalimumab, infliximab (meningitis), and mercaptopurine. The following portions of the chart were reviewed this encounter and updated as appropriate: Tobacco Allergies Meds Problems Med Hx Surg Hx Fam Hx Review of Systems Constitutional: Negative for appetite change, chills, fatigue, fever and unexpected weight change. HENT: Negative for mouth sores and sore throat. Respiratory: Negative for shortness of breath. Cardiovascular: Negative for chest pain. Gastrointestinal: Positive for abdominal pain and nausea. Negative for blood in stool, constipation, diarrhea and vomiting. Musculoskeletal: Positive for arthralgias. Skin: Negative for rash. All other systems reviewed and are negative. Objective Physical Exam Vitals reviewed. Constitutional: Appearance: Normal appearance. He is normal weight. HENT: Head: Normocephalic. Nose: Nose normal. Pulmonary: Effort: Pulmonary effort is normal. Neurological: Mental Status: He is alert and oriented to person, place, and time. Psychiatric: Mood and Affect: Mood normal. Behavior: Behavior normal. Thought Content: Thought content normal. Judgment: Judgment normal. Assessment/Plan Assessment & Plan Crohn's disease of small intestine without complication (CMS/HCC) - Continue 90 mg ustekinumab every 4 weeks, which was shortened from 8 week dosing after colonoscopy 06/10/2022 showed mildly active ileal Crohn's disease. - Plan for CBC, CMP, CRP, and vitamin D levels as routine monitoring or Crohn's disease treated with ustekinumab. - Minimally elevated fecal calprotectin of 122 as of 09/2024, but in good range for IBD. - No active IBD on MRE 12/2023. - Follow-up in 6 months or sooner if needed. Orders: Comprehensive Metabolic Panel, Plasma; Future C-Reactive Protein, Plasma; Future CBC and Differential; Future Vitamin D 25 Hydroxy; Future Follow Up GI; Future Long-term current use of ustekinumab - Annual TB screening is due. - Recommend keeping all adult immunizations up-to-date. Orders: Quantiferon TB Gold; Future History of bowel resection - Continue supplemental vitamin B12. Tobacco abuse - Encouraged smoking cessation for overall health and as additional management of IBD. He has previously been referred to addiction medicine for smoking cessation, but he did not follow through with referral. Telehealth Statement Patient Verification Patient identity has been confirmed using name and date of ? Yes Authorizations and Agreements/Telemedicine Consent sent and consent confirmed? Yes Patient Location: Home/Other Patient confirms they are physically located in [place]? Yes If the patient is not physically located in [place], the provider has confirmed with [employer] thatthe provider is authorized to provide services in patient's stated location? N/A Provider Location: home Audio and video or audio only? Audio and video Total visit time: A total of 30 minutes was spent discussing patient's symptoms and plan of care, reviewing records, entering orders, and documenting. Answers submitted by the patient for this visit: Inflammatory Bowel Disease (Submitted on 04/12/2025) When you are not experiencing symptoms of your inflammatory bowel disease, how many bowel movementsdo you typically have each day?: 4 Over the last 3 days, what is the maximum number of bowel movements that you had in a single day?: 5 Over the last 3 days, have you had any bowel movements where you passed blood without stool?: Yes Since your last visit, have you received any vaccinations?: No Since the last visit, have you had an infection?: No In the past three months, have you used tobacco in any form?: Yes Inflammatory Bowel Disease (Submitted on 04/12/2025) What form(s) of tobacco have you used?: cigarettes During the last year, how many days have you missed work or school because of your inflammatory bowel disease?: 0 During the last year, how many days have you been hospitalized because of your inflammatory bowel disease?: 4 During the last year, how many days have you visited a hospital emergency department because of your inflammatory bowel disease?: 2 During the last month, have you taken narcotic pain medications (such as Percocet, oxycodone, Oxycontin, morphine, Vicodin, Dilaudid, MS Contin) for your inflammatory bowel disease?: Yes During the last month, have you awoken at night to move your bowels?: Yes During the last month, have you had leakage of your stool while sleeping?: No During the last month, have you had incontinence of stool while you were awake?: No During the last month have you unintentionally lost weight?: No During the last 3 days, have you had a fever?: No During the last 3 days, have you had eye irritation?: No During the last 3 days, have you had numbness or tingling in your hands or feet?: Yes During the last 3 days, have you had bruising or bleeding?: No During the last 3 days, have you felt depressed or blue?: No documented in this encounter Plan of Treatment Upcoming Encounters Date Type Department Care Team (Late st Contact Info) Description 10/16/2025 2:00 PM EST Office Visit [place] [facility] [address] [place] [address] Elisha Kathleen PA [address] [place] [address] Scheduled Orders Name Type Priority Associated Diagnoses Orde r Schedule Comprehensive Metabolic Panel, Plasma Lab Routine Crohn's disease of small intestine without complication (CMS/HCC) Expected: 04/12/2025 (Approximate), Expires: 10/13/2026 C-Reactive Protein, Plasma Lab Routine Crohn's disease of small intestine without complication (CMS/HCC) Expected: 04/12/2025 (Approximate), Expires: 10/13/2026 CBC and Differential Lab Routine Crohn's disease of small intestine without complication (CMS/HCC) Expected: 04/12/2025 (Approximate), Expires: 10/13/2026 Vitamin D 25 Hydroxy Lab Routine Crohn's disease of small intestine without complication (CMS/HCC) Expected: 04/12/2025 (Approximate), Expires: 10/13/2026 Quantiferon TB Gold Lab Routine Long-term current use of ustekinumab Expected: 04/12/2025 (Approximate), Expires: 10/14/2026 Scheduled Referrals Name Type Priority Associated Diagnoses Orde r Schedule Follow Up GI Outpatient Referral Routine Crohn's disease of small intestine without complication (CMS/HCC) Expected: 10/13/2025, Expires: 05/13/2026 documented as of this encounter Visit Diagnoses Diagnosis Crohn's disease of small intestine without complication (CMS/HCC)- Primary Long-term current use of ustekinumab History of bowel resection Tobacco abuse Tobacco use disorder documented in this encounter Additional Health Concerns Assessment Noted Time PHQ-9 Depression Total Score: 0 04/12/20 25 10:41 AM EDT A fall risk assessment has been complete d for the patient 04/12/2025 10:41 AM EDT A Body Mass Index follow-up plan has been documented for the patient 04/12/2025 2:34 PM EDT documented as of this encounter Care Teams Power Plant Inspector Relationship Specialty Start Date End Date Tammy Buaer APRN [address] [place] [address] PCP - General 01/18/21 documented as of this encounter
--- OUTSIDE RECORDS SUMMARY | 2025-04-13 15:43 | XMS_ITS | Encounter Summary ---
Author Organization [facility] Address [address] [place] [address] Care Team Providers Care Sash Finisher Name Role Phone Tammy Bauer Grazyna PEPPER Primary Care Provider [phone]- [phone] Encounter Details Date Type Department Care Team (Late st Contact Info) Description 08/26/2022 Orders Only External Location [address] [place] [address] Provider, External Social History Tobacco Use Types Packs/Day Years Used Date Smoking Tobacco: Every Day Cigarettes 1 40.6 Started: 1982 Smokeless Tobacco: Never Comments:Wishing to [...] Visit [place] [facility] [address] [place] [address] Elisha Kathleen, CARLOS ALBERTO [address] [place] [address] documented as of this encounter Procedures Procedure Name Priority Date/Time Associated Diagnosis Comments CT CHEST LUNG CANCER SCREENING 08/26/2022 8:32 AM EST documented in this encounter Results * CT Chest Lung Cancer Screening (08/26/2022 8:32 AM EST) Anatomical Region Laterality Modality Chest Computed Tomogra phy 08/26/2022 8:32 AM EST External Provider IMG CT PROCEDURES Final Result documented in this encounter Visit Diagnoses Not on filedocumented in this encounter Additional Health Concerns Assessment Noted Time PHQ-9 Depression Total Score: 6 02/20/20 21 1:00 PM EDT A fall risk assessment has been complete d for the patient 06/30/2022 10:02 AM EDT documented as of this encounter Care Teams Sash Finisher Relationship Specialty Start Date End Date Tammy Bauer APRN [address] [place] [address] PCP - General 01/18/21 documented as of this encounter
--- OUTSIDE RECORDS SUMMARY | 2025-04-13 15:43 | XMS_ITS | Encounter Summary ---
Author Organization [place] [address] Care Team Providers Care Computer Engineer Name Role Phone Hill nAdrews MD Primary Care Provider [phone] Encounter Details Date Type Department Care Team (Late st Contact Info) Description 04/07/2025 Results Follow-Up [address] [address] Juliann Guevara [employer] [address] [id number] COMPLIANCE PANEL, URINE Social History Tobacco Use Types Packs/Day Years Used Date Smoking Tobacco: Every Day Cigarettes 1 41.2 Started: 02/15/1984 Cigars Smokeless Tobacco: Never Alcohol Use Standard Drinks/Week Comments Not Currently 0 (1 standard drink = 0.6 oz pur e alcohol) [facility] Utilities Answer Date Recorded In the past [...] Date Recorded PHQ-2 Total Score 0 01/26/2024 [facility] Occupat ional [facility] - Occupational Stress Questionnaire Answer Date Recorded [...] things needed for daily living? No 05/19/2022 [facility] IP Transportation Answer D ate Recorded [...] Description 05/31/2025 1:30 PM EDT Office Visit [address] [address] Anay [place] APRN [address] [place] [address] documented as of this encounter Visit Diagnoses Not on filedocumented in this encounter Care Teams Computer Engineer Relationship Specialty Start Date End Date Hill Andrews MD [address] [place] [address] [place] [address] PCP - General Emergency Medicine 03/01/23 documented as of this encounter
--- OUTSIDE RECORDS SUMMARY | 2025-04-13 15:44 | XMS_ITS | Encounter Summary ---
Author Organization [facility] Address [address] [place] [address] Care Team Providers Care Regional Driver Name Role Phone Tammy Bauer SHANTELLE Primary Care Provider +1- [phone] Encounter Details Date Type Department Care Team (Latest Contact Info) Description 04/12/2025 Travel Social History Tobacco Use Types Packs/Day [...] as of this encounter Functional Status * Over the [...] television Not at all 04/12/2025 10:41 AM Svaana Ferris Moving or speaking so slowly that [...] Not difficult at all 04/12/2025 10:41 AM EDT Savana Roe documented as of this encounter Plan of Treatment Upcoming Encounters Date Type Department Care Team (Late st Contact Info) Description 10/16/2025 2:00 PM EST Office Visit [place] [facility] [address] [place] [address] Elisha Kathleen, CARLOS ALBERTO [address] [place] [address] documented as of this encounter [...] documented as of this encounter Care Teams Regional Driver Relationship Specialty Start Date End Date Tammy Bauer APRN [address] [place] [address] PCP - General 01/18/21 documented as of this encounter
--- OUTSIDE RECORDS SUMMARY | 2025-04-13 15:44 | XMS_ITS | Encounter Summary ---
Author Organization [facility] Address [address] [place] [address] Care Team Providers Care Pile Driver Name Role Phone Tammy Bauer Grazyna PEPPER Primary Care Provider +1- [phone] Reason for Visit * Reason Comments Med Refill Encounter Details Date Type Department Care Team (Late st Contact Info) Description 03/16/2025 Refill [place] [facility] [address] [place] [address] Elisha Kathleen, CARLOS ALBERTO [address] [place] [address] Social History Tobacco Use Types [...] encounter Miscellaneous Notes * Telephone Encounter - Douglas Dorman PharmD - 03/16/2025 8:13 AM EDT 1 medication(s) has been approved per protocol. documented in this encounter Plan of Treatment Upcoming Encounters Date Type Department Care Team (Late st Contact Info) Description 10/16/2025 2:00 PM EST Office Visit [place] [facility] [address] [place] [address] Elisha Kathleen PA [address] [place] [address] documented as of this encounter Visit Diagnoses Not on filedocumented in this encounter Additional Health Concerns Assessment Noted Time PHQ-9 Depression Total Score: 0 09/16/19 25 10:43 AM EST A fall risk assessment has been complete d for the patient 09/16/2024 10:44 AM EST A Body Mass Index follow-up plan has been documented for the patient 09/16/2024 1:24 PM EST documented as of this encounter Care Teams Pile Driver Relationship Specialty Start Date End Date Tammy Bauer APRN [address] [place] [address] PCP - General 01/18/21 documented as of this encounter
--- OUTSIDE RECORDS SUMMARY | 2025-04-13 15:44 | XMS_ITS | Clinical Summary ---
Author Organization [facility] Address [address] [place] [address] Care Team Providers Care Cadastral Engineer Name Role Phone BauerTammy miner Grazyna PEPPER Primary Care Provider [phone]- [phone] Allergies Active Allergy Reactions Criticality Noted Date Comments Sulfa Drugs Rash Low 10/02/2019 Sulfacetamide Rash Low 03/04/2005 Tetracycline Hives Medium 04/02/2023 Medications Insulin Syringe-Needle U-100 (B-D INSULIN SYRINGE 1CC/25GX1 ) 25G X 1 1 ML misc Take by mouth See administration instructions. 020 Active HYDROcodone-barrett taminophen (Garland) 10-325 MG tablet Take by mouth 3 (three) times a day. 020 Active loperamide (Imodium A-D) 2 MG tablet Take by mouth See administration instructions. Take 1-2 tab every 2 to 4 hrs as needed (max of 8 per day). 017 Active testosterone cypionate (Depo-Testoster one) 200 MG/ML injection Take by mouth 1 (one) time each day. 017 Active Insulin Syringe-Needle U-100 (B-D INSULIN SYRINGE 1CC/25GX1 ) 25G X 1 1 ML misc USE DIRECTED for vitamin B 12 injections 020 Active cyclobenzaprine (Flexeril) 10 MG tablet Take 1 tablet (10 mg) by mouth if needed. 021 Active albuterol 108 (90 Base) MCG/ACT inhaler 018 Active triamcinolone (Kenalog) 0.5 % cream Apply qid to rash 15 g 3 021 Active atorvastatin (Lipitor) 10 MG tablet Take 1 tablet (10 mg) by mouth 1 (one) time each day. 023 Active Aspirin Low Dose 81 MG EC tablet 023 Active bisoprolol (Zebeta) 5 MG tablet 023 Active Syringe/Needle, Disp, (B-D 3CC LUER-IVIS SYR 25GX1 ) 25G X 1 3 ML miscIndications :History of bowel resection USE DIRECTED FOR B12 INJECTIONS 1 each 2 023 Active losartan-hydroC HLOROthiazide (Hyzaar) 50-12.5 MG tablet 023 Active sildenafil (Viagra) 25 MG tablet 1 tablet (25 mg). 023 Active sildenafil (Revatio) 20 MG tablet 1-5 tablets by mouth as needed for sexual activity, do not repeat dose in 24 hours, take on empty stomach 50 tablet 3 023 Active Syringe/Needle, Disp, (B-D SYRINGE/NEEDLE 1CC/25GX5/8) 25G X 5/8 1 ML miscIndications :History of bowel resection To be used for monthly administration of vitamin B12. 1 each 11 024 Active gabapentin (Neurontin) 600 MG tabletIndicatio ns:Sensory neuropathy TAKE TWO TABLETS BY MOUTH 3 TIMES A DAY 180 tablet 025 Active pregabalin (Lyrica) 150 MG capsuleIndicati ons:Sensory neuropathy TAKE ONE CAPSULE BY MOUTH 3 TIMES A DAY 90 capsule 5 025 Active esomeprazole (NexIUM) [address] capsule Take 1 capsule by mouth 2 times a day. Do not open capsule. 180 capsule 025 Active ustekinumab (Stelara) syringeIndicati ons:Crohn's disease of small intestine without complication (CMS/HCC) Inject contents of 1 syringe (90mg) under the skin every 4 weeks. Store in refrigerator and allow to warm to room temp prior to use. 1 mL 025 Active BD Syringe Slip Tip 25G X 5/8 1 ML misc USE WITH B12 INJECTION 025 Active pregabalin (Lyrica) 150 MG capsuleIndicati ons:Sensory neuropathy Take 1 capsule (150 mg) by mouth 3 (three) times a day. 90 capsule 5 025 2024 Discontinued esomeprazole (NexIUM) [address] capsule TAKE 1 CAPSULE BY MOUTH 2 TIMES A DAY. DO NOT OPEN CAPSULE 180 capsule 1 025 2024 Discontinued ustekinumab (Stelara) injectionIndica tions:Crohn's disease of small intestine without complication (CMS/HCC) Inject contents of 1 syringe (90mg) under the skin every 4 weeks. Store in refrigerator and allow to warm to room temp prior to use. 1 mL 5 025 2024 Discontinued(R eorder) esomeprazole (NexIUM) [address] capsule TAKE 1 CAPSULE BY MOUTH 2 TIMES A DAY. DO NOT OPEN CAPSULE 60 capsule 025 2024 Discontinued(R eorder) Active Problems Problem Noted Date Diagnosed Date [...] of small intestine without compl ication 08/09/2012 Assessment & Plan (04/12/2025 2:34 PM EDT): - Continue 90 mg ustekinumab every 4 [...] 25 Hydroxy; Future Follow Up GI; Future Encounters Date Type Department Care Team Description 04/12/2025 10:40 AM EDT Office Visit [facility] [id number] [place] [address] Elisha Kathleen PA Crohn's disease of small intestine without complication (CMS/HCC) (Primary Dx); Long-term current use of ustekinumab; History of bowel resection; Tobacco abuse 04/12/2025 Travel 03/29/2025 Refill [facility] [id number] [place] [address] Elisha Kathleen PA Crohn's disease of small intestine without complication (CMS/HCC) 03/27/2025 Orders Only [facility] [address] [place] [address] Douglas Dorman, PharmD 03/25/2025 Refill [facility] [id number] [place] [address] Juan Block, PharmD 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 Refill [facility] [address] [place] [address] Elisha Kathleen PA 03/16/2025 Refill [facility] [address] [place] [address] Steven Rendon MD Sensory neuropathy from Last 3 Months Immunizations Immunization Administration Dates Next Due Influenza, injectable, quadr ivalent, preservative free 08/11/2022,11/12/2021,06/12/2020,2016 Influenza, seasonal, injecta ble, preservative free 07/22/2009 Family History Medical History Relation Name Comments Obesity Daughter Kalli Moulton Diabetes Father Wayne Moulton Restless legs syndrome Father Wayne Moulton Migraines Mother Bharati Galarzas Obesity Mother Bharati Galarzas Stroke Mother Bharati Arthur Cerebral palsy Mother's Sister Hailey Houser Alzheimer's disease Paternal Grandfather Pradip Wells Nob le Diabetes Paternal Grandfather Pradip Wells Moulton Diabetes Sister 1 Marine Moulton Fibromyalgia Sister 1 Marine Moulton Neuropathy Sister 1 Marine Moulton Obesity Sister 1 Marine Moulton Depression Sister 2 Chitra Da Silva Relation Name Status Comments Daughter Kalli Moulton Father Wayne Moulton Mother Bharati Arthur Mother's Sister Hailey Houser Alive Paternal Grandfather Pradip Wells Moulton Sister 1 Marine Moulton Sister 2 Chitra Da Silva Alive Social History Tobacco Use Types Packs/Day Years [...] F) 05/20/2022 11:51 AM EDT Respiratory Rate 18 04/12/2025 10:37 AM EDT Oxygen Saturation 97% 12/02/2022 4:24 PM EDT Inhaled Oxygen Concentration - - Weight 89.4 kg (197 lb) 04/12/2025 10:37 AM EDT Height 175.3 cm (5' 9 ) 04/12/2025 10:37 AM EDT Body Mass Index 29.09 04/12/2025 10:37 AM EDT Plan of Treatment Upcoming Encounters Date Type Department Care Team (Late st Contact Info) Description 10/16/2025 2:00 PM EST Office Visit [facility] [address] [place] [address] Elisha Kathleen PA [address] [place] [address] Health Maintenance Due Date Last Done Comments [facility]-Medicare Annual Wellness (AWV) 1972 [facility]-Infant/Child/Adol SDOH Screenings 1972 [id number] Vaccine (#1) 1977 [facility]- SDOH Screenings 1990 [facility]-Adult SDOH Screenings 1990 [facility]-DTaP,Tdap,and Td Vaccines (1 - Tdap) 1991 [facility]-Hepatitis A Vaccines (1 of 2 - Risk 2-dose series) 1991 [facility]-Hepatitis B Vaccines (1 of 3 - 19+ 3-dose series) 1991 [facility]-Pneumococcal Vaccine: 50+ Years (1 of 2 - PCV) 1991 [facility]-Zoster Vaccines (1 of 2) 2022 [facility]-Lung Cancer Screening 08/26/2023 08/26/2022, 12/ [facility]-Influenza Vaccine (#1) 05/08/202508/11, 11/12/2021, 06/12/2020, Additional history exists [facility]-Depression Screening 04/12/2026 025, 04/12/2025, 06/30/2022 [facility]-HIV Screening Completed 04/28/2022 [facility]-Hepatitis C Screening Completed 04/28/2022, 02/2017 Colonoscopy Discontinued 06/10/2022, 12/2021, 06/02/2022, Additional history exists [facility]-Obesity Intervention Completed 025, 09/16/2024, 02/29/2024, Additional history exists HPV Vaccines Aged Out [...] for the result. Information added by interface. External Provider GI PROCEDURE ORDERABLES Final Result * HIV 1 & 2 Antibody/Antigen Screen (04/28/2022 12:42 PM EDT) Pathologist [facility] HIV 1 & 2 Antibody/Anti gen Screen Nonreactive Nonreactive 04/28/2022 2:47 PM EDT [facility] Blood Venous blood specimen / Unknown Venipuncture / Unknown 04/28/2022 12:42 PM EDT 04/28/2022 1:06 PM EDT Lloyd Gaxiola MD LAB BLOOD ORDERABLES Final Result Performing Organization Address City/[facility] Co de Phone Number HEALTHCARE [facility] [address] [place] [address] * Hepatitis C Antibody - ED (04/28/2022 12:42 PM EDT) Pathologist [facility] Hepatitis C Antibody Negative Negative 04/28/2022 2:47 PM EDT HEALTHCARE LAB Blood Venous blood specimen / Unknown Venipuncture / Unknown 04/28/2022 12:42 PM EDT 04/28/2022 1:06 PM EDT Lloyd Gaxiola MD LAB BLOOD ORDERABLES Final Result Performing Organization Address City/[facility]/ZIP Co de Phone Number HEALTHCARE [facility] [address] [place] [address] from Last 3 Months or Most Recently Relevant to Health Maintenance Insurance MEDICARE Care Teams Cadastral Engineer Relationship Specialty Start Date End Date Tammy Bauer APRN [address] [place] [address] PCP - General 01/18/21
--- OUTSIDE RECORDS SUMMARY | 2025-04-13 15:44 | XMS_ITS | Encounter Summary ---
Author Organization [facility] Address [address] [place] [address] Care Team Providers Care Search Developer Name Role Phone Tammy Bauer Grazyna PEPPER Primary Care Provider [phone]- [phone] Encounter Details Date Type Department Care Team (Late st Contact Info) Description 06/10/2022 Outside Procedure [facility] [address] [place] [phone] Provider, External Social History Tobacco Use [...] Description 10/16/2025 2:00 PM EST Office Visit [facility] [address] [place] [address] Elisha Kathleen, CARLOS ALBERTO [address] [place] [address] documented as of this encounter [...] documented as of this encounter Care Teams Search Developer Relationship Specialty Start Date End Date Tammy Bauer APRN [address] [place] [address] PCP - General 01/18/21 documented as of this encounter
--- OUTSIDE RECORDS SUMMARY | 2025-04-13 15:44 | XMS_ITS | Continuity of Care Document ---
[facility] Organization [facility] Address [address] [place] [address] Phone Care Team Providers Care Digital Sales Planner Name Role Phone Hill Andrews MD Primary Care Provider Encounters Date Type Department Care Team Description 04/07/2025 Results Follow-Up [place] [address] [place] [address] Juliann Guevara APRN COMPLIANCE PANEL, URINE 04/05/2025 1:30 PM EDT Office Visit [facility] [address] [place] [address] Anay Montana APRN Myofascial pain (Primary Dx); Lumbosacral radiculopathy at S1; Lumbosacral spondylosis without myelopathy; DDD (degenerative disc disease), cervical; Chronic pain syndrome; Vertebrogenic pain; Crohn's disease of colon, unspecified complication (HCC) 03/14/2025 5:45 PM EDT - 03/14/2025 11:59 PM EDT Hospital Encounter [address] [address] Encounter for long-term (current) use of high-risk medication Discharge Disposition: Home or Self Care 02/08/2025 9:45 AM EDT Office Visit [address] [phone] Juliann Guevara APRN Lumbosacral radiculopathy [...] EDT - 01/20/2025 4:05 PM EDT Emergency [facility] [address] [facility] [address] Yusuf Mabry MD Acute bronchitis, unspecified organism (Primary Dx) Discharge Disposition: Home or Self Care 12/09/2024 Travel 12/09/2024 12:59 PM EDT - 12/09/2024 1:45 PM EDT Emergency [facility] [address] [facility] [place], [place] [id number] Doug Deng MD Hand injury, right, initial encounter (Primary Dx) Discharge Disposition: Home or Self Care 12/08/2024 11:15 AM EDT Telemedicine [address] [phone] Anay Montana APRN Lumbosacral radiculopathy at S1; Lumbosacral spondylosis without myelopathy; DDD (degenerative disc disease), cervical; Chronic pain syndrome 10/17/2024 Telephone [place] [address] [place] [address] Anay Montana APRN Prior Authorization (TPIs bilateral thoracic) 10/13/2024 1:30 PM EST Office Visit [address] [place] [address] Anay Montana APRN Vertebrogenic pain (Primary Dx); Lumbosacral radiculopathy at S1; Lumbosacral spondylosis without myelopathy; DDD (degenerative disc disease), cervical; Chronic pain syndrome; Crohn's disease of colon, unspecified complication (HCC); Myofascial pain 08/18/2024 1:00 PM EST Telemedicine [address] [phone] Anay Montana APRN Vertebrogenic pain (Primary Dx); Lumbosacral radiculopathy at S1; Lumbosacral spondylosis without myelopathy; DDD (degenerative disc disease), cervical; Chronic pain syndrome; Crohn's disease of colon, unspecified complication (HCC); Myofascial pain 08/13/2024 Travel 07/29/[address] [address] Refugio Guerra MD Other (pharmacy closed on ) 06/28/2024 Travel 06/28/2024 8:01 PM EDT - 06/28/2024 9:16 PM EDT [facility] [address] [facility] [address] Selwyn Everett MD Thoracic myofascial strain, initial encounter (Primary Dx) Discharge Disposition: Home or Self Care 06/22/[address] [phone] Anay Montana APRN Other (RX alternatives) 06/21/2024 Orders Only [address] [address] Mariam Pinzon MA Encounter for long-term (current) use of high-risk medication 06/21/2024 11:15 AM EDT Office Visit [place] [address] [address] Anay Montana APRN Encounter for long-term (current) use of high-risk medication (Primary Dx); Lumbosacral radiculopathy at S1; Lumbosacral spondylosis without myelopathy; DDD (degenerative disc disease), cervical; Chronic pain syndrome; Vertebrogenic pain; Crohn's disease of colon, unspecified complication (HCC); Myofascial pain 04/21/2024 10:45 AM EDT Office Visit [address] [phone] Anay Montana APRN Cervicalgia (Primary Dx); Lumbar degenerative disc disease; Lumbosacral radiculopathy at S1; Lumbosacral spondylosis without myelopathy; DDD (degenerative disc disease), cervical; Chronic pain syndrome; Crohn's disease of colon, unspecified complication (HCC); Myofascial pain; Crohn's disease of both small and large intestine with rectal bleeding (HCC); Vertebrogenic pain 04/12/2024 2:00 PM EDT - 04/12/2024 11:59 PM EDT Hospital Encounter [facility] [address] [facility] [address] Risa Gould APRN Lumbosacral spondylosis without myelopathy; Lumbar degenerative disc disease Discharge Disposition: Home or Self Care 03/11/2024 Telephone [facility] Now [address] [place] [phone] Ely Quesada, sheet tester Management 02/26/[address] [address] Stella Palumbo, School Age Program Associate Medication Management ([place] 10mg) 02/22/2024 9:15 AM EDT Telemedicine [address] [address] Risa Gould APRN Lumbosacral spondylosis without myelopathy (Primary Dx); Lumbar degenerative disc disease; Lumbosacral radiculopathy at S1; DDD (degenerative disc disease), cervical; Myofascial pain; Crohn's disease of colon, unspecified complication (HCC); Ileus (HCC); Chronic pain syndrome; Encounter for long-term (current) use of high-risk medication 01/25/2024 1:40 PM EDT - 01/26/2024 3:48 PM EDT Hospital Encounter [facility] [place] [id number] Scooter Beckett MD Syncope and collapse (Primary Dx) Discharge Disposition: Home or Self Care 01/24/2024 7:22 PM EDT - 01/25/2024 1:15 PM EDT [facility] [address] [facility] [place], [place] [id number] Doc Garcia MD Fry, Isaiah J, MD Syncope and collapse (Primary Dx); Facial droop; Acute non-recurrent maxillary sinusitis Discharge Disposition: Discharged/Transferred [facility] w/planned [facility] IP ReAdmit 01/24/2024 Travel 12/31/2023 11:00 AM EDT Office Visit [address] [phone] Juliann Guevara APRN Lumbosacral radiculopathy at S1 (Primary Dx); Lumbosacral spondylosis without myelopathy; Lumbar degenerative disc disease; Crohn's disease of colon, unspecified complication (HCC); Crohn's disease of both small and large intestine with rectal bleeding (HCC); Myofascial pain; DDD (degenerative disc disease), cervical; Ileus (HCC); Cervicalgia; Chronic bilateral low back pain without sciatica 11/05/2023 Orders Only [place] [address] [place] [phone] Stella Palumbo, School Age Program Associate Encounter for long-term (current) use of high-risk medication 11/05/2023 11:30 AM EST Office Visit [place] [address] [address] Juliann Guevara APRN Lumbosacral spondylosis without [...] 5:55 PM EST [facility] [address] [facility] [address] Damir Diana MD Positive blood culture (Primary Dx) Discharge Disposition: Home or Self Care 09/23/2023 8:26 PM EST - 09/25/2023 3:39 PM EST Hospital Encounter [address] [address] Steven Echevarria MD Discharge Disposition: Home or Self Care 09/23/2023 Travel 09/23/2023 3:33 PM EST - 09/23/2023 8:00 PM EST [facility] [address] [facility] [place] [address] Payal Cote MD Krusling, Edward J, MD Right lower quadrant abdominal pain (Primary Dx); Acute Crohn's disease with intestinal obstruction (HCC) Discharge Disposition: Discharge/Readmit 09/10/2023 11:45 AM EST Office Visit [address] [phone] Juliann Guevara APRN Lumbosacral spondylosis without myelopathy (Primary Dx); Cervicalgia; Spondylosis; Chronic pain syndrome; DDD (degenerative disc disease), cervical; Lumbar degenerative disc disease; Lumbosacral radiculopathy at S1; Encounter for long-term (current) use of high-risk medication; Myofascial pain; Chronic bilateral low back pain without sciatica 09/03/[address] [facility] [address] [place] [address] [place] [address] Margaret Abraham MA Lumbosacral spondylosis without myelopathy; Cervicalgia; Spondylosis; Chronic pain syndrome; DDD (degenerative disc disease), cervical; Lumbar degenerative disc disease; Lumbosacral radiculopathy at S1 07/17/2023 Telephone [place] [address] [place] [address] [place] [address] Berkley Carranza MA Prior Authorization (ALPRAZOLAM .5) 07/16/2023 11:15 AM EST Office Visit [place] [address] [place] [address] [place] [address] Analilia Barraza APRN Lumbosacral spondylosis without myelopathy; Cervicalgia; Spondylosis; Chronic pain syndrome; DDD (degenerative disc disease), cervical; Lumbar degenerative disc disease; Lumbosacral radiculopathy at S1 06/02/2023 Telephone [facility] [place] [address] [place] [phone] Analilia Barraza APRN Results (imaging) 05/28/2023 12:28 PM EDT - 05/28/2023 11:59 PM EDT Hospital Encounter [address] [place] [address] Analilia Barraza APRN Chronic bilateral low back pain without sciatica; Palpable mass of lower back Discharge Disposition: Home or Self Care 05/21/2023 11:15 AM EDT Office Visit [place] [address] [place] [address] [place] [address] Analilia Barraza APRN Myofascial pain (Primary Dx); Lumbosacral spondylosis without myelopathy; Cervicalgia; Spondylosis; Chronic pain syndrome; DDD (degenerative disc disease), cervical; Lumbar degenerative disc disease; Lumbosacral radiculopathy at S1 03/26/2023 11:45 AM EDT Office Visit [address] [place] [address] Analilia Barraza APRN Chronic bilateral low back pain without sciatica (Primary Dx); Lumbosacral spondylosis without myelopathy; Cervicalgia; Spondylosis; Chronic pain syndrome; DDD (degenerative disc disease), cervical; Lumbar degenerative disc disease; Lumbosacral radiculopathy at S1; Palpable mass of lower back 03/01/2023 8:57 PM EDT - 03/02/2023 12:28 AM EDT Emergency [facility] [address] [facility] [address] Alethea Concepcion MD Right lower quadrant abdominal pain (Primary Dx) Discharge Disposition: Home or Self Care 03/01/2023 Travel 02/11/2023 Travel 02/11/2023 2:33 PM EDT - 02/11/2023 11:59 PM EDT Hospital Encounter [facility] [address] [facility] [address] Encounter for long-term (current) use of high-risk medication Discharge Disposition: Home or Self Care 01/26/2023 11:15 AM EDT Telemedicine [address] [place] [address] Chioma Andersen APRN Lumbosacral spondylosis without myelopathy (Primary Dx); Cervicalgia; Spondylosis; Chronic pain syndrome; DDD (degenerative disc disease), cervical; Lumbar degenerative disc disease; Lumbosacral radiculopathy at S1; Encounter for long-term (current) use of high-risk medication 12/31/[address] [place] [address] Erin Dumont RN Other (hydrocodone/apap) 12/23/2022 11:05 AM EDT - 12/23/2022 11:59 PM EDT Hospital Encounter [address] [place] [address] Juliann Guevara APRN Lumbar degenerative disc disease; Lumbosacral radiculopathy at S1 Discharge Disposition: Home or Self Care 11/26/[address] [address] Refugio Guerra MD Other (pharmacy is closed on weekends) 11/24/2022 11:00 AM EDT Office Visit [address] [phone] Chioma Andersen APRN Lumbar degenerative disc disease (Primary Dx); Chronic pain syndrome; Lumbosacral spondylosis without myelopathy; Spondylosis; DDD (degenerative disc disease), cervical; Lumbosacral radiculopathy at S1; Cervicalgia 09/29/2022 3:00 PM EST Telemedicine [address] [address] Juliann Guevara APRN Lumbar degenerative disc disease; Chronic pain syndrome; Lumbosacral spondylosis without myelopathy; Spondylosis; DDD (degenerative disc disease), cervical; Lumbosacral radiculopathy at S1; Cervicalgia 08/11/2022 Telephone [facility] [address] [place] [address] Refugio Guerra MD Medication Management 08/09/2022 Travel 08/09/2022 4:50 PM EST - 08/09/2022 9:12 PM EST Emergency [facility] [address] [place] [address] Scott Mane MD Acute left lower quadrant pain (Primary Dx); Crohn's disease with complication, unspecified gastrointestinal tract location (HCC) Discharge Disposition: Home or Self Care 08/04/2022 Orders Only [address] [phone] Shaun Crowe MA Encounter for long-term (current) use of high-risk medication 08/04/2022 1:00 PM EST Office Visit [address] [phone] Juliann Guevara APRN Encounter for long-term (current) use of high-risk medication (Primary Dx); Lumbar degenerative disc disease; Chronic pain syndrome; Lumbosacral spondylosis without myelopathy; Spondylosis; DDD (degenerative disc disease), cervical; Lumbosacral radiculopathy at S1; Cervicalgia 06/03/[address] [address] Analilia Barraza APRN Prior Authorization (TPIs) 06/02/2022 1:15 PM EDT Office Visit [address] [address] Analilia Barraza APRN Lumbosacral spondylosis without myelopathy (Primary Dx); Lumbar degenerative disc disease; Chronic pain syndrome; Spondylosis; DDD (degenerative disc disease), cervical; Lumbosacral radiculopathy at S1; Cervicalgia; Myofascial pain 05/18/2022 12:26 AM EDT - 05/19/2022 6:05 PM EDT Hospital Encounter [facility] [place], [place] [id number] Dk Hughes MD Discharge Disposition: Discharge/Readmit 05/18/2022 Travel 05/17/2022 Travel 05/17/2022 5:29 PM EDT - 05/17/2022 11:42 PM EDT [facility] [address] [place] [address] Hill Colon MD Adler, Jordan M, MD Ileus (HCC) (Primary Dx); Crohn's disease with complication, unspecified gastrointestinal tract location (HCC); Diarrhea, unspecified type Discharge Disposition: Short Term Hospital 05/07/[address] [address] Refugio Guerra MD Medication Management (Pharmacy Closed on the Weekends.) 04/03/2022 3:45 PM EDT Telemedicine [place] [address] [place] [address] Refugio Guerra MD Lumbar degenerative disc disease (Primary Dx); Lumbosacral spondylosis without myelopathy; Chronic pain syndrome 02/24/2022 Telephone [place] [address] [place] [address] Refugio Guerra MD Other 02/21/2022 Travel 02/21/2022 5:24 PM EDT - 02/21/2022 8:54 PM EDT [facility] [address] [place] [address] Miguel Ángel Boyce MD Stefania infection of genital region (Primary Dx); Gastrointestinal hemorrhage with melena Discharge Disposition: Home or Self Care 02/07/2022 11:15 AM EDT Telemedicine [place] [address] [place] [address] Juliann Guevara APRN Lumbar degenerative disc disease (Primary Dx); Spondylosis; DDD (degenerative disc disease), cervical; Myofascial pain; Chronic pain syndrome 12/12/2021 Telephone [place] [address] [place] [phone] Analilia Barraza APRN Prior Authorization (TPI) 12/12/2021 Orders Only [place] [address] [place] [phone] Gail Montgomery MA Encounter for long-term (current) use of high-risk medication 12/12/2021 11:00 AM EDT Office Visit [place] [address] [place] [address] Analilia Barraza APRN Encounter for long-term (current) use of high-risk medication (Primary Dx); Lumbar degenerative disc disease; Spondylosis; DDD (degenerative disc disease), cervical; Myofascial pain 11/07/2021 Telephone [place] [address] [place] [phone] Refugio Guerra MD Medication Management (Pharmacy closed on prescription fill date ) 10/17/2021 11:00 AM EST Telemedicine [place] [address] [place] [phone] Mamie Covington APRN Lumbar degenerative disc disease; Spondylosis; DDD (degenerative disc disease), cervical 09/10/2021 Telephone [facility] [address] [place] [address] Mamie Covington APRN Results (UDS) 08/20/2021 Nurse Triage [address] [place] [address] Yola oHlguin RN 08/20/[address] [address] Refugio Guerra MD Medication Refill 08/20/2021 Orders Only [address] [phone] Charlotte Quesada Scribe Encounter for long-term (current) use of high-risk medication 08/20/2021 Travel 08/20/2021 11:15 AM EST Office Visit [place] [address] [place] [phone] Mamie Covington APRN Encounter for long-term (current) use of high-risk medication (Primary Dx); Lumbosacral radiculopathy at S1; Lumbar degenerative disc disease; Spondylosis; DDD (degenerative disc disease), cervical 07/28/2021 11:38 PM EST - 07/29/2021 1:14 AM EST [facility] [address] [place] [address] Yusuf Mabry MD Acute bronchitis due to other specified organisms (Primary Dx); Chest wall pain Discharge Disposition: Home or Self Care 07/28/2021 Travel 07/11/[address] [place] [address] Juliann Guevara APRN Non-scheduled Referral 06/17/2021 11:00 AM EDT Telemedicine [address] [place] [address] Juliann Guevara APRN Spondylosis; DDD (degenerative disc disease), cervical; Lumbosacral radiculopathy at S1; Lumbar degenerative disc disease 05/09/2021 Travel 05/09/2021 11:00 AM EDT - 05/09/2021 11:59 PM EDT Hospital Encounter [facility] [address] [place] [address] Risa Gould APRN Lumbar degenerative disc disease Discharge Disposition: Home or Self Care 05/06/[address] [place] [address] Juliann Guevara APRN Results 05/01/2021 Travel 05/01/2021 1:00 PM EDT - 05/01/2021 11:59 PM EDT Hospital Encounter [facility] [address] [place], [place] [id number] Juliann Guevara APRN DDD (degenerative disc disease), cervical Discharge Disposition: Home or Self Care 04/17/2021 Travel 04/17/2021 9:15 AM EDT Office Visit [address] [place] [address] Juliann Guevara APRN Chronic pain syndrome (Primary Dx); Lumbar degenerative disc disease; Spondylosis; DDD (degenerative disc disease), cervical; Degenerative disc disease, lumbar 03/24/2021 Travel 03/24/2021 7:16 PM EDT - 03/24/2021 8:51 PM EDT [facility] [address] [place] [address] Scott Locke MD Nonspecific abdominal pain (Primary Dx) Discharge Disposition: Home or Self Care 02/25/[address] [place] [phone] Juliann Guevara APRN Other (Schedule appt ) 02/25/2021 10:15 AM EDT Telemedicine [place] [address] [place] [phone] Juliann Guevara APRN Lumbar degenerative disc disease (Primary Dx); Lumbosacral radiculopathy at S1; Chronic pain syndrome; Spondylosis; DDD (degenerative disc disease), cervical; Degenerative disc disease, lumbar 02/01/2021 Telephone [facility] [address] [place] [address] Juliann Guevara APRN Results (UDS) 01/28/2021 2:50 PM EDT - 01/28/2021 11:59 PM EDT Hospital Encounter [facility] [address] [place] [address] Encounter for long-term (current) use of high-risk medication Discharge Disposition: Home or Self Care 01/28/2021 Travel 01/28/2021 Refill [facility] [address] [place] [address] Lloyd Schwab MD Medication Refill 01/28/2021 9:15 AM EDT Telemedicine [place] [address] [place] [phone] Juliann Guevara APRN Cervicalgia (Primary Dx); Lumbosacral radiculopathy at S1; Lumbar degenerative disc disease; DDD (degenerative disc disease), cervical; Chronic pain syndrome; Mid back pain, chronic; Myofascial muscle pain; Encounter for long-term (current) use of high-risk medication 12/25/2020 9:30 AM EDT Telemedicine [facility] [address] [place] [address] Lloyd Schwab MD Cervicalgia (Primary Dx); Lumbosacral radiculopathy at S1; Lumbar degenerative disc disease; DDD (degenerative disc disease), cervical; Chronic pain syndrome 11/29/2020 Telephone [facility] [address] [place] [address] Risa Gould APRN Other (Appt) 11/29/2020 8:00 AM EDT Telemedicine [facility] [address] [place] [address] Risa Gould APRN Lumbosacral radiculopathy at S1 (Primary Dx); Chronic pain syndrome; Lumbar degenerative disc disease; Mid back pain, chronic; DDD (degenerative disc disease), cervical; Myofascial muscle pain; Encounter for long-term (current) use of high-risk medication 11/01/2020 Telephone [facility] [address] [address] Risa Gould APRN Other (Appt) 11/01/2020 3:45 PM EST Telemedicine [facility] [place] [address] Risa Gould APRN Lumbosacral radiculopathy at S1 (Primary Dx); Lumbar degenerative disc disease; Mid back pain, chronic; Chronic pain syndrome; DDD (degenerative disc disease), cervical; Myofascial muscle pain; Right shoulder pain, unspecified chronicity; Encounter for long-term (current) use of high-risk medication 10/15/2020 Travel 10/15/2020 11:51 AM EST - 10/15/2020 1:43 PM EST [facility] [address] [place] [address] Mook Barillas, Thoracic myofascial strain, initial encounter (Primary Dx) Discharge Disposition: Home or Self Care 10/05/2020 Telephone [facility] [address] [place] [phone] Risa Gould APRN Other (Appt) 10/04/2020 3:45 PM EST Telemedicine [facility] [address] [facility] [place] [address] Risa Gould APRN Lumbosacral radiculopathy at S1 (Primary Dx); Lumbar degenerative disc disease; Mid back pain, chronic; Chronic pain syndrome; DDD (degenerative disc disease), cervical; Myofascial muscle pain; Right shoulder pain, unspecified chronicity; Encounter for long-term (current) use of high-risk medication 09/03/2020 Travel 09/03/2020 3:45 PM EST Telemedicine [address] [address] Risa Gould APRN Lumbosacral radiculopathy at S1 (Primary Dx); Lumbar degenerative disc disease; Chronic pain syndrome; DDD (degenerative disc disease), cervical; Myofascial muscle pain; Right shoulder pain, unspecified chronicity; Encounter for long-term (current) use of high-risk medication 07/09/2020 2:45 PM EST Telemedicine [address] [address] Risa Gould APRN Lumbosacral radiculopathy at S1 (Primary Dx); Lumbar degenerative disc disease; Chronic pain syndrome; Lumbar radiculitis; DDD (degenerative disc disease), cervical; Myofascial muscle pain; Encounter for long-term (current) use of high-risk medication 07/04/2020 Travel 07/04/2020 5:22 PM EDT - 07/04/2020 7:02 PM EDT [facility] [address] [place] [address] Ekaterina Ortiz MD Closed head injury, initial encounter (Primary Dx); Cervical sprain, initial encounter; Chest wall contusion, unspecified laterality, initial encounter; Sprain of other ligament of left knee, initial encounter Discharge Disposition: Home or Self Care 06/08/2020 11:30 AM EDT - 06/08/2020 11:59 PM EDT Hospital Encounter [facility] [address] [place] [address] Encounter for long-term (current) use of high-risk medication Discharge Disposition: Home or Self Care 06/08/2020 Travel 06/06/2020 Telephone [place] [address] [place] [phone] Juliann Guevara APRN Other (appt) 06/06/2020 9:15 AM EDT Telemedicine [place] [address] [place] [phone] Juliann Guevara APRN Chronic pain syndrome (Primary Dx); Lumbosacral radiculopathy at S1; Lumbar degenerative disc disease 05/08/2020 Telephone [place] [address] [place] [phone] Juliann Guevara APRN Other (appt) 05/08/2020 1:00 PM EDT Telemedicine [place] [address] [place] [phone] Juliann Guevara APRN Lumbosacral radiculopathy at S1; Lumbar degenerative disc disease 05/06/2020 Travel 05/06/2020 2:20 PM EDT - 05/06/2020 4:33 PM EDT Emergency [facility] [address] [place] [address] Jossy Mejia MD Nonintractable headache, unspecified chronicity pattern, unspecified headache type (Primary Dx) Discharge Disposition: Home or Self Care 04/09/2020 1:15 PM EDT Telemedicine [address] [place] [address] Juliann Guevara APRN Lumbar degenerative disc disease (Primary Dx); Lumbar radiculitis; Chronic pain syndrome; Lumbosacral radiculopathy at S1 03/08/[address] [place] [address] Juliann Guevara APRN Other (appt) 03/08/2020 3:15 PM EDT Telemedicine [facility] [address] [place] [address] Juliann Guevara APRN Lumbosacral radiculopathy at S1; Lumbar degenerative disc disease 03/07/[address] [place] [address] Refugio Guerra MD Medication Refill 03/01/2020 Travel 03/01/2020 2:54 PM EDT - 03/01/2020 11:59 PM EDT Hospital Encounter [facility] [address] [place] [address] Building 1 D 4th Floor - [address] [place] [address] Refugio Guerra MD Lumbosacral radiculopathy at S1 Discharge Disposition: Home or Self Care 02/22/2020 Travel 02/07/2020 11:00 AM EDT Telemedicine [address] [place] [address] Refugio Guerra MD Lumbosacral radiculopathy at S1 (Primary Dx); Lumbar degenerative disc disease; Encounter for long-term (current) use of high-risk medication; Chronic pain syndrome 01/23/[address] [place] [address] Refugio Guerra MD Other 01/23/2020 Travel 01/23/2020 1:00 PM EDT - 01/23/2020 11:59 PM EDT Hospital Encounter [facility] [address] [place] [address] 1 D 4th Floor - [address] [place] [address] Refugio Guerra MD Lumbar radiculitis; Lumbar degenerative disc disease Discharge Disposition: Home or Self Care 01/20/2020 Travel 01/16/2020 Telephone [facility] Physical Therapy [place] [id number] Elisha Pantoja, PT Other 01/12/2020 Telephone [facility] [address] [place] [address] Refugio Guerra MD Medication Management ([place]) 01/12/2020 Travel 01/10/2020 Telephone [facility] [address] [place] [address] Refugio Guerra MD Results (MRI) 01/10/2020 Travel 01/10/2020 2:00 PM EDT - 01/10/2020 11:59 PM EDT Hospital Encounter [facility] MRI [address] [place] [address] Refugio Guerra MD Lumbar radiculitis Discharge Disposition: Home or Self Care 01/09/2020 Travel 01/05/2020 Travel 01/05/2020 1:00 PM EDT Telemedicine [address] [place] [address] Refugio Guerra MD Lumbar radiculitis (Primary Dx); Lumbar degenerative disc disease 01/01/2020 Travel 01/01/2020 8:22 PM EDT - 01/01/2020 9:06 PM EDT [facility] [address] [place] [address] Bob Chirinos MD Acute exacerbation of chronic low back pain (Primary Dx) Discharge Disposition: Home or Self Care 12/04/2019 Travel 12/04/2019 6:43 AM EDT - 12/04/2019 9:13 AM EDT [facility] [address] [place] [address] Jamal Becker MD Johnson, Marleen C, MD Lymphadenopathy (Primary Dx); Sorethroat Discharge Disposition: Home or Self Care 10/02/2019 6:28 PM EST - 10/02/2019 8:26 PM EST [facility] [address] [place] [address] Freddie Awad MD Shoulder strain, right, initial [...] for up to 28 days. 112 Tablet 05/09/20 25 025 Active HYDROcodone-aceta minophen (NORCO) 10-325 mg Oral TabletIndications :Lumbosacral radiculopathy at S1 Take 1 Tablet by mouth every 6 hours as needed for Chronic Pain (G89.29) for up to 28 days. 112 Tablet 04/11/20 25 025 Active Active Problems Patient Care Coordination No te Formatting of this note migh t be different from the original. [facility] - Evaluating/Primary office MD Rosario Guerra Controlled Substance Protocol Completed:SNC Appt 02/19/24, 12/22/24, 12/29/24, 02/07/25 A. Informed Consent Statement signed (Yearly) Sent via Retora Black 10/13/2024 B. Controlled Substance Agreement signed (Yearly) 10/13/2024 C. Comprehensive Urine Drug Screen was performed (Minimum YEARLY) (03/14/25) D. Iam report completed (EVERY 3 MONTHS) (04/05/2025) E. Screening tool for addiction (SOAPP) completed (YEARLY) F. Need for controlled substance is documented (EVERY VISIT) G. Pain Scale and or Functional capacity documented (EVERY VISIT)04/21/24 Pharmacy: [facility] [phone] Problem Noted Date Diagnosed Date Syncope and collapse 01/24/2024 GERD (gastroesophageal reflux disease) Chronic pain syndrome 09/24/2023 Right lower quadrant abdominal pain 09/23/2023 Crohn's disease of colon, unspecified complicati on 09/23/2023 Crohn disease 05/18/2022 Rash 05/18/2022 Ileus 05/17/2022 Family History Medical History Relation Name Comments Arthritis Father Wayne Moulton Diabetes Father Wayne Moulton Hearing Loss Father Wayne Moulton High Blood Pressure Father Wayne Moulton Vision Loss Father Wayne Moulton Vision Loss Mother Bharati Arthur Diabetes Paternal Grandfather Pradip Moulton Diabetes Sister Marine Moulton Vision Loss Sister Marine Moulton Relation Name Status Comments Wayne Moulton Mother Bharati Arthur Paternal Grandfather Pradip Moulton Sister Marine Moulton Social History Smoking Status as of 04/13/2025 Tobacco Use Types Packs/Day Years Used Date Smoking Tobacco: Never Assessed [facility] Utilities Answer Date Recorded In the [...] Date Recorded PHQ-2 Total Score 0 01/26/2024 [facility] [place] of Occupat ional Health - Occupational Stress [...] for daily living? No 05/19/2022 [facility] HRSN [facility] IP Transportation Answer D ate [...] Pulse 81 04/05/2025 1:39 PM EDT Temperature 36.8 C (98.2 F) 01/20/2025 3:03 PM EDT Respiratory Rate 18 01/20/2025 3:30 PM EDT Oxygen Saturation 94% 04/05/2025 1:39 PM EDT Inhaled Oxygen Concentration - - Weight 89.4 kg (197 lb) 04/05/2025 1:39 PM EDT Height 175.3 cm (5' 9 ) 01/20/2025 2:55 PM EDT Body Mass Index 29.09 01/20/2025 2:55 PM EDT Plan of Treatment Upcoming Encounters Date Type Department Care Team (Late st Contact Info) Description 05/31/2025 1:30 PM EDT Office Visit [facility] [place] [address] [address] Anay Montana, COLLEGE AND CAREER COUNSELOR [address] [place] [address] Procedures Procedure Name Priority Date/Time Associated Diagnosis Comments COMPLIANCE PANEL, URINE Routine 03/14/2025 5:46 PM EDT Encounter for long-term (current) use of high-risk medication SCANNED EKG 01/23/2025 11:00 AM EDT XR [...] on Stelara q4 weeks. Patient presented to [facility] ED yesterday for worsening abdominal pain,nausea. Admitting [...] NaCl infusion Intravenous Continuous 100 mL/hr at 09/23/235New Bag at 01/17/24 2215 acetaminophen (OFIRMEV) infusion 1,000 mg 1,000 [...] distal fluid-filled SB with possible partialobstruction at ICV -WBC WNL -Pain improved, no NVD since admitted, soft BM yesterday evening; noblood. No present signs of obstruction. 2. Ileocolonic Crohn's disease; follows with [facility] -s/p TI resection 2003 -on Stelara q4 weeks -last colonoscopy 06/2022 at [facility] PLAN 1. CRP in process 2. Clear [...] past medical/social/family history sections for this patient. Ihmarina examined this patient, and participated in the care of this patient.I have reviewed the pertinent clinical information including vital signs,I&O,physical exam, labs, radiographic studies and the plan. This patientwas seen in coordination with the FLIGHT TEST DATA ACQUISITION TECHNICIAN. There has been no change in the datarecorded by the COLLEGE AND CAREER COUNSELOR except as follows. Additional data available sincethe [...] colon/small bowel resection for Crohn's disease and [facility].Currently being treated with Stelara. Doing well till [...] asked to see us in consultation by [facility] care provider on file. & Dk Hughes MD for evaluation ofdiarrhea, Crohn's disease. Mr. Moulton is a 51-year-old male with a history of ileocolonic Crohn'sdisease diagnosed in 2001 s/p TI resection in 2003 who follows at [facility]. He is on Stelara every 8 [...] Medication: acyclovir (ZOVIrax) IVPB (Standard) 10 mg/kg (Tionesta) Intravenous 3times per day metroNIDAZOLE 500 mg [...] This patient was seen in coordination with FLIGHT TEST DATA ACQUISITION TECHNICIAN. Pertinent physical exam finding: GA: NAD Lungs: non labored breathing Abdomen: soft, mild francisco abdominal tenderness I agree with assessment and plan as above. Additional information asfollows: 51-year-old male with multiple medical comorbidities including a historyof ileocolonic Crohn's disease diagnosed in 2001 s/p ileocecectomy whoactively follows at the [facility] and immunosuppression withustekinumab every 8 weeks presenting [...] follow back with his GI doctor at [facility] where he hasan appointment next week. Patient [...] SANJAY 10/02/2019 6:59 PM EST Results * (ABNORMAL) COMPLIANCE PANEL, URINE (03/14/2025 5:46 PM EDT) Only the most recent of9 resultswithin the time period is included. Medications Expected Od[place](TM) (hydrocod one) 03/15/2025 8:42 PM EDT [facility] [address] Barbiturates Absent Cutoff 200 ng/mL 03/15/2025 8:42 PM EDT [facility] [address] THC <10 Cutoff 10 ng/mL ng/mL 03/15/2025 8:42 PM EDT [facility] Comment:4-jmlcebz-wrcagsprtz cannabinol; does not distinguish between prescribed and illicit forms THC Glucuronide <10 Cutoff 10 ng/mL ng/mL 03/15/2025 8:42 PM EDT [facility] [address] Comment:Metabolite of THC Amphetamine <50 Cutoff 50 [...] EDT [facility] Comment:Metabolite of Chlord iazepoxide(Librium), Clorazepate(Tranxene), Diazepam, Halazepam, (Alapryl), Prazepam(Centrax) Flunitrazepam <50 Cutoff 50 ng/mL ng/mL 03/15/2025 8:42 PM EDT [facility] Comment:e.g.,Rohypnol, Narco zep 7-Aminoflunitrazepam <50 Cutoff 50 ng/mL ng/mL 03/15/2025 8:42 PM EDT [facility] Comment:Metabolite of Flunit razepam Flurazepam <50 Cutoff 50 ng/mL ng/mL 03/15/2025 8:42 PM EDT [facility] Comment:e.g., Dalmane Hydroxyethylflurazepam <50 Cutoff 50 ng/mL ng/mL 03/15/2025 8:42 PM EDT [facility] Comment:Metabolite of Fluraz epam Lorazepam <50 Cutoff 50 ng/mL ng/mL 03/15/2025 8:42 PM EDT [facility] Comment:e.g., Ativan Lorazepam Glucuronide <50 Cutoff 50 [...] 03/15/2025 8:42 PM EDT [facility] Comment:e.g., Serax; also Me tabolite of Temazepam, and Nordiazepam Oxazepam Glucuronide <50 Cutoff 50 ng/mL ng/mL 03/15/2025 8:42 PM EDT [facility] Comment:Metabolite of Oxazep am Temazepam <50 Cutoff 50 ng/mL ng/mL 03/15/2025 8:42 PM EDT [facility] Comment:e.g., Restoril; also Metabolite of Diazepam Temazepam Glucuronide <50 Cutoff 50 ng/mL ng/mL 03/15/2025 8:42 PM EDT [facility] Comment:Metabolite of Temaze jas and Diazepam Triazolam <50 Cutoff 50 ng/mL ng/mL 03/15/2025 8:42 PM EDT [facility] Comment:e.g., Halcion alpha-hydroxytriazolam <50 Cutoff 50 ng/mL ng/mL 03/15/2025 8:42 PM EDT [facility] Comment:Metabolite of Triazo holm Buprenorphine <5 Cutoff 5 ng/mL ng/mL 03/15/2025 8:42 PM EDT [facility] Comment:e.g., Suboxone, Subu minna,Sublocade, Buprenex Buprenorphine Glucuronide 13(H) Cutoff 10 ng/mL ng/mL 03/15/2025 8:42 PM EDT [facility] Comment:Buprenorphine Metabo lite Norbuprenorphine <5 Cutoff 5 ng/mL ng/mL 03/15/2025 8:42 PM EDT [facility] Comment:Buprenorphine Metabo lite Norbuprenorphine Glucuronide 118(H) Cutoff 10 ng/mL ng/mL 03/15/2025 8:42 PM EDT [facility] Comment:Buprenorphine Metabo lite Benzoylecgonine <50 Cutoff 50 ng/mL ng/mL 03/15/2025 8:42 PM EDT [facility] Comment:Cocaine Metabolite Fentanyl <1 Cutoff 1 ng/mL ng/mL 03/15/2025 8:42 PM EDT [facility] Comment:e.g.,Duragesic, Oral et, Actiq, Sublimaze, Innovar, Lazanda Norfentanyl <1 Cutoff 1 ng/mL ng/mL 03/15/2025 8:42 PM EDT [facility] Comment:Metabolite of Fentan yl 6-Monoacetylmorphine (6MAM) <10 Cutoff 10 ng/mL ng/mL 03/15/2025 8:42 PM EDT [facility] Comment:Metabolite of Heroin ; Morphine is expected Methadone <50 Cutoff 50 ng/mL ng/mL 03/15/2025 8:42 PM EDT [facility] Comment:e.g., Dolophine, Met hadose, Amidone EDDP <50 Cutoff 50 ng/mL ng/mL 03/15/2025 8:42 PM EDT [facility] Comment:Methadone Metabolite Carisoprodol <100 Cutoff 100 ng/mL ng/mL 03/15/2025 8:42 PM EDT [facility] Comment:e.g., Soma Meprobamate <100 Cutoff 100 ng/mL ng/mL 03/15/2025 8:42 PM EDT [facility] Comment:e.g., Sharon, Equa nil, Micrainin, Equagesic; Metabolite of Carisoprodol Codeine <50 Cutoff 50 ng/mL ng/mL 03/15/2025 8:42 PM EDT [facility] Comment:e.g., Acetaminophen w/Codeine, Tylenol3 w/ Codeine Codeine Glucuronide <50 Cutoff 50 ng/mL ng/mL 03/15/2025 8:42 PM EDT [facility], [facility] Comment:Metabolite of Codein e Meperidine <50 Cutoff 50 ng/mL ng/mL 03/15/2025 8:42 PM EDT [facility] Comment:e.g., Demerol, Pethi dine Normeperidine <50 Cutoff 50 ng/mL ng/mL 03/15/2025 8:42 PM EDT [facility] Comment:Metabolite of Meperi dine Morphine <50 Cutoff 50 ng/mL ng/mL 03/15/2025 8:42 PM EDT [facility] Comment:e.g., MS Contin, Adry anol; Metabolite of Codeine and Heroin; may reflect poppy seed ingestion Fzgbvvrd-2-Xlzwtcgfhcd <25 Cutoff 25 ng/mL ng/mL 03/15/2025 8:42 PM EDT [facility] Comment:Metabolite of Morphi ne. Nekyjarn-2-Wzxqaxmwxfg <25 Cutoff 25 ng/mL ng/mL 03/15/2025 8:42 PM EDT [facility] Comment:Metabolite of Morphi ne. Naloxone <25 Cutoff 25 ng/mL ng/mL 03/15/2025 8:42 PM EDT [facility] Comment:e.g., Narcan, Evzio Hydrocodone >2,000(H) Cutoff 50 ng/mL ng/mL 03/15/2025 8:42 PM EDT [facility] Comment:e.g., Lorcet, Lortab , Vicodin, Od[place]; Minor Metabolite of Codeine Dihydrocodeine >2,000(H) Cutoff 50 ng/mL ng/mL 03/15/2025 8:42 PM EDT [facility] Comment:e.g., Didrate, Parzo ne, Parlor, Synalgos; Metabolite of Hydrocodone Norhydrocodone >2,000(H) Cutoff 50 ng/mL ng/mL 03/15/2025 8:42 PM EDT [facility] Comment:Metabolite of Hydroc odone Hydromorphone 137(H) Cutoff 50 ng/mL ng/mL 03/15/2025 8:42 PM EDT [facility] Comment:e.g., Dilaudid; also Metabolite of Hydrocodone and Minor Metabolite of Morphine Hydromorphone Glucuronide >2,000(H) Cutoff 50 ng/mL ng/mL 03/15/2025 8:42 PM EDT [facility] Comment:Metabolite of Hydrom orphone Oxycodone <50 Cutoff 50 ng/mL ng/mL 03/15/2025 8:42 PM EDT [facility] Comment:e.g., Oxycontin, Per cocet, Endocet, Percodan, Roxicet Noroxycodone <50 Cutoff 50 ng/mL ng/mL 03/15/2025 8:42 PM EDT [facility] Comment:Metabolite of Oxycod one Oxymorphone <50 Cutoff 50 ng/mL ng/mL 03/15/2025 8:42 PM EDT [facility] Comment:e.g., Opana; Metabol ite of Oxycodone Oxymorphone Glucuronide <50 Cutoff 50 ng/mL ng/mL 03/15/2025 8:42 PM EDT [facility], [facility] Comment:Metabolite of Oxycod one Noroxymorphone <50 Cutoff 50 ng/mL ng/mL 03/15/2025 8:42 PM EDT [facility] Comment:Metabolite of Oxycod one, and Oxymorphone, Noroxycodone Metabolite Tramadol <50 Cutoff 50 ng/mL ng/mL 03/15/2025 8:42 PM EDT [facility], [facility] Comment:e.g., Ultram, ConZip T-Dcjofhgvn-qyp-Tramadol <50 Cutoff 50 ng/mL ng/mL 03/15/2025 8:42 PM EDT [facility], [facility] Comment:Metabolite of Tramad ol Tapentadol <50 Cutoff 50 ng/mL ng/mL 03/15/2025 8:42 PM EDT [facility], [facility] Comment:Nucynta Tapentadol-Glucuronide <50 Cutoff 50 ng/mL ng/mL 03/15/2025 8:42 PM EDT [facility], [facility] Comment:Metabolite of Tapent adol Urine Creatinine 249.0 mg/dL 03/15/20 25 8:42 PM EDT [facility] Comment: Greater than 20: Consistent with valid sample Greater than 2 but less than 20: Possible dilution Less than 2: Questionable valid sample Urine STRUCTURE OF URINARY TRACT PROPER / Unknown 03/14/2025 5:46 PM EDT 03/14/2025 5:46 PM EDT Narrative [facility], [facility] - 03/15/2025 8:42 PM EDT The absence [...] be regarded as investigational or for research. [facility] is certified under the Clinical Laboratory Improvement Amendments (CLIA) as qualified to perform high complexity clinical laboratory testing. us Juliann Guevara COLLEGE AND CAREER COUNSELOR URINE ORDERABLES Final Res ult [email or web address], [address] [place] [id number] [facility] [address] [place] [address] [id number] * SCANNED EKG (01/23/2025 11:00 AM EDT) [...] PM EDT Impressions 01/20/2025 5:[address] [facility] Test Date: 2025-01-20 Pat Name: FAUSTINA MOULTON Department: DEPID Room: Gender: Male Clin Asst: Davis : 1970 Requested By: [facility] Order Number: [id number] Reading MD: Yvette De Jesus Measurements Intervals Leslie Rate: 71 P: 51 FL: 132 QRS: 23 QRSD: 90 T: 45 QT: 400 QTc: 438 Interpretive Statements SINUS RHYTHM Electronically Signed On 01-20-2025 17:44:19 EDT by Yvette De Jesus Narrative Procedure Note Yvette De Jesus MD - 01/20/2025 IMPRESSION [facility] Test Date: 2025-01-20 Pat Name: FAUSTINA MOULTON Department: DEPID Room: Gender: Male Clin Asst: Davis : 1970 Requested By: [facility] Order Number: [id number] Reading MD: Yvette De Jesus Measurements Intervals Leslie Rate: 71 P: 51 FL: 132 QRS: 23 QRSD: 90 T: 45 [...] contactthe office of the ordering clinician. 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 COMPARISON: 01/10/2020 PROCEDURE COMMENTS: Multiplanar multiecho MR [...] CLINICAL HISTORY: M47.817-Spondylosis without myelopathy orradiculopathy, lumbosacral uhazzd-UPT-80-CM M51.36-Other intervertebral disc degeneration, lumbar iizidi-HXP-38-CM. COMPARISON: 01/10/2020 PROCEDURE COMMENTS: Multiplanar multiecho MR [...] of the right subarticular disc protrusion at L5-E5zoqpy is resolved or near completely resolved. No [...] contactthe office of the ordering clinician. Risa Dorinakee Gould APRN IMG MRI ORDERABLES Final Result * VA US CAROTID DUPLEX BILATERAL (01/26/2024 8:51 AM [...] internal carotid artery demonstrates 1-39% mild stenosis. Result [facility] Scooter Beckett MD [facility] VASCULAR ORDERABLES Final Re sult * (ABNORMAL) [...] 01/26/2024 7:57 AM EDT [facility] MCV 88.6 80.0 - 100.0 fL 01/26/2024 7:57 AM EDT [facility] MCH 29.9 26.0 - 34.0 pg 01/26/2024 7:57 AM EDT [facility] MCHC 33.8 30.7 - 35.5 g/dL 01/26/2024 7:57 AM EDT [facility] RDW 12.3 <=14.9 % 01/26/2024 7:57 AM EDT [facility] Platelet 214 155 - 369 x10(3)/mcL 01/26/2024 7:57 AM EDT [facility] MPV 9.5 8.8 - 12.5 fL 01/26/2024 7:57 AM EDT [facility] Neut Percent 62.4 % 01/26/2024 7:57 AM EDT [facility] Comment:Neutrophils equals s egs plus bands Imm Gran% 0.4 % 01/26/2024 7:57 AM EDT [facility] Comment:Automated count of m etamyelocytes, myelocytes and promyelocytes. Lymph Percent 27.1 % 01/26/2024 7:57 AM EDT [facility] Kleberg Percent 8.0 % 01/26/2024 7:57 AM EDT [facility] Eos Percent 1.7 % 01/26/2024 7:57 AM EDT [facility] Baso Percent 0.4 % 01/26/2024 7:57 AM EDT [facility] Neut # 5.2 1.6 - 6.1 x10(3)/mcL 01/26/2024 7:57 AM EDT [facility] Comment:Neutrophils equals s egs plus bands IMMGRAN# 0.0 0.0 - 0.1 x10(3)/mcL 01/26/2024 7:57 AM EDT [facility] Comment:Automated count of m etamyelocytes, myelocytes and promyelocytes. An absolute IG <0.1 is reported as 0.0. Lymph # 2.2 1.2 - 3.9 x10(3)/mcL 01/26/2024 7:57 AM EDT [facility], [facility] Kleberg # 0.7 0.3 - 0.9 x10(3)/mcL 01/26/2024 7:57 AM EDT [facility], [facility] Eos# 0.1 0.0 - 0.5 x10(3)/[facility] 01/26/2024 7:57 AM EDT [facility], [facility] Baso # 0.0 0.0 - 0.1 x10(3)/[facility] 01/26/2024 7:57 AM EDT [facility], [facility] Blood VENOUS BLOOD / Unknown Venipuncture / Unknown 01/26/2024 7:25 AM EDT 01/26/2024 7:44 AM EDT Scooter Beckett MD HEMATOLOGY ORDERABLES Final Resu lt Performing Organization Address [facility] Co de Phone Number [address] , [place] [address] * THYROID STIMULATING HORMONE (01/26/2024 7:25 AM EDT) TSH 0.944 0.270 - 4.200 mcIU/mL 01/26/2024 8:27 AM EDT [facility] Blood VENOUS BLOOD / Unknown Venipuncture / Unknown 01/26/2024 7:25 AM EDT 01/26/2024 7:44 AM EDT Narrative [facility] - 01/26/2024 8:27 AM EDT Ingestion of fam doses of biotin (>5 mg/day) taken within 8 hours of drawing blood sample can interfere with this immunoassay test. Scooter Beckett MD CHEMISTRY ORDERABLES Final Resul t Performing Organization Address [facility]/ZIP Co de Phone Number [facility] [employer] , [place] [address] * T4, FREE (THYROXINE) (01/26/2024 7:25 AM EDT) Free T4 1.01 0.80 - 1.80 ng/dL 01/26/2024 8:27 AM EDT [facility] Blood VENOUS BLOOD / Unknown Venipuncture / Unknown 01/26/2024 7:25 AM EDT 01/26/2024 7:44 AM EDT Narrative [facility] [employer] [facility] - 01/26/2024 8:27 AM EDT Ingestion of fam doses of biotin (>5 mg/day) taken within 8 hours of drawing blood sample can interfere with this immunoassay test. us Scooter Beckett MD CHEMISTRY ORDERABLES Final Resul t PREFERRED [facility] [address] [facility] , [place] [address] * (ABNORMAL) LIPID SCREEN (01/26/2024 7:25 AM EDT) Cholesterol 202(H) <200 mg/dL 01/26/2024 8:27 AM EDT [facility] Comment: < 200 Desirable 200 - 239 Borderline High >= 240 High Triglyceride 116 <150 mg/dL 01/26/2024 8:27 AM EDT [facility] Comment: < 150 Normal 150 - 199 Borderline High 200 - 499 High >= 500 Very High HDL 42 >=40 mg/dL 01/26/2024 8:27 AM EDT [facility] Comment: > 60 Optimal 40 - 60 Acceptable < 40 Low LDL Calculated 139(H) <100 mg/dL 01/26/2024 8:27 AM EDT [facility] Comment: < 100 Optimal 100 - 129 Near or above optimal 130 - 159 Borderline High 160 - 189 High >= 190 Very High Non-HDL-C Calculated 160(H) <=129 mg/dL 01/26/2024 8:27 AM EDT [facility] Comment: <130 Desirable 130-159 Above Desirable 160-189 Borderline High 190-219 High >= 220 Very High Fasting Specimen? Yes None 024 8:27 AM EDT [facility] Blood VENOUS BLOOD / Unknown Venipuncture / Unknown 01/26/2024 7:25 AM EDT 01/26/2024 7:44 AM EDT us Scooter Beckett MD CHEMISTRY ORDERABLES Final Resul t [facility] [address] [facility] [place] [id number] [facility] [address] [place] [address] * BASIC METABOLIC PANEL (01/26/2024 7:25 AM EDT) Only the most recent of5 resultswithin the time period is included. Sodium 142 136 - 145 mmol/L 01/26/2024 8:27 AM EDT [facility] Potassium 3.6 3.5 - 5.0 mmol/L 01/26/2024 8:27 AM EDT [facility] Chloride 103 98 - 107 mmol/L 01/26/2024 8:27 AM EDT [facility] Total CO2 27 22 - 29 mmol/L 01/26/2024 8:27 AM EDT [facility] Anion Gap 12 7 - 16 mmol/L 01/26/2024 8:27 AM EDT [facility] Calcium 8.9 8.6 - 10.4 mg/dL 01/26/2024 8:27 AM EDT [facility] Glucose Lvl 91 70 - 99 mg/dL 01/26/2024 8:27 AM EDT [facility] BUN 8 6 - 20 mg/dL 01/26/2024 8:27 AM EDT [facility] Creatinine 1.10 0.67 - 1.30 mg/dL 01/26/2024 8:27 AM EDT [facility] eGFR (CKD-EPIcr 2020) 81 >=60 mL/min/1.7 3 m2 01/26/2024 8:27 AM EDT [facility] Comment:Estimated GFR was ca lculated using the CKD-EPIcr (2020) equation refit without race. The equation is recommended by the National Kidney Foundation - [place] [employer] Nephrology Task Force. Blood VENOUS BLOOD / Unknown Venipuncture / Unknown 01/26/2024 7:25 AM EDT 01/26/2024 7:44 AM EDT us Scooter Beckett MD CHEMISTRY ORDERABLES Final Resul t [facility], [place] [address] [facility] 1 [place], [place] [id number] * MRI BRAIN WO CONTRAST (01/26/2024 1:00 [...] of the ordering clinician. Scooter Beckett MD IM MRI ORDERABLES Final Result * HEMOGLOBIN A1C (01/25/2024 9:00 PM EDT) Hgb A1C 5.3 4.2 - 5.6 % 01/25/2024 9:27 PM EDT [facility] [address] Est. Avg Glucose 105 mg/dL 01/25/2024 9:27 PM EDT [facility] [address] Blood VENOUS BLOOD / Unknown Venipuncture / Unknown 01/25/2024 9:00 PM EDT 01/25/2024 9:06 PM EDT Narrative [facility] [address] - 01/25/2024 9:27 PM EDT REFERENCE RANGE: Normal: 4.0-5.6% Pre-diabetes: 5.7-6.4% Provisional diagnosis of diabetes: >6.4% Hgb F>10% and anything which shortens red cell survival, such as hemolytic anemia, or unstable hemoglobin variants such as HbSS, HbSC, or HbCC, will lower the HbA1c value associated with a given level of glycemic control. us Scooter Beckett MD CHEMISTRY ORDERABLES Final Resul t [facility] [address] [facility] , [place] [address] * TROPONIN-T HIGH SENSITIVITY 2HR (01/24/2024 11:21 PM EDT) zk-eWpdcwokw-F 2HR <6 <22 ng/L 01/24/2024 11:51 PM EDT [facility] Comment:See the website Triviala for rule out PA care pathway, conditions other than AMI that can cause elevated hs cTnT, and comparison of values from the 4th and 5th generation Rickey tests. https://askmayoexpert.[email or web address].org/topic/clinical-answers/gnt-53616011/cpm-203 87409 hs-cTnT 2Hr Delta from Baseline 01/24/2024 11:51 PM EDT [facility] Comment:Unable to calculate, result is outside instrument's measuring range. Blood VENOUS BLOOD / Unknown Venipuncture / Unknown 01/24/2024 11:21 PM EDT 01/24/2024 11:28 PM EDT Narrative [facility] - 01/24/2024 11:51 PM EDT Ingestion of fam doses of biotin (>5 mg/day) taken within 8 hours of drawing blood sample can interfere with this immunoassay test. us Doc Garcia MD CHEMISTRY ORDERABLES Final R esult Performing Organization Address City/[facility]/ZIP Co de Phone Number [facility] [address] [place] [address] * CT CERVICAL SPINE WO [...] than right maxillary sinus opacification. Procedure Note Ivan Srinivasan MD - 01/24/2024 CT CERVICAL SPINE [...] office of the ordering clinician. us Doc aGrcia MD [facility] DIAGNOSTIC IMAGING ORDER MANNY Final Result * [...] heart and lungs unremarkable. Procedure Note Ivan Srinivasan MD - 01/24/2024 XR RIBS BILATERAL 3 [...] the ordering clinician. us Doc Garcia MD [facility] DIAGNOSTIC IMAGING ORDER MANNY Final Result * TROPONIN-T HIGH SENSITIVITY BASELINE W/ REFLEX (01/24/2024 7:52 PM EDT) ki-mJaudbeqx-V <6 <22 ng/L 01/24/2024 8:18 PM EDT [facility] Comment:See the website belo w for rule out PA care pathway, conditions other than AMI that can cause elevated hs cTnT, and comparison of values from the 4th and 5th generation Rickey tests. https://askmayoexpert.[email or web address]/topic/clinical-answers/gnt-93228263/cpm-203 13351 Blood VENOUS BLOOD / Unknown Venipuncture / Unknown 01/24/2024 7:52 PM EDT 01/24/2024 7:56 PM EDT Narrative [facility] - 01/24/2024 8:18 PM EDT Ingestion of fam doses of biotin (>5 mg/day) taken within 8 hours of drawing blood sample can interfere with this immunoassay test. Doc Garcia MD CHEMISTRY ORDERABLES Final R esult Performing Organization Address [facility] Co de Phone Number [facility] [address] [place] [address] * BLOOD CULTURE (NO STAIN) (09/26/2023 5:43 PM EST) Only the most recent of4 resultswithin the time period is included. Culture Result No Growth at 120 hours. BLOOD CULTURE (NO STAIN) 10/02/2023 10:00 AM EST [facility] Blood VENOUS BLOOD / Unknown Venipuncture / Unknown 09/26/2023 5:43 PM EST 09/26/2023 5:47 PM EST Damir Diana MD MICROBIOLOGY - GENERAL ORDERABL ES Final Result Performing Organization Address [facility] Co de Phone Number [employer] [address] [place] [address], [place] [address] * REPEAT LACTIC ACID (09/23/2023 6:02 PM EST) Only the most recent of2 resultswithin the time period is included. Lactic Acid 1.0 0.5 - 1.9 mmol/L 09/23/2023 6:49 PM EST [facility] Blood VENOUS BLOOD / Unknown Venipuncture / Unknown 09/23/2023 6:02 PM EST 09/23/2023 6:41 PM EST Jouse Fernández APRN CHEMISTRY ORDERABLES Fin al Result Performing Organization Address [facility]/ZIP Co de Phone Number [facility] [address] [place] [address] * PROCALCITONIN (09/23/2023 6:02 PM EST) Procalcitonin 0.05 <=0.49 ng/mL 09/24/2023 9:49 AM EST [facility] Blood VENOUS BLOOD / Unknown Venipuncture / Unknown 09/23/2023 6:02 PM EST 09/23/2023 6:41 PM EST Narrative [facility] - 09/24/2023 9:49 AM EST Procalcitonin <0.50 [...] progression to severe sepsis and/or septic shock. us Josue Fernández COLLEGE AND CAREER COUNSELOR CHEMISTRY ORDERABLES Fin al Result [facility] [address] [facility] , [address] [place] [id number] * (ABNORMAL) C-REACTIVE PROTEIN (09/23/2023 6:02 PM EST) Only the most recent of3 resultswithin the time period is included. Pathologist [facility] CRP 9.62(H) <=5.00 mg/L 09/24/2023 9:39 AM EST [employer] [facility] Blood VENOUS BLOOD / Unknown Venipuncture / Unknown 09/23/2023 6:02 PM EST 09/23/2023 6:41 PM EST Josue Fernández COLLEGE AND CAREER COUNSELOR CHEMISTRY ORDERABLES Fin al Result [facility] [email or web address] [address] [facility] , [place] [address] * URINALYSIS REFLEX (09/23/2023 5:46 PM EST) UA Color Yellow 09/23/2023 5:51 PM EST [facility] UA Appear Clear Clear 09/23/2023 5:51 PM EST [facility] UA Glucose Negative Negative mg/dL 09/23/2023 5:51 PM EST [facility] UA Ketones Negative Negative mg/dL 09/23/2023 5:51 PM EST [facility] UA Blood Negative Negative 09/23/2023 5:51 PM EST [facility] UA pH 6.5 5.0 - 8.0 pH 09/23/2023 5:51 PM EST [facility] UA Protein Negative Negative mg/dL 09/23/2023 5:51 PM EST [facility] UA Urobilinogen 0.2 <=1 mg/dL 5:51 PM EST [facility] UA Bili Negative Negative 09/23/2023 5:51 PM EST [facility] UA Nitrite Negative Negative 09/23/2023 5:51 PM EST [facility] UA Leuk Est Negative Negative 09/23/2023 5:51 PM [facility] UA Spec Grav 1.015 1.001 - 1.035 no units 09/23/2023 5:51 PM EST [facility] Comment:Reference range olvin d for random specimens only. Urine URINE SPECIMEN COLLECTION, CLEAN CATCH / Unknown 09/23/2023 5:46 PM EST 09/23/2023 5:48 PM EST Josue Fernández COLLEGE AND CAREER COUNSELOR URINE ORDERABLES Final R esult [facility] [address] [place] [address] * EXTRA LE URINE CX (09/23/2023 5:46 PM EST) Only the most recent of4 resultswithin the time period is included. Urine URINE SPECIMEN COLLECTION, CLEAN CATCH / Unknown 09/23/2023 5:46 PM EST 09/23/2023 5:48 PM EST us Josue Fernández COLLEGE AND CAREER COUNSELOR MICROBIOLOGY - GENERAL O RDERABLES Final Result [facility] [address] [place] [address] * CT ABD PEL ED [...] - 20 mm/hr 09/23/2023 5:56 PM EST [facility] Blood VENOUS BLOOD / Unknown Venipuncture / Unknown 09/23/2023 4:01 PM EST 09/23/2023 4:06 PM EST Josue Fernández APRN HEMATOLOGY ORDERABLES Fi nal Result Performing Organization Address [facility] de Phone Number [facility] [address] [place] [address] * LIPASE LEVEL (09/23/2023 4:01 PM EST) Only the most recent of4 resultswithin the time period is included. Lipase Lvl 23 13 - 60 U/L 09/23/2023 4:24 PM EST [facility] Blood VENOUS BLOOD / Unknown Venipuncture / Unknown 09/23/2023 4:01 PM EST 09/23/2023 4:12 PM EST Josue Fernández APRN CHEMISTRY ORDERABLES Fin al Result Performing Organization Address [facility] Phone Number [facility] [address] [place] [address] * (ABNORMAL) LACTIC ACID (09/23/2023 4:01 PM EST) Only the most recent of4 resultswithin the time period is included. Lactic Acid 2.8(H) 0.5 - 1.9 mmol/L 09/23/2023 4:21 PM EST [facility] Blood VENOUS BLOOD / Unknown Venipuncture / Unknown 09/23/2023 4:01 PM EST 09/23/2023 4:12 PM EST Josue Fernández APRN CHEMISTRY ORDERABLES Fin al Result Performing Organization Address [facility] de Phone Number [facility] [address] [place] [address] * (ABNORMAL) COMPREHENSIVE METABOLIC PANEL (09/23/2023 4:01 PM EST) Only the most recent of7 resultswithin the time period is included. Sodium 137 136 - 145 mmol/L 09/23/2023 4:24 PM EST [facility] Potassium 3.5 3.5 - 5.0 mmol/L 09/23/2023 4:24 PM [facility] Chloride 101 98 - 107 mmol/L 09/23/2023 4:24 PM [facility] Total CO2 24 22 - 29 mmol/L 09/23/2023 4:24 PM [facility] Anion Gap 12 7 - 16 mmol/L 09/23/2023 4:24 PM [facility] Calcium 8.4(L) 8.6 - 10.4 mg/dL 09/23/2023 4:24 PM [facility] Glucose Lvl 210(H) 74 - 100 mg/dL 09/23/2023 4:24 PM [facility] BUN 8 6 - 20 mg/dL 09/23/2023 4:24 PM [facility] Creatinine 0.99 0.67 - 1.30 mg/dL 09/23/2023 4:24 PM [facility] Albumin 3.6 3.5 - 5.2 gm/dL 09/23/2023 4:24 PM [facility] Total Protein 6.1(L) 6.4 - 8.3 gm/dL 09/23/2023 4:24 PM [facility] Bili Total 0.3 0.2 - 1.4 mg/dL 09/23/2023 4:24 PM [facility] ALT 22 <=41 U/L 09/23/2023 4:24 PM [facility] AST 26 <=40 U/L 09/23/2023 4:24 PM [facility] Alk Phos 98 40 - 129 U/L 09/23/2023 4:24 PM [facility] eGFR (CKD-EPIcr 2020) 92 >=60 mL/min/1.7 3 m2 09/23/2023 4:24 PM [facility] Comment:Estimated GFR was ca lculated using the CKD-EPIcr (2020) equation refit without race. The equation is recommended by the National Kidney Foundation - [place] [employer] of Nephrology Task Force. Blood VENOUS BLOOD / Unknown Venipuncture / Unknown 09/23/2023 4:01 PM EST 09/23/2023 4:12 PM EST us Josue Fernández COLLEGE AND CAREER COUNSELOR CHEMISTRY ORDERABLES Fin al Result [facility] [address] [place] [address] * CT LUMBAR SPINE W CONTRAST (05/28/2023 [...] 1:11 PM CLINICAL HISTORY: M54.50-Low back pain, neicqfqjosm-YIS-07-CM G89.29-Other chronic yrsm-YRE-62-CM R22.2-Localized swelling, mass and lump, mhpwd-DFA-39-CM. COMPARISON: MR lumbar spine 01/10/2020. PROCEDURE COMMENTS: Multidetector CT scanning of the lumbar spine with multiplanar reformats. Isovue 370 IV contrast given as recorded in EPIC. Dose 1 : CT DLP Total : 1245.4 mGycm DLP Spiral Max : 1245.4 mGycm Maximum CTDI Vol : 40.2 mGy SSDE : 43.818 mGy SSDE Diameter : 33.3 cm SSDE Source : AlephD FINDINGS: No acute fracture is present. There [...] 1:11 PM CLINICAL HISTORY: M54.50-Low back pain, kqrouaofnfg-HIS-69-CM G89.29-Other chronic jnfr-PVR-99-CM R22.2-Localized swelling, mass and lump, sjmoq-OQQ-52-CM. COMPARISON: MR lumbar spine 01/10/2020. PROCEDURE COMMENTS: Multidetector CT scanning of the lumbar spine with multiplanar reformats. Isovue 370 IV contrast given as recorded in EPIC. Dose 1 : CT DLP Total : 1245.4 mGycm DLP Spiral Max : 1245.4 mGycm Maximum CTDI Vol : 40.2 mGy SSDE : 43.818 mGy SSDE Diameter : 33.3 cm SSDE Source : AlephD FINDINGS: No acute fracture is present. There [...] solid-appearing mass or abnormal enhancement included softtissues. Analilia Barraza APRN [facility] CT ORDERABLES Final Resu lt * CT [...] Diameter : 32.2 cm SSDE Source : [place] FINDINGS: LOWER THORAX: Lung bases unremarkable. ABDOMEN [...] Diameter : 32.2 cm SSDE Source : [place] FINDINGS: LOWER THORAX: Lung bases unremarkable. ABDOMEN [...] R adiology Narrative 12/23/2022 11:37 AM EDT [facility] PROCEDURE NOTE Faustina Moulton December 23, [...] home. Refugio Guerra MD Interventional Pain Management [facility] Date: 12/23/2022 us Juliann Guevara COLLEGE AND CAREER COUNSELOR IMG IR ORDERABLES Final Re sult * [...] Diameter : 31.8 cm SSDE Source : AlephD FINDINGS: LOWER THORAX: Lung bases clear. ABDOMEN [...] Diameter : 31.8 cm SSDE Source : AlephD FINDINGS: LOWER THORAX: Lung bases clear. ABDOMEN [...] of the ordering clinician. Scott Mane MD [facility] CT ORDERABLES Final Result * URINALYSIS (08/09/2022 5:11 PM EST) Only the most recent of3 resultswithin the time period is included. UA Color Yellow 08/09/2022 5:26 PM EST [facility] UA Appear Clear Clear 08/09/2022 5:26 PM EST [facility] UA Glucose Negative Negative mg/dL 08/09/2022 5:26 PM EST [facility] UA Ketones Negative Negative mg/dL 08/09/2022 5:26 PM EST [facility] UA Blood Negative Negative 08/09/2022 5:26 PM EST [facility] UA pH 6.0 5.0 - 8.0 pH 08/09/2022 5:26 PM EST [facility] UA Protein Negative Negative mg/dL 08/09/2022 5:26 PM [facility] UA Urobilinogen 0.2 <=1 mg/dL 5:26 PM [facility] UA Bili Negative Negative 08/09/2022 5:26 PM EST [facility] UA Nitrite Negative Negative 08/09/2022 5:26 PM [facility] UA Leuk Est Negative Negative 08/09/2022 5:26 PM [facility] UA Spec Grav 1.020 1.001 - 1.035 no units 08/09/2022 5:26 PM [facility] Comment:Reference range olvin d for random specimens only. Urine URINE SPECIMEN COLLECTION, CLEAN CATCH / Unknown 08/09/2022 5:11 PM EST 08/09/2022 5:23 PM EST us Sctot Mane MD URINE ORDERABLES Final Result [facility] [address] [place] [address] * (ABNORMAL) HEMOGLOBIN AND HEMATOCRIT (05/19/2022 4:08 PM EDT) Only the most recent of5 resultswithin the time period is included. Hgb 13.7 13.7 - 17.5 g/dL 05/19/2022 4:19 PM EDT [facility] [employer] [address] Hct 39.8(L) 40.0 - 51.0 % 05/19/2022 4:19 PM EDT [facility] [address] Blood VENOUS BLOOD / Unknown Venipuncture / Unknown 05/19/2022 4:08 PM EDT 05/19/2022 4:12 PM EDT hSerry Rebolledo MD HEMATOLOGY ORDERABLES Final Resu lt [facility] [address] [facility] , [place] [address] * (ABNORMAL) FECAL CALPROTECTIN (05/18/2022 5:09 PM EDT) Fecal Calprotectin 226(H) <50 ug/g 05/20/2022 3:00 PM EDT [facility] Comment: Normal: <50 ug/g Borderline: 50-120 ug/g Elevated: >120 ug/g Stool SPECIMEN FROM RECTUM / Unknown 05/18/2022 5:09 PM EDT 05/18/2022 5:19 PM EDT Maude Tellez APRN IMMUNOLOGY ORDERABLES Final R esult Performing Organization Address City/[facility] Co de Phone Number [facility] [employer] [address] , [place] [address] * SHIGA TOXIN (05/18/2022 5:07 PM EDT) Pathologist [facility] Shiga Toxin Shiga toxins (produced by E. coli) not detected. Shiga toxins (produced by E. coli) not detected. 05/19/2022 5:36 PM EDT [facility] Stool SPECIMEN FROM RECTUM / Unknown 05/18/2022 5:07 PM EDT 05/18/2022 5:20 PM EDT Sherry Rebolledo MD MICROBIOLOGY - GENERAL ORDERABLE S Final Result Performing Organization Address [facility] Co de Phone Number [facility] [employer] [address] , [place] [address] * STOOL CULTURE (NO STAIN) (05/18/2022 5:07 PM EDT) Culture No growth of enteric pathogens, including Salmonella, Shigella, Campylobacter, Vibrio, Yersinia, Aeromonas, Plesiomonas, or E. coli O157. 05/21/2022 2:57 PM EDT [facility] Stool SPECIMEN FROM RECTUM / Unknown 05/18/2022 5:07 PM EDT 05/18/2022 5:19 PM EDT us Sherry Rebolledo MD MICROBIOLOGY - GENERAL ORDERABLE S Final Result Performing Organization Address [facility]/ZIP Co de Phone Number [facility], [address] , [place] [address] * OVA AND PARASITE BASIC (05/18/2022 5:07 PM EDT) Giardia Lamblia Antigen Not Detected Not detected 05/19/2022 5:34 PM EDT [facility] Cryptosporidium Exam Not Detected Not Detected 05/19/2022 5:34 PM EDT [facility] Stool SPECIMEN FROM RECTUM / Unknown 05/18/2022 5:07 PM EDT 05/18/2022 5:19 PM EDT Maude Tellez APRN MICROBIOLOGY - GENERAL ORDERA BLES Final Result Performing Organization Address [facility]/ZIP Co de Phone Number [facility], [address] , [place] [address] * (ABNORMAL) CBC (05/18/2022 5:36 AM EDT) [...] g/dL 05/18/2022 8:05 AM EDT [facility] [address] RDW 12.3 <=14.9 % 05/18/2022 8:05 AM EDT [facility] [address] Platelet 210 155 - 369 x10(3)/mcL 05/18/2022 8:05 AM EDT [facility] [address] MPV 9.2 8.8 - 12.5 fL 05/18/2022 8:05 AM EDT [facility] [address] Blood VENOUS BLOOD / Unknown Venipuncture / Unknown 05/18/2022 5:36 AM EDT 05/18/2022 7:15 AM EDT us Sherry Rebolledo MD HEMATOLOGY ORDERABLES Final Resu lt [facility] [employer] [address] [facility] , [place] [address] * CORONAVIRUS 2019 (05/17/2022 6:31 PM EDT) [facility] CORONAVIRUS [id number] Not Detected Not Detected 05/17/2022 7:10 PM EDT [facility] Comment: This test is a real-time [...] and Patients: JOSEPH Fact Sheet for Providers: https://www.fda.gov/media/815418/download JOSEPH Fact Sheet for Patients: https://www.fda.gov/media/523025/download Test is performed on the [employer] JOSEPH platform under the FDA's Emergency Use Authorization (EUA). Performed at [address] [address] CLIA [id number] Swab BOTH ANTERIOR NARES / Unknown 05/17/2022 6:31 PM EDT 05/17/2022 6:48 PM EDT us Antonina Soniya Perales COLLEGE AND CAREER COUNSELOR MICROBIOLOGY - GENERAL ORDERA BLES Final Result [facility] [address] [place] [address] * XR CHEST AP PORTABLE (07/29/2021 12:52 [...] clinician. Yusuf Mabry MD [facility]G DIAGNOSTIC IMAGING ORDE ARIANA Final Result * CORONAVIRUS 2019 POCT (07/28/2021 11:47 PM EST) COV19 RNA POCT Negative Negative 07/29/2021 12:06 AM EST [facility] Swab NASAL / Unknown 07/28/2021 1 1:47 PM EST 07/28/2021 11:49 PM EST Narrative [facility] - 07/29/2021 12:06 AM EST The [...] management. Wright ID NOW Provider Fact Sheet: https://www.fda.gov/media/517406/download Wright ID NOW Patient Fact Sheet: https://www.fda.gov/media/129400/download Yusuf Mabry MD MICROBIOLOGY - GENERAL ORDEliana LANE Final Result [facility] [address] [place] [id number] * MRI CERVICAL SPINE WO CONTRAST (05/01/2021 [...] HISTORY: M50.30-Other cervical disc degeneration, unspecified cervical gkvfmj-TNG-87-CM. COMPARISON: None. PROCEDURE COMMENTS: Multiplanar multiecho MR [...] CLINICAL HISTORY: M50.30-Other cervical disc degeneration, unspecifiedcervical wukkxl-QLB-70-CM. COMPARISON: None. PROCEDURE COMMENTS: Multiplanar multiecho MR [...] office of the ordering clinician. Juliann Guevara APRN [facility] MRI ORDERABLES Final R esult * XR [...] abnormality of the knee. - Melissa Valdez APRN [facility] DIAGNOSTIC IMAGING [address] Final Result * (ABNORMAL) GLUCOSE METER POC (05/06/2020 2:24 PM EDT) [facility] Glucose Meter POC 175(H) 70 - 100 mg/dL 05/06/2020 2:25 PM EDT [facility] Sample Type Capillary 05/06/2020 2:25 PM EDT [facility] Patient Status Non-Critical Patient 05/06/2020 2:25 PM EDT [facility] Blood BLOOD SPECIMEN / Unknown 05/06/2020 2:24 PM EDT 05/06/2020 2:25 PM EDT Jossy Mejia MD POINT OF CARE TEST ORDERABLE S Final Result [facility] [address] [place] [address] * CT SOFT TISSUE NECK W CONTRAST [...] * MONONUCLEOSIS SCREEN (12/04/2019 7:04 AM EDT) [facility] [place] Screen Negative Negative 12/04/2019 7:29 AM EDT [facility] Blood VENOUS BLOOD / Unknown Venipuncture / Unknown 12/04/2019 7:04 AM EDT 12/04/2019 7:11 AM EDT us Jamal Becker MD CHEMISTRY ORDERABLES Stefani l Result Performing Organization Address City/[facility]/ZIP Co de Phone Number [facility] [address] [place] [address] * STREP SCREEN (12/04/2019 7:02 AM EDT) [facility] Strep Screen Not Detected Not Detected 12/04/19 7:26 AM EDT [facility] Swab SPECIMEN FROM THROAT / Unknown 12/04/2019 7:02 AM EDT 12/04/2019 7:10 AM EDT Jamal Becker MD MICROBIOLOGY - GENERAL OR DERABLES Final Result Performing Organization Address City/[facility]/ZIP Co de Phone Number [facility] [address] [place] [address] * (ABNORMAL) STREP A DNA (12/04/2019 7:02 AM EDT) [facility] Strep A DNA Detected(A ) Not Detected 12/04/2019 11:09 AM EDT [facility] [employer] [address] Swab SPECIMEN FROM THROAT / Unknown 12/04/2019 7:02 AM EDT 12/04/2019 7:10 AM EDT Narrative [facility] [employer] [address] - 12/04/2019 11:09 AM EDT Test methodology by loop-mediated isothermal DNA amplification (LAMP). The performance characteristics of this test were validated by [facility]. A negative result does not rule out the presence of Group A Streptococcus DNA in concentrations below the level of detection of the assay. Jamal Becker MD MICROBIOLOGY - GENERAL OR DERABLES Final Result [facility] [employer] [facility] [address], [place] [address] * XR SHOULDER RIGHT 4 VIEWS (10/02/2019 [...] of the shoulder. - Melissa Valdez APRN IMG DIAGNOSTIC IMAGING ORDE RABLES Final Result * XR ELBOW RIGHT AP [...] of the elbow. - Melissa Valdez APRN [facility] DIAGNOSTIC IMAGING [address] Final Result Visit Diagnoses Diagnosis Start Date [...] long-term (current) use of other medications 02/08/2025 Encounter for long-term (current) use of high-risk medication Encounter for long-term (current) use of other medications 03/14/2025 Lumbosacral radiculopathy at S1 Thoracic or lumbosacral neuritis or radiculitis, unspecified 04/05/2025 Lumbosacral spondylosis without myelopathy 04/05/2025 DDD (degenerative disc disease), cervical Degeneration of cervical intervertebral disc 04/05/2025 Chronic pain syndrome 04/05/2025 Myofascial pain Mylagia and myositis, unspecified 04/05/2025 Vertebrogenic pain Backache, unspecified 04/05/2025 Crohn's disease of colon, unspecified complication (HCC) 04/05/2025 Ileus (HCC) Paralytic ileus 05/17/2022 Ileus (HCC) [...] 01/25/2024 Chronic pain syndrome 01/25/2024 Care Teams Digital Sales Planner Relationship Specialty Start Date End Date Hill Andrews MD [address] [place] [phone] PCP - General Emergency Medicine 03/01/23
--- OUTSIDE RECORDS SUMMARY | 2025-04-13 15:44 | XMS_ITS | Encounter Summary ---
Author Organization [facility] Address [address] [place] [address] Care Team Providers Care Technical Account Executive Name Role Phone Tammy Bauer Grazyna PEPPER Primary Care Provider +1- [phone] Reason for Visit * Reason Comments Med Refill Encounter Details Date Type Department Care Team (Late st Contact Info) Description 03/16/2025 Refill [place] [facility] [address], [address] [place] [address] Steven Rendon MD [address] [place] [address] Sensory neuropathy Social History Tobacco Use Types Packs/Day Years [...] encounter Miscellaneous Notes * Telephone Encounter - Shanice Navarrete PharmD - 03/16/2025 8:25 AM EDT Refill request does not meet protocol. Sending to clinic for review. Additional info: Controlled substance. 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
--- OUTSIDE RECORDS SUMMARY | 2025-04-13 15:44 | XMS_ITS | Encounter Summary ---
Author Organization [facility] Address [address] [place] [address] Care Team Providers Care Music Box Mechanic Name Role Phone Soraida Bauerharsha Geronimo APRN Primary Care Provider +1- [phone] Encounter Details Date Type Department Care Team (Latest Contact Info) Description 06/11/2022 Lab Requisition [facility] [address] [place] [address] Herman Mccarthy MD [address] [place] [address] Generalized abdominal pain; Melena; Crohn's disease, unspecified, [...] Description 10/16/2025 2:00 PM EST Office Visit [facility] Medicine Specialties [address] [place] [address] Elisha Kathleen PA [address] [place] [address] documented as of this encounter Procedures Procedure Name Priority Date/Time Associated Diagnosis Comments SURGICAL PATHOLOGY EXAM Routine 06/10/2022 Generalized abdominal pain Melena Crohn's disease, unspecified, without complications (CMS/[facility]) documented in this encounter Results * Surgical Pathology Exam (06/10/2022) Case Report Surgical Pathology Case: [id number] Authorizing Provider: Herman Mccarthy MD Collected: 06/10/2022 Ordering Location: [facility] Lab Received: 06/11/2022 1317 Pathologist: Dmitry Tyler MD Specimens: A) - Duodenal, Duodenal bx B) - Gastric, Gastric bx C) - Small Bowel, Small bowel bx D) - Colon, Random colon bx 06/17/2022 5:23 PM EDT [facility] Final Diagnosis A. DUODENUM, BIOPSY: - [...] without complications [ICD-10-CM] 06/17/2022 5:23 PM EDT [facility] Gross Description A. DUODENAL BX The [...] Tiffany L Mohsen 06/17/2022 5:23 PM EDT [facility] Tissue Duodenal structure / Unknown 06/10/2022 06/11/2022 1:17 PM EDT Tissue specimen (specimen) Stomach structure / Unknown 06/10/2022 06/11/2022 1:17 PM EDT Tissue specimen (specimen) Structure of small intestine / Unknown 06/10/2022 06/11/2022 1:17 PM EDT Tissue specimen (specimen) Colon structure / Unknown 06/10/2022 06/11/2022 1:17 PM EDT us Herman Mccarthy MD LAB PATHOLOGY ORDERABLES Final Result [facility] [address] [place] [address] documented in this encounter Visit Diagnoses Diagnosis [...] documented as of this encounter Care Teams Music Box Mechanic Relationship Specialty Start Date End Date Tammy Bauer APRN [address] [place] [address] PCP - General 01/18/21 documented as of this encounter
--- OUTSIDE RECORDS SUMMARY | 2025-04-13 15:44 | XMS_ITS | Encounter Summary ---
Author Organization [facility] Address [address] [place] [address] Care Team Providers Care Test Man Name Role Phone Tammy Bauer SHANTELLE Primary Care Provider +1- [phone] Reason for Visit * Reason Onset Date Comments Med Refill 03/29/2025 Encounter Details Date Type Department Care Team (Late st Contact Info) Description 03/29/2025 Refill [place] [facility] Medicine Specialties [address] [place] [address] Elisha Kathleen PA [address] [place] [address] Crohn's disease of small intestine without complication (CMS/HCC) Social History Tobacco Use Types Packs/Day [...] Telephone Encounter - Douglas Dorman PharmD - 03/29/2025 3:42 PM EDT 1 medication(s) has been approved per protocol. documented in this encounter Plan of Treatment Upcoming Encounters Date Type Department Care Team (Late st Contact Info) Description 10/16/2025 2:00 PM EST Office Visit [place] [facility] [address] [place] [address] Elisha Kathleen PA [address] [place] [address] documented as of this encounter Visit Diagnoses Diagnosis Crohn's disease of small intestine without complication (CMS/HCC) documented in this encounter Additional Health Concerns Assessment Noted Time PHQ-9 Depression Total Score: 0 09/16/19 25 10:43 AM EST A fall risk assessment has been complete d for the patient 09/16/2024 10:44 AM EST A Body Mass Index follow-up plan has been documented for the patient 09/16/2024 1:24 PM EST documented as of this encounter Care Teams Test Man Relationship Specialty Start Date End Date Tammy Bauer APRN [address] [place] [address] PCP - General 01/18/21 documented as of this encounter
--- OUTSIDE RECORDS SUMMARY | 2025-04-13 15:44 | XMS_ITS | Encounter Summary ---
Author Organization [facility] Address [address] [place] [address] Care Team Providers Care Community Development Officer Name Role Phone Tammy Bauer Grazyna PEPPER Primary Care Provider +1- [phone] Encounter Details Date Type Department Care Team (Late st Contact Info) Description 03/27/2025 Orders Only [place] [facility] [address] [place] [address] Douglas Dorman, PharmD Social History Tobacco Use Types Packs/Day Years [...] Visit [place] [facility] Medicine Specialties [address], [address] [place] [address] Elisha Kathleen, CARLOS ALBERTO [address] [place] [address] documented as of this encounter Visit Diagnoses Not on filedocumented in this encounter Additional Health Concerns Assessment Noted Time PHQ-9 Depression Total Score: 0 09/16/19 10:43 AM EST A fall risk assessment has been complete d for the patient 09/16/2024 10:44 AM EST A Body Mass Index follow-up plan has been documented for the patient 09/16/2024 1:24 PM EST documented as of this encounter Care Teams Community Development Officer Relationship Specialty Start Date End Date Tammy Bauer APRN [address] [place] [address] PCP - General 01/18/21 documented as of this encounter
--- OUTSIDE RECORDS SUMMARY | 2025-04-13 15:44 | XMS_ITS | Encounter Summary ---
Author Organization [facility] Address [address] [place] [address] Care Team Providers Care Motion Picture Actor Name Role Phone Tammy Bauer Grazyna PEPPER Primary Care Provider +1- [phone] Reason for Visit * Reason Comments Med Refill Encounter Details Date Type Department Care Team (Late st Contact Info) Description 12/10/2022 [facility] [address], [address] [place] [address] Elisha Kathleen, CARLOS ALBERTO [address] [place] [address] Social History Tobacco Use Types Packs/Day Years Used Date Smoking Tobacco: Every Day Cigarettes 1 39 Started: 04/07/1986 Smokeless Tobacco: Former Snuff Quit: [...] 30 day supply with 5 refill(s) to [facility] pharmacy. documented in this encounter Plan of Treatment Upcoming Encounters Date Type Department Care Team (Late st Contact Info) Description 10/16/2025 2:00 PM EST [facility] [address], [address] [place] [address] Elisha Kathleen PA [address] [place] [address] documented as of this encounter Visit Diagnoses [...] documented as of this encounter Care Teams Motion Picture Actor Relationship Specialty Start Date End Date Tammy Bauer APRN [address] [place] [address] (work) PCP - General 01/18/21 documented as of this encounter
--- OUTSIDE RECORDS SUMMARY | 2025-04-13 15:44 | XMS_ITS | Encounter Summary ---
Author Organization [facility] Address [address] [place] [address] Care Team Providers Care Sales And Marketing Representative Name Role Phone Tammy Bauer Grazyna PEPPER Primary Care Provider +1- [phone] Encounter Details Date Type Department Care Team (Late st Contact Info) Description 06/10/2022 Outside Procedure [facility] [address] [place] [phone] Provider, External Social History Tobacco Use [...] Visit [place] [facility] [address] [place] [address] Elisha Kathleen, CARLOS ALBERTO [address] [place] [address] documented as of this encounter [...] as of this encounter Care Teams Sales And Marketing Representative Relationship Specialty Start Date End Date Tammy Bauer APRN [address] [place] [address] PCP - General 01/18/21 documented as of this encounter
--- OUTSIDE RECORDS SUMMARY | 2025-04-13 15:44 | XMS_ITS | Encounter Summary ---
Author Organization [facility] Address [address] [place] [address] Care Team Providers Care Supply Cataloguer Name Role Phone Tammy Bauer Grazyna PEPPER Primary Care Provider +1- [phone] Encounter Details Date Type Department Care Team (Late st Contact Info) Description 03/25/2025 Refill [place] [facility] Medicine Specialties [address] [place] [address] Juan Block, PharmD [facility] [place] [address] Sensory neuropathy Social History Tobacco Use Types [...] encounter Miscellaneous Notes * Telephone Encounter - Juan Block PharmD - 03/25/2025 11:39 AM EDT Refill request does not meet protocol. Sending to clinic for review. Additional info: Controlled substance. Lyrica documented in this encounter Plan of Treatment Upcoming Encounters Date Type Department Care Team (Late st Contact Info) Description 10/16/2025 2:00 PM EST Office Visit [place] [facility] Medicine Specialties [address] [place] [address] Elisha Kathleen, CARLOS ALBERTO [address] [place] [address] documented as of this encounter Visit Diagnoses [...] documented as of this encounter Care Teams Supply Cataloguer Relationship Specialty Start Date End Date Tammy Bauer APRN [address] [place] [address] PCP - General 01/18/21 documented as of this encounter
--- OUTSIDE RECORDS SUMMARY | 2025-04-13 15:45 | XMS_ITS | Encounter Summary ---
Author Organization [facility] Address [address] [place] [address] Care Team Providers Care Textile Clothing And Footwear Mechanic Name Role Phone Tammy Bauer Grazyna PEPPER Primary Care Provider +1- [phone] Reason for Visit * Reason Comments Med Refill Encounter Details Date Type Department Care Team (Late st Contact Info) Description 06/26/2023 Refill [place] [facility] [address], [address] [place] [address] Elisha Kathleen, CARLOS ALBERTO [address] [place] [address] Social History Tobacco Use Types [...] 30 day supply with 6 refill(s) to [facility] pharmacy. documented in this encounter Plan of Treatment Upcoming Encounters Date Type Department Care Team (Late st Contact Info) Description 10/16/2025 2:00 PM EST Office Visit [place] [facility] [address] [place] [address] Elisha Kathleen, CARLOS ALBERTO [address] [place] [address] documented as of this encounter Visit Diagnoses [...] documented as of this encounter Care Teams Textile Clothing And Footwear Mechanic Relationship Specialty Start Date End Date Tammy Bauer APRN [address] [place] [address] PCP - General 01/18/21 documented as of this encounter
[2025-04-13 16:22] LABS: Hematocrit 42.0 % (42.0-52.0); Hemoglobin 14.1 g/dL (14.1-18.0); Immature Granulocytes % 0.2 %; Mean Corpuscular HGB Conc 33.6 g/dL (31.8-35.4); Mean Corpuscular Hemoglobin 28.8 pg (27.0-31.2); Mean Corpuscular Volume 85.7 fl (80-94); Nucleated Red Blood Cells % 0 %; Platelet Count 273 K/mm3 (142-424); Red Blood Count 4.90 M/mm3 (4.60-6.20); Red Cell Distribution Width-SD 39.9 fL; White Blood Count 8.8 K/mm3 (4.8-10.8)
[2025-04-13 17:23] LABS: Alanine Aminotransferase 15 U/L (12-78); Albumin Level 3.9 g/dl (3.5-5.0); Albumin/Globulin Ratio 1.7 (1.1-1.8); Alkaline Phosphatase 87 U/L (38-126); Anion Gap 7.1 mEq/L (5-15); Aspartate Amino Transferase 25 U/L (17-59); Blood Urea Nitrogen 8 mg/dl (9-20); Calcium 9.3 mg/dl (8.4-10.2); Carbon Dioxide 30 mmol/L (22.0-30.0); Chloride 104 mmol/L (98-107); Creatinine,Serum 0.90 mg/dl (0.66-1.25); Estimated Glomerular Filt Rate 89 ml/min (>60); GFR (African American) 107 ML/MIN (>60); Globulin 2.3 g/dL (1.3-3.2); Glucose 87 mg/dl (74-100); Potassium 4.1 mmoL/L (3.5-5.1); Sodium 137 mmol/L (136-145); Total Protein,Serum 6.2 g/dl (6.3-8.2)
[2025-04-13 17:29] LABS: C-Reactive Protein 9.2 mg/L (0-4)
[2025-04-13 17:34] LABS: Bilirubin,Total 0.1 mg/dl (0.2-1.3)
[2025-04-13 17:40] LABS: 25-OH Vitamin D, Total 35.1 ng/mL (30-100)
== END 2025-04-13 23:59 | disposition home or self-care (01) ==
LOC: LAB 15:42
PROVIDERS: PCP Family Medicine; Visit Provider Physician Assistant
DX: K50.00 Crohn's disease of small intestine without complications (principal); Z79.620 Long term (current) use of immunosuppressive biologic
CPT/HCPCS: 36415; 80053; 82306; 85025; 86140; 86480

== ENCOUNTER 2025-08-29 10:49 | Outpatient (CLI) | payer MEDICARE, SELFPAY ==
--- OUTSIDE RECORDS SUMMARY | 2025-07-27 15:00 | XMS_ITS | Encounter Summary ---
Author Organization [place] [address] Care Team Providers Care Ripper Operator Name Role Phone Hill Andrews MD Primary Care Provider Reason for Visit * Reason Comments Follow-up Medication Refill Encounter Details Date Type Department Care Team (Latest Contact Info) Description 07/27/2025 3:00 PM EST Office Visit [address] [address] Anay Montana, SENIOR ACCOUNTING CLERK [facility] [place], [place] [id number] Cervicalgia (Primary Dx); Lumbosacral radiculopathy at S1; Lumbosacral spondylosis without myelopathy; DDD (degenerative disc disease), cervical; Chronic pain syndrome; Vertebrogenic pain; Crohn's disease of colon, unspecified complication (HCC); Myofascial pain; Crohn's disease of both small and large intestine with rectal bleeding (HCC) Social History Tobacco Use Types Packs/Day Years Used Date Smoking Tobacco: Every Day Cigarettes 1 41.5 Started: 02/15/1984 Cigars Smokeless Tobacco: Never Tobacco Cessation:Ready to Q uit: Not Asked; Counseling Given: Not Answered Alcohol Use Standard Drinks/Week Comments Not Currently 0 (1 standard drink = 0.6 oz pur e alcohol) [facility] Utilities Answer Date Recorded In the past [...] Date Recorded PHQ-2 Total Score 0 01/26/2024 [facility] - Occupational [...] things needed for daily living? No 05/19/2022 [facility] [address] [address] IP Transportation Answer D ate Recorded In [...] Sign Reading Time Taken Comments Blood Pressure 143/87 07/27/2025 3:22 PM EST Pulse - - Temperature - - Respiratory Rate - - Oxygen Saturation - - Inhaled Oxygen Concentration - - Weight 91.6 kg (202 lb) 07/27/2025 3:22 PM EST Height 175.3 cm (5' 9 ) 07/27/2025 3:22 PM EST Body Mass Index 29.83 07/27/2025 3:22 PM EST documented in this encounter Ordered Prescriptions Prescription Sig Dispense Quantity Refills Last Filled Start Date End Date HYDROcodone-acetami nophen (NORCO) 10-325 mg Oral TabletIndications:L umbosacral radiculopathy at S1,Lumbosacral spondylosis without myelopathy,DDD (degenerative disc disease), cervical,Chronic pain syndrome Take 1 Tablet by mouth every 6 hours as needed for Chronic Pain (G89.29) for up to 28 days. 112 Tablet 08/29/2025 6 HYDROcodone-acetami nophen (NORCO) 10-325 mg Oral TabletIndications:L umbosacral radiculopathy at S1 Take 1 Tablet by mouth every 6 hours as needed for Chronic Pain (G89.29) for up to 28 days. 112 Tablet 08/01/2025 5 documented in this encounter Progress Notes * Anay Montana, SHANTELLE - 07/27/2025 3:00 PM EST Subjective Subjective: Patient ID: Ousmane Moulton is a 54 y.o. male who presents today for Chief Complaint Patient presents with Follow-up Medication Refill HPI: History of Present Illness The patient is a 54-year-old male with a history of Crohn's disease, ileus, GERD, and chronic neck and low back pain. Symptoms have progressed since last OV with numbness and tingling in bilateral arms. Has MRI cervical spine scheduled 08/28/25 Current medications include [place] which continue to provide significant functional and analgesic benefit. The patient denies side effects and there are no signs of abuse or diversion, therefore thesemedications are both medically appropriate and necessary. Characterization of Primary Pain: Location of Pain: Neck - bilateral Pain Ratin/10 on NRS Quality: aching, sharp, shooting, burning, numbness, and tingling Temporal Profile: constant with intermittent exacerbations Referral Pattern: Pain radiates down the right and left arm Exacerbating Factors: increased activity, activities of daily living, turning head, and looking up Relieving Factors: rest and medications Associated Symptoms: [...] changes except as noted. Objective Objective: Vitals: 07/27/25 1522 BP: 143/87 Weight: 202 lb (91.6 kg) Height: 5' 9 (1.753 m) Body mass index is 29.83 kg/m??. Physical Exam Vitals and nursing note [...] No respiratory distress. Musculoskeletal: General: Tenderness present. Cervical back: Tenderness present. Pain with movement present. Decreased range of motion. Lumbar back: Tenderness present. Decreased range of motion. Comments: Bilateral facet pain worse with facet loading in cervical region Skin: General: Skin is warm and dry. Capillary Refill: Capillary refill takes less than 2 seconds. Findings: No erythema or rash. Neurological: Mental Status: He is alert and oriented to person, place, and time. Mental status is at baseline. Cranial Nerves: No cranial nerve deficit. Sensory: No sensory deficit. Psychiatric: Mood and Affect: Mood normal. Behavior: Behavior normal. Thought Content: Thought content normal. Judgment: Judgment normal. Physical Exam Image Review: Results for orders placed during the hospital encounter of 04/12/24 MRI LUMBAR SPINE WO CONTRAST Narrative MRI LUMBAR SPINE WITHOUT CONTRAST, 04/12/2024 2:59 PM CLINICAL HISTORY: M47.817-Spondylosis without myelopathy or radiculopathy, lumbosacral [id number]-CM M51.36-Other intervertebral disc degeneration, lumbar [id number]-15-CM. COMPARISON: 01/10/2020 PROCEDURE COMMENTS: Multiplanar multiecho MR [...] HISTORY: M50.30-Other cervical disc degeneration, unspecified cervical [id number]-CM. COMPARISON: None. PROCEDURE COMMENTS: Multiplanar multiecho MR [...] or any previous visit. Prescription Monitoring Program: TIME CLOCK REPAIRER/RAJIV and most recent UDS reviewed on 08/01/2025 as available. . Results Assessment and Plan: Diagnoses and all orders for this visit: Cervicalgia Lumbosacral radiculopathy at S1 - HYDROcodone-acetaminophen (NORCO) [...] large intestine with rectal bleeding (HCC) (Chronic) Assessment & Plan Plan: - - Continue medication(s) as previously prescribed as there are no new symptoms, change in location,sustained increase in pain level, or interval changes in medical condition. Patient reports increased activity and improved functionality with medication use and endorses no adverse reactions. No aberrant behavior or medication abuse is evident. -RAJIV reviewed at today's visit. -No change in [place] dose as current dosage/regimen brings his/her pain to a tolerable level -Labs reviewed, most recent UDS was 03/14/25 -taking gabapentin and lyrica per outside provider -I discussed the risks and benefits of the use of opioids with the patient, including the risk of tolerance and drug dependence. Along with remote computer terminal operator use of these medications can lead to but is not limited to side effects such as weight gain, fatigue, depression, increased risk for heart attacks, immunosuppression, etc. - Return in about 8 weeks (around 09/21/2025) for medication refill. Anay Montana APRN Interventional Pain Management [facility] documented in this encounter Miscellaneous Notes * Patient Instructions - Anay Montana APRN - 07/27/2025 3:00 PM EST The DO's and DON'T's of Opioids DO: [...] Care Team (Late st Contact Info) Description 09/21/2025 3:30 PM EST Office Visit [address] [address] Anay Montana APRN [address] [phone] documented as of this encounter Visit Diagnoses Diagnosis Cervicalgia- Primary Lumbosacral radiculopathy at S1 Thoracic or lumbosacral [...] enteritis of small intestine with large intestine documented in this encounter Discontinued Medications Medication Sig Discontinue Reason Start Date End Da te HYDROcodone-acetaminophen (NORCO) 10-325 mg Oral TabletIndications:Lumbosa cral radiculopathy at S1 Take 1 Tablet by mouth every 6 hours as needed for Chronic Pain (G89.29) for up to 28 days. Reorder 07/04/2025 07/21/2025 HYDROcodone-acetaminophen (NORCO) 10-325 mg Oral TabletIndications:Lumbosa cral radiculopathy at S1,Lumbosacral spondylosis without myelopathy,DDD (degenerative disc disease), cervical,Chronic pain syndrome Take 1 Tablet by mouth every 6 hours as needed for Chronic Pain (G89.29) for up to 28 days. Reorder 06/06/2025 07/21/2025 documented as of this encounter Care Teams Ripper Operator Relationship Specialty Start Date End Date Hill Andrews MD [address] [place] [id number] PCP - General Emergency Medicine 03/01/23 documented as of this encounter
--- OUTSIDE RECORDS SUMMARY | 2025-08-28 15:00 | XMS_ITS | Encounter Summary ---
Author Organization [place] [address] Care Team Providers Care Composition Roll Maker And Cutter Name Role Phone Hill Andrews MD Primary Care Provider [phone] Reason for Referral * MRI/CAT Scan (Routine) - Pending Review Specialty Diagnoses / Procedures Referred By Contac t Referred To Contact Radiology Diagnoses Cervical radiculopathy Procedures MRI CERVICAL SPINE WO CONTRAST Anay Montana APRN [address] [id number] Phone: tel: fax: Referral ID Status Reason Start Date Expiration Date V isits Requested Visits Authorized [id number] Pending Review 06/29/2025 06/29/2026 1 1 Reason for Visit * MRI/CAT Scan (Routine) - Pending Review Specialty Diagnoses / Procedures Referred By Contac t Referred To Contact Radiology Diagnoses Cervical radiculopathy Procedures MRI CERVICAL SPINE WO CONTRAST Anay Montana APRN [address] [place] [address] Phone: tel: fax: Referral ID Status Reason Start Date Expiration Date V isits Requested Visits Authorized [id number] Pending Review 06/29/2025 06/29/2026 1 1 Encounter Details Date Type Department Care Team (Latest Contact Info) Description 08/28/2025 3:00 PM EST - 08/28/2025 11:59 PM [facility] Hospital Encounter [facility] MRI [address] [place] [address] Anay Montana, SOCIAL WORK NURSE [address] [place] [address] Cervical radiculopathy Discharge Disposition: Home or Self Care Social History Tobacco Use Types Packs/Day Years Used Date Smoking Tobacco: Every Day Cigarettes 1 41.5 Started: 02/15/1984 Cigars Smokeless Tobacco: Never Alcohol Use Standard Drinks/Week Comments Not Currently 0 (1 standard drink = 0.6 oz pur e alcohol) [facility] Utilities Answer Date Recorded In the [...] Total Score 0 01/26/2024 [facility] [place] of Occupat ional Health - Occupational Stress [...] things needed for daily living? No 05/19/2022 [facility] HRSN [facility] IP Transportation Answer D ate Recorded In [...] 600 mg by mouth 3 times daily. HYDROcodone-acetam inophen (NORCO) 10-325 mg Oral TabletIndications: Lumbosacral radiculopathy at S1 Take 1 Tablet by mouth every 6 hours as needed for Chronic Pain (G89.29) for up to 28 days. 112 Tablet 08/01/2025 08/29/20 25 HYDROcodone-acetam inophen (NORCO) 10-325 mg Oral TabletIndications: Lumbosacral radiculopathy at S1,Lumbosacral spondylosis without myelopathy,DDD (degenerative disc disease), cervical,Chronic pain syndrome Take 1 Tablet by mouth every 6 hours as needed for Chronic Pain (G89.29) for up to 28 days. 112 Tablet 08/29/2025 09/26/19 26 pregabalin (LYRICA) 150 mg Oral Capsule Take [...] Description 09/21/2025 3:30 PM EST Office Visit [facility] [place] [address] [address] Anay Montana, SOCIAL WORK NURSE [address] [place] [address] documented as of this encounter Procedures Procedure Name Priority Date/Time Associated Diagnosis Comments MRI CERVICAL SPINE WO CONTRAST Routine 08/28/2025 3:58 PM EST Cervical radiculopathy documented in this encounter Results * MRI CERVICAL SPINE WO CONTRAST (08/28/2025 3:58 PM EST) Anatomical Region Laterality Modality Spine, C-spine Magnetic Resonan ce 08/28/2025 3:58 PM EST Impressions 08/28/2025 4:14 PM EST 1. Partial motion degraded study. Multilevel degenerative mostly mild disc disease, greatest at C5-C6 with mild to moderate central canal stenosis and ventral cord indentation. No gross associated myelomalacia. 2. Greatest neural foraminal stenosis is moderate to advanced at right C5-C6. Mild to moderate neural foraminal stenosis left C5-C6. 3. No acute marrow signal. - - Note: Radiology results need to be interpreted within a comprehensive clinical context. If you have questions about the radiology report, please contact the office of the ordering clinician. Narrative 08/28/2025 4:14 PM EST MR CERVICAL SPINE WITHOUT CONTRAST: 08/28/2025 3:58 PM CLINICAL HISTORY: 55 years-old with bilateral upper extremity numbness. M54.12-Radiculopathy, cervical [id number]-01-CM. COMPARISON: CT cervical spine 01/24/2024. PROCEDURE COMMENTS: Sagittal and axial T1 and T2-weighted sequences obtained on 1.5 Kyung magnet. Sagittal T1 and T2 sequences repeated. FINDINGS: Despite repeat imaging, there is some motion degradation on both sagittal and axial T2 space sequences. Cervical vertebral bodies maintain normal heights, configuration, alignment and marrow signal. Mild anterior wedging with shallow superior endplate concavity of T1 is similar to prior CT. It demonstrates normal marrow. Mild disc space narrowing at C5-C6. No prevertebral or posterior paraspinal abnormal soft tissue signal. Craniocervical junction is normal. No gross cervical cord signal. Focal indentation of ventral cord at C5-C6. C2-C3: This disc level is normal. C3-C4: Minor diffuse disc bulge with slight left paracentral prominence. Slight central canal narrowing. Gross mild bilateral uncovertebral and facet hypertrophy. Mild right neural foraminal narrowing. Left neural foramen patent. C4-C5: Very mild diffuse disc bulge with asymmetric right side extension. Very mild ligamentum flavum hypertrophy. Overall, mild central canal narrowing. Bilateral mild uncovertebral hypertrophy. No notable facet hypertrophy. At most, mild bilateral neural foraminal compromise. C5-C6: Mild diffuse irregular hypertrophic discogenic change with central apex. This indents ventral cord. Mild to moderate central canal narrowing. Trace ligamentum flavum hypertrophy. Bilateral uncovertebral hypertrophy suggested but partially obscured or exaggerated by motion blur. Mild bilateral facet hypertrophy. Moderate to advanced right and mild to moderate left neural foraminal stenosis. C6-C7: Mild broad right paracentral disc bulge. Mild right central canal narrowing. No uncovertebral or facet hypertrophy. Neural foramen are patent. C7-T1: This disc level is normal. Procedure Note Jossy Stokes MD - 08/28/2025 MR CERVICAL SPINE WITHOUT CONTRAST: 08/28/2025 3:58 PM CLINICAL HISTORY: 55 years-old with bilateral upper extremity numbness. M54.12-Radiculopathy, cervical spdvve-PCI-59-CM. COMPARISON: CT cervical spine 01/24/2024. PROCEDURE COMMENTS: Sagittal and axial T1 and T2-weighted sequencesobtained on 1.5 Kyung magnet. Sagittal T1 and T2 sequences repeated. FINDINGS: Despite repeat imaging, there is some motion degradation on both sagittaland axial T2 space sequences. Cervical vertebral bodies maintain normal heights, configuration,alignment and marrow signal. Mild anterior wedging with shallow superior endplateconcavity of T1 is similar to prior CT. It demonstrates normal marrow. Mild discspace narrowing at C5-C6. No prevertebral or posterior paraspinal abnormal softtissue signal. Craniocervical junction is normal. No gross cervical cord signal. Focal indentation of ventral cord at C5-C6. C2-C3: This disc level is normal. C3-C4: Minor diffuse disc bulge with slight left paracentral prominence.Slight central canal narrowing. Gross mild bilateral uncovertebral and facet hypertrophy. Mild right neural foraminal narrowing. Left neural foramenpatent. C4-C5: Very mild diffuse disc bulge with asymmetric right side extension.Very mild ligamentum flavum hypertrophy. Overall, mild central canalnarrowing. Bilateral mild uncovertebral hypertrophy. No notable facet hypertrophy. Atmost, mild bilateral neural foraminal compromise. C5-C6: Mild diffuse irregular hypertrophic discogenic change with centralapex. This indents ventral cord. Mild to moderate central canal narrowing.Trace ligamentum flavum hypertrophy. Bilateral uncovertebral hypertrophysuggested but partially obscured or exaggerated by motion blur. Mild bilateral facet hypertrophy. Moderate to advanced right and mild to moderate left neural foraminal stenosis. C6-C7: Mild broad right paracentral disc bulge. Mild right central canal narrowing. No uncovertebral or facet hypertrophy. Neural foramen arepatent. C7-T1: This disc level is normal. IMPRESSION: 1. Partial motion degraded study. Multilevel degenerative mostly milddisc disease, greatest at C5-C6 with mild to moderate central canal stenosisand ventral cord indentation. No gross associated myelomalacia. 2. Greatest neural foraminal stenosis is moderate to advanced at rightC5-C6. Mild to moderate neural foraminal stenosis left C5-C6. 3. No acute marrow signal. - - Note: Radiology results need to be interpreted within a comprehensiveclinical context. If you have questions about the radiology report, please contactthe office of the ordering clinician. Anay Montana APRN IM MRI ORDERABLES Final Resu lt documented in this encounter Visit Diagnoses Diagnosis Cervical radiculopathy Brachial neuritis or radiculitis nos documented in this encounter Care Teams Composition Roll Maker And Cutter Relationship Specialty Start Date End Date Hill Andrews MD [address] [place] [id number] PCP - General Emergency Medicine 03/01/23 documented as of this encounter
--- OUTSIDE RECORDS SUMMARY | 2025-08-29 10:54 | XMS_ITS | Encounter Summary ---
Author Organization [facility] Address [address] [place] [place] [address] Care Team Providers Care Elevator Installer Name Role Phone Tammy Bauer Grazyna PEPPER Primary Care Provider [phone]- [phone] Encounter Details Date Type Department Care Team (Late st Contact Info) Description 06/10/2022 Outside Procedure [facility] [address] [place] [phone] Provider, External Social History Tobacco Use Types Packs/Day Years Used Date Smoking Tobacco: Every Day Cigarettes 1 41 Started: 1982 Smokeless Tobacco: Never Comments:Wishing to [...] Care Team (Late st Contact Info) Description 12/06/2025 10:00 AM EDT Office Visit [facility] [address] [place] [address] Elisha Kathleen PA [address] [place] [address] documented as of this encounter [...] documented as of this encounter Care Teams Elevator Installer Relationship Specialty Start Date End Date Tammy Bauer APRN [address] [place] [address] PCP - General 01/18/21 documented as of this encounter
--- OUTSIDE RECORDS SUMMARY | 2025-08-29 10:54 | XMS_ITS | Clinical Summary ---
Author Organization [facility] Address [address] [place] [address] Care Team Providers Care Tablet Technician Name Role Phone BauerTammy miner Grazyna PEPPER Primary Care Provider [phone]- [phone] Allergies Active Allergy Reactions Criticality Noted Date Comments Sulfa Drugs Rash Low 10/02/2019 Sulfacetamide Rash Low 03/04/2005 Tetracycline Hives Medium 04/02/2023 Medications Insulin Syringe-Needle U-100 (B-D INSULIN SYRINGE 1CC/25GX1 ) 25G X 1 1 ML misc Take by mouth See administration instructions. 06/12/20 20 Active HYDROcodone-acet aminophen ([place]) 10-325 MG tablet Take by mouth 3 [...] (10 mg) by mouth if needed. 10/15/19 Active albuterol 108 (90 Base) MCG/ACT inhaler [...] pregabalin (Lyrica) 150 MG capsuleIndicatio ns:Sensory neuropathy TAKE ONE CAPSULE BY MOUTH 3 TIMES A DAY 90 capsule 5 03/17/20 25 Active BD Syringe Slip Tip 25G X 5/8 1 ML misc USE WITH B12 INJECTION 01/20/20 25 Active gabapentin (Neurontin) 600 MG tabletIndication s:Sensory neuropathy TAKE TWO TABLETS BY MOUTH 3 TIMES A DAY 180 tablet 5 05/19/20 25 Active esomeprazole (NexIUM) [address] capsule TAKE 1 CAPSULE BY MOUTH 2 TIMES A DAY. DO not open capsule 180 capsule 1 07/14/20 25 Active ustekinumab (Stelara) syringeIndicatio ns:Crohn's disease of small intestine without complication Inject contents of 1 syringe (90mg) under the skin every 4 weeks. Store in refrigerator and allow to warm to room temp prior to use. 1 mL 08/17/20 25 Active ustekinumab (Stelara) syringeIndicatio ns:Crohn's disease of small intestine without complication Inject contents of 1 syringe (90mg) under the skin every 4 weeks. Store in refrigerator and allow to warm to room temp prior to use. 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 Multiple nevi 11/06/2014 Eye pain 10/17/2013 Crohn's disease without complication 09/01/2013 Displacement of lumbar inter vertebral disc without myelopathy 09/01/2013 Other chronic pain 09/01/2013 Gastro-esophageal reflux [...] 25 Hydroxy; Future Follow Up GI; Future Resolved Problems Problem Noted Date Diagnosed Date Resolved Date Blood in stool 12/28/2019 05/28/2025 Chronic diarrhea 03/01/2019 05/28/2025 Generalized abdominal pain 09/01/2013 0 05/28/2025 Encounters Date Type Department Care Team Description 08/18/2025 Telephone [facility] [address] [place] [address] Fuentes Taylor, PharmD 2025 Refill [facility] [address] [place] [address] Monica Lund V, [facility] Crohn's disease of small intestine without complication 07/27/2025 Telephone [facility] [address] [place] [address] Elisha Kathleen PA 07/14/2025 Refill [facility] [address] [place] [address] Elisha Kathleen PA from Last 3 Months Immunizations Immunization Administration Dates Next Due Influenza, injectable, quadr ivalent, preservative free 08/11/2022,11/12/2021,06/12/2020,2016 Influenza, seasonal, injecta ble, preservative free 07/22/2009 Family History Medical History Relation Name Comments Obesity Daughter Kalli Moulton Diabetes Father Wayne Moulton Restless legs syndrome Father Wayne Moulton Migraines Mother Bharati Galarzas Obesity Mother Bharati Galarzas Stroke Mother Bharati Galarzas Cerebral palsy Mother's Sister Hailey Larryir Alzheimer's disease Paternal Grandfather Pradip Steinberg. Nob le Diabetes Paternal Grandfather Pradip Steinberg. Moulton Diabetes Sister 1 Marine Moulton Fibromyalgia Sister 1 Marine Moulton Neuropathy Sister 1 Marine Moulton Obesity Sister 1 Marine Moulton Depression Sister 2 Chitra Da Silva Relation Name Status Comments Daughter Kalli Severino Moulton Father Wayne Moulton Mother Bharati Galarzas Mother's Sister Hailey Corrina Alive Paternal Grandfather Pradip Steinberg. Moulton Sister 1 Marine Moulton Sister 2 Chitra Da Silva Alive Social History Tobacco Use Types Packs/Day Years Used Date Smoking Tobacco: Every Day Cigarettes 1 39.4 Started: 04/07/1986 Passive Smoke Exposure: Current Smokeless [...] Description 12/06/2025 10:00 AM EDT [facility] [address] [place] [address] Elisha Kathleen PA [address] [place] [address] Health Maintenance Due Date Last Done Comments [facility]-Medicare Annual Wellness (AWV) 1972 [facility]-/Child/Adol SDOH Screenings 1972 NGE-WRZMA-70 Vaccine (#1) 02/15/1973 [facility]- SDOH Screenings 1990 [facility]-Adult SDOH Screenings 1990 [facility]-DTaP,Tdap,and Td Vaccines (1 - Tdap) 1991 [facility]-Hepatitis A Vaccines (1 of 2 - Risk 2-dose series) 1991 [facility]-Hepatitis B Vaccines (1 of 3 - 19+ 3-dose series) 1991 [facility]-Pneumococcal Vaccine: 50+ Years (1 of 2 - PCV) 1991 Lung Cancer Screening Shared Decision Making 2022 [facility]-Zoster Vaccines (1 of 2) 2022 [facility]-Lung Cancer Screening 08/26/2023 08/26/2022, [facility]-Influenza Vaccine (#1) 05/08/202508/11, 11/12/2021, 06/12/2020, Additional history exists [facility]-Depression Screening 04/12/2026 025, 04/12/2025, 06/30/2022 [facility]-HIV Screening Completed 04/28/2022 [facility]-Hepatitis C Screening Completed 04/28/2022, 02/2017 Colonoscopy Discontinued 06/10/2022, 1012/2021, 06/02/2022, Additional history exists [facility]-Obesity Intervention Completed 025, 09/16/2024, 02/29/2024, Additional history exists HPV Vaccines (No Doses Required) Completed [facility]-HIB Vaccines Aged Out No longer e [...] Screen Nonreactive Nonreactive 04/28/2022 2:47 PM EDT [facility] Blood Venous blood specimen / Unknown Venipuncture / Unknown 04/28/2022 12:42 PM EDT 04/28/2022 1:06 PM EDT Lloyd Gaxiola MD LAB BLOOD ORDERABLES Final Result [facility] [address] [place] [address] * Hepatitis C Antibody - ED (04/28/2022 12:42 PM EDT) Hepatitis C Antibody Negative Negative 04/28/2022 2:47 PM EDT [facility] Blood Venous blood specimen / Unknown Venipuncture / Unknown 04/28/2022 12:42 PM EDT 04/28/2022 1:06 PM EDT us Lloyd Gaxiola MD LAB BLOOD ORDERABLES Final Result [facility] [address] [place] [address] from Last 3 Months or Most Recently Relevant to Health Maintenance Insurance MEDICARE Care Teams Tablet Technician Relationship Specialty Start Date End Date Tammy Bauer APRN [address] [id number] PCP - General 01/18/21
--- OUTSIDE RECORDS SUMMARY | 2025-08-29 10:54 | XMS_ITS | Encounter Summary ---
Author Organization [facility] Address [address] [place] [address] Care Team Providers Care Sales Representative Meats Name Role Phone Tammy Bauer Grazyna PEPPER Primary Care Provider [phone]- [phone] Encounter Details Date Type Department Care Team (Late st Contact Info) Description 08/26/2022 Orders Only External Location [address] [place] [address] Provider, External Social History Tobacco Use Types [...] Description 12/06/2025 10:00 AM EDT Office Visit [place] [facility] [address] [place] [address] Elisha Kathleen, CARLOS ALBERTO [address] [place] [address] documented as of this encounter [...] as of this encounter Care Teams Sales Representative Meats Relationship Specialty Start Date End Date Tammy Bauer APRN [address] [place] [address] PCP - General 01/18/21 documented as of this encounter
--- OUTSIDE RECORDS SUMMARY | 2025-08-29 10:54 | XMS_ITS | Encounter Summary ---
Author Organization [facility] Address [address] [place] [address] Care Team Providers Care Lace Inspector Name Role Phone Soraida Bauerharsha Geronimo APRN Primary Care Provider [phone]- [phone] Encounter Details Date Type Department Care Team (Latest Contact Info) Description 06/11/2022 Lab Requisition [facility] [address] [place] [address] Herman Mccarthy MD [address] [place] [address] Generalized abdominal pain; Melena; Crohn's disease, unspecified, [...] Description 12/06/2025 10:00 AM EDT Office Visit [facility] [address] [place] [address] Elisha Kathleen PA [address] [place] [address] documented as of this encounter Procedures Procedure Name Priority Date/Time Associated Diagnosis Comments SURGICAL PATHOLOGY EXAM Routine 06/10/2022 Generalized abdominal pain Melena Crohn's disease, unspecified, without complications (CMS/[facility]) documented in this encounter Results * Surgical Pathology Exam (06/10/2022) Case Report Surgical Pathology Case: [id number] Authorizing Provider: Herman Mccarthy MD Collected: 06/10/2022 Ordering Location: [facility] Lab Received: 06/11/2022 1317 Pathologist: Dmitry Tyler MD Specimens: A) - Duodenal, Duodenal bx B) - Gastric, Gastric bx C) - Small Bowel, Small bowel bx D) - Colon, Random colon bx 06/17/2022 5:23 PM EDT [facility] Final Diagnosis A. DUODENUM, [...] GRANULOMAS OR DYSPLASIA 06/17/2022 5:23 PM EDT [facility] at 1723 EDT Clinical Information R10.84 - Generalized abdominal pain [ICD-10-CM] K92.1 - Melena [ICD-10-CM] K50.90 - Crohn's disease, unspecified, without complications [ICD-10-CM] 06/17/2022 5:23 PM EDT [facility] Gross Description A. DUODENAL BX The [...] L Mohsen 06/17/2022 5:23 PM EDT [facility] Tissue Duodenal structure / Unknown 06/10/2022 06/11/2022 1:17 PM EDT Tissue specimen (specimen) Stomach structure / Unknown 06/10/2022 06/11/2022 1:17 PM EDT Tissue specimen (specimen) Structure of small intestine / Unknown 06/10/2022 06/11/2022 1:17 PM EDT Tissue specimen (specimen) Colon structure / Unknown 06/10/2022 06/11/2022 1:17 PM EDT us Herman Mccarthy MD LAB PATHOLOGY ORDERABLES Final Result [facility] [address] [place] [address] documented in this encounter Visit Diagnoses Diagnosis [...] documented as of this encounter Care Teams Lace Inspector Relationship Specialty Start Date End Date Tammy Bauer APRN [address] [place] [address] PCP - General 01/18/21 documented as of this encounter
--- OUTSIDE RECORDS SUMMARY | 2025-08-29 10:54 | XMS_ITS | Encounter Summary ---
Author Organization [facility] Address [address] [place] [address] Care Team Providers Care Edge Baster Name Role Phone Tammy Bauer Grazyna PEPPER Primary Care Provider [phone]- [phone] Reason for Visit * Reason Comments Med Refill Encounter Details Date Type Department Care Team (Late st Contact Info) Description 12/10/2022 Refill [facility] [address] [place] [address] Elisha Kathleen, CARLOS ALBERTO [address] [place] [address] Social History Tobacco Use Types Packs/Day Years Used Date Smoking Tobacco: Every Day Cigarettes 1 39.4 Started: 04/07/1986 Smokeless Tobacco: Former Snuff Quit: [...] day supply with 5 refill(s) to [facility]. documented in this encounter Plan of Treatment Upcoming Encounters Date Type Department Care Team (Late st Contact Info) Description 12/06/2025 10:00 AM EDT Office Visit [facility] [address] [place] [address] Elisha Kathleen PA [address] [place] [address] documented as of this encounter [...] documented as of this encounter Care Teams Edge Baster Relationship Specialty Start Date End Date Tammy Bauer APRN [address] [place] [address] PCP - General 01/18/21 documented as of this encounter
--- OUTSIDE RECORDS SUMMARY | 2025-08-29 10:54 | XMS_ITS | Encounter Summary ---
Author Organization Address [address] [place] [address] Care Team Providers Care Master [place] Name Role Phone Tammy Bauer Grazyna PEPPER Primary Care Provider +1- [phone] Encounter Details Date Type Department Care Team (Late st Contact Info) Description 06/10/2022 Outside Procedure [facility] [address] [place] [address] Provider, External Social History Tobacco Use [...] Description 12/06/2025 10:00 AM EDT Office Visit [place] [facility] [address] [place] [address] Elisha Kathleen PA [address] [place] [address] documented as of this encounter [...] documented as of this encounter Care Teams Master [place] Relationship Specialty Start Date End Date Tammy Bauer APRN [address] [place] [address] PCP - General 01/18/21 documented as of this encounter
--- OUTSIDE RECORDS SUMMARY | 2025-08-29 10:55 | XMS_ITS | Encounter Summary ---
Author Organization [facility] Address [address] [place] [address] Care Team Providers Care Professional Programmer Analyst Name Role Phone Tammy Bauer SHANTELLE Primary Care Provider [phone] Encounter Details Date Type Department Care Team (Late st Contact Info) Description 2025 Refill [facility] [address] [place] [address] Monica Lund V, [facility] [place] [address] Crohn's disease of small intestine without complication Social History Tobacco Use Types Packs/Day Years [...] Telephone Encounter - Douglas Dorman PharmD - 2025 9:28 AM EST 1 medication(s) has been approved per protocol. documented in this encounter Plan of Treatment Upcoming Encounters Date Type Department Care Team (Late st Contact Info) Description 12/06/2025 10:00 AM EDT Office Visit [facility] [address] [place] [address] Elisha Kathleen PA [address] [place] [address] documented as of this encounter Visit Diagnoses Diagnosis Crohn's disease of small intestine without complication documented in this encounter Additional Health Concerns Assessment Noted Time PHQ-9 Depression Total Score: 0 04/12/20 25 10:41 AM EDT A fall risk assessment has been complete d for the patient 04/12/2025 10:41 AM EDT A Body Mass Index follow-up plan has been documented for the patient 04/12/2025 2:34 PM EDT documented as of this encounter Care Teams Professional Programmer Analyst Relationship Specialty Start Date End Date Tammy Bauer APRN [address] [place] [address] PCP - General 01/18/21 documented as of this encounter
--- OUTSIDE RECORDS SUMMARY | 2025-08-29 10:55 | XMS_ITS | Continuity of Care Document ---
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 MRI [address] [place], [place] [id number] Anay Montana APRN Cervical radiculopathy Discharge Disposition: Home or Self Care 07/27/2025 3:00 PM EST Office Visit [address] [phone] Anay Montana APRN Cervicalgia (Primary Dx); Lumbosacral radiculopathy at S1; Lumbosacral spondylosis without myelopathy; DDD (degenerative disc disease), cervical; Chronic pain syndrome; Vertebrogenic pain; Crohn's disease of colon, unspecified complication (HCC); Myofascial pain; Crohn's disease of both small and large intestine with rectal bleeding (HCC) 05/31/2025 1:30 PM EDT Office Visit [address] [place] [phone] Anay Montana APRN Chronic pain syndrome (Primary Dx); Lumbosacral radiculopathy at S1; Lumbosacral spondylosis without myelopathy; DDD (degenerative disc disease), cervical; Myofascial pain; Vertebrogenic pain; Crohn's disease of colon, unspecified complication (HCC) 04/07/2025 Results Follow-Up [place] [address] [address] [place] [phone] Juliann Guevara APRN COMPLIANCE PANEL, URINE 04/05/2025 1:30 PM EDT Office Visit [place] [address] [place] [phone] Anay Montana APRN Myofascial pain (Primary Dx); Lumbosacral radiculopathy at S1; Lumbosacral spondylosis without myelopathy; DDD (degenerative disc disease), cervical; Chronic pain syndrome; Vertebrogenic pain; Crohn's disease of colon, unspecified complication (HCC) 03/14/2025 5:45 PM EDT - 03/14/2025 11:59 PM EDT Hospital Encounter [address] [place] [phone] Encounter for long-term (current) use of high-risk medication Discharge Disposition: Home or Self Care 02/08/2025 9:45 AM EDT Office Visit [place] [address] [place], [place] [address], [place] [phone] Juliann Guevara APRN Lumbosacral radiculopathy at S1 [...] EDT - 01/20/2025 4:05 PM EDT [facility] [address] [place] [address] Yusuf Mabry MD Acute bronchitis, unspecified organism (Primary Dx) Discharge Disposition: Home or Self Care 12/09/2024 Travel 12/09/2024 12:59 PM EDT - 12/09/2024 1:45 PM EDT [facility] [address] [place] [address] Doug Deng MD Hand injury, right, initial encounter (Primary Dx) Discharge Disposition: Home or Self Care 12/08/2024 11:15 AM EDT Telemedicine [address] [place] [phone] Anay Montana APRN Lumbosacral radiculopathy at S1; Lumbosacral spondylosis without myelopathy; DDD (degenerative disc disease), cervical; Chronic pain syndrome 10/17/[address] [phone] Anay Montana APRN Prior Authorization (TPIs bilateral thoracic) 10/13/2024 1:30 PM EST Office Visit [address] [phone] Anay Montana APRN Vertebrogenic pain (Primary Dx); Lumbosacral radiculopathy at S1; Lumbosacral spondylosis without myelopathy; DDD (degenerative disc disease), cervical; Chronic pain syndrome; Crohn's disease of colon, unspecified complication (HCC); Myofascial pain 08/18/2024 1:00 PM EST Telemedicine [address] [place] [phone] Anay Montana APRN Vertebrogenic pain (Primary Dx); Lumbosacral radiculopathy at S1; Lumbosacral spondylosis without myelopathy; DDD (degenerative disc disease), cervical; Chronic pain syndrome; Crohn's disease of colon, unspecified complication (HCC); Myofascial pain 08/13/2024 Travel 07/29/2024 Telephone [place] [address] [place] [phone] Refugio Guerra MD Other (pharmacy closed on ) 06/28/2024 Travel 06/28/2024 8:01 PM EDT - 06/28/2024 9:16 PM EDT Emergency [facility] [address] [place], [place] [id number] Selwyn [place] MD Thoracic myofascial strain, initial encounter (Primary Dx) Discharge Disposition: Home or Self Care 06/22/2024 Telephone [place] [address] [place] [phone] Anay Montana APRN Other (RX alternatives) 06/21/2024 Orders Only [place] [address] [place] [phone] Mariam Pinzon MA Encounter for long-term (current) use of high-risk medication 06/21/2024 11:15 AM EDT Office Visit [place] [address] [place] [phone] Anay Montana APRN Encounter for long-term (current) use of high-risk medication (Primary Dx); Lumbosacral radiculopathy at S1; Lumbosacral spondylosis without myelopathy; DDD (degenerative disc disease), cervical; Chronic pain syndrome; Vertebrogenic pain; Crohn's disease of colon, unspecified complication (HCC); Myofascial pain 04/21/2024 10:45 AM EDT Office Visit [place] [address] [place] [phone] Anay Montana APRN Cervicalgia (Primary Dx); Lumbar degenerative disc disease; Lumbosacral radiculopathy at S1; Lumbosacral spondylosis without myelopathy; DDD (degenerative disc disease), cervical; Chronic pain syndrome; Crohn's disease of colon, unspecified complication (HCC); Myofascial pain; Crohn's disease of both small and large intestine with rectal bleeding (HCC); Vertebrogenic pain 04/12/2024 2:00 PM EDT - 04/12/2024 11:59 PM EDT Hospital Encounter [facility] MRI [address] [place] [address] Risa Gould APRN Lumbosacral spondylosis without myelopathy; Lumbar degenerative disc disease Discharge Disposition: Home or Self Care 03/11/2024 Telephone [facility] Nurse Now [address] [place] [phone] Ely Quesada RN Medication Management 02/26/[address] [place] [phone] Stella Palumbo, Second Steward Medication Management (Doyline 10mg) 02/22/2024 9:15 AM EDT Telemedicine [address] [place] [phone] Risa Gould APRN Lumbosacral spondylosis without myelopathy (Primary Dx); Lumbar degenerative disc disease; Lumbosacral radiculopathy at S1; DDD (degenerative disc disease), cervical; Myofascial pain; Crohn's disease of colon, unspecified complication (HCC); Ileus (HCC); Chronic pain syndrome; Encounter for long-term (current) use of high-risk medication 01/25/2024 1:40 PM EDT - 01/26/2024 3:48 PM EDT Hospital Encounter [place] [address] Scooter Beckett MD Syncope and collapse (Primary Dx) Discharge Disposition: Home or Self Care 01/24/2024 7:22 PM EDT - 01/25/2024 1:15 PM EDT [facility] [address] [place] [address] Doc Garcia MD Fry, Scooter Michel MD Syncope and collapse (Primary Dx); Facial droop; Acute non-recurrent maxillary sinusitis Discharge Disposition: Discharged/Transferred [facility] ([facility]) w/planned [facility] IP ReAdmit 01/24/2024 Travel 12/31/2023 11:00 AM EDT Office Visit [place] [address] [place] [phone] Juliann Guevara APRN Lumbosacral radiculopathy at S1 (Primary Dx); Lumbosacral spondylosis without myelopathy; Lumbar degenerative disc disease; Crohn's disease of colon, unspecified complication (HCC); Crohn's disease of both small and large intestine with rectal bleeding (HCC); Myofascial pain; DDD (degenerative disc disease), cervical; Ileus (HCC); Cervicalgia; Chronic bilateral low back pain without sciatica 11/05/2023 Orders Only [place] [address] [place] [phone] Stella Palumbo, Second Steward Encounter for long-term (current) use of high-risk medication 11/05/2023 11:30 AM EST Office Visit [place] [address] [place] [phone] Juliann Guevara APRN Lumbosacral spondylosis without [...] PM EST Emergency [facility] [address] [place] [address] Damir Diana MD Positive blood culture (Primary Dx) Discharge Disposition: Home or Self Care 09/23/2023 8:26 PM EST - 09/25/2023 3:39 PM EST Hospital Encounter [facility] [address] [place], [place] [id number] Steven Echevarria MD Discharge Disposition: Home or Self Care 09/23/2023 Travel 09/23/2023 3:33 PM EST - 09/23/2023 8:00 PM EST Emergency [facility] [address] [facility] [place] [address] Payal Cote MD Krusling, Edward J, MD Right lower quadrant abdominal pain (Primary Dx); Acute Crohn's disease with intestinal obstruction (HCC) Discharge Disposition: Discharge/Readmit 09/10/2023 11:45 AM EST Office Visit [address] [phone] Juliann Guevara APRN Lumbosacral spondylosis without myelopathy (Primary Dx); Cervicalgia; Spondylosis; Chronic pain syndrome; DDD (degenerative disc disease), cervical; Lumbar degenerative disc disease; Lumbosacral radiculopathy at S1; Encounter for long-term (current) use of high-risk medication; Myofascial pain; Chronic bilateral low back pain without sciatica 09/03/2023 Orders Only [address] [phone] Margaret Abraham MA Lumbosacral spondylosis without myelopathy; Cervicalgia; Spondylosis; Chronic pain syndrome; DDD (degenerative disc disease), cervical; Lumbar degenerative disc disease; Lumbosacral radiculopathy at S1 07/17/2023 Telephone [place] [address] [place] [phone] Berkley Carranza MA Prior Authorization (ALPRAZOLAM .5) 07/16/2023 11:15 AM EST Office Visit [place] [address] [place] [phone] Analilia Barraza APRN Lumbosacral spondylosis without myelopathy; Cervicalgia; Spondylosis; Chronic pain syndrome; DDD (degenerative disc disease), cervical; Lumbar degenerative disc disease; Lumbosacral radiculopathy at S1 06/02/[address] [place] [phone] Analilia Barraza APRN Results (imaging) 05/28/2023 12:28 PM EDT - 05/28/2023 11:59 PM EDT Hospital Encounter [facility] [address] [place] [address] Analilia Barraza APRN Chronic bilateral low back pain without sciatica; Palpable mass of lower back Discharge Disposition: Home or Self Care 05/21/2023 11:15 AM EDT Office Visit [address] [place] [phone] Analilia Barraza APRN Myofascial pain (Primary Dx); Lumbosacral spondylosis without myelopathy; Cervicalgia; Spondylosis; Chronic pain syndrome; DDD (degenerative disc disease), cervical; Lumbar degenerative disc disease; Lumbosacral radiculopathy at S1 03/26/2023 11:45 AM EDT Office Visit [place] [address] [place] [phone] Analilia Barraza APRN Chronic bilateral low back pain without sciatica (Primary Dx); Lumbosacral spondylosis without myelopathy; Cervicalgia; Spondylosis; Chronic pain syndrome; DDD (degenerative disc disease), cervical; Lumbar degenerative disc disease; Lumbosacral radiculopathy at S1; Palpable mass of lower back 03/01/2023 8:57 PM EDT - 03/02/2023 12:28 AM EDT Emergency [facility] [address] [place] [address] Alethea Concepcion MD Right lower quadrant abdominal pain (Primary Dx) Discharge Disposition: Home or Self Care 03/01/2023 Travel 02/11/2023 Travel 02/11/2023 2:33 PM EDT - 02/11/2023 11:59 PM EDT Hospital Encounter [facility] [address] [place] [address] Encounter for long-term (current) use of high-risk medication Discharge Disposition: Home or Self Care 01/26/2023 11:15 AM EDT Telemedicine [address] [phone] Chioma Andersen APRN Lumbosacral spondylosis without myelopathy (Primary Dx); Cervicalgia; Spondylosis; Chronic pain syndrome; DDD (degenerative disc disease), cervical; Lumbar degenerative disc disease; Lumbosacral radiculopathy at S1; Encounter for long-term (current) use of high-risk medication 12/31/[address] [phone] Erin Dumont RN Other (hydrocodone/apap) 12/23/2022 11:05 AM EDT - 12/23/2022 11:59 PM EDT Hospital Encounter [address] [place] [address] Juliann Guevara APRN Lumbar degenerative disc disease; Lumbosacral radiculopathy at S1 Discharge Disposition: Home or Self Care 11/26/[address] [place] [phone] Refugio Guerra MD Other (pharmacy is closed on weekends) 11/24/2022 11:00 AM EDT Office Visit [place] [address] [place] [phone] Chioma Andersen APRN Lumbar degenerative disc disease (Primary Dx); Chronic pain syndrome; Lumbosacral spondylosis without myelopathy; Spondylosis; DDD (degenerative disc disease), cervical; Lumbosacral radiculopathy at S1; Cervicalgia 09/29/2022 3:00 PM EST Telemedicine [address] [phone] Juliann Guevara APRN Lumbar degenerative disc disease; Chronic pain syndrome; Lumbosacral spondylosis without myelopathy; Spondylosis; DDD (degenerative disc disease), cervical; Lumbosacral radiculopathy at S1; Cervicalgia 08/11/2022 Telephone [facility] [address] [place] [address] Refugio Guerra MD Medication Management 08/09/2022 Travel 08/09/2022 4:50 PM EST - 08/09/2022 9:12 PM EST Emergency [facility] [address] [facility] [place] [address] Scott Mane MD Acute left lower quadrant pain (Primary Dx); Crohn's disease with complication, unspecified gastrointestinal tract location (HCC) Discharge Disposition: Home or Self Care 08/04/2022 Orders Only [address] [phone] Shaun Crowe MA Encounter for long-term (current) use of high-risk medication 08/04/2022 1:00 PM EST Office Visit [address] [phone] Juliann Guevara APRN Encounter for long-term (current) use of high-risk medication (Primary Dx); Lumbar degenerative disc disease; Chronic pain syndrome; Lumbosacral spondylosis without myelopathy; Spondylosis; DDD (degenerative disc disease), cervical; Lumbosacral radiculopathy at S1; Cervicalgia 06/03/[address] [phone] Analilia Barraza APRN Prior Authorization (TPIs) 06/02/2022 1:15 PM EDT Office Visit [facility] [address] [place] [phone] Analilia Barraza APRN Lumbosacral spondylosis without myelopathy (Primary Dx); Lumbar degenerative disc disease; Chronic pain syndrome; Spondylosis; DDD (degenerative disc disease), cervical; Lumbosacral radiculopathy at S1; Cervicalgia; Myofascial pain 05/18/2022 12:26 AM EDT - 05/19/2022 6:05 PM EDT Hospital Encounter [facility] [place] [id number] Dk Hughes MD Discharge Disposition: Discharge/Readmit 05/18/2022 Travel 05/17/2022 Travel 05/17/2022 5:29 PM EDT - 05/17/2022 11:42 PM EDT Emergency [facility] [address] [place] [address] Hill Colon MD Adler, Jordan M, MD Ileus (HCC) (Primary Dx); Crohn's disease with complication, unspecified gastrointestinal tract location (HCC); Diarrhea, unspecified type Discharge Disposition: Short Term Hospital 05/07/2022 Telephone [place] [address] [place] [phone] Refugio Guerra MD Medication Management (Pharmacy Closed on the Weekends.) 04/03/2022 3:45 PM EDT Telemedicine [address] [place] [phone] Refugio Guerra MD Lumbar degenerative disc disease (Primary Dx); Lumbosacral spondylosis without myelopathy; Chronic pain syndrome 02/24/[address] [place] [address] Refugio Guerra MD Other 02/21/2022 Travel 02/21/2022 5:24 PM EDT - 02/21/2022 8:54 PM EDT Emergency [facility] [address] [place] [address] Miguel Ángel Boyce MD Stefania infection of genital region (Primary Dx); Gastrointestinal hemorrhage with melena Discharge Disposition: Home or Self Care 02/07/2022 11:15 AM EDT Telemedicine [place] [address] [place] [phone] Juliann Guevara APRN Lumbar degenerative disc disease (Primary Dx); Spondylosis; DDD (degenerative disc disease), cervical; Myofascial pain; Chronic pain syndrome 12/12/2021 Telephone [place] [address] [place] [phone] Analilia Barraza APRN Prior Authorization (TPI) 12/12/2021 Orders Only [place] [address] [place] [phone] Gail Montgomery MA Encounter for long-term (current) use of high-risk medication 12/12/2021 11:00 AM EDT Office Visit [place] [address] [place] [phone] Analilia Barraza APRN Encounter for long-term (current) use of high-risk medication (Primary Dx); Lumbar degenerative disc disease; Spondylosis; DDD (degenerative disc disease), cervical; Myofascial pain 11/07/2021 Telephone [place] [address] [place] [phone] Refugio Guerra MD Medication Management (Pharmacy closed on prescription fill date ) 10/17/2021 11:00 AM EST Telemedicine [place] [address] [place] [phone] Mamie Covington APRN Lumbar degenerative disc disease; Spondylosis; DDD (degenerative disc disease), cervical 09/10/2021 Telephone [facility] [address] [place] [address] Mamie Covington APRN Results (UDS) 08/20/2021 Nurse Triage [address] [place], [place] [id number] Yola Holguin, MALA 08/20/[address] [phone] Refugio Guerra MD Medication Refill 08/20/2021 Orders Only [address] [phone] Charlotte Quesada Scribe Encounter for long-term (current) use of high-risk medication 08/20/2021 Travel 08/20/2021 11:15 AM EST Office Visit [address] [phone] Mamie Covington APRN Encounter for long-term (current) use of high-risk medication (Primary Dx); Lumbosacral radiculopathy at S1; Lumbar degenerative disc disease; Spondylosis; DDD (degenerative disc disease), cervical 07/28/2021 11:38 PM EST - 07/29/2021 1:14 AM EST Emergency [facility] [address] [place] [address] Yusuf Mabry MD Acute bronchitis due to other specified organisms (Primary Dx); Chest wall pain Discharge Disposition: Home or Self Care 07/28/2021 Travel 07/11/[address] [phone] Juliann Guevara APRN Non-scheduled Referral 06/17/2021 11:00 AM EDT Telemedicine [address] [phone] Juliann Guevara APRN Spondylosis; DDD (degenerative disc disease), cervical; Lumbosacral radiculopathy at S1; Lumbar degenerative disc disease 05/09/2021 Travel 05/09/2021 11:00 AM EDT - 05/09/2021 11:59 PM EDT Hospital Encounter [facility] [address] [place] [address] [address] [place] [phone] Risa Gould APRN Lumbar degenerative disc disease Discharge Disposition: Home or Self Care 05/06/[address] [place] [phone] Juliann Guevara, SHANTELLE Results 05/01/2021 Travel 05/01/2021 1:00 PM EDT - 05/01/2021 11:59 PM EDT Hospital Encounter [facility] [address] [place] [address] Juliann Guevara APRN DDD (degenerative disc disease), cervical Discharge Disposition: Home or Self Care 04/17/2021 Travel 04/17/2021 9:15 AM EDT Office Visit [address] [place] [phone] Juliann Guevara APRN Chronic pain syndrome (Primary Dx); Lumbar degenerative disc disease; Spondylosis; DDD (degenerative disc disease), cervical; Degenerative disc disease, lumbar 03/24/2021 Travel 03/24/2021 7:16 PM EDT - 03/24/2021 8:51 PM EDT [facility] [address] [place] [address] Scott Locke MD Nonspecific abdominal pain (Primary Dx) Discharge Disposition: Home or Self Care 02/25/[address] [facility] [address] [place] [phone] Juliann Guevara APRN Other (Schedule appt ) 02/25/2021 10:15 AM EDT Telemedicine [address] [place] [phone] Juliann Guevara APRN Lumbar degenerative disc disease (Primary Dx); Lumbosacral radiculopathy at S1; Chronic pain syndrome; Spondylosis; DDD (degenerative disc disease), cervical; Degenerative disc disease, lumbar 02/01/2021 Telephone [facility] [address] [phone] Juliann Guevara APRN Results (UDS) 01/28/2021 2:50 PM EDT - 01/28/2021 11:59 PM EDT Hospital Encounter [facility] [address] [facility] [place], [place] [id number] Encounter for long-term (current) use of high-risk medication Discharge Disposition: Home or Self Care 01/28/2021 Travel 01/28/2021 Refill [facility] [address] [phone] Lloyd Schwab MD Medication Refill 01/28/2021 9:15 AM EDT Telemedicine [address] [phone] Juliann Guevara APRN Cervicalgia (Primary Dx); Lumbosacral radiculopathy at S1; Lumbar degenerative disc disease; DDD (degenerative disc disease), cervical; Chronic pain syndrome; Mid back pain, chronic; Myofascial muscle pain; Encounter for long-term (current) use of high-risk medication 12/25/2020 9:30 AM EDT Telemedicine [facility] [address] [phone] Lloyd Schwab MD Cervicalgia (Primary Dx); Lumbosacral radiculopathy at S1; Lumbar degenerative disc disease; DDD (degenerative disc disease), cervical; Chronic pain syndrome 11/29/2020 Telephone [facility] [address] [phone] Risa Gould APRN Other (Appt) 11/29/2020 8:00 AM EDT Telemedicine [facility] [address] [place] [phone] Risa Gould APRN Lumbosacral radiculopathy at S1 (Primary Dx); Chronic pain syndrome; Lumbar degenerative disc disease; Mid back pain, chronic; DDD (degenerative disc disease), cervical; Myofascial muscle pain; Encounter for long-term (current) use of high-risk medication 11/01/[address] [phone] Risa Gould APRN Other (Appt) 11/01/2020 3:45 PM EST Telemedicine [facility] [address] [place] [address] Risa Gould APRN Lumbosacral radiculopathy at S1 (Primary Dx); Lumbar degenerative disc disease; Mid back pain, chronic; Chronic pain syndrome; DDD (degenerative disc disease), cervical; Myofascial muscle pain; Right shoulder pain, unspecified chronicity; Encounter for long-term (current) use of high-risk medication 10/15/2020 Travel 10/15/2020 11:51 AM EST - 10/15/2020 1:43 PM EST Emergency [facility] [address] [facility] [place] [address] Mook Barillas, Thoracic myofascial strain, initial encounter (Primary Dx) Discharge Disposition: Home or Self Care 10/05/2020 Telephone [facility] [address] Risa Gould APRN Other (Appt) 10/04/2020 3:45 PM EST Telemedicine [facility] [address] [place] [address] Risa Gould APRN Lumbosacral radiculopathy at S1 (Primary Dx); Lumbar degenerative disc disease; Mid back pain, chronic; Chronic pain syndrome; DDD (degenerative disc disease), cervical; Myofascial muscle pain; Right shoulder pain, unspecified chronicity; Encounter for long-term (current) use of high-risk medication 09/03/2020 Travel 09/03/2020 3:45 PM EST Telemedicine [address] [phone] Risa Gould APRN Lumbosacral radiculopathy at S1 (Primary Dx); Lumbar degenerative disc disease; Chronic pain syndrome; DDD (degenerative disc disease), cervical; Myofascial muscle pain; Right shoulder pain, unspecified chronicity; Encounter for long-term (current) use of high-risk medication 07/09/2020 2:45 PM EST Telemedicine [address] [phone] Risa Gould APRN Lumbosacral radiculopathy at S1 (Primary Dx); Lumbar degenerative disc disease; Chronic pain syndrome; Lumbar radiculitis; DDD (degenerative disc disease), cervical; Myofascial muscle pain; Encounter for long-term (current) use of high-risk medication 07/04/2020 Travel 07/04/2020 5:22 PM EDT - 07/04/2020 7:02 PM EDT Emergency [facility] [address] [place] [address] Ekaterina Ortiz MD Closed head injury, initial encounter (Primary Dx); Cervical sprain, initial encounter; Chest wall contusion, unspecified laterality, initial encounter; Sprain of other ligament of left knee, initial encounter Discharge Disposition: Home or Self Care 06/08/2020 11:30 AM EDT - 06/08/2020 11:59 PM EDT Hospital Encounter [facility] [address] [place] [address] Encounter for long-term (current) use of high-risk medication Discharge Disposition: Home or Self Care 06/08/2020 Travel 06/06/2020 Telephone [place] [address] [place] [phone] Juliann Guevara APRN Other (appt) 06/06/2020 9:15 AM EDT Telemedicine [place] [address] [place] [phone] Juliann Guevara APRN Chronic pain syndrome (Primary Dx); Lumbosacral radiculopathy at S1; Lumbar degenerative disc disease 05/08/[address] [phone] Juliann Guevara APRN Other (appt) 05/08/2020 1:00 PM EDT Telemedicine [address] [phone] Juliann Guevara APRN Lumbosacral radiculopathy at S1; Lumbar degenerative disc disease 05/06/2020 Travel 05/06/2020 2:20 PM EDT - 05/06/2020 4:33 PM EDT Emergency [facility] [address] [place] [address] Jossy Mejia MD Nonintractable headache, unspecified chronicity pattern, unspecified headache type (Primary Dx) Discharge Disposition: Home or Self Care 04/09/2020 1:15 PM EDT Telemedicine [address] [phone] Juliann Guevara APRN Lumbar degenerative disc disease (Primary Dx); Lumbar radiculitis; Chronic pain syndrome; Lumbosacral radiculopathy at S1 03/08/2020 Telephone [place] [address] [place] [phone] Juliann Guevara APRN Other (appt) 03/08/2020 3:15 PM EDT Telemedicine [facility] [address] [place] [address] 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, 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, 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 Lumbosacral radiculopathy at S1; Lumbar degenerative disc disease 03/07/[address] [place] [phone] Refugio Guerra MD Medication Refill 03/01/2020 Travel 03/01/2020 2:54 PM EDT - 03/01/2020 11:59 PM EDT Hospital Encounter [facility] [address] [place] [address] [address] 4[address] Floor - [address] [place] [phone] Refugio Guerra MD Lumbosacral radiculopathy at S1 Discharge Disposition: Home or Self Care 02/22/2020 Travel 02/07/2020 11:00 AM EDT Telemedicine [address] [place] [phone] Refugio Guerra MD Lumbosacral radiculopathy at S1 (Primary Dx); Lumbar degenerative disc disease; Encounter for long-term (current) use of high-risk medication; Chronic pain syndrome 01/23/[address] [place] [phone] Refugio Guerra MD Other 01/23/2020 Travel 01/23/2020 1:00 PM EDT - 01/23/2020 11:59 PM EDT Hospital Encounter [address] 1 D 4th Floor - [address] [place] [phone] Refugio Guerra MD Lumbar radiculitis; Lumbar degenerative disc disease Discharge Disposition: Home or Self Care 01/20/2020 Travel 01/16/2020 Telephone [facility] [place] [address] Elihsa Pantoja, PT Other 01/12/[address] [place] [phone] Refugio Guerra MD Medication Management (Doyline) 01/12/2020 Travel 01/10/[address] [facility] [address] [place] [phone] Refugio Guerra MD Results (MRI) 01/10/2020 Travel 01/10/2020 2:00 PM EDT - 01/10/2020 11:59 PM EDT Hospital Encounter [facility] [address] [place] [address] Refugio Guerra MD Lumbar radiculitis Discharge Disposition: Home or Self Care 01/09/2020 Travel 01/05/2020 Travel 01/05/2020 1:[address] [facility] [address] [place] [phone] Refugio Guerra MD Lumbar radiculitis (Primary Dx); Lumbar degenerative disc disease 01/01/2020 Travel 01/01/2020 8:22 PM EDT - 01/01/2020 9:06 PM EDT Emergency [facility] [address] [place] [address] Bob Chirinos MD Acute exacerbation of chronic low back pain (Primary Dx) Discharge Disposition: Home or Self Care 12/04/2019 Travel 12/04/2019 6:43 AM EDT - 12/04/2019 9:13 AM EDT [facility] [address] [place] [address] Jamal Becker MD Johnson, Marleen C, MD Lymphadenopathy (Primary Dx); Sorethroat Discharge Disposition: Home or Self Care 10/02/2019 6:28 PM EST - 10/02/2019 8:26 PM EST Emergency [facility] [address] [place] [address] Freddie Awad MD Shoulder strain, right, initial [...] mg by mouth daily. 14 Capsule 08/09/20 Active gabapentin (NEURONTIN) 600 mg Oral Tablet Take 600 mg by mouth 3 times daily. Active bisoprolol (ZEBETA) 5 mg Oral Tablet 11/04/19 Active pregabalin (LYRICA) 150 mg Oral Capsule Take 150 mg by mouth 3 times daily. 06/09/20 24 Active HYDROcodone-aceta minophen (NORCO) 10-325 mg Oral TabletIndications :Lumbosacral radiculopathy at S1 Take 1 Tablet by mouth every 6 hours as needed for Chronic Pain (G89.29) for up to 28 days. 112 Tablet 08/01/20 25 025 Active HYDROcodone-aceta minophen (NORCO) 10-325 mg Oral TabletIndications :Lumbosacral radiculopathy at S1,Lumbosacral spondylosis without myelopathy,DDD (degenerative disc disease), cervical,Chronic pain syndrome Take 1 Tablet by mouth every 6 hours as needed for Chronic Pain (G89.29) for up to 28 days. 112 Tablet 08/29/20 25 026 Active Active Problems Patient Care Coordination No te Formatting of this note migh t be different from the original. [facility] - Evaluating/Primary office MD Rosario Guerra Controlled Substance Protocol Completed:SNC Appt 02/19/24, 12/22/24, 12/29/24, 02/07/25 A. Informed Consent Statement signed (Yearly) Sent via [employer] 10/13/2024 B. Controlled Substance Agreement signed (Yearly) 10/13/2024 C. Comprehensive Urine Drug Screen was performed (Minimum YEARLY) (03/14/25) D. Iam report completed (EVERY 3 MONTHS) (04/05/2025) E. Screening tool for addiction (SOAPP) completed (YEARLY) F. Need for controlled substance is documented (EVERY VISIT) G. Pain Scale and or Functional capacity documented (EVERY VISIT)04/21/24 Pharmacy: [facility] [phone] Problem Noted Date Diagnosed Date Syncope and [...] M[place] Social History Smoking Status as of 08/29/2025 Tobacco Use Types Packs/Day Years Used Date Smoking Tobacco: Never Assessed [facility] Utilities Answer Date Recorded In the past 12 months has [employer]), gas, oil, or water [facility] threatened to shut off services in your home? No 01/26/2024 Overall Financial Resource Strain (CARDIA) Answe r Date Recorded How hard is it for you to pa y for the very basics like food, housing, medical care, and heating? Not very hard 01/26/2024 PHQ-2 Answer Date Recorded PHQ-2 Total Score 0 01/26/2024 [facility] - Occupational Stress [...] things needed for daily living? No 05/19/2022 [facility] IP Transportation Answer D ate Recorded [...] Pressure 143/87 07/27/2025 3:22 PM EST Pulse 81 04/05/2025 1:39 PM EDT Temperature 36.8 C (98.2 F) 01/20/2025 3:03 PM EDT Respiratory Rate 18 05/31/2025 1:43 PM EDT Oxygen Saturation 94% 04/05/2025 1:39 PM EDT Inhaled Oxygen Concentration - - Weight 91.6 kg (202 lb) 07/27/2025 3:22 PM EST Height 175.3 cm (5' 9 ) 07/27/2025 3:22 PM EST Body Mass Index 29.83 07/27/2025 3:22 PM EST Plan of Treatment Upcoming Encounters Date Type Department Care Team (Late st Contact Info) Description 09/21/2025 3:30 PM EST Office Visit [place] [address] [place] [phone] Anay Montana, 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 [address] [place] [address] Procedures Procedure Name Priority Date/Time Associated Diagnosis Comments MRI CERVICAL SPINE WO CONTRAST Routine 08/28/2025 3:58 PM EST Cervical radiculopathy COMPLIANCE PANEL, URINE Routine 03/14/2025 5:46 PM [...] on Stelara q4 weeks. Patient presented to [facility] ED yesterday for worsening abdominal pain,nausea. [...] past medical/social/family history sections for this patient. [facility] examined this patient, and participated in the care of this patient.I have reviewed the pertinent clinical information including vital signs,I&O,physical exam, labs, radiographic studies and the plan. This patientwas seen in coordination with the SWITCH MAKER. There has been no change in the [...] asked to see us in consultation by [facility] care provider on file. & Dk Hughes MD for evaluation ofdiarrhea, Crohn's disease. Mr. Moulton is a 51-year-old male with a history of ileocolonic Crohn'sdisease diagnosed in 2001 s/p TI resection in 2003 who follows at [facility]. He is on Stelara every 8 weeks, [...] Medication: acyclovir (ZOVIrax) IVPB (Standard) 10 mg/kg (Elbe) Intravenous 3times per day metroNIDAZOLE 500 mg [...] Diameter : 30.5 cm SSDE Source : KontronhibaFINDINGS: Lower chest: No acute abnormality. Liver: Normal. [...] This patient was seen in coordination with SWITCH MAKER. Pertinent physical exam finding: GA: NAD Lungs: non labored breathing Abdomen: soft, mild francisco abdominal tenderness I agree with assessment and plan as above. Additional information asfollows: 51-year-old male with multiple medical comorbidities including a historyof ileocolonic Crohn's disease diagnosed in 2001 s/p ileocecectomy whoactively follows at the [facility] and immunosuppression withustekinumab every 8 weeks [...] follow back with his GI doctor at [facility] where he hasan appointment next week. [...] SANJAY 10/02/2019 6:59 PM EST Results * MRI CERVICAL SPINE WO CONTRAST (08/28/2025 3:58 PM EST) Only the most recent of2 resultswithin the time period is included. Anatomical Region Laterality Modality Spine, C-spine Magnetic [...] with bilateral upper extremity numbness. M54.12-Radiculopathy, cervical uaiqoe-PGM-58-CM. COMPARISON: CT cervical spine 01/24/2024. PROCEDURE COMMENTS: [...] with bilateral upper extremity numbness. M54.12-Radiculopathy, cervical flzaep-VDF-09-CM. COMPARISON: CT cervical spine 01/24/2024. PROCEDURE COMMENTS: Sagittal and axial T1 and T2-weighted sequencesobtained on 1.5 Ykung magnet. Sagittal T1 and T2 sequences repeated. [...] of the ordering clinician. Anay Montana APRN [facility] MRI ORDERABLES Final Resu lt * (ABNORMAL) COMPLIANCE PANEL, URINE (03/14/2025 5:46 PM EDT) Only the most recent of9 resultswithin the time period is included. Medications Expected Doyline(TM) (hydrocod one) 03/15/2025 8:42 PM EDT [facility] [employer] [facility] Barbiturates Absent Cutoff 200 ng/mL 03/15/2025 8:42 PM EDT [facility] [employer] THC <10 Cutoff 10 ng/mL ng/mL 03/15/2025 8:42 PM EDT [facility] Comment:3-ivuekgy-cvkzrtxcvb cannabinol; does not distinguish between prescribed and [...] 03/15/2025 8:42 PM EDT [facility] Comment:Metabolite of Alpraz olam Clonazepam <10 Cutoff 10 ng/mL ng/mL 03/15/2025 8:42 PM EDT [facility] Comment:e.g., Klonopin, Clon opin 7-Aminoclonazepam <25 Cutoff 25 ng/mL ng/mL 03/15/2025 8:42 PM EDT [facility] Comment:Metabolite of Clonaz epam Diazepam <10 Cutoff 10 ng/mL ng/mL 03/15/2025 8:42 PM EDT [facility] Comment:e.g, Valium, Diastat Nordiazepam <25 Cutoff 25 ng/mL ng/mL 03/15/2025 8:42 PM EDT [facility] Comment:Metabolite of Chlord iazepoxide(Librium), Clorazepate(Tranxene), Diazepam, Halazepam, (Alapryl), Prazepam(Centrax) Flunitrazepam <50 Cutoff 50 ng/mL ng/mL 03/15/2025 8:42 PM EDT [facility] Comment:e.g.,Rohypnol, Narco zep 7-Aminoflunitrazepam <50 Cutoff 50 ng/mL ng/mL 03/15/2025 8:42 PM EDT [facility] Comment:Metabolite of Flunit razepam Flurazepam <50 Cutoff 50 ng/mL ng/mL 03/15/2025 8:42 PM EDT [facility] Comment:e.g., Dalmane Hydroxyethylflurazepam <50 Cutoff 50 ng/mL ng/mL 03/15/2025 8:42 PM EDT [facility] Comment:Metabolite of Fluraz epam Lorazepam <50 Cutoff 50 ng/mL ng/mL 03/15/2025 8:42 PM EDT [facility] Comment:e.g., Ativan Lorazepam Glucuronide <50 Cutoff 50 ng/mL ng/mL 03/15/2025 8:42 PM EDT [facility] Comment:Metabolite of Loraze jas Midazolam <50 Cutoff 50 ng/mL ng/mL 03/15/2025 8:42 PM EDT [facility] Comment:e.g., Versed alpha-hydroxymidazolam <50 Cutoff 50 ng/mL ng/mL 03/15/2025 8:42 PM EDT [facility] Comment:Metabolite of Versed Oxazepam <50 Cutoff 50 ng/mL ng/mL 03/15/2025 8:42 PM EDT [facility] Comment:e.g., Serax; also Me tabolite of Temazepam, and Nordiazepam Oxazepam Glucuronide <50 Cutoff 50 ng/mL ng/mL 03/15/2025 8:42 PM EDT [facility] Comment:Metabolite of Oxazep am Temazepam <50 Cutoff 50 ng/mL ng/mL 03/15/2025 8:42 PM EDT [facility] Comment:e.g., Restoril; also Metabolite of Diazepam Temazepam Glucuronide <50 Cutoff 50 ng/mL ng/mL 03/15/2025 8:42 PM EDT [facility] Comment:Metabolite of Temaze jas and Diazepam Triazolam <50 Cutoff 50 ng/mL ng/mL 03/15/2025 8:42 PM EDT [facility] Comment:e.g., Halcion alpha-hydroxytriazolam <50 Cutoff 50 ng/mL ng/mL 03/15/2025 8:42 PM EDT [facility] Comment:Metabolite of Triazo holm Buprenorphine <5 Cutoff 5 ng/mL ng/mL 03/15/2025 8:42 PM EDT [facility] Comment:e.g., Suboxone, Subu minna,Sublocade, Buprenex Buprenorphine Glucuronide 13(H) Cutoff 10 ng/mL ng/mL 03/15/2025 8:42 PM EDT [facility] Comment:Buprenorphine Metabo lite Norbuprenorphine <5 Cutoff 5 ng/mL ng/mL 03/15/2025 8:42 PM EDT [facility] Comment:Buprenorphine Metabo lite Norbuprenorphine Glucuronide 118(H) Cutoff 10 ng/mL ng/mL 03/15/2025 8:42 PM EDT [facility] Comment:Buprenorphine Metabo lite Benzoylecgonine <50 Cutoff 50 ng/mL ng/mL 03/15/2025 8:42 PM EDT [facility] Comment:Cocaine Metabolite Fentanyl <1 Cutoff 1 ng/mL ng/mL 03/15/2025 8:42 PM EDT [facility] Comment:e.g.,Duragesic, Oral et, Actiq, Sublimaze, Innovar, Lazanda Norfentanyl <1 Cutoff 1 ng/mL ng/mL 03/15/2025 8:42 PM EDT [facility] Comment:Metabolite of Fentan yl 6-Monoacetylmorphine (6MAM) <10 Cutoff 10 ng/mL ng/mL 03/15/2025 8:42 PM EDT [facility] Comment:Metabolite of Heroin ; Morphine is expected Methadone <50 Cutoff 50 ng/mL ng/mL 03/15/2025 8:42 PM EDT [facility] Comment:e.g., Dolophine, Met hadose, Amidone EDDP <50 Cutoff 50 ng/mL ng/mL 03/15/2025 8:42 PM EDT [facility] Comment:Methadone Metabolite Carisoprodol <100 Cutoff 100 ng/mL ng/mL 03/15/2025 8:42 PM EDT [facility] Comment:e.g., Soma Meprobamate <100 Cutoff 100 ng/mL ng/mL 03/15/2025 8:42 PM EDT [facility] Comment:e.g., Solgohachia, Equa nil, Micrainin, Equagesic; Metabolite of Carisoprodol Codeine <50 Cutoff 50 ng/mL ng/mL 03/15/2025 8:42 PM EDT [facility] Comment:e.g., Acetaminophen w/Codeine, Tylenol3 w/ Codeine Codeine Glucuronide <50 Cutoff 50 ng/mL ng/mL 03/15/2025 8:42 PM EDT [facility] Comment:Metabolite of Codein e Meperidine <50 Cutoff 50 ng/mL ng/mL 03/15/2025 8:42 PM EDT [facility] Comment:e.g., Demerol, Pethi dine Normeperidine <50 Cutoff 50 ng/mL ng/mL 03/15/2025 8:42 PM EDT [facility] Comment:Metabolite of Meperi dine Morphine <50 Cutoff 50 ng/mL ng/mL 03/15/2025 8:42 PM EDT [facility] Comment:e.g., MS Contin, Adry anol; Metabolite of Codeine and Heroin; may reflect poppy seed ingestion Xglvicjc-6-Vlmyjxvgksd <25 Cutoff 25 ng/mL ng/mL 03/15/2025 8:42 PM EDT [facility] Comment:Metabolite of Morphi ne. Axaysjnv-8-Lzvqschyclx <25 Cutoff 25 ng/mL ng/mL 03/15/2025 8:42 PM EDT [facility] Comment:Metabolite of Morphi ne. Naloxone <25 Cutoff 25 ng/mL ng/mL 03/15/2025 8:42 PM EDT [facility] Comment:e.g., Narcan, Evzio Hydrocodone >2,000(H) Cutoff 50 ng/mL ng/mL 03/15/2025 8:42 PM EDT [facility], [facility] Comment:e.g., Lorcet, Lortab , Vicodin, Doyline; Minor Metabolite of Codeine Dihydrocodeine >2,000(H) Cutoff 50 ng/mL ng/mL 03/15/2025 8:42 PM EDT [facility], [facility] Comment:e.g., Didrate, Parzo ne, Parlor, Synalgos; Metabolite of Hydrocodone Norhydrocodone >2,000(H) Cutoff 50 ng/mL ng/mL 03/15/2025 8:42 PM EDT [facility], [facility] Comment:Metabolite of Hydroc odone Hydromorphone 137(H) Cutoff 50 ng/mL ng/mL 03/15/2025 8:42 PM EDT [facility] Comment:e.g., Dilaudid; also Metabolite of Hydrocodone and Minor Metabolite of Morphine Hydromorphone Glucuronide >2,000(H) Cutoff 50 ng/mL ng/mL 03/15/2025 8:42 PM EDT [facility] Comment:Metabolite of Hydrom orphone Oxycodone <50 Cutoff 50 ng/mL ng/mL 03/15/2025 8:42 PM EDT [facility] Comment:e.g., Oxycontin, Per cocet, Endocet, Percodan, Roxicet Noroxycodone <50 Cutoff 50 ng/mL ng/mL 03/15/2025 8:42 PM EDT [facility], [facility] Comment:Metabolite of Oxycod one Oxymorphone <50 Cutoff 50 ng/mL ng/mL 03/15/2025 8:42 PM EDT [facility] Comment:e.g., Opana; Metabol ite of Oxycodone Oxymorphone Glucuronide <50 Cutoff 50 ng/mL ng/mL 03/15/2025 8:42 PM EDT [facility] Comment:Metabolite of Oxycod one Noroxymorphone <50 Cutoff 50 ng/mL ng/mL 03/15/2025 8:42 PM EDT [facility] Comment:Metabolite of Oxycod one, and Oxymorphone, Noroxycodone Metabolite Tramadol <50 Cutoff 50 ng/mL ng/mL 03/15/2025 8:42 PM EDT [facility] Comment:e.g., Ultram, ConZip N-Sxheiisgg-tpe-Tramadol <50 Cutoff 50 ng/mL ng/mL 03/15/2025 8:42 PM EDT [facility], [facility] Comment:Metabolite of Tramad ol Tapentadol <50 Cutoff 50 ng/mL ng/mL 03/15/2025 8:42 PM EDT [facility] Comment:Nucynta Tapentadol-Glucuronide <50 Cutoff 50 ng/mL ng/mL 03/15/2025 8:42 PM EDT [facility] Comment:Metabolite of Tapent adol Urine Creatinine 249.0 mg/dL 03/15/20 8:42 PM EDT [facility] Comment: Greater than 20: Consistent with valid sample Greater than 2 but less than 20: Possible dilution Less than 2: Questionable valid sample Urine STRUCTURE OF URINARY TRACT PROPER / Unknown 03/14/2025 5:46 PM EDT 03/14/2025 5:46 PM EDT Narrative [facility] - 03/15/2025 8:42 PM EDT The absence [...] be regarded as investigational or for research. [facility] is certified under the Clinical Laboratory Improvement Amendments (CLIA) as qualified to perform high complexity clinical laboratory testing. us Juliann Guevara 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 URINE ORDERABLES Final Res ult [facility] [address] [facility], [place] [address] [facility] [address] [place] [id number] * SCANNED EKG (01/23/2025 11:00 AM EDT) [...] DIAGNOSTIC IMAGING ORDE ARIANA Final Result * EK EKG 12 LEAD (01/20/2025 2:58 PM EDT) Only the most recent of2 resultswithin the time period is included. Anatomical Region Laterality Modality Electrocardiogra phy 01/20/2025 2:59 PM EDT Impressions 01/20/2025 5:[address] [facility] Test Date: 2025-01-20 Pat Name: FAUSTINA MOULTON Department: DEPID Room: Gender: Male Front End Assistant: Davis : 1970 Requested By: [facility] Order Number: [id number] Reading MD: Yvette De Jesus Measurements Intervals [place] Rate: 71 P: 51 AR: 132 QRS: 23 QRSD: 90 T: 45 QT: 400 QTc: 438 Interpretive Statements SINUS RHYTHM Electronically Signed On 01-20-2025 17:44:19 EDT by Yvette De Jesus Narrative Procedure Note Yvette De Jesus MD - 01/20/[address] [facility] Test Date: 2025-01-20 Pat Name: FAUSTINA KENNEY Department: DEPID Room: Gender: Male Front End Assistant: Dvais : 1970 Requested By: [facility] Order Number: [id number] Reading MD: Yvette De Jesus Measurements Intervals [place] Rate: 71 P: 51 AR: 132 QRS: 23 QRSD: 90 T: 45 QT: 400 QTc: 438 Interpretive Statements SINUS RHYTHM Electronically Signed On 01-20-2025 17:44:19 EDT by Yvette De Jesus Yusuf Mabry MD IMG ECG ORDERABLES Final [...] of the ordering clinician. Kellee Rolon APRN IMG DIAGNOSTIC IMAGING ORDER MANNY Final Result [...] HISTORY: M47.817-Spondylosis without myelopathy or radiculopathy, lumbosacral ighuwr-FDK-55-CM M51.36-Other intervertebral disc degeneration, lumbar hybztf-HKZ-95-CM. COMPARISON: 01/10/2020 PROCEDURE COMMENTS: Multiplanar multiecho MR [...] CLINICAL HISTORY: M47.817-Spondylosis without myelopathy orradiculopathy, lumbosacral gkibzo-WDE-78-CM M51.36-Other intervertebral disc degeneration, lumbar tvltom-FEC-08-CM. COMPARISON: 01/10/2020 PROCEDURE COMMENTS: Multiplanar multiecho MR [...] of the right subarticular disc protrusion at L5-S2fyhtw is resolved or near completely resolved. No [...] office of the ordering clinician. Risa Gould APRN [facility] MRI ORDERABLES Final Result * NE US CAROTID DUPLEX BILATERAL (01/26/2024 8:51 AM [...] internal carotid artery demonstrates 1-39% mild stenosis. Scooter Beckett MD [facility] VASCULAR ORDERABLES Final Re sult * (ABNORMAL) [...] 7:57 AM EDT [facility] Comment:Automated count of m etamyelocytes, myelocytes and promyelocytes. Lymph Percent 27.1 % 01/26/2024 7:57 AM EDT [facility] Gilliam Percent 8.0 % 01/26/2024 7:57 AM EDT [facility] Eos Percent 1.7 % 01/26/2024 7:57 AM EDT [facility] Baso Percent 0.4 % 01/26/2024 7:57 AM EDT [facility] Neut # 5.2 1.6 - 6.1 x10(3)/mcL 01/26/2024 7:57 AM EDT [facility] Comment:Neutrophils equals s egs plus bands IMMGRAN# 0.0 0.0 - 0.1 x10(3)/mcL 01/26/2024 7:57 AM EDT [facility] [employer] [facility], [facility] Comment:Automated count of m etamyelocytes, myelocytes and promyelocytes. An absolute IG <0.1 is reported as 0.0. Lymph # 2.2 1.2 - 3.9 x10(3)/[facility] 01/26/2024 7:57 AM EDT [facility], [facility] Gilliam # 0.7 0.3 - 0.9 x10(3)/[facility] 01/26/2024 7:57 AM EDT [facility] Alma Johns, [facility] Eos# 0.1 0.0 - 0.5 x10(3)/[facility] 01/26/2024 7:57 AM EDT [facility] Alma Johns, [facility] Baso # 0.0 0.0 - 0.1 x10(3)/[facility] 01/26/2024 7:57 AM EDT [facility] [employer], [facility] Blood VENOUS BLOOD / Unknown Venipuncture / Unknown 01/26/2024 7:25 AM EDT 01/26/2024 7:44 AM EDT us Scooter Beckett MD HEMATOLOGY ORDERABLES Final Resu lt [facility] [employer] , [place] [address] * THYROID STIMULATING HORMONE (01/26/2024 7:25 AM EDT) [facility] Signature TSH 0.944 0.270 - 4.200 mcIU/mL 01/26/2024 8:27 AM EDT [facility] [employer], [facility] Blood VENOUS BLOOD / Unknown Venipuncture / Unknown 01/26/2024 7:25 AM EDT 01/26/2024 7:44 AM EDT Narrative [facility] [employer] [facility] - 01/26/2024 8:27 AM EDT Ingestion of fam doses of biotin (>5 mg/day) taken within 8 hours of drawing blood sample can interfere with this immunoassay test. Scooter Beckett MD CHEMISTRY ORDERABLES Final Resul t Performing Organization Address City/[facility]/ZIP Co de Phone Number [facility] , [place] [address] * T4, FREE (THYROXINE) (01/26/2024 7:25 AM EDT) Pathologist [facility] Free T4 1.01 0.80 - 1.80 ng/dL 01/26/2024 8:27 AM EDT [facility] [employer] [facility] Blood VENOUS BLOOD / Unknown Venipuncture / Unknown 01/26/2024 7:25 AM EDT 01/26/2024 7:44 AM EDT Narrative PREFERRED [employer] [facility] - 01/26/2024 8:27 AM EDT Ingestion of fam doses of biotin (>5 mg/day) taken within 8 hours of drawing blood sample can interfere with this immunoassay test. us Scooter Beckett MD CHEMISTRY ORDERABLES Final Resul t PREFERRED [employer] [address] , [place] [address] * (ABNORMAL) LIPID SCREEN (01/26/2024 7:25 AM EDT) Pathologist [facility] Cholesterol 202(H) <200 mg/dL 01/26/2024 8:27 AM EDT [facility] [employer] Comment: < 200 Desirable 200 - 239 Borderline High >= 240 High Triglyceride 116 <150 mg/dL 01/26/2024 8:27 AM EDT [facility] [employer] Comment: < 150 Normal 150 - 199 Borderline High 200 - 499 High >= 500 Very High HDL 42 >=40 mg/dL 01/26/2024 8:27 AM EDT [facility] Comment: > 60 Optimal 40 - 60 Acceptable < 40 Low LDL Calculated 139(H) <100 mg/dL 01/26/2024 8:27 AM EDT [facility] Comment: < 100 Optimal 100 - 129 Near or above optimal 130 - 159 Borderline High 160 - 189 High >= 190 Very High Non-HDL-C Calculated 160(H) <=129 mg/dL 01/26/2024 8:27 AM EDT [facility] [employer] Comment: <130 Desirable 130-159 Above Desirable 160-189 Borderline High 190-219 High >= 220 Very High Fasting Specimen? Yes None 024 8:27 AM EDT [facility] Blood VENOUS BLOOD / Unknown Venipuncture / Unknown 01/26/2024 7:25 AM EDT 01/26/2024 7:44 AM EDT us Scooter Beckett MD CHEMISTRY ORDERABLES Final Resul t [facility], [facility] [address] [facility] , [place] [address] [facility] [address] [place] [address] * BASIC METABOLIC PANEL (01/26/2024 7:25 AM EDT) Only the most recent of5 resultswithin the time period is included. Sodium 142 136 - 145 mmol/L 01/26/2024 8:27 AM EDT [facility] Potassium 3.6 3.5 - 5.0 mmol/L 01/26/2024 8:27 AM EDT [facility] Chloride 103 98 - 107 mmol/L 01/26/2024 8:27 AM EDT [facility] Total CO2 27 22 - 29 mmol/L 01/26/2024 8:27 AM EDT [facility] Anion Gap 12 7 - 16 mmol/L 01/26/2024 8:27 AM EDT [facility] Calcium 8.9 8.6 - 10.4 mg/dL 01/26/2024 8:27 AM EDT [facility] Glucose Lvl 91 70 - 99 mg/dL [...] recommended by the National Kidney Foundation - [place] Society of Nephrology Task Force. Blood VENOUS BLOOD / Unknown Venipuncture / Unknown 01/26/2024 7:25 AM EDT 01/26/2024 7:44 AM EDT us Scooter Beckett MD CHEMISTRY ORDERABLES Final Resul t [facility] [address], [place] [address] [facility] [address] [place], [place] [id number] * MRI BRAIN WO CONTRAST (01/26/2024 1:00 [...] - 5.6 % 01/25/2024 9:27 PM EDT PREFERRED [employer]. Avg Glucose 105 mg/dL 01/25/2024 9:27 PM EDT [facility] Blood VENOUS BLOOD / Unknown Venipuncture / Unknown 01/25/2024 9:00 PM EDT 01/25/2024 9:06 PM EDT Narrative [facility] - 01/25/2024 9:27 PM EDT REFERENCE RANGE: Normal: 4.0-5.6% Pre-diabetes: 5.7-6.4% Provisional diagnosis of diabetes: >6.4% Hgb F>10% and anything which shortens red cell survival, such as hemolytic anemia, or unstable hemoglobin variants such as HbSS, HbSC, or HbCC, will lower the HbA1c value associated with a given level of glycemic control. us Scooter Beckett MD CHEMISTRY ORDERABLES Final Resul t [facility] [address] [facility] , [place] [address] * TROPONIN-T HIGH SENSITIVITY 2HR (01/24/2024 11:21 PM EDT) dr-bPgolorax-Y 2HR <6 <22 ng/L 01/24/2024 11:51 PM EDT [facility] Comment:See the website [employer] Veniti for rule out MA care pathway, conditions other than AMI that can cause elevated hs cTnT, and comparison of values from the 4th and 5th generation Rickey tests. https://[email or web address]/topic/clinical-answers/[email or web address]/cpm-[email or web address] hs-cTnT 2Hr Delta from Baseline 01/24/2024 11:51 PM EDT [facility] Comment:Unable to calculate, result is outside instrument's measuring range. Blood VENOUS BLOOD / Unknown Venipuncture / Unknown 01/24/2024 11:21 PM EDT 01/24/2024 11:28 PM EDT Narrative [facility] - 01/24/2024 11:51 PM EDT Ingestion of fam doses of biotin (>5 mg/day) taken within 8 hours of drawing blood sample can interfere with this immunoassay test. us Doc Garcia MD CHEMISTRY ORDERABLES Final R esult [facility] [address] [place] [address] * CT CERVICAL SPINE WO CONTRAST [...] the ordering clinician. Doc Garcia MD IMG CT ORDERABLES Final [...] the ordering clinician. us Doc Garcia MD [facility] DIAGNOSTIC IMAGING ORDER MANNY Final Result * [...] the ordering clinician. us Doc Garcia MD [facility] ORDER MANNY Final Result * TROPONIN-T HIGH SENSITIVITY BASELINE W/ REFLEX (01/24/2024 7:52 PM EDT) mw-dHbvaaieu-U <6 <22 ng/L 01/24/2024 8:18 PM EDT [facility] Comment:See the website isaak sher for rule out MA care pathway, conditions other than AMI that can cause elevated hs cTnT, and comparison of values from the 4th and 5th generation Rickey tests. https://[email or web address]/topic/clinical-answers/[email or web address]/cpm-[email or web address] 50483 Blood VENOUS BLOOD / Unknown Venipuncture / Unknown 01/24/2024 7:52 PM EDT 01/24/2024 7:56 PM EDT Narrative [facility] - 01/24/2024 8:18 PM EDT Ingestion of fam doses of biotin (>5 mg/day) taken within 8 hours of drawing blood sample can interfere with this immunoassay test. Doc Garcia MD CHEMISTRY ORDERABLES Final R esult Performing Organization Address City/[facility]/ZIP Co de Phone Number [facility] [address] [place] [address] * BLOOD CULTURE (NO STAIN) (09/26/2023 5:43 PM EST) Only the most recent of4 resultswithin the time period is included. Culture Result No Growth at 120 hours. BLOOD CULTURE (NO STAIN) 10/02/2023 10:00 AM EST [facility] Blood VENOUS BLOOD / Unknown Venipuncture / Unknown 09/26/2023 5:43 PM EST 09/26/2023 5:47 PM EST Damir Diana MD MICROBIOLOGY - GENERAL ORDERABL ES Final Result Performing Organization Address City/[facility]/ZIP Co de Phone Number [facility] [address] [place] [address] , [place] [address] * REPEAT LACTIC ACID (09/23/2023 6:02 PM EST) Only the most recent of2 resultswithin the time period is included. Lactic Acid 1.0 0.5 - 1.9 mmol/L 09/23/2023 6:49 PM EST [facility] Blood VENOUS BLOOD / Unknown Venipuncture / Unknown 09/23/2023 6:02 PM EST 09/23/2023 6:41 PM EST Josue Fernández APRN CHEMISTRY ORDERABLES Fin al Result Performing Organization Address City/[facility]/ZIP Co de Phone Number [facility] [address] [place] [address] * PROCALCITONIN (09/23/2023 6:02 PM EST) Procalcitonin 0.05 <=0.49 ng/mL 09/24/2023 9:49 AM EST [facility] Blood VENOUS BLOOD / Unknown Venipuncture / Unknown 09/23/2023 6:02 PM EST 09/23/2023 6:41 PM EST Narrative [facility] - 09/24/2023 9:49 AM EST Procalcitonin <0.50 [...] severe sepsis and/or septic shock. Josue Fernández APRN CHEMISTRY ORDERABLES Fin al Result Performing Organization Address City/[facility]/ZIP Co de Phone Number [facility] [address] [place] [address] , [place] [address] * (ABNORMAL) C-REACTIVE PROTEIN (09/23/2023 6:02 PM EST) Only the most recent of3 resultswithin the time period is included. CRP 9.62(H) <=5.00 mg/L 09/24/2023 9:39 AM EST [facility] Blood VENOUS BLOOD / Unknown Venipuncture / Unknown 09/23/2023 6:02 PM EST 09/23/2023 6:41 PM EST us Josue Fernández 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 CHEMISTRY ORDERABLES Fin al Result [facility] [address] [facility] , [place] [address] * URINALYSIS REFLEX (09/23/2023 5:46 PM EST) Pathologist [facility] UA Color Yellow 09/23/2023 5:51 PM EST [facility] UA Appear Clear Clear 09/23/2023 5:51 PM [facility] UA Glucose Negative Negative mg/dL 09/23/2023 5:51 PM [facility] UA Ketones Negative Negative mg/dL 09/23/2023 5:51 PM [facility] UA Blood Negative Negative 09/23/2023 5:51 PM [facility] UA pH 6.5 5.0 - 8.0 pH 09/23/2023 5:51 PM [facility] UA Protein Negative Negative mg/dL 09/23/2023 5:51 PM [facility] UA Urobilinogen 0.2 <=1 mg/dL 5:51 PM [facility] UA Bili Negative Negative 09/23/2023 5:51 PM [facility] UA Nitrite Negative Negative 09/23/2023 5:51 PM [facility] UA Leuk Est Negative Negative 09/23/2023 5:51 PM [facility] UA Spec Grav 1.015 1.001 - 1.035 no units 09/23/2023 5:51 PM [facility] Comment:Reference range olvin d for random specimens only. Urine URINE SPECIMEN COLLECTION, CLEAN CATCH / Unknown 09/23/2023 5:46 PM EST 09/23/2023 5:48 PM EST Josue Fernández APRN URINE ORDERABLES Final R esult Performing Organization Address City/[facility]/ZIP Co de Phone Number [facility] [address] [place] [address] * EXTRA LE URINE CX (09/23/2023 5:46 PM EST) Only the most recent of4 resultswithin the time period is included. Urine URINE SPECIMEN COLLECTION, CLEAN CATCH / Unknown 09/23/2023 5:46 PM EST 09/23/2023 5:48 PM EST Josue Lockwood Jakydaniel 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 MICROBIOLOGY - GENERAL O RDERABLES Final Result Performing Organization Address [facility] Co de Phone Number [facility] [address] [place] [address] * CT ABD PEL ED FAST W [...] contactthe office of the ordering clinician. us Josue Fernández APRN IMG CT ORDERABLES Final Result * SEDIMENTATION RATE AUTOMATED (09/23/2023 4:01 PM EST) Only the most recent of2 resultswithin the time period is included. Pathologist [facility] Sed Rate 5 0 - 20 mm/hr 09/23/2023 5:56 PM EST [facility] Blood VENOUS BLOOD / Unknown Venipuncture / Unknown 09/23/2023 4:01 PM EST 09/23/2023 4:06 PM EST Josue Fernández APRN HEMATOLOGY ORDERABLES Fi nal Result Performing Organization Address [facility]/RUST de Phone Number [facility] [address] [place] [address] * LIPASE LEVEL (09/23/2023 4:01 PM EST) Only the most recent of4 resultswithin the time period is included. [facility] Lipase Lvl 23 13 - 60 U/L 09/23/2023 4:24 PM EST [facility] Blood VENOUS BLOOD / Unknown Venipuncture / Unknown 09/23/2023 4:01 PM EST 09/23/2023 4:12 PM EST Josue Fernández APRN CHEMISTRY ORDERABLES Fin al Result Performing Organization Address [facility] de Phone Number [facility] [address] [place] [address] * (ABNORMAL) LACTIC ACID (09/23/2023 4:01 PM EST) Only the most recent of4 resultswithin the time period is included. [facility] Lactic Acid 2.8(H) 0.5 - 1.9 mmol/L 09/23/2023 4:21 PM EST [facility] Blood VENOUS BLOOD / Unknown Venipuncture / Unknown 09/23/2023 4:01 PM EST 09/23/2023 4:12 PM EST Josue Fernández APRN CHEMISTRY ORDERABLES Fin al Result Performing Organization Address [facility]/RUST de Phone Number [facility] [address] [place] [address] [phone] * (ABNORMAL) COMPREHENSIVE METABOLIC PANEL (09/23/2023 4:01 PM EST) Only the most recent of7 resultswithin the time period is included. Sodium 137 136 - 145 mmol/L 09/23/2023 4:24 PM [facility] Potassium 3.5 3.5 - 5.0 mmol/L 09/23/2023 4:24 PM [facility] Chloride 101 98 - 107 mmol/L 09/23/2023 4:24 PM [facility] Total CO2 24 22 - 29 mmol/L 09/23/2023 4:24 PM [facility] Anion Gap 12 7 - 16 mmol/L 09/23/2023 4:24 PM [facility] Calcium 8.4(L) 8.6 - 10.4 mg/dL 09/23/2023 4:24 PM [facility] Glucose Lvl 210(H) 74 - 100 mg/dL 09/23/2023 4:24 PM [facility] BUN 8 6 - 20 mg/dL 09/23/2023 4:24 PM [facility] Creatinine 0.99 0.67 - 1.30 mg/dL 09/23/2023 4:24 PM [facility] Albumin 3.6 3.5 - 5.2 gm/dL 09/23/2023 4:24 PM [facility] Total Protein 6.1(L) 6.4 - 8.3 gm/dL 09/23/2023 4:24 PM [facility] Bili Total 0.3 0.2 - 1.4 mg/dL 09/23/2023 4:24 PM [facility] ALT 22 <=41 U/L 09/23/2023 4:24 PM [facility] AST 26 <=40 U/L 09/23/2023 4:24 PM [facility] Alk Phos 98 40 - 129 U/L 09/23/2023 4:24 PM [facility] eGFR (CKD-EPIcr 2020) 92 >=60 mL/min/1.7 3 m2 09/23/2023 4:24 PM [facility] Comment:Estimated GFR was ca lculated using the CKD-EPIcr (2020) equation refit without race. The equation is recommended by the National Kidney Foundation - [place] Society of Nephrology Task Force. Blood VENOUS BLOOD / Unknown Venipuncture / Unknown 09/23/2023 4:01 PM EST 09/23/2023 4:12 PM EST us Josue Fernández 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 CHEMISTRY ORDERABLES Fin al Result [facility] [address] [place] [address] * CT LUMBAR SPINE W CONTRAST (05/28/2023 [...] 1:11 PM CLINICAL HISTORY: M54.50-Low back pain, yimzxckfvxd-PGH-99-CM G89.29-Other chronic xepl-LDB-35-CM R22.2-Localized swelling, mass and lump, zipkz-IXP-85-CM. COMPARISON: MR lumbar spine 01/10/2020. PROCEDURE COMMENTS: Multidetector CT scanning of the lumbar spine with multiplanar reformats. Isovue 370 IV contrast given as recorded in EPIC. Dose 1 : CT DLP Total : 1245.4 mGycm DLP Spiral Max : 1245.4 mGycm Maximum CTDI Vol : 40.2 mGy SSDE : 43.818 mGy SSDE Diameter : 33.3 cm SSDE Source : [employer] FINDINGS: No acute fracture is present. There [...] 1:11 PM CLINICAL HISTORY: M54.50-Low back pain, dfigxjszmle-SDN-78-CM G89.29-Other chronic ywgz-HNV-99-CM R22.2-Localized swelling, mass and lump, uiomr-ATR-30-CM. COMPARISON: MR lumbar spine 01/10/2020. PROCEDURE COMMENTS: Multidetector CT scanning of the lumbar spine with multiplanar reformats. Isovue 370 IV contrast given as recorded in EPIC. Dose 1 : CT DLP Total : 1245.4 mGycm DLP Spiral Max : 1245.4 mGycm Maximum CTDI Vol : 40.2 mGy SSDE : 43.818 mGy SSDE Diameter : 33.3 cm SSDE Source : [employer] FINDINGS: No acute fracture is present. There [...] abnormal enhancement included softtissues. Analilia Barraza APRN IMG CT ORDERABLES Final [...] Diameter : 32.2 cm SSDE Source : [employer] FINDINGS: LOWER THORAX: Lung bases unremarkable. ABDOMEN [...] Diameter : 32.2 cm SSDE Source : [employer] FINDINGS: LOWER THORAX: Lung bases unremarkable. ABDOMEN [...] R adiology Narrative 12/23/2022 11:37 AM EDT [facility] PROCEDURE NOTE [place] December 23, 2022 SURGEON(S): Refugio Guerra MD [...] home. Refugio Guerra MD Interventional Pain Management [facility] Date: 12/23/2022 us Juliann [...] Diameter : 31.8 cm SSDE Source : [employer] FINDINGS: LOWER THORAX: Lung bases clear. ABDOMEN [...] Diameter : 31.8 cm SSDE Source : [employer] FINDINGS: LOWER THORAX: Lung bases clear. ABDOMEN [...] of the ordering clinician. Scott Mane MD [facility] CT ORDERABLES Final Result * URINALYSIS (08/09/2022 5:11 PM EST) Only the most recent of3 resultswithin the time period is included. UA Color Yellow 08/09/2022 5:26 PM EST [employer] [facility] UA Appear Clear Clear 08/09/2022 5:26 PM EST [facility] UA Glucose Negative Negative mg/dL 08/09/2022 5:26 PM EST [facility] UA Ketones Negative Negative mg/dL 08/09/2022 5:26 PM EST [facility] UA Blood Negative Negative 08/09/2022 5:26 PM [facility] UA pH 6.0 5.0 - 8.0 pH 08/09/2022 5:26 PM [facility] UA Protein Negative Negative mg/dL 08/09/2022 5:26 PM [facility] UA Urobilinogen 0.2 <=1 mg/dL 5:26 PM EST [facility] UA Bili Negative Negative 08/09/2022 5:26 PM EST [facility] UA Nitrite Negative Negative 08/09/2022 5:26 PM [facility] UA Leuk Est Negative Negative 08/09/2022 5:26 PM [facility] UA Spec Grav 1.020 1.001 - 1.035 no units 08/09/2022 5:26 PM [facility] Comment:Reference range olvin d for random specimens only. Urine URINE SPECIMEN COLLECTION, CLEAN CATCH / Unknown 08/09/2022 5:11 PM EST 08/09/2022 5:23 PM EST Scott Mane MD URINE ORDERABLES Final Result [facility] [address] [place] [address] * (ABNORMAL) HEMOGLOBIN AND HEMATOCRIT (05/19/2022 4:08 PM EDT) Only the most recent of5 resultswithin the time period is included. Hgb 13.7 13.7 - 17.5 g/dL 05/19/2022 4:19 PM EDT [facility], [employer] Hct 39.8(L) 40.0 - 51.0 % 05/19/2022 4:19 PM EDT [employer] Blood VENOUS BLOOD / Unknown Venipuncture / Unknown 05/19/2022 4:08 PM EDT 05/19/2022 4:12 PM EDT Sherry Rebolledo MD HEMATOLOGY ORDERABLES Final Resu lt Performing Organization Address [facility] de Phone Number [facility] [employer] [address] , [place] [address] * (ABNORMAL) FECAL CALPROTECTIN (05/18/2022 5:09 PM EDT) Fecal Calprotectin 226(H) <50 ug/g 05/20/2022 3:00 PM EDT [facility] [employer] [facility] Comment: Normal: <50 ug/g Borderline: 50-120 ug/g Elevated: >120 ug/g Stool SPECIMEN FROM RECTUM / Unknown 05/18/2022 5:09 PM EDT 05/18/2022 5:19 PM EDT Maude Tellez APRN IMMUNOLOGY ORDERABLES Final R esult Performing Organization Address [facility] de Phone Number [facility] [employer] [facility] [address] [facility] , [place] [address] * SHIGA TOXIN (05/18/2022 5:07 PM EDT) Pathologist [facility] Shiga Toxin Shiga toxins (produced by E. coli) not detected. Shiga toxins (produced by E. coli) not detected. 05/19/2022 5:36 PM EDT [facility] [employer] [facility] Stool SPECIMEN FROM RECTUM / Unknown 05/18/2022 5:07 PM EDT 05/18/2022 5:20 PM EDT Sherry Rebolledo MD MICROBIOLOGY - GENERAL ORDERABLE S Final Result Performing Organization Address [facility]UST de Phone Number [facility] [employer] , [place] [address] * STOOL CULTURE (NO STAIN) (05/18/2022 5:07 PM EDT) Culture No growth of enteric pathogens, including Salmonella, Shigella, Campylobacter, Vibrio, Yersinia, Aeromonas, Plesiomonas, or E. coli O157. 05/21/2022 2:57 PM EDT [facility] Stool SPECIMEN FROM RECTUM / Unknown 05/18/2022 5:07 PM EDT 05/18/2022 5:19 PM EDT Sherry Rebolledo MD MICROBIOLOGY - GENERAL ORDERABLE S Final Result Performing Organization Address [facility] Co de Phone Number [facility], [address] , [place] [address] * OVA AND PARASITE BASIC (05/18/2022 5:07 PM EDT) Pathologist [facility] Giardia Lamblia Antigen Not Detected Not detected 05/19/2022 5:34 PM EDT [facility] Cryptosporidium Exam Not Detected Not Detected 05/19/2022 5:34 PM EDT [facility], [facility] Stool SPECIMEN FROM RECTUM / Unknown 05/18/2022 5:07 PM EDT 05/18/2022 5:19 PM EDT Maude Tellez APRN MICROBIOLOGY - GENERAL ORDERA BLES Final Result Performing Organization Address [facility] de Phone Number [facility], [address] , [address] [place] [id number] * (ABNORMAL) CBC (05/18/2022 5:36 AM EDT) Pathologist [facility] WBC 8.4 3.7 - 10.3 x10(3)/mcL 05/18/2022 [...] % 05/18/2022 8:05 AM EDT [facility] Platelet 210 155 - 369 x10(3)/mcL 05/18/2022 8:05 AM EDT [facility] MPV 9.2 8.8 - 12.5 fL 05/18/2022 8:05 AM EDT [facility], [facility] Blood VENOUS BLOOD / Unknown Venipuncture / Unknown 05/18/2022 5:36 AM EDT 05/18/2022 7:15 AM EDT Sherry Rebolledo MD HEMATOLOGY ORDERABLES Final Resu lt [facility], [facility] [address] [facility] , [place] [address] * CORONAVIRUS 2019 (05/17/2022 6:31 PM EDT) [facility] CORONAVIRUS [id number] Not Detected Not Detected 05/17/2022 7:10 PM EDT [facility] Comment: This test is a real-time [...] and Patients: JOSEPH Fact Sheet for Providers: https://www.fda.gov/media/361528/download JOSEPH Fact Sheet for Patients: https://www.fda.gov/media/674759/download Test is performed on the [employer] JOSEPH platform under the FDA's Emergency Use Authorization (EUA). Performed at [facility] [address] [place] [address] CLIA [id number] Swab BOTH ANTERIOR NARES / Unknown 05/17/2022 6:31 PM EDT 05/17/2022 6:48 PM EDT us Antonina Perales APRN MICROBIOLOGY - GENERAL ORDERA BLES Final Result [facility] [facility] [address] [place] [address] * XR CHEST AP PORTABLE (07/29/2021 12:52 [...] DIAGNOSTIC IMAGING ORDE RABLES Final Result * CORONAVIRUS 2019 POCT (07/28/2021 11:47 PM EST) COV19 RNA POCT Negative Negative 07/29/2021 12:06 AM EST [facility] Swab NASAL / Unknown 07/28/2021 1 [...] management. Wright ID NOW Provider Fact Sheet: https://www.[employer].gov/media/598660/download Wright ID NOW Patient Fact Sheet: https://www.fda.gov/media/792266/download Yusuf Mabry MD MICROBIOLOGY - GENERAL ORDE [facility] Final Result [facility] [address] [place] [address] * XR KNEE LEFT AP LAT INT [...] GLUCOSE METER POC (05/06/2020 2:24 PM EDT) [facility] Glucose Meter POC 175(H) 70 - 100 [...] Final Result [facility] [address] [place] [address] * CT SOFT TISSUE NECK W CONTRAST [...] * MONONUCLEOSIS SCREEN (12/04/2019 7:04 AM EDT) [facility] Gilliam Screen Negative Negative 12/04/2019 7:29 AM EDT [facility] Blood VENOUS BLOOD / Unknown Venipuncture / Unknown 12/04/2019 7:04 AM EDT 12/04/2019 7:11 AM EDT us Jamal Becker MD CHEMISTRY ORDERABLES Stefani l Result Performing Organization Address City/[facility]/ZIP Co de Phone Number [facility] [address] [place] [address] * STREP SCREEN (12/04/2019 7:02 AM EDT) [facility] Strep Screen Not Detected Not Detected 12/04/19 7:26 AM EDT [facility] Swab SPECIMEN FROM THROAT / Unknown 12/04/2019 7:02 AM EDT 12/04/2019 7:10 AM EDT us Jamal Becker MD MICROBIOLOGY - GENERAL OR DERABLES Final Result Performing Organization Address [facility]/RUST de Phone Number [facility] [address] [place] [address] * (ABNORMAL) STREP A DNA (12/04/2019 7:02 AM EDT) [facility] Strep A DNA Detected(A ) Not Detected 12/04/2019 11:09 AM EDT [facility] [employer] Swab SPECIMEN FROM THROAT / Unknown 12/04/2019 7:02 AM EDT 12/04/2019 7:10 AM EDT Narrative [facility] [employer] - 12/04/2019 11:09 AM EDT Test methodology by loop-mediated isothermal DNA amplification (LAMP). The performance characteristics of this test were validated by [facility]. A negative result does not rule out the presence of Group A Streptococcus DNA in concentrations below the level of detection of the assay. Jamal Becker MD MICROBIOLOGY - GENERAL OR DERABLES Final Result [facility] [employer] [address] [facility], [place] [address] * XR SHOULDER RIGHT 4 VIEWS (10/02/2019 [...] - Melissa Valdez APRN IMG DIAGNOSTIC IMAGING [address] Final Result * XR ELBOW RIGHT AP [...] abnormality of the elbow. - Melissa Valdez 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 IM DIAGNOSTIC IMAGING [address] Final Result Visit [...] disease of colon, unspecified complication (HCC) 04/05/2025 Lumbosacral radiculopathy at S1 Thoracic or lumbosacral neuritis or radiculitis, unspecified 05/31/2025 Lumbosacral spondylosis without myelopathy 05/31/2025 DDD (degenerative disc disease), cervical Degeneration of cervical intervertebral disc 05/31/2025 Chronic pain syndrome 05/31/2025 Myofascial pain Mylagia and myositis, unspecified 05/31/2025 Vertebrogenic pain Backache, unspecified 05/31/2025 Crohn's disease of colon, unspecified complication (HCC) 05/31/2025 Lumbosacral radiculopathy at S1 Thoracic or lumbosacral neuritis or radiculitis, unspecified 07/27/2025 Lumbosacral spondylosis without myelopathy 07/27/2025 DDD (degenerative disc disease), cervical Degeneration of cervical intervertebral disc 07/27/2025 Chronic pain syndrome 07/27/2025 Vertebrogenic pain Backache, unspecified 07/27/2025 Crohn's disease of colon, unspecified complication (HCC) 07/27/2025 Myofascial pain Mylagia and myositis, unspecified 07/27/2025 Crohn's disease of both small and large intestine with rectal bleeding (HCC) Regional enteritis of small intestine with large intestine 07/27/2025 Cervicalgia 07/27/2025 Cervical radiculopathy Brachial neuritis or radiculitis nos 08/28/2025 Ileus (HCC) Paralytic ileus 05/17/2022 Ileus (HCC) [...] 01/25/2024 Chronic pain syndrome 01/25/2024 Care Teams Hands And Dial Inspector Relationship Specialty Start Date End Date Hill Andrews MD [address] [place] [address] [place] [address] PCP - General Emergency Medicine 03/01/23
--- OUTSIDE RECORDS SUMMARY | 2025-08-29 10:55 | XMS_ITS | Encounter Summary ---
Author Organization [facility] Address [address] [place] [address] Care Team Providers Care Deck Mechanic Name Role Phone Tammy Bauer Grazyna PEPPER Primary Care Provider +1- [phone] Reason for Visit * Reason Comments Med Refill Encounter Details Date Type Department Care Team (Late st Contact Info) Description 07/14/2025 Refill [facility] [address] [place] [address] Elisha Kathleen, CARLOS ALBERTO [address] [place] [address] Social History Tobacco Use Types [...] Telephone Encounter - Douglas Dorman PharmD - 07/14/2025 1:30 PM EST 1 medication(s) has been approved per protocol. documented in this encounter Plan of Treatment Upcoming Encounters Date Type Department Care Team (Late st Contact Info) Description 12/06/2025 10:00 AM EDT Office Visit [facility] [address] [place] [address] Elisha Kathleen PA [address] [place] [address] documented as of this encounter Visit Diagnoses [...] documented as of this encounter Care Teams Deck Mechanic Relationship Specialty Start Date End Date Tammy Bauer APRN [address] [place] [address] PCP - General 01/18/21 documented as of this encounter
--- OUTSIDE RECORDS SUMMARY | 2025-08-29 10:55 | XMS_ITS | Encounter Summary ---
Author Organization [facility] Address [address] [place] [address] Care Team Providers Care Finish Mender Name Role Phone Tammy Bauer Grazyna PEPPER Primary Care Provider +1- [phone] Encounter Details Date Type Department Care Team (Late st Contact Info) Description 07/27/2025 Telephone [facility] [facility] [address] [place] [address] Elisha Kathleen PA [address] [place] [address] Social History Tobacco Use Types [...] encounter Miscellaneous Notes * Telephone Encounter - Luz Mcdonald RN - 07/27/2025 5:54 PM EST Faxed lab work orders to [facility] Registration / Laboratory: - P: [phone] - F: [phone] / [phone] - Via [employer] on 07/27/2025 at 555pm Called pt to follow up: - LVM for pt to notify that orders have been faxed to [facility] - Asked pt to notify GI Clinic once lab work is completed, to follow up for the results. * Telephone Encounter - Elisha Kathleen PA - 07/27/2025 3:58 PM EST Spoke with patient this afternoon regarding My Chart message mentioning black stools. He reports experiencing 3-4 days of dark stools that were close to black in color. He states this has since resolved and he has returned to normal stool coloration. He is having 3-4 BM/day and acknowledges intermittent right- sided abdominal pain. He is taking PPI BID as ordered. He acknowledges being late for ustekinumab dose due to delivery issue. He is not taking iron on pepto. He is agreeable to completinglabs SANJAY. Advised him to present to ED if black stool returns or abdominal pain worsens to which he is agreeable documented in this encounter Plan of Treatment Upcoming Encounters Date Type Department Care Team (Late st Contact Info) Description 12/06/2025 10:00 AM EDT Office Visit [facility] Medicine Specialties [address] [place] [address] Elisha Kathleen PA [address] [place] [address] Scheduled Orders Name Type Priority Associated Diagnoses Orde r Schedule Comprehensive Metabolic Panel, Plasma Lab Routine Crohn's disease of small intestine without complication Expected: 07/27/2025 (Approximate), Expires: 01/24/2027 C-Reactive Protein, Plasma Lab Routine Crohn's disease of small intestine without complication Expected: 07/27/2025 (Approximate), Expires: 01/24/2027 CBC and Differential Lab Routine Crohn's disease of small intestine without complication Expected: 07/27/2025 (Approximate), Expires: 01/24/2027 Calprotectin, Fecal by Immunoassay Lab Routine Crohn's disease of small intestine without complication Expected: 07/27/2025 (Approximate), Expires: 01/24/2027 documented as of this encounter Visit Diagnoses Diagnosis Crohn's disease of small intestine without complication- Primary documented in this encounter Additional Health Concerns Assessment Noted Time PHQ-9 Depression Total Score: 0 04/12/20 25 10:41 AM EDT A fall risk assessment has been complete d for the patient 04/12/2025 10:41 AM EDT A Body Mass Index follow-up plan has been documented for the patient 04/12/2025 2:34 PM EDT documented as of this encounter Care Teams Finish Mender Relationship Specialty Start Date End Date Tammy Bauer APRN [address] [place], [place] [id number] PCP - General 01/18/21 documented as of this encounter
--- OUTSIDE RECORDS SUMMARY | 2025-08-29 10:55 | XMS_ITS | Encounter Summary ---
Author Organization [facility] Address [address] [place] [address] Care Team Providers Care Collections Analyst Name Role Phone Tammy Bauer Grazyna PEPPER Primary Care Provider +1- [phone] Encounter Details Date Type Department Care Team (Late st Contact Info) Description 08/18/2025 Telephone [facility] [address] [place] [address] Fuentes Taylor, PharmD None None Social History Tobacco Use Types Packs/Day Years [...] encounter Miscellaneous Notes * Telephone Encounter - Fuentes Taylor PharmD - 08/18/2025 3:01 PM EST [facility] Specialty Medication Follow Up Care Plan Ousmane Moulton is a 55 y.o. male assessed via phone for continuation of drug therapy [facility] for diagnosis Crohn's disease. Therapeutic Category: Inflammatory Bowel Disease Chart Review Allergies: Tetracycline, Sulfa drugs, and Sulfacetamide Current Outpatient Medications Medication Instructions albuterol 108 (90 Base) MCG/ACT inhaler No dose, route, or frequency recorded. Aspirin Low Dose 81 MG EC tablet No dose, route, or frequency recorded. atorvastatin (Lipitor) 10 MG tablet 1 tablet, Daily BD Syringe Slip Tip 25G X 5/8 1 ML misc USE WITH B12 INJECTION bisoprolol (Zebeta) 5 MG tablet No dose, route, or frequency recorded. cyclobenzaprine (Flexeril) 10 MG tablet 1 tablet, As needed esomeprazole (NEXIUM) 40 mg, Oral, 2 times daily, Do not open capsule. gabapentin (Neurontin) 600 MG tablet TAKE TWO TABLETS BY MOUTH 3 TIMES A DAY HYDROcodone-acetaminophen ([place]) 10-325 MG tablet 3 times daily (0600, 1200 & 1800) Insulin Syringe-Needle U-100 (B-D INSULIN SYRINGE 1CC/25GX1 ) 25G X 1 1 ML misc See admin instructions Insulin Syringe-Needle U-100 (B-D INSULIN SYRINGE 1CC/25GX1 ) 25G X 1 1 ML misc USE DIRECTED for vitamin B 12 injections loperamide (Imodium A-D) 2 MG tablet See admin instructions losartan-hydroCHLOROthiazide (Hyzaar) 50-12.5 MG tablet pregabalin (LYRICA) 150 mg, Oral, 3 times daily sildenafil (Revatio) 20 MG tablet 1-5 tablets by mouth as needed for sexual activity, do not repeatdose in 24 hours, take on empty stomach sildenafil (VIAGRA) 25 mg Syringe/Needle, Disp, (B-D 3CC LUER-IVIS SYR 25GX1 ) 25G X 1 3 ML misc USE DIRECTED FOR B12 INJECTIONS Syringe/Needle, Disp, (B-D SYRINGE/NEEDLE 1CC/25GX5/8) 25G X 5/8 1 ML misc To be used for monthly administration of vitamin B12. testosterone cypionate (Depo-Testosterone) 200 MG/ML injection Daily triamcinolone (Kenalog) 0.5 % cream Apply qid to rash ustekinumab (Stelara) syringe Inject contents of 1 syringe (90mg) under the skin every 4 weeks. Store in refrigerator and allow to warm to room temp prior to use. Problem List[1] Immunization History Administered Date(s) Administered Influenza, injectable, quadrivalent, preservative free 06/08/2017, 06/12/2020, 11/12/2021, 08/11/2022 Influenza, seasonal, injectable, preservative free 07/22/2009 Selected lab results: Lab Results Component Value Date WBC 8.13 04/28/2022 HGB 15.3 04/28/2022 HCT 44.7 04/28/2022 PLT 271 04/28/2022 , Lab Results Component Value Date NA 142 01/26/2024 K 3.6 01/26/2024 CL 103 01/26/2024 CREATININE 1.10 01/26/2024 BUN 8 01/26/2024 GLUCOSE 91 01/26/2024 CALCIUM 8.9 01/26/2024 CO2 26 04/28/2022 , Lab Results Component Value Date ALBUMIN 4.2 04/28/2022 ALKPHOS 98 09/23/2023 ALT 22 09/23/2023 AST 26 09/23/2023 BILITOT 0.3 09/23/2023 , Lab Results Component Value Date QUANTIFERON Negative 11/12/2021 , Lab Results Component Value Date HEPBSAG NEGATIVE Reference Value: Negative 02/10/2017 , Lab Results Component Value Date CRP <3.0 11/12/2021 , and No results found for: CHOL , HDL , TRIG , CRATIO , LDLCALC , [id number] Patient profile review for changes in Medications, Allergies, Conditions, Vaccinations? Reviewed - no changes Medication reconciliation - review all current medications including prescriptions, PTC, herbals, and supplements with the patient? Completed Is this an infusion therapy? No Patient is treatment: Naive Is patient of child bearing potential? No Disease specific labs or assessments: Other per provider Does patient have an active infection? None Drug Review Patient drug therapy initiated: Joe Is the patient taking concomitant therapy for this disease? No Drug assessment : is this the appropriate drug/dose/route/frequency/duration? Yes Drug utilization review Drug-disease precautions: No clinically significant issues identified Drug-drug interactions: No clinically significant issues identified Drug-patient precautions: No clinically significant issues identified Adherence summary: What percent of doses did the patient miss in the past 4 weeks? No missed doses Therapeutic benefit summary: Patient is achieving benefit Patient's therapy is appropriate to: Continue Education and Counseling Education & counseling was deferred on disease education including an overview of the condition, its progression and potential complications, associated comorbidities, prevention strategies, goals of therapy, and treatment and therapy management. Education & counseling was deferred on medication(s) including REMS/Black box warnings, proper use, timely administration or intake, missed dose instructions, potential side effects, contraindications, safety and handling precautions, storage and disposal guidelines, and general warnings and precautions. Education & counseling was deferred on adherence including the importance of adherence and adherence management strategies. Medication specific education provided: Patient was offered counseling of their specialty medication and declined education. Monitoring Questions Patient reported outcomes: Do you feel comfortable administering your medication and following the treatment plan as prescribed? Yes If therapy is injectable, does patient require further injection training? No How would you rate your pain on average? (0 = no pain, 10 = worst pain imaginable) N/A On a scale from 1 to 10, with 10 being very well and 1 being very poor, how are you feeling overall? 8 PREVIOUS quality of life: 8 How satisfied are you with the ongoing education and counseling you receive regarding your health condition, on a scale of 1 to 5, with 5 being completely satisfied and 1 being dissatisfied? CURRENT patient management score: 5-Completely Satisfied PREVIOUS patient management score: 5-Completely Satisfied Patient Management Assessment scores must be reviewed by a clinician with each Care Plan. Scores of2 or lower must be documented in a Clinical Intervention Care Plan. Missed doses: Have you missed a dose in the last 4 weeks? No Patient reported response to therapy In regards to your condition, how are you feeling compared to the last time we spoke? Better Disease symptoms assessment Has the patient been seen for planned or unplanned healthcare visit in the last 4 weeks? No Has the patient missed any days from work, school, or planned activities in the past 4 weeks due totheir disease? No Care Plan Questions Goal(s) of therapy: Improving or maintaining quality of life, Achieve disease remission, Control signs and symptoms of disease, and Slow or prevent progression of disease Strategies to achieve goal(s) of therapy: Adhere to plan of care (drug therapy), Comply to lab tests/imaging, Comply to follow up appointments, and Share concerns about drug therapy or side effects with care team Identified barrier(s) to care/intervention problem type: No problems identified (No barriers to care or risks associated with medication storage and handling identified) Mitigation strategy for identified barriers: N/A Outcome of Clinical Intervention: Intervention not needed Outcomes of previous adverse events/side effects: None Current adverse events/side effects patient is experiencing: No adverse events/side effects Counseled patient on selected side effects: Patient verbalized understanding Summary/Plan Pharmacist reviewed the plan of care in regards to specialty medication Stelara for diagnosis of Crohn's Disease. Patient will continue therapy.. Anticipated filling pharmacy is: Specialty Pharmacy and location of administration will be patient's home Plan/Patient specific needs: Continue Stelara Patient/caregiver participated in the development and agreed to the plan of care. Patient/caregiverhad no additional questions or concerns for the care team. Patient/caregiver voiced understanding of the goals with the regimen and agreed to attend follow up appointments to assess progress toward their goal. The plan of care will be reviewed at least annually, or more often if there is a need. Provider is a provider and will send of care plan to appropriate pool for notification. The patient agrees with all elements of the care plan: Yes Fuentes Taylor PharmD 08/18/2025 3:02 PM [1] Patient Active Problem List Diagnosis Carpal tunnel syndrome Chronic low back pain Crohn's disease of small intestine without complication Crohn's disease without complication (CMS/HCC) Displacement of lumbar intervertebral disc without myelopathy Eye pain Gastro-esophageal reflux disease without esophagitis Hematemesis Liver lesion Mild vitamin D deficiency Multiple nevi Sensory neuropathy Nicotine use disorder Other chronic pain Vitamin B 12 deficiency documented in this encounter Plan of Treatment Upcoming Encounters Date Type Department Care Team (Late st Contact Info) Description 12/06/2025 10:00 AM EDT [facility] [address] [place] [address] Elisha Kathleen, CARLOS ALBERTO [address] [place] [address] documented as of this encounter [...] documented as of this encounter Care Teams Collections Analyst Relationship Specialty Start Date End Date Tammy Bauer APRN [address] [place] [address] PCP - General 01/18/21 documented as of this encounter
--- OUTSIDE RECORDS SUMMARY | 2025-08-29 10:55 | XMS_ITS | Encounter Summary ---
Author Organization [facility] Address [address] [place] [address] Care Team Providers Care Separations Scientist Name Role Phone Tammy Bauer Grazyna PEPPER Primary Care Provider +1- [phone] Reason for Visit * Reason Comments Med Refill Encounter Details Date Type Department Care Team (Late st Contact Info) Description 06/26/2023 Refill [facility] [address] [place] [address] Elisha Kathleen, CARLOS ALBERTO [address] [place] [address] Social History Tobacco Use Types [...] 30 day supply with 6 refill(s) to [facility]. documented in this encounter Plan of Treatment Upcoming Encounters Date Type Department Care Team (Late st Contact Info) Description 12/06/2025 10:00 AM EDT Office Visit [facility] Medicine Specialties [address] [place] [address] Elisha Kathleen PA [address] [place] [address] documented as of this encounter Visit Diagnoses Not on filedocumented in this encounter Additional Health Concerns Assessment Noted Time PHQ-9 Depression Total Score: 6 02/20/20 1:00 PM EDT A fall risk assessment has been complete d for the patient 05/04/2023 10:34 AM EDT A Body Mass Index follow-up plan has been documented for the patient 05/04/2023 2:37 PM EDT documented as of this encounter Care Teams Separations Scientist Relationship Specialty Start Date End Date Tammy Bauer APRN [address] [place] [address] PCP - General 01/18/21 documented as of this encounter
[2025-08-29 11:24] LABS: Hematocrit 41.1 % (42.0-52.0); Hemoglobin 13.8 g/dL (14.1-18.0); Immature Granulocytes % 0.2 %; Mean Corpuscular HGB Conc 33.6 g/dL (31.8-35.4); Mean Corpuscular Hemoglobin 29.2 pg (27.0-31.2); Mean Corpuscular Volume 86.9 fl (80-94); Nucleated Red Blood Cells % 0 %; Platelet Count 235 K/mm3 (142-424); Red Blood Count 4.73 M/mm3 (4.60-6.20); Red Cell Distribution Width-SD 39.2 fL; White Blood Count 6.5 K/mm3 (4.8-10.8)
[2025-08-29 11:41] LABS: Albumin Level 4.0 g/dl (3.5-5.0); Chloride 101 mmol/L (98-107); Potassium 3.9 mmoL/L (3.5-5.1); Sodium 139 mmol/L (136-145)
[2025-08-29 11:44] LABS: Alanine Aminotransferase 28 U/L (12-78); Albumin/Globulin Ratio 1.5 (1.1-1.8); Alkaline Phosphatase 85 U/L (38-126); Anion Gap 8.9 mEq/L (5-15); Aspartate Amino Transferase 27 U/L (17-59); Bilirubin,Total 0.4 mg/dl (0.2-1.3); Blood Urea Nitrogen 10 mg/dl (9-20); Calcium 9.7 mg/dl (8.4-10.2); Carbon Dioxide 33 mmol/L (22.0-30.0); Creatinine,Serum 1.20 mg/dl (0.66-1.25); Estimated Glomerular Filt Rate 63 ml/min (>60); GFR (African American) 77 ML/MIN (>60); Globulin 2.6 g/dL (1.3-3.2); Glucose 143 mg/dl (74-100); Total Protein,Serum 6.6 g/dl (6.3-8.2)
[2025-08-29 11:50] LABS: C-Reactive Protein 5.5 mg/L (0-4)
== END 2025-08-29 23:59 | disposition home or self-care (01) ==
LOC: LAB 10:51
PROVIDERS: PCP Family Medicine; Visit Provider Physician Assistant
DX: K50.00 Crohn's disease of small intestine without complications (principal)
CPT/HCPCS: 36415; 80053; 85025; 86140